=== PATIENT | female | born 1970 | race African-American/Black ===

== ENCOUNTER 2019-05-12 09:37 | Inpatient (IN) ==
[~2019-05-12 09:37] MED LIST: DIPRIVAN VIAL ONE; VERSED ONE
[2019-05-12] MEDS ORDERED: NS 500 ML IV 500 ML IV ONE (10:31)
[2019-05-12 11:28] LABS: BASOPHILS % (AUTO) 0.4 % (0.2-1.0); EOSINOPHILS % (AUTO) 0.2 % (0.9-2.9); HEMATOCRIT 33.6 % (36.0-47.0); HEMOGLOBIN 11.4 g/dL (12.0-16.0); LYMPHOCYTES # (AUTO) 1.4 X10^3/uL (1.3-2.9); LYMPHOCYTES % (AUTO) 13.3 % (21.0-51.0); MEAN CORPUSCULAR HEMOGLOBIN 29.8 pg (27.0-34.0); MEAN CORPUSCULAR VOLUME 87.7 fL (80.0-100.0); MEAN PLATELET VOLUME 8.6 fL (7.4-11.0); MONOCYTES # (AUTO) 1.1 x10^3/uL (0.3-0.8); MONOCYTES % (AUTO) 10.2 % (0.0-13.0); NEUTROPHILS # (AUTO) 7.9 x10^3/uL (2.2-4.8); NEUTROPHILS % (AUTO) 75.9 % (42.0-75.0); PLATELET COUNT 297 X10^3/uL (150.0-450.0); RED BLOOD COUNT 3.83 X10^6/uL (3.5-5.4); RED CELL DISTRIBUTION WIDTH 12.6 % (11.6-16.5); WHITE BLOOD COUNT 10.4 X10^3/uL (3.6-10.0)
[2019-05-12 11:44] LABS: ALANINE AMINOTRANSFERASE 36 Units/L (12-78); ALKALINE PHOSPHATASE 178 Units/L (46-116); ASPARTATE AMINO TRANSFERASE 34 Units/L (15-37); BLOOD UREA NITROGEN 12 mg/dL (7-18); CARBON DIOXIDE 27.2 mmol/L (21-32); CHLORIDE 95 mmol/L (98-107); COR CA(FOR HYPOALB) 9.8 mg/dL (8.5-10.1); COR NA(FOR HYPERGLY) 134 mmol/L (136-145); CREATININE 1.03 mg/dL (0.55-1.02); SODIUM 132 mmol/L (136-145); eGFR NON BLACK RACES > 60 (>60)
[2019-05-12 12:15] LABS: ERYTHROCYTE SEDIMENTATION RATE 94 MM/HOUR (0-20)
[2019-05-12] MEDS ORDERED: DILAUDID INJ IVP PRN ×2 (12:19→15:15)
[2019-05-12] MEDS ORDERED: DILAUDID INJ ONE (12:22)
[2019-05-12] MEDS: NS 1000 ML 1,000 ML IV SCH (12:36)
[2019-05-12] MEDS ORDERED: FORTAZ or TAZICEF VIAL INJ 2 G in NS 100 ML IV + SPIKE MINIBAG* 100 ML IV ONE (12:52)
--- NOTE | 2019-05-12 13:14 | RAD ---
HISTORY:Preoperative evaluation for abscess drainageStudy: Single view chestComparison:NoneFindings:No infiltrate, effusion, or pneumothorax identified .Cardiac and mediastinal contours are within normal limits .The soft tissues are intact .IMPRESSION:1. No acute cardiopulmonary abnormality.Electronically signed by: BLANCA ALMANZAR (May 12, 2019 13:13:24)
[2019-05-12 13:58] VITALS: BMI 38.0
[2019-05-12] MEDS ORDERED: FLAGYL IV PREMIX 500 MG BAG 500 MG/100 ML BAG IV ONE (14:00)
[2019-05-12] MEDS ORDERED: FENTANYL INJ 100 mcg ONE (14:00)
[2019-05-12] MEDS: FLAGYL IV PREMIX 500 MG BAG 500 MG/100 ML BAG IV SCH ×3 (14:00→21:06)
[2019-05-12] MEDS ORDERED: ANCEF 1 GRAM IV PREMIX* 1 G/50 ML BAG IV ONE (14:15)
[2019-05-12] MEDS ORDERED: XYLOCAINE 1 % (PLAIN) ONE (14:21)
[2019-05-12] MEDS ORDERED: POLYMYXIN B SULFATE ONE (14:25)
[2019-05-12] MEDS ORDERED: ZESTRIL TAB 20 MG ONE (20:49)
[2019-05-12] MEDS ORDERED: MILK OF MAGNESIA PO SCH (21:00)
[2019-05-12] MEDS ORDERED: COLACE CAP 100 MG PO SCH (21:00)
[2019-05-12] MEDS: ZESTRIL TAB 20 MG PO SCH (21:08)
[2019-05-12] MEDS: MORPHINE SULFATE INJ 2 MG INJ IVP PRN (21:13)
[2019-05-13] MEDS ORDERED: BENADRYL INJ 50 MG VIAL ONE (00:13)
[2019-05-13] MEDS: NS 1000 ML 1,000 ML IV SCH ×3 (00:19→13:49)
[2019-05-13] MEDS: BENADRYL INJ 50 MG VIAL IV PRN ×3 (00:19→21:30)
[2019-05-13] MEDS: MORPHINE SULFATE INJ 2 MG INJ IVP PRN ×4 (02:27→21:19)
[2019-05-13 05:14] LABS: BASOPHILS % (AUTO) 0.4 % (0.2-1.0); EOSINOPHILS # (AUTO) 0.1 x10^3/uL (0.0-0.2); EOSINOPHILS % (AUTO) 0.8 % (0.9-2.9); HEMATOCRIT 29.5 % (36.0-47.0); HEMOGLOBIN 9.9 g/dL (12.0-16.0); LYMPHOCYTES # (AUTO) 1.4 X10^3/uL (1.3-2.9); LYMPHOCYTES % (AUTO) 19.5 % (21.0-51.0); MEAN CORPUSCULAR HEMOGLOBIN 29.4 pg (27.0-34.0); MEAN CORPUSCULAR HGB CONC 33.6 g/dL (33.0-35.0); MEAN CORPUSCULAR VOLUME 87.6 fL (80.0-100.0); MEAN PLATELET VOLUME 8.3 fL (7.4-11.0); MONOCYTES # (AUTO) 0.8 x10^3/uL (0.3-0.8); MONOCYTES % (AUTO) 10.5 % (0.0-13.0); NEUTROPHILS # (AUTO) 5.1 x10^3/uL (2.2-4.8); NEUTROPHILS % (AUTO) 68.8 % (42.0-75.0); PLATELET COUNT 255 X10^3/uL (150.0-450.0); RED BLOOD COUNT 3.37 X10^6/uL (3.5-5.4); RED CELL DISTRIBUTION WIDTH 12.8 % (11.6-16.5); WHITE BLOOD COUNT 7.4 X10^3/uL (3.6-10.0)
[2019-05-13] MEDS: FLAGYL IV PREMIX 500 MG BAG 500 MG/100 ML BAG IV SCH ×3 (05:22→21:16)
[2019-05-13 05:29] LABS: ALANINE AMINOTRANSFERASE 40 Units/L (12-78); ALBUMIN 2.5 g/dL (3.4-5.0); ALKALINE PHOSPHATASE 229 Units/L (46-116); ASPARTATE AMINO TRANSFERASE 45 Units/L (15-37); BLOOD UREA NITROGEN 12 mg/dL (7-18); CALCIUM 8.1 mg/dL (8.5-10.1); CARBON DIOXIDE 26.7 mmol/L (21-32); CHLORIDE 100 mmol/L (98-107); COR CA(FOR HYPOALB) 9.3 mg/dL (8.5-10.1); COR NA(FOR HYPERGLY) 134 mmol/L (136-145); CREATININE 0.82 mg/dL (0.55-1.02); SODIUM 133 mmol/L (136-145); TOTAL PROTEIN 7.3 g/dL (6.4-8.2); eGFR NON BLACK RACES > 60 (>60)
[2019-05-13] MEDS ORDERED: KLOR-CON PO PRN (05:43)
[2019-05-13] MEDS ORDERED: POTASSIUM CHL 60 MEQ/NS 0.45% 500 ML IV PRN (05:43)
[2019-05-13] MEDS ORDERED: MICRO K EXTEN CAP 10 MEQ PO PRN (05:43)
[2019-05-13] MEDS ORDERED: K-RIDER 10 MEQ/NS 100 ML 10 MEQ/100 ML BAG IV PRN (05:43)
[2019-05-13] MEDS ORDERED: POTASSIUM CHL 40 MEQ/NS 0.45% 500 ML IV PRN (05:43)
[2019-05-13] MEDS ORDERED: POTASSIUM CHLORIDE LIQ 20 MEQ UDC PO PRN (05:43)
[2019-05-13 06:41] LABS: ERYTHROCYTE SEDIMENTATION RATE 102 MM/HOUR (0-20)
[2019-05-13] MEDS: K-DUR TAB 20 MEQ PO PRN (06:42)
[2019-05-13] MEDS: MAGNESIUM SULFATE 1 GRAM/100 mL PREMIX 1 GM/100 ML BAG IV PRN ×2 (06:43→08:45)
[2019-05-13] MEDS ORDERED: PHARMACY CONSULT - VANCOMYCIN XX SCH (09:00)
[2019-05-13] MEDS ORDERED: ZESTRIL TAB 20 MG ONE ×2 (09:07→19:43)
[2019-05-13] MEDS: ZESTRIL TAB 20 MG PO SCH ×2 (09:24→21:16)
[2019-05-13] MEDS: VANCOMYCIN IV *PREMIX 1 G/200 ML BAG 1 G/200 ML PIGGYBACK IV SCH ×3 (10:46→21:22)
[2019-05-13] MEDS: BETADINE SOLN TOP SCH ×3 (10:47→21:21)
[2019-05-13] MEDS ORDERED: COLACE CAP 100 MG PO PRN (11:18)
[2019-05-13] MEDS ORDERED: MILK OF MAGNESIA PO PRN (11:19)
[2019-05-14] MEDS: NS 1000 ML 1,000 ML IV SCH ×2 (01:51→17:52)
[2019-05-14] MEDS: MORPHINE SULFATE INJ 2 MG INJ IVP PRN ×4 (03:02→21:00)
[2019-05-14] MEDS: ULTRAM PO PRN (03:07)
[2019-05-14] MEDS: FLAGYL IV PREMIX 500 MG BAG 500 MG/100 ML BAG IV SCH ×3 (05:02→21:00)
[2019-05-14] MEDS: BETADINE SOLN TOP SCH ×3 (05:03→22:03)
[2019-05-14] MEDS: VANCOMYCIN IV *PREMIX 1 G/200 ML BAG 1 G/200 ML PIGGYBACK IV SCH ×3 (05:37→22:04)
[2019-05-14 05:46] LABS: BASOPHILS % (AUTO) 0.4 % (0.2-1.0); EOSINOPHILS # (AUTO) 0.1 x10^3/uL (0.0-0.2); EOSINOPHILS % (AUTO) 1.6 % (0.9-2.9); HEMATOCRIT 30.2 % (36.0-47.0); HEMOGLOBIN 10.4 g/dL (12.0-16.0); LYMPHOCYTES # (AUTO) 2.4 X10^3/uL (1.3-2.9); LYMPHOCYTES % (AUTO) 27.8 % (21.0-51.0); MEAN CORPUSCULAR HGB CONC 34.4 g/dL (33.0-35.0); MEAN CORPUSCULAR VOLUME 87.2 fL (80.0-100.0); MEAN PLATELET VOLUME 8.1 fL (7.4-11.0); MONOCYTES # (AUTO) 0.7 x10^3/uL (0.3-0.8); MONOCYTES % (AUTO) 8.6 % (0.0-13.0); NEUTROPHILS # (AUTO) 5.2 x10^3/uL (2.2-4.8); NEUTROPHILS % (AUTO) 61.6 % (42.0-75.0); PLATELET COUNT 275 X10^3/uL (150.0-450.0); RED BLOOD COUNT 3.46 X10^6/uL (3.5-5.4); RED CELL DISTRIBUTION WIDTH 12.9 % (11.6-16.5); WHITE BLOOD COUNT 8.5 X10^3/uL (3.6-10.0)
[2019-05-14 06:01] LABS: ALANINE AMINOTRANSFERASE 27 Units/L (12-78); ALBUMIN 2.3 g/dL (3.4-5.0); ALKALINE PHOSPHATASE 175 Units/L (46-116); ASPARTATE AMINO TRANSFERASE 25 Units/L (15-37); BLOOD UREA NITROGEN 11 mg/dL (7-18); CALCIUM 8.3 mg/dL (8.5-10.1); CARBON DIOXIDE 26.6 mmol/L (21-32); CHLORIDE 104 mmol/L (98-107); COR CA(FOR HYPOALB) 9.7 mg/dL (8.5-10.1); COR NA(FOR HYPERGLY) 138 mmol/L (136-145); CREATININE 0.74 mg/dL (0.55-1.02); MAGNESIUM 1.8 mg/dL (1.7-2.9); SODIUM 137 mmol/L (136-145); TOTAL PROTEIN 7.1 g/dL (6.4-8.2); eGFR NON BLACK RACES > 60 (>60)
[2019-05-14 06:57] LABS: ERYTHROCYTE SEDIMENTATION RATE 98 MM/HOUR (0-20)
[2019-05-14] MEDS ORDERED: ZESTRIL TAB 20 MG ONE ×2 (09:07→19:20)
[2019-05-14] MEDS: ZESTRIL TAB 20 MG PO SCH ×2 (09:30→21:02)
[2019-05-14] MEDS: BENADRYL INJ 50 MG VIAL IV PRN ×2 (11:48→21:04)
[2019-05-14] MEDS ORDERED: PHARMACY COMMENT IV NR (13:30)
[2019-05-14 13:53] LABS: CREATININE 0.84 mg/dL (0.55-1.02); VANCOMYCIN,TROUGH 12.3 ug/mL (15-20)
[2019-05-14] MEDS: HumuLIN R SC PRN (20:57)
[2019-05-15] MEDS: BENADRYL INJ 50 MG VIAL IV PRN (03:01)
[2019-05-15] MEDS: MORPHINE SULFATE INJ 2 MG INJ IVP PRN ×3 (03:02→21:40)
[2019-05-15] MEDS: ULTRAM PO PRN ×2 (03:27→08:32)
[2019-05-15] MEDS: VANCOMYCIN IV *PREMIX 1 G/200 ML BAG 1 G/200 ML PIGGYBACK IV SCH (05:00)
[2019-05-15] MEDS: BETADINE SOLN TOP SCH ×4 (05:00→21:52)
[2019-05-15] MEDS: FLAGYL IV PREMIX 500 MG BAG 500 MG/100 ML BAG IV SCH ×3 (05:08→21:52)
[2019-05-15] MEDS: NS 1000 ML 1,000 ML IV SCH ×2 (05:11→17:03)
[2019-05-15 06:19] LABS: BASOPHILS % (AUTO) 0.5 % (0.2-1.0); EOSINOPHILS # (AUTO) 0.2 x10^3/uL (0.0-0.2); EOSINOPHILS % (AUTO) 2.1 % (0.9-2.9); HEMATOCRIT 32.1 % (36.0-47.0); HEMOGLOBIN 10.8 g/dL (12.0-16.0); LYMPHOCYTES # (AUTO) 2.5 X10^3/uL (1.3-2.9); LYMPHOCYTES % (AUTO) 32.4 % (21.0-51.0); MEAN CORPUSCULAR HGB CONC 33.6 g/dL (33.0-35.0); MEAN CORPUSCULAR VOLUME 86.3 fL (80.0-100.0); MEAN PLATELET VOLUME 7.8 fL (7.4-11.0); MONOCYTES # (AUTO) 0.5 x10^3/uL (0.3-0.8); NEUTROPHILS # (AUTO) 4.5 x10^3/uL (2.2-4.8); PLATELET COUNT 332 X10^3/uL (150.0-450.0); RED BLOOD COUNT 3.72 X10^6/uL (3.5-5.4); RED CELL DISTRIBUTION WIDTH 12.5 % (11.6-16.5); WHITE BLOOD COUNT 7.7 X10^3/uL (3.6-10.0)
[2019-05-15 06:21] LABS: ALANINE AMINOTRANSFERASE 25 Units/L (12-78); ALBUMIN 2.4 g/dL (3.4-5.0); ALKALINE PHOSPHATASE 143 Units/L (46-116); ASPARTATE AMINO TRANSFERASE 19 Units/L (15-37); BLOOD UREA NITROGEN 8 mg/dL (7-18); CALCIUM 8.3 mg/dL (8.5-10.1); CARBON DIOXIDE 25.3 mmol/L (21-32); CHLORIDE 103 mmol/L (98-107); COR CA(FOR HYPOALB) 9.6 mg/dL (8.5-10.1); COR NA(FOR HYPERGLY) 138 mmol/L (136-145); CREATININE 0.69 mg/dL (0.55-1.02); SODIUM 136 mmol/L (136-145); TOTAL PROTEIN 7.1 g/dL (6.4-8.2); eGFR NON BLACK RACES > 60 (>60)
[2019-05-15 07:19] LABS: ERYTHROCYTE SEDIMENTATION RATE 95 MM/HOUR (0-20)
[2019-05-15] MEDS ORDERED: ZESTRIL TAB 20 MG ONE ×2 (08:07→20:06)
[2019-05-15] MEDS: ZESTRIL TAB 20 MG PO SCH ×2 (08:20→20:16)
--- NOTE | 2019-05-15 08:34 | PCM.PROG ---
Progress Note - Progress Note for Day of Date of Exam: 05/12/29 - Subjective Subjective: IS BEING TREATED FOR A BUTTOCK/RECTAL ABSCESS. SHE HAD BEEN TAKING BACTRIM AT HOME WITHOUT IMPROVEMENT IN SYMPTOMS. ON ADMISSION, TOOK PATIENT TO THE OR FOR I&D AND DEBRIDEMENT. WOUND WAS PACKED WITH IODIFORM AND CULTRUES WERE SET UP. TODAY, SHE IS ALERT AND ORIENTED, LYING IN BED ON MORNING ROUNDS. SHE CONTINUES WITH PAIN TO AREA. ON EXAMINATION, HEART IS REGULAR IN RATE AND RHYTHM. BILATERAL LUNGS ARE CLEAR TO AUSCULTATION. ABDOMEN IS ROUND, SOFT, AND NON-TENDER WITH NORMAL BOWEL SOUNDS NOTED IN ALL QUADRANTS. THERE IS A DRESSING NOTED TO BUTTOCK WITH NO DRAINAGE NOTED. IS MONITORING WOUND AND WILL PERFORM DAILY DRESSING CHANGES. HER VITALS THIS MORNING ARE: 98.8-83-20-98%-126/72. LABS WERE OBTAINED. ABNORMAL LAB VALUES INCLUDE THE FOLLOWING: RBC 3.37, HGB 9.9, HCT 29.5, SODIUM 133, GLUCOSE 133, CALCIUM 8.1, AST 45, ALK PHOS 229, CRP 118.90, ALBUMIN 2.5, GLOBULIN 4.8. WOUND AND BLOOD CULTURES ARE PENDING. SHE IS CURRENTLY RECEIVING NORMAL SALINE AT 80 ML/HR, VANCOMYCIN 1G IV Q8H, FLAGYL 500MG IV Q8H, HUMULIN R SLIDIDNG SCALE, MORPHINE 1-2MG IV Q4H PRN PAIN, THE POTASSIUM AND MAGNESIUM PROTOCOLS, AND HOME MEDICATIONS WERE RESUMED. WE WILL CONTINUE WITH CURRENT PLAN OF CARE TODAY. OTHERWISE, WE WILL FOLLOW UP WITH AM LABS AND CONTINUE TO MONITOR. - Past Medical Family Social History Past Med/Fam/Surg Hx: No changes since H&P Allergies: Allergies Penicillins Allergy (Verified 05/12/19 21:02) - Review of Systems ROS: No change since H&P - Vital Signs and I&O's Vital Signs: Temperature 98.5 F Pulse Rate [Left] 91 Respiratory Rate 20 Blood Pressure [Left Arm] 184/79 Blood Pressure [Right Arm] 172/90 Blood Pressure 155/99 O2 Sat by Pulse Oximetry 98 Intake and Output: Intake & Output 05/12/19 05/13/19 05/14/19 05/15/19 11:59 11:59 11:59 11:59 Intake Total 1430 / 1430 3210 / 3210 2925 / 2925 Output Total 200 / 200 Balance 1230 / 1230 3210 / 3210 2925 / 2925 - Physical Exam Oriented: Normal Eyes: Normal Ear: Normal Nose: Normal Throat: Normal Respiratory: Normal Cardiovascular: Normal : Normal Auscultation: Bowel Sounds: Normal Palpation: Normal Tenderness: Normal Skin: Tender, Hot, Wound (LEFT SIDED ISCHIORECTAL WOUND ) Musculoskeletal: Normal Psychiatric: Normal Mood Description: Calm Affect: Normal Speech Pattern: Clear - Laboratory and Diagnostics Result Diagrams: 05/15/19 05:23 05/15/19 05:23 Labs: 05/13/19 18:30 Stool Stool Culture - Preliminary 05/13/19 18:30 Stool - Final 05/12/19 14:30 Buttock Gram Stain - Final 05/12/19 14:30 Buttock Wound Culture - Final Proteus Mirabilis 05/12/19 10:40 Buttock Gram Stain - Final 05/12/19 10:40 Buttock Wound Culture - Final Proteus Mirabilis 05/12/19 10:57 Blood Blood Culture - Preliminary 05/12/19 11:07 Blood Blood Culture - Preliminary Laboratory WBC 7.7 X10^3/uL (3.6-10.0) 05/15/19 05:23 RBC 3.72 X10^6/uL (3.5-5.4) 05/15/19 05:23 Hgb 10.8 g/dL (12.0-16.0) L 05/15/19 05:23 Hct 32.1 % (36.0-47.0) L 05/15/19 05:23 MCV 86.3 fL (80.0-100.0) 05/15/19 05:23 MCH 29.0 pg (27.0-34.0) 05/15/19 05:23 MCHC 33.6 g/dL (33.0-35.0) 05/15/19 05:23 RDW 12.5 % (11.6-16.5) 05/15/19 05:23 Plt Count 332 X10^3/uL (150.0-450.0) 05/15/19 05:23 MPV 7.8 fL (7.4-11.0) 05/15/19 05:23 Neut % (Auto) 58.0 % (42.0-75.0) 05/15/19 05:23 Lymph % (Auto) 32.4 % (21.0-51.0) 05/15/19 05:23 [place] % (Auto) 7.0 % (0.0-13.0) 05/15/19 05:23 Eos % (Auto) 2.1 % (0.9-2.9) 05/15/19 05:23 Baso % (Auto) 0.5 % (0.2-1.0) 05/15/19 05:23 Neut # (Auto) 4.5 x10^3/uL (2.2-4.8) 05/15/19 05:23 Lymph # (Auto) 2.5 X10^3/uL (1.3-2.9) 05/15/19 05:23 [place] # (Auto) 0.5 x10^3/uL (0.3-0.8) 05/15/19 05:23 Eos # (Auto) 0.2 x10^3/uL (0.0-0.2) 05/15/19 05:23 Baso # (Auto) 0.0 X10^3/uL (0.0-0.1) 05/15/19 05:23 Absolute Nucleated RBC 0.0 /100WBC 05/15/19 05:23 ESR 95 MM/HOUR (0-20) H 05/15/19 05:23 Sodium 136 mmol/L (136-145) 05/15/19 05:23 Corrected Sodium 138 mmol/L (136-145) 05/15/19 05:23 Potassium 3.9 mmol/L (3.5-5.1) 05/15/19 05:23 Chloride 103 mmol/L (98-107) 05/15/19 05:23 Carbon Dioxide 25.3 mmol/L (21-32) 05/15/19 05:23 BUN 8 mg/dL (7-18) 05/15/19 05:23 Creatinine 0.69 mg/dL (0.55-1.02) 05/15/19 05:23 Est GFR (MDRD) Af Amer > 60 (>60) 05/15/19 05:23 Est GFR (MDRD) Non-Af > 60 (>60) 05/15/19 05:23 Glucose 184 mg/dL (65-99) H 05/15/19 05:23 POC Glucose (mg/dL) 179 mg/dL (65-99) H 05/15/19 05:21 Calcium 8.3 mg/dL (8.5-10.1) L 05/15/19 05:23 Corrected Calcium 9.6 mg/dL (8.5-10.1) 05/15/19 05:23 Magnesium 1.8 mg/dL (1.7-2.9) 05/14/19 05:15 Total Bilirubin 0.30 mg/dL (0.2-1.0) 05/15/19 05:23 AST 19 Units/L (15-37) 05/15/19 05:23 ALT 25 Units/L (12-78) 05/15/19 05:23 Alkaline Phosphatase 143 Units/L (46-116) H 05/15/19 05:23 C-Reactive Protein 46.70 mg/L (0-3.0) H 05/15/19 05:23 Total Protein 7.1 g/dL (6.4-8.2) 05/15/19 05:23 Albumin 2.4 g/dL (3.4-5.0) L 05/15/19 05:23 Globulin 4.7 g/dL (2.5-4.5) H 05/15/19 05:23 Albumin/Globulin Ratio 0.5 Ratio (1.1-2.1) L 05/15/19 05:23 Stool Description 50g,liquid,brown 05/13/19 18:30 Stl Occult Blood (IFOB) Negative (NEGATIVE) 05/13/19 18:30 Stool for White Cells Negative (NEGATIVE) 05/13/19 18:30 Stl C. diff Tox B Gene Negative (NEGATIVE) 05/13/19 18:30 Stl C. diff 027-NAP1-BI Negative (NEGATIVE) 05/13/19 18:30 Vancomycin Trough 12.3 ug/mL (15-20) L 05/14/19 13:30 - Plan (1) Ischiorectal abscess Status: Acute Plan: IV VANCOMYCIN, IV FLAGYL, IV FLUIDS, PAIN CONTROL, WOUND CARE, CONTINUE TO MONITOR
[2019-05-15] MEDS: INVANZ INJ 1 GM VIAL 1 GM in NS 100 ML IV + SPIKE MINIBAG* 100 ML IV SCH (09:26)
--- NOTE | 2019-05-15 10:18 | PCM.PROG ---
Progress Note - Progress Note for Day of Date of Exam: 05/14/19 - Subjective Subjective: IS BEING TREATED FOR AN ISCHIORECTAL ABSCESS. ON ADMISSION, TOOK PATIENT TO THE OR FOR I&D AND DEBRIDEMENT. WOUND WAS PACKED WITH IODIFORM AND CULTRUES WERE SET UP. TODAY, SHE IS ALERT AND ORIENTED, LYING IN BED ON MORNING ROUNDS. SHE CONTINUES WITH PAIN TO AREA. ON EXAMINATION, HEART IS REGULAR IN RATE AND RHYTHM. BILATERAL LUNGS ARE CLEAR TO AUSCULTATION. ABDOMEN IS ROUND, SOFT, AND NON-TENDER WITH NORMAL BOWEL SOUNDS NOTED IN ALL QUADRANTS. THERE IS A DRESSING NOTED TO BUTTOCK WITH NO DRAINAGE NOTED. IS MONITORING WOUND AND WILL PERFORM DAILY DRESSING CHANGES. HER VITALS THIS MORNING ARE: 98.0-84-18-100%-141/73. LABS WERE OBTAINED. ABNORMAL LAB VALUES INCLUDE THE FOLLOWING: RBC 3.46, HGB 10.4, HCT 30.2, GLUCOSE 137, CALCIUM 8.3, ALK PHOS 175, CRP 78.40, ALBUMIN 2.3, GLOBULIN 4.8. WOUND AND BLOOD CULTURES ARE PENDING. SHE IS CURRENTLY RECEIVING NORMAL SALINE AT 80 ML/HR, VANCOMYCIN 1G IV Q8H, FLAGYL 500MG IV Q8H, HUMULIN R SLIDIDNG SCALE, MORPHINE 1-2MG IV Q4H PRN PAIN, THE POTASSIUM AND MAGNESIUM PROTOCOLS, AND HOME MEDICATIONS WERE RESUMED. WE WILL CONTINUE WITH CURRENT PLAN OF CARE TODAY. OTHERWISE, WE WILL FOLLOW UP WITH AM LABS AND CONTINUE TO MONITOR. - Past Medical Family Social History Past Med/Fam/Surg Hx: No changes since H&P Allergies: Allergies Penicillins Allergy (Verified 05/12/19 21:02) - Review of Systems ROS: No change since H&P - Vital Signs and I&O's Vital Signs: Temperature 98.4 F Pulse Rate [Left] 82 Respiratory Rate 20 Blood Pressure [Left Arm] 184/79 Blood Pressure [Right Arm] 162/97 Blood Pressure 155/99 O2 Sat by Pulse Oximetry 98 Intake and Output: Intake & Output 05/12/19 05/13/19 05/14/19 05/15/19 11:59 11:59 11:59 11:59 Intake Total 1430 / 1430 3210 / 3210 2925 / 2925 Output Total 200 / 200 Balance 1230 / 1230 3210 / 3210 2925 / 2925 - Physical Exam Oriented: Normal Eyes: Normal Ear: Normal Nose: Normal Throat: Normal Respiratory: Normal Cardiovascular: Normal : Normal Auscultation: Bowel Sounds: Normal Tenderness: Normal Skin: Tender, Hot, Wound (LEFT SIDED ISCHIORECTAL WOUND ) Musculoskeletal: Normal Psychiatric: Normal Mood Description: Calm Affect: Normal Speech Pattern: Clear, Appropriate - Laboratory and Diagnostics Result Diagrams: 05/15/19 05:23 05/15/19 05:23 Labs: 05/13/19 18:30 Stool Stool Culture - Final 05/13/19 18:30 Stool - Final 05/12/19 14:30 Buttock Gram Stain - Final 05/12/19 14:30 Buttock Wound Culture - Final Proteus Mirabilis 05/12/19 10:40 Buttock Gram Stain - Final 05/12/19 10:40 Buttock Wound Culture - Final Proteus Mirabilis 05/12/19 10:57 Blood Blood Culture - Preliminary 05/12/19 11:07 Blood Blood Culture - Preliminary Laboratory WBC 7.7 X10^3/uL (3.6-10.0) 05/15/19 05:23 RBC 3.72 X10^6/uL (3.5-5.4) 05/15/19 05:23 Hgb 10.8 g/dL (12.0-16.0) L 05/15/19 05:23 Hct 32.1 % (36.0-47.0) L 05/15/19 05:23 MCV 86.3 fL (80.0-100.0) 05/15/19 05:23 MCH 29.0 pg (27.0-34.0) 05/15/19 05:23 MCHC 33.6 g/dL (33.0-35.0) 05/15/19 05:23 RDW 12.5 % (11.6-16.5) 05/15/19 05:23 Plt Count 332 X10^3/uL (150.0-450.0) 05/15/19 05:23 MPV 7.8 fL (7.4-11.0) 05/15/19 05:23 Neut % (Auto) 58.0 % (42.0-75.0) 05/15/19 05:23 Lymph % (Auto) 32.4 % (21.0-51.0) 05/15/19 05:23 [place] % (Auto) 7.0 % (0.0-13.0) 05/15/19 05:23 Eos % (Auto) 2.1 % (0.9-2.9) 05/15/19 05:23 Baso % (Auto) 0.5 % (0.2-1.0) 05/15/19 05:23 Neut # (Auto) 4.5 x10^3/uL (2.2-4.8) 05/15/19 05:23 Lymph # (Auto) 2.5 X10^3/uL (1.3-2.9) 05/15/19 05:23 [place] # (Auto) 0.5 x10^3/uL (0.3-0.8) 05/15/19 05:23 Eos # (Auto) 0.2 x10^3/uL (0.0-0.2) 05/15/19 05:23 Baso # (Auto) 0.0 X10^3/uL (0.0-0.1) 05/15/19 05:23 Absolute Nucleated RBC 0.0 /100WBC 05/15/19 05:23 ESR 95 MM/HOUR (0-20) H 05/15/19 05:23 Sodium 136 mmol/L (136-145) 05/15/19 05:23 Corrected Sodium 138 mmol/L (136-145) 05/15/19 05:23 Potassium 3.9 mmol/L (3.5-5.1) 05/15/19 05:23 Chloride 103 mmol/L (98-107) 05/15/19 05:23 Carbon Dioxide 25.3 mmol/L (21-32) 05/15/19 05:23 BUN 8 mg/dL (7-18) 05/15/19 05:23 Creatinine 0.69 mg/dL (0.55-1.02) 05/15/19 05:23 Est GFR (MDRD) Af Amer > 60 (>60) 05/15/19 05:23 Est GFR (MDRD) Non-Af > 60 (>60) 05/15/19 05:23 Glucose 184 mg/dL (65-99) H 05/15/19 05:23 POC Glucose (mg/dL) 179 mg/dL (65-99) H 05/15/19 05:21 Calcium 8.3 mg/dL (8.5-10.1) L 05/15/19 05:23 Corrected Calcium 9.6 mg/dL (8.5-10.1) 05/15/19 05:23 Magnesium 1.8 mg/dL (1.7-2.9) 05/14/19 05:15 Total Bilirubin 0.30 mg/dL (0.2-1.0) 05/15/19 05:23 AST 19 Units/L (15-37) 05/15/19 05:23 ALT 25 Units/L (12-78) 05/15/19 05:23 Alkaline Phosphatase 143 Units/L (46-116) H 05/15/19 05:23 C-Reactive Protein 46.70 mg/L (0-3.0) H 05/15/19 05:23 Total Protein 7.1 g/dL (6.4-8.2) 05/15/19 05:23 Albumin 2.4 g/dL (3.4-5.0) L 05/15/19 05:23 Globulin 4.7 g/dL (2.5-4.5) H 05/15/19 05:23 Albumin/Globulin Ratio 0.5 Ratio (1.1-2.1) L 05/15/19 05:23 Stool Description 50g,liquid,brown 05/13/19 18:30 Stl Occult Blood (IFOB) Negative (NEGATIVE) 05/13/19 18:30 Stool for White Cells Negative (NEGATIVE) 05/13/19 18:30 Stl C. diff Tox B Gene Negative (NEGATIVE) 05/13/19 18:30 Stl C. diff 027-NAP1-BI Negative (NEGATIVE) 05/13/19 18:30 Vancomycin Trough 12.3 ug/mL (15-20) L 05/14/19 13:30 - Plan (1) Ischiorectal abscess Status: Acute Plan: IV VANCOMYCIN, IV FLAGYL, IV FLUIDS, PAIN CONTROL, WOUND CARE, CONTINUE TO MONITOR
[2019-05-15] MEDS: LOVENOX INJ 40 MG SYR SC SCH (10:30)
--- NOTE | 2019-05-15 11:26 | PCM.PROG ---
Progress Note - Progress Note for Day of Date of Exam: 05/15/19 - Subjective Subjective: IS BEING TREATED FOR AN ISCHIORECTAL ABSCESS. ON ADMISSION, TOOK PATIENT TO THE OR FOR I&D AND DEBRIDEMENT. WOUND WAS PACKED WITH IODIFORM AND CULTRUES WERE SET UP. TODAY, SHE IS ALERT AND ORIENTED, LYING IN BED ON MORNING ROUNDS. SHE CONTINUES WITH PAIN TO AREA. ON EXAMINATION, HEART IS REGULAR IN RATE AND RHYTHM. BILATERAL LUNGS ARE CLEAR TO AUSCULTATION. ABDOMEN IS ROUND, SOFT, AND NON-TENDER WITH NORMAL BOWEL SOUNDS NOTED IN ALL QUADRANTS. THERE IS A DRESSING NOTED TO BUTTOCK WITH NO DRAINAGE NOTED. IS MONITORING WOUND AND WILL PERFORM DAILY DRESSING CHANGES. HER VITALS THIS MORNING ARE: 98.4-82-20-98%-162/97. LABS WERE OBTAINED. ABNORMAL LAB VALUES I NCLUDE THE FOLLOWING: HGB 10.8, HCT 32.1, GLUCOSE 184, CALCIUM 8.3, ALK PHOS 143, CRP 46.70, ALBUMIN 2.4, GLOBULIN 4.7. BLOOD CULTURES ARE PENDING. WOUND CULTURES REVEALED GROWTH OF PROTEUS MIRABILIS. SHE IS CURRENTLY RECEIVING NORMAL SALINE AT 80 ML/HR, VANCOMYCIN 1G IV Q8H, FLAGYL 500MG IV Q8H, HUMULIN R SLIDIDNG SCALE, MORPHINE 1-2MG IV Q4H PRN PAIN, THE POTASSIUM AND MAGNESIUM PROTOCOLS, AND HOME MEDICATIONS WERE RESUMED. TODAY, WE WILL DISCONTINUE THE VANCOMYCIN AND START INVANZ 1G IV DAILY. OTHERWISE, WE WILL FOLLOW UP WITH AM LABS AND CONTINUE TO MONITOR. - Past Medical Family Social History Past Med/Fam/Surg Hx: No changes since H&P Allergies: Allergies Penicillins Allergy (Verified 05/12/19 21:02) - Review of Systems ROS: No change since H&P - Vital Signs and I&O's Vital Signs: Temperature 98.4 F Pulse Rate [Left] 82 Respiratory Rate 20 Blood Pressure [Left Arm] 184/79 Blood Pressure [Right Arm] 162/97 Blood Pressure 155/99 O2 Sat by Pulse Oximetry 98 Intake and Output: Intake & Output 05/12/19 05/13/19 05/14/19 05/15/19 11:59 11:59 11:59 11:59 Intake Total 1430 / 1430 3210 / 3210 2925 / 2925 Output Total 200 / 200 Balance 1230 / 1230 3210 / 3210 2925 / 2925 - Physical Exam Oriented: Normal Eyes: Normal Ear: Normal Nose: Normal Throat: Normal Respiratory: Normal Cardiovascular: Normal : Normal Auscultation: Bowel Sounds: Normal Palpation: Normal Tenderness: Normal Skin: Tender, Hot, Wound (LEFT SIDED ISCHIORECTAL WOUND ) Musculoskeletal: Normal Psychiatric: Normal Mood Description: Calm Affect: Normal Speech Pattern: Clear, Appropriate - Laboratory and Diagnostics Result Diagrams: 05/15/19 05:23 05/15/19 05:23 Labs: 05/13/19 18:30 Stool Stool Culture - Final 05/13/19 18:30 Stool - Final 05/12/19 14:30 Buttock Gram Stain - Final 05/12/19 14:30 Buttock Wound Culture - Final Proteus Mirabilis 05/12/19 10:40 Buttock Gram Stain - Final 05/12/19 10:40 Buttock Wound Culture - Final Proteus Mirabilis 05/12/19 10:57 Blood Blood Culture - Preliminary 05/12/19 11:07 Blood Blood Culture - Preliminary Laboratory WBC 7.7 X10^3/uL (3.6-10.0) 05/15/19 05:23 RBC 3.72 X10^6/uL (3.5-5.4) 05/15/19 05:23 Hgb 10.8 g/dL (12.0-16.0) L 05/15/19 05:23 Hct 32.1 % (36.0-47.0) L 05/15/19 05:23 MCV 86.3 fL (80.0-100.0) 05/15/19 05:23 MCH 29.0 pg (27.0-34.0) 05/15/19 05:23 MCHC 33.6 g/dL (33.0-35.0) 05/15/19 05:23 RDW 12.5 % (11.6-16.5) 05/15/19 05:23 Plt Count 332 X10^3/uL (150.0-450.0) 05/15/19 05:23 MPV 7.8 fL (7.4-11.0) 05/15/19 05:23 Neut % (Auto) 58.0 % (42.0-75.0) 05/15/19 05:23 Lymph % (Auto) 32.4 % (21.0-51.0) 05/15/19 05:23 [place] % (Auto) 7.0 % (0.0-13.0) 05/15/19 05:23 Eos % (Auto) 2.1 % (0.9-2.9) 05/15/19 05:23 Baso % (Auto) 0.5 % (0.2-1.0) 05/15/19 05:23 Neut # (Auto) 4.5 x10^3/uL (2.2-4.8) 05/15/19 05:23 Lymph # (Auto) 2.5 X10^3/uL (1.3-2.9) 05/15/19 05:23 [place] # (Auto) 0.5 x10^3/uL (0.3-0.8) 05/15/19 05:23 Eos # (Auto) 0.2 x10^3/uL (0.0-0.2) 05/15/19 05:23 Baso # (Auto) 0.0 X10^3/uL (0.0-0.1) 05/15/19 05:23 Absolute Nucleated RBC 0.0 /100WBC 05/15/19 05:23 ESR 95 MM/HOUR (0-20) H 05/15/19 05:23 Sodium 136 mmol/L (136-145) 05/15/19 05:23 Corrected Sodium 138 mmol/L (136-145) 05/15/19 05:23 Potassium 3.9 mmol/L (3.5-5.1) 05/15/19 05:23 Chloride 103 mmol/L (98-107) 05/15/19 05:23 Carbon Dioxide 25.3 mmol/L (21-32) 05/15/19 05:23 BUN 8 mg/dL (7-18) 05/15/19 05:23 Creatinine 0.69 mg/dL (0.55-1.02) 05/15/19 05:23 Est GFR (MDRD) Af Amer > 60 (>60) 05/15/19 05:23 Est GFR (MDRD) Non-Af > 60 (>60) 05/15/19 05:23 Glucose 184 mg/dL (65-99) H 05/15/19 05:23 POC Glucose (mg/dL) 179 mg/dL (65-99) H 05/15/19 05:21 Calcium 8.3 mg/dL (8.5-10.1) L 05/15/19 05:23 Corrected Calcium 9.6 mg/dL (8.5-10.1) 05/15/19 05:23 Magnesium 1.8 mg/dL (1.7-2.9) 05/14/19 05:15 Total Bilirubin 0.30 mg/dL (0.2-1.0) 05/15/19 05:23 AST 19 Units/L (15-37) 05/15/19 05:23 ALT 25 Units/L (12-78) 05/15/19 05:23 Alkaline Phosphatase 143 Units/L (46-116) H 05/15/19 05:23 C-Reactive Protein 46.70 mg/L (0-3.0) H 05/15/19 05:23 Total Protein 7.1 g/dL (6.4-8.2) 05/15/19 05:23 Albumin 2.4 g/dL (3.4-5.0) L 05/15/19 05:23 Globulin 4.7 g/dL (2.5-4.5) H 05/15/19 05:23 Albumin/Globulin Ratio 0.5 Ratio (1.1-2.1) L 05/15/19 05:23 Stool Description 50g,liquid,brown 05/13/19 18:30 Stl Occult Blood (IFOB) Negative (NEGATIVE) 05/13/19 18:30 Stool for White Cells Negative (NEGATIVE) 05/13/19 18:30 Stl C. diff Tox B Gene Negative (NEGATIVE) 05/13/19 18:30 Stl C. diff 027-NAP1-BI Negative (NEGATIVE) 05/13/19 18:30 Vancomycin Trough 12.3 ug/mL (15-20) L 05/14/19 13:30 - Plan (1) Ischiorectal abscess Status: Acute Plan: INVANZ IV, IV FLAGYL, IV FLUIDS, PAIN CONTROL, WOUND CARE, CONTINUE TO MONITOR (2) Hypertension Status: Acute Qualifiers: Hypertension type: essential hypertension Qualified Code(s): I10 - Essential (primary) hypertension Plan: CONTINUE HOME MEDS
[2019-05-15] MEDS ORDERED: ZOFRAN INJ 4 MG VIAL IVP PRN (11:40)
[2019-05-15] MEDS ORDERED: ZOFRAN INJ 4 MG VIAL ONE (11:41)
--- NOTE | 2019-05-15 11:53 | DR.PROGNOT ---
Hospital Progress Notes - Progress Note for Day of: Progress Note Date: 05/15/19 - Chief Complaint Chief Complaint: doing fairly wel , s/p drainage and debridement of large ischiorectal abscess . - Past Medical Family Social History Past Med/Fam/Surg Hx: No changes since H&P Allergies: Allergies Penicillins Allergy (Verified 05/12/19 21:02) - Review Of Systems ROS: No change since H&P - Vital Signs Vital Signs: Temperature 98.4 F Pulse Rate [Left] 82 Respiratory Rate 20 Blood Pressure [Left Arm] 184/79 Blood Pressure [Right Arm] 162/97 Blood Pressure 155/99 O2 Sat by Pulse Oximetry 98 - Physical Exam Oriented: Normal Eyes: Normal Ear: Normal Nose: Normal Throat: Normal Respiratory: Normal Cardiovascular: Normal : Normal GI:Auscultation: Normal GI:Palpation: Normal GI: Tenderness: Normal Skin: Tender, Hot, Wound (LEFT SIDED ISCHIORECTAL WOUND ) Musculoskeletal: Normal Psychiatric: Normal Mood Description: Calm Affect: Normal Speech Pattern: Clear, Appropriate - Laboratory and Diagnostics Result Diagrams: 05/15/19 05:23 05/15/19 05:23 Labs: 05/13/19 18:30 Stool Stool Culture - Final 05/13/19 18:30 Stool - Final 05/12/19 14:30 Buttock Gram Stain - Final 05/12/19 14:30 Buttock Wound Culture - Final Proteus Mirabilis 05/12/19 10:40 Buttock Gram Stain - Final 05/12/19 10:40 Buttock Wound Culture - Final Proteus Mirabilis 05/12/19 10:57 Blood Blood Culture - Preliminary 05/12/19 11:07 Blood Blood Culture - Preliminary Laboratory WBC 7.7 X10^3/uL (3.6-10.0) 05/15/19 05:23 RBC 3.72 X10^6/uL (3.5-5.4) 05/15/19 05:23 Hgb 10.8 g/dL (12.0-16.0) L 05/15/19 05:23 Hct 32.1 % (36.0-47.0) L 05/15/19 05:23 MCV 86.3 fL (80.0-100.0) 05/15/19 05:23 MCH 29.0 pg (27.0-34.0) 05/15/19 05:23 MCHC 33.6 g/dL (33.0-35.0) 05/15/19 05:23 RDW 12.5 % (11.6-16.5) 05/15/19 05:23 Plt Count 332 X10^3/uL (150.0-450.0) 05/15/19 05:23 MPV 7.8 fL (7.4-11.0) 05/15/19 05:23 Neut % (Auto) 58.0 % (42.0-75.0) 05/15/19 05:23 Lymph % (Auto) 32.4 % (21.0-51.0) 05/15/19 05:23 [place] % (Auto) 7.0 % (0.0-13.0) 05/15/19 05:23 Eos % (Auto) 2.1 % (0.9-2.9) 05/15/19 05:23 Baso % (Auto) 0.5 % (0.2-1.0) 05/15/19 05:23 Neut # (Auto) 4.5 x10^3/uL (2.2-4.8) 05/15/19 05:23 Lymph # (Auto) 2.5 X10^3/uL (1.3-2.9) 05/15/19 05:23 [place] # (Auto) 0.5 x10^3/uL (0.3-0.8) 05/15/19 05:23 Eos # (Auto) 0.2 x10^3/uL (0.0-0.2) 05/15/19 05:23 Baso # (Auto) 0.0 X10^3/uL (0.0-0.1) 05/15/19 05:23 Absolute Nucleated RBC 0.0 /100WBC 05/15/19 05:23 ESR 95 MM/HOUR (0-20) H 05/15/19 05:23 Sodium 136 mmol/L (136-145) 05/15/19 05:23 Corrected Sodium 138 mmol/L (136-145) 05/15/19 05:23 Potassium 3.9 mmol/L (3.5-5.1) 05/15/19 05:23 Chloride 103 mmol/L (98-107) 05/15/19 05:23 Carbon Dioxide 25.3 mmol/L (21-32) 05/15/19 05:23 BUN 8 mg/dL (7-18) 05/15/19 05:23 Creatinine 0.69 mg/dL (0.55-1.02) 05/15/19 05:23 Est GFR (MDRD) Af Amer > 60 (>60) 05/15/19 05:23 Est GFR (MDRD) Non-Af > 60 (>60) 05/15/19 05:23 Glucose 184 mg/dL (65-99) H 05/15/19 05:23 POC Glucose (mg/dL) 162 mg/dL (65-99) H 05/15/19 11:28 Calcium 8.3 mg/dL (8.5-10.1) L 05/15/19 05:23 Corrected Calcium 9.6 mg/dL (8.5-10.1) 05/15/19 05:23 Magnesium 1.8 mg/dL (1.7-2.9) 05/14/19 05:15 Total Bilirubin 0.30 mg/dL (0.2-1.0) 05/15/19 05:23 AST 19 Units/L (15-37) 05/15/19 05:23 ALT 25 Units/L (12-78) 05/15/19 05:23 Alkaline Phosphatase 143 Units/L (46-116) H 05/15/19 05:23 C-Reactive Protein 46.70 mg/L (0-3.0) H 05/15/19 05:23 Total Protein 7.1 g/dL (6.4-8.2) 05/15/19 05:23 Albumin 2.4 g/dL (3.4-5.0) L 05/15/19 05:23 Globulin 4.7 g/dL (2.5-4.5) H 05/15/19 05:23 Albumin/Globulin Ratio 0.5 Ratio (1.1-2.1) L 05/15/19 05:23 Stool Description 50g,liquid,brown 05/13/19 18:30 Stl Occult Blood (IFOB) Negative (NEGATIVE) 05/13/19 18:30 Stool for White Cells Negative (NEGATIVE) 05/13/19 18:30 Stl C. diff Tox B Gene Negative (NEGATIVE) 05/13/19 18:30 Stl C. diff [id number] Negative (NEGATIVE) 05/13/19 18:30 Vancomycin Trough 12.3 ug/mL (15-20) L 05/14/19 13:30 - Problem Patient Problems: Patient Problems Ischiorectal abscess (Acute) K61.39 Hypertension (Acute) I10 Abscess of left knee (Acute) L02.416
--- NOTE | 2019-05-15 12:00 | DR.PROGNOT ---
Hospital Progress Notes - Progress Note for Day of: Progress Note Date: 05/15/19 - Chief Complaint Chief Complaint: doing fairly wel , s/p drainage and debridement of large ischiorectal abscess only mild drainage site. DM , obesity .. mild anemia , BS 162. Vanco level 12.3 - Past Medical Family Social History Past Med/Fam/Surg Hx: No changes since H&P Allergies: Allergies Penicillins Allergy (Verified 05/12/19 21:02) - Review Of Systems ROS: No change since H&P - Vital Signs Vital Signs: Temperature 98.4 F Pulse Rate [Left] 82 Respiratory Rate 20 Blood Pressure [Left Arm] 184/79 Blood Pressure [Right Arm] 162/97 Blood Pressure 155/99 O2 Sat by Pulse Oximetry 98 - Physical Exam Oriented: Normal Eyes: Normal Ear: Normal Nose: Normal Throat: Normal Respiratory: Normal Cardiovascular: Normal : Normal GI:Auscultation: Normal GI:Palpation: Normal GI: Tenderness: Normal Skin: Tender, Hot, Wound (LEFT SIDED ISCHIORECTAL WOUND . less cellulitis .. packing was removed ) Musculoskeletal: Normal Psychiatric: Normal Mood Description: Calm Affect: Normal Speech Pattern: Clear, Appropriate - Laboratory and Diagnostics Result Diagrams: 05/15/19 05:23 05/15/19 05:23 Labs: 05/13/19 18:30 Stool Stool Culture - Final 05/13/19 18:30 Stool - Final 05/12/19 14:30 Buttock Gram Stain - Final 05/12/19 14:30 Buttock Wound Culture - Final Proteus Mirabilis 05/12/19 10:40 Buttock Gram Stain - Final 05/12/19 10:40 Buttock Wound Culture - Final Proteus Mirabilis 05/12/19 10:57 Blood Blood Culture - Preliminary 05/12/19 11:07 Blood Blood Culture - Preliminary Laboratory WBC 7.7 X10^3/uL (3.6-10.0) 05/15/19 05:23 RBC 3.72 X10^6/uL (3.5-5.4) 05/15/19 05:23 Hgb 10.8 g/dL (12.0-16.0) L 05/15/19 05:23 Hct 32.1 % (36.0-47.0) L 05/15/19 05:23 MCV 86.3 fL (80.0-100.0) 05/15/19 05:23 MCH 29.0 pg (27.0-34.0) 05/15/19 05:23 MCHC 33.6 g/dL (33.0-35.0) 05/15/19 05:23 RDW 12.5 % (11.6-16.5) 05/15/19 05:23 Plt Count 332 X10^3/uL (150.0-450.0) 05/15/19 05:23 MPV 7.8 fL (7.4-11.0) 05/15/19 05:23 Neut % (Auto) 58.0 % (42.0-75.0) 05/15/19 05:23 Lymph % (Auto) 32.4 % (21.0-51.0) 05/15/19 05:23 [place] % (Auto) 7.0 % (0.0-13.0) 05/15/19 05:23 Eos % (Auto) 2.1 % (0.9-2.9) 05/15/19 05:23 Baso % (Auto) 0.5 % (0.2-1.0) 05/15/19 05:23 Neut # (Auto) 4.5 x10^3/uL (2.2-4.8) 05/15/19 05:23 Lymph # (Auto) 2.5 X10^3/uL (1.3-2.9) 05/15/19 05:23 [place] # (Auto) 0.5 x10^3/uL (0.3-0.8) 05/15/19 05:23 Eos # (Auto) 0.2 x10^3/uL (0.0-0.2) 05/15/19 05:23 Baso # (Auto) 0.0 X10^3/uL (0.0-0.1) 05/15/19 05:23 Absolute Nucleated RBC 0.0 /100WBC 05/15/19 05:23 ESR 95 MM/HOUR (0-20) H 05/15/19 05:23 Sodium 136 mmol/L (136-145) 05/15/19 05:23 Corrected Sodium 138 mmol/L (136-145) 05/15/19 05:23 Potassium 3.9 mmol/L (3.5-5.1) 05/15/19 05:23 Chloride 103 mmol/L (98-107) 05/15/19 05:23 Carbon Dioxide 25.3 mmol/L (21-32) 05/15/19 05:23 BUN 8 mg/dL (7-18) 05/15/19 05:23 Creatinine 0.69 mg/dL (0.55-1.02) 05/15/19 05:23 Est GFR (MDRD) Af Amer > 60 (>60) 05/15/19 05:23 Est GFR (MDRD) Non-Af > 60 (>60) 05/15/19 05:23 Glucose 184 mg/dL (65-99) H 05/15/19 05:23 POC Glucose (mg/dL) 162 mg/dL (65-99) H 05/15/19 11:28 Calcium 8.3 mg/dL (8.5-10.1) L 05/15/19 05:23 Corrected Calcium 9.6 mg/dL (8.5-10.1) 05/15/19 05:23 Magnesium 1.8 mg/dL (1.7-2.9) 05/14/19 05:15 Total Bilirubin 0.30 mg/dL (0.2-1.0) 05/15/19 05:23 AST 19 Units/L (15-37) 05/15/19 05:23 ALT 25 Units/L (12-78) 05/15/19 05:23 Alkaline Phosphatase 143 Units/L (46-116) H 05/15/19 05:23 C-Reactive Protein 46.70 mg/L (0-3.0) H 05/15/19 05:23 Total Protein 7.1 g/dL (6.4-8.2) 05/15/19 05:23 Albumin 2.4 g/dL (3.4-5.0) L 05/15/19 05:23 Globulin 4.7 g/dL (2.5-4.5) H 05/15/19 05:23 Albumin/Globulin Ratio 0.5 Ratio (1.1-2.1) L 05/15/19 05:23 Stool Description 50g,liquid,brown 05/13/19 18:30 Stl Occult Blood (IFOB) Negative (NEGATIVE) 05/13/19 18:30 Stool for White Cells Negative (NEGATIVE) 05/13/19 18:30 Stl C. diff Tox B Gene Negative (NEGATIVE) 05/13/19 18:30 Stl C. diff [id number] Negative (NEGATIVE) 05/13/19 18:30 Vancomycin Trough 12.3 ug/mL (15-20) L 05/14/19 13:30 - Assessment and Plan 1: ischio rectal abscess ,s/p I&D . same ATB , local care with jocelyne. will follow in2 weeks and arrange for future colonoscopy .. - Problem Patient Problems: Patient Problems Ischiorectal abscess (Acute) K61.39 Hypertension (Acute) I10 Abscess of left knee (Acute) L02.416
[2019-05-15] MEDS ORDERED: LABETALOL HCL IVP ONE (14:37)
[2019-05-15] MEDS ORDERED: NORMODYNE INJ 20 MG VIAL IVP PRN (14:43)
[2019-05-15] MEDS: HumuLIN R SC PRN (20:16)
[2019-05-16] MEDS: BENADRYL INJ 50 MG VIAL IV PRN (00:33)
[2019-05-16 05:17] LABS: BASOPHILS % (AUTO) 0.5 % (0.2-1.0); EOSINOPHILS # (AUTO) 0.2 x10^3/uL (0.0-0.2); EOSINOPHILS % (AUTO) 2.4 % (0.9-2.9); HEMATOCRIT 31.1 % (36.0-47.0); HEMOGLOBIN 10.6 g/dL (12.0-16.0); LYMPHOCYTES # (AUTO) 2.9 X10^3/uL (1.3-2.9); LYMPHOCYTES % (AUTO) 39.8 % (21.0-51.0); MEAN CORPUSCULAR HEMOGLOBIN 29.4 pg (27.0-34.0); MEAN CORPUSCULAR VOLUME 86.5 fL (80.0-100.0); MEAN PLATELET VOLUME 8.2 fL (7.4-11.0); MONOCYTES # (AUTO) 0.5 x10^3/uL (0.3-0.8); MONOCYTES % (AUTO) 7.1 % (0.0-13.0); NEUTROPHILS # (AUTO) 3.7 x10^3/uL (2.2-4.8); NEUTROPHILS % (AUTO) 50.2 % (42.0-75.0); PLATELET COUNT 335 X10^3/uL (150.0-450.0); RED CELL DISTRIBUTION WIDTH 12.5 % (11.6-16.5); WHITE BLOOD COUNT 7.4 X10^3/uL (3.6-10.0)
[2019-05-16 05:24] LABS: ALANINE AMINOTRANSFERASE 23 Units/L (12-78); ALBUMIN 2.4 g/dL (3.4-5.0); ALKALINE PHOSPHATASE 128 Units/L (46-116); ASPARTATE AMINO TRANSFERASE 24 Units/L (15-37); BLOOD UREA NITROGEN 7 mg/dL (7-18); CALCIUM 8.3 mg/dL (8.5-10.1); CARBON DIOXIDE 28.8 mmol/L (21-32); CHLORIDE 102 mmol/L (98-107); COR CA(FOR HYPOALB) 9.6 mg/dL (8.5-10.1); COR NA(FOR HYPERGLY) 138 mmol/L (136-145); CREATININE 0.81 mg/dL (0.55-1.02); SODIUM 136 mmol/L (136-145); TOTAL PROTEIN 7.1 g/dL (6.4-8.2); eGFR NON BLACK RACES > 60 (>60)
[2019-05-16] MEDS: BETADINE SOLN TOP SCH (06:30)
[2019-05-16] MEDS: NS 1000 ML 1,000 ML IV SCH (06:31)
[2019-05-16] MEDS: FLAGYL IV PREMIX 500 MG BAG 500 MG/100 ML BAG IV SCH (06:31)
[2019-05-16] MEDS: HumuLIN R SC PRN (06:33)
[2019-05-16] MEDS: K-DUR TAB 20 MEQ PO PRN (06:34)
[2019-05-16] MEDS ORDERED: ZESTRIL TAB 20 MG ONE (08:25)
[2019-05-16] MEDS: LOVENOX INJ 40 MG SYR SC SCH (08:43)
[2019-05-16] MEDS: INVANZ INJ 1 GM VIAL 1 GM in NS 100 ML IV + SPIKE MINIBAG* 100 ML IV SCH (08:43)
[2019-05-16] MEDS: ZESTRIL TAB 20 MG PO SCH (08:47)
[2019-05-16 11:46] VITALS: BP 124/84
--- NOTE | 2019-06-19 22:47 | DR.UPDATE ---
H&P Update History and Physical Update: History and Physical reviewed and patient examined. Changes noted: Yes with the following: WAS SEEN IN THE OFFICE TODAY FOR COMPLAINTS OF AN ABSCESS TO THE BUTTOCKS. WOUND IS LOCATED IN THE LEFT UPPER BUTTOCKS/FOLD. WOUND HAS PURULENT DRAINAGE WITH A FOUL ODOR. SHE HAS BEEN ON BA CTRIM DS 1 TABLET BID X 3 DAYS AGO AT HOME WITHOUT IMPROVEMENT IN SYMPTOMS. SHE WAS ADMITTED FOR FURTHER EVALUATION AND TREATMENT. ON ARRIVAL TO THE HOSPITAL, VITALS WERE 98.7-100-20-96%-134/76. LABS WERE OBTAINED. ABNORMAL LAB VALUES INCLUDE THE FOLLOWING: WBC 10.4, HGB 11.4, HCT 33.6, SODIUM 132, CHLORIDE 95, CREATININE 1.03, GLUCOSE 179, ALK PHOS 178, CRP 175.20, TOTAL PROTEIN 9.0, ALBUMIN 3.0. WOUND CULTURES AND BLOOD CULTURES WERE SET UP. A CHEST XRAY WAS OBTAINED DUE TO ANTICIPATION OF I&D, AND REVEALED: NO ACUTE CARDIOPULMONARY DISEASE. EKG REVEALED: SINUS RHYTHM WITH HR 86. SHE WAS STARTED ON FORTAZ 2G IV Q8H, FLAGYL 500MG IV Q8H, DILAUDID 1MG IV Q4H PRN, HUMULIN R SLIDING SCALE, AND HOME MEDICATIONS WERE RESUMED. WE WILL CONSULT , GENERAL SURGEON FOR I&D OF WOUND. OTHERWISE, WE WILL FOLLOW UP WITH AM LABS AND CONTINUE TO MONITOR. H&P Reviewed: Yes Patient was examined?: Yes
== END 2019-05-16 12:40 | disposition home or self-care (01) | DRG 983 ==
LOC: MED/SURG 10:02
PROVIDERS: ADMIT Internal Medicine; ATTEND Internal Medicine
DX: K61.39 Other ischiorectal abscess; E11.65 Type 2 diabetes mellitus with hyperglycemia; B96.4 Proteus (mirabilis) (morganii) as the cause of diseases classified elsewhere; I10 Essential (primary) hypertension; K61.0 Anal abscess; R50.9 Fever, unspecified
CPT/HCPCS: 36415; 71010; 71045; 80053; 80202; 82270; 82565; 83630; 83735; 85025; 85652; 86140; 87040; 87045; 87070; 87075; 87077; 87186; 87205; 87427; 87449; 87493; 87899; 93005; A4216; A4222; J1170; J1200; J1335; J1650; J1815; J2250; J2270; J2405; J2704; J3010; J3370; J3475; J7030; J7040; J7050; S0030

== ENCOUNTER 2019-12-12 17:07 | Inpatient (IN) ==
[2019-12-12 17:25] VITALS: BMI 39.5
--- NOTE | 2019-12-12 17:58 | ED.ABDFE ---
HPI Time Seen Time Seen by Provider: 12/12/19 17:50 PCP Primary Care Physician: MARICEL DOVER Complaint Doctors Chief Complaint Comments: EPIGASTRIC ABDOMINAL PAIN TIMES 3 DAYS WITH NAUSEA AND VOMITING. Chief Complaint:: PT C/O EPIGASTRIC PAIN ( STABBING) THAT STARTED ON WEDNESDAY AND IT GOT WORSE ON WEDNESDAY , PT C/O NOT BEING ABLE TO HOLD ANYTHING DOWN , PT HAS HX OF PANCREATITIS, A YEAR AGO ,,BR Self Treatment fo Chief Complaint: TYLENOL, ZOFRAN COVID-19 Coronavirus risk:travel/contact w/high risk person: No Has patient experienced Coronavirus symptoms: No Source History Provided: Patient Mode of arrival Mode of Arrival: Ambulatory Timing Onset of Chief Complaint: 12/09/19 PMH PMH Past Medical History: Yes Past Medical History: Diabetes and Hypertension Past Medical History Comment: PANCREATITIS Past Surgical History: Yes Surgical History: Cholecystectomy and Hysterectomy Past Surgical History Comment: PARTIAL AMPUTATION TO LEFT BIG TOE BR Family History History of Family Medical Conditions: Yes Family Medical History: Diabetes Mellitus and Cancer Social History Does patient currently use any type of tobacco product: No Have you used tobacco products in the last 12 months: No Type of Tobacco Use: None Does any household member use tobacco: No Alcohol Use: None Do you use any recreational Drugs:: No Lives With: Family Lives Where: Home Travel Risk Coronavirus risk:travel/contact w/high risk person: No Has patient experienced Coronavirus symptoms: No Infectious screening In the last 2 months have you had wt loss of >10#?: NO Have you had fever, night sweats or hemotysis?: No Have you traveled outside the country in the last 6 months?: No Isolation: Standard PE Vital Signs Vitals: Temperature 98.3 F Pulse Rate [Right] 110 Pulse Rate 101 Respiratory Rate 19 Blood Pressure [Left Arm] 184/79 Blood Pressure [Right Arm] 138/97 Blood Pressure 136/81 O2 Sat by Pulse Oximetry 97 ROR Labs Reviewed Result Diagrams: 12/12/19 18:13 12/12/19 18:13 Laboratory: WBC 7.3 X10^3/uL (3.6-10.0) 12/12/19 18:13 RBC 3.87 X10^6/uL (3.5-5.4) 12/12/19 18:13 Hgb 11.3 g/dL (12.0-16.0) L 12/12/19 18:13 Hct 33.8 % (36.0-47.0) L 12/12/19 18:13 MCV 87.4 fL (80.0-100.0) 12/12/19 18:13 MCH 29.1 pg (27.0-34.0) 12/12/19 18:13 MCHC 33.3 g/dL (33.0-35.0) 12/12/19 18:13 RDW 13.6 % (11.6-16.5) 12/12/19 18:13 Plt Count 197 X10^3/uL (150.0-450.0) 12/12/19 18:13 MPV 8.3 fL (7.4-11.0) 12/12/19 18:13 Neut % (Auto) 67.0 % (42.0-75.0) 12/12/19 18:13 Lymph % (Auto) 25.0 % (21.0-51.0) 12/12/19 18:13 [place] % (Auto) 5.9 % (0.0-13.0) 12/12/19 18:13 Eos % (Auto) 1.3 % (0.9-2.9) 12/12/19 18:13 Baso % (Auto) 0.8 % (0.2-1.0) 12/12/19 18:13 Neut # (Auto) 4.9 x10^3/uL (2.2-4.8) H 12/12/19 18:13 Lymph # (Auto) 1.8 X10^3/uL (1.3-2.9) 12/12/19 18:13 [place] # (Auto) 0.4 x10^3/uL (0.3-0.8) 12/12/19 18:13 Eos # (Auto) 0.1 x10^3/uL (0.0-0.2) 12/12/19 18:13 Baso # (Auto) 0.1 X10^3/uL (0.0-0.1) 12/12/19 18:13 Absolute Nucleated RBC 0.0 /100WBC 12/12/19 18:13 Sodium 133 mmol/L (136-145) L 12/12/19 18:13 Corrected Sodium 141 mmol/L (136-145) 12/12/19 18:13 Potassium 3.9 mmol/L (3.5-5.1) 12/12/19 18:13 Chloride 100 mmol/L (98-107) 12/12/19 18:13 Carbon Dioxide 27.4 mmol/L (21-32) 12/12/19 18:13 BUN 11 mg/dL (7-18) 12/12/19 18:13 Creatinine 1.24 mg/dL (0.55-1.02) H 12/12/19 18:13 Est GFR (MDRD) Af Amer 60 (>60) 12/12/19 18:13 Est GFR (MDRD) Non-Af 49 (>60) L 12/12/19 18:13 Glucose 433 mg/dL (65-99) H 12/12/19 18:13 POC Glucose (mg/dL) 313 mg/dL (65-99) H 12/12/19 20:42 Calcium 8.5 mg/dL (8.5-10.1) 12/12/19 18:13 Corrected Calcium 9.3 mg/dL (8.5-10.1) 12/12/19 18:13 Total Bilirubin 0.30 mg/dL (0.2-1.0) 12/12/19 18:13 AST 15 Units/L (15-37) 12/12/19 18:13 ALT 23 Units/L (12-78) 12/12/19 18:13 Alkaline Phosphatase 71 Units/L (46-116) 12/12/19 18:13 Total Protein 8.3 g/dL (6.4-8.2) H 12/12/19 18:13 Albumin 3.0 g/dL (3.4-5.0) L 12/12/19 18:13 Globulin 5.3 g/dL (2.5-4.5) H 12/12/19 18:13 Albumin/Globulin Ratio 0.6 Ratio (1.1-2.1) L 12/12/19 18:13 Amylase 89 Units/L (25-115) 12/12/19 18:13 Lipase 882 Units/L (73-393) H 12/12/19 18:13 Specimen Type Clean catch urine 12/12/19 17:57 Urine Color Yellow (YELLOW) 12/12/19 17:57 Urine Appearance Clear (CLEAR) 12/12/19 17:57 Urine pH 5.0 (5.0 - 8.0) 12/12/19 17:57 Ur Specific [place] 1.010 (1.000-1.030) 12/12/19 17:57 Urine Protein Negative (NEGATIVE) 12/12/19 17:57 Urine Glucose (UA) 4+ (NEGATIVE) 12/12/19 17:57 Urine Ketones Negative (NEGATIVE) 12/12/19 17:57 Urine Occult Blood 1+ (NEGATIVE) 12/12/19 17:57 Urine Nitrite Positive (NEGATIVE) 12/12/19 17:57 Urine Bilirubin Negative (NEGATIVE) 12/12/19 17:57 Urine Urobilinogen Normal (NORMAL) 12/12/19 17:57 Ur Leukocyte Esterase 1+ (NEGATIVE) 12/12/19 17:57 Urine RBC 0-2 /HPF (0-3) 12/12/19 17:57 Urine WBC 0-2 /HPF (0-5) 12/12/19 17:57 Ur Squamous Epith Cells Negative /HPF (NEGATIVE) 12/12/19 17:57 Urine Bacteria Negative /HPF (NEGATIVE) 12/12/19 17:57 Ur Culture Indicated? No/not indicated 12/12/19 17:57 Acetone, Semi-Quant Negative (NEGATIVE) 12/12/19 18:13 Opioid Opioid Risk Tool Age (Win box if 16-45): No History of Preadolescent Sexual Abuse: No Total: 0 Total Score Risk Category: Low Risk Copyright: Klever MAURICE predicting aberrant behaviors Instructions Forms: Precautions for COVID19 Patient Portal Social Distancing
[2019-12-12] MEDS ORDERED: NS 1000 ML 1,000 ML IV ONE (18:03)
[2019-12-12] MEDS ORDERED: PEPCID 20 MG IV PREMIX* 20 MG/50 ML BAG IV ONE ×2 (18:03→18:06)
[2019-12-12] MEDS ORDERED: NS 1000 ML 1,000 ML ONE ×2 (18:05→20:06)
[2019-12-12 18:24] LABS: BASOPHILS # (AUTO) 0.1 X10^3/uL (0.0-0.1); BASOPHILS % (AUTO) 0.8 % (0.2-1.0); EOSINOPHILS # (AUTO) 0.1 x10^3/uL (0.0-0.2); EOSINOPHILS % (AUTO) 1.3 % (0.9-2.9); HEMATOCRIT 33.8 % (36.0-47.0); HEMOGLOBIN 11.3 g/dL (12.0-16.0); LYMPHOCYTES # (AUTO) 1.8 X10^3/uL (1.3-2.9); MEAN CORPUSCULAR HEMOGLOBIN 29.1 pg (27.0-34.0); MEAN CORPUSCULAR HGB CONC 33.3 g/dL (33.0-35.0); MEAN CORPUSCULAR VOLUME 87.4 fL (80.0-100.0); MEAN PLATELET VOLUME 8.3 fL (7.4-11.0); MONOCYTES # (AUTO) 0.4 x10^3/uL (0.3-0.8); MONOCYTES % (AUTO) 5.9 % (0.0-13.0); NEUTROPHILS # (AUTO) 4.9 x10^3/uL (2.2-4.8); PLATELET COUNT 197 X10^3/uL (150.0-450.0); RED BLOOD COUNT 3.87 X10^6/uL (3.5-5.4); RED CELL DISTRIBUTION WIDTH 13.6 % (11.6-16.5); WHITE BLOOD COUNT 7.3 X10^3/uL (3.6-10.0)
[2019-12-12 18:26] LABS: BILIRUBIN,URINE NEGATIVE (NEGATIVE); BLOOD/HEMOGLOBIN,URINE 1+ (NEGATIVE); GLUCOSE, URINE 4+ (NEGATIVE); KETONES,URINE NEGATIVE (NEGATIVE); LEUKOCYTE ESTERASE ,URINE 1+ (NEGATIVE); NITRITES,URINE POSITIVE (NEGATIVE); PROTEIN,URINE NEGATIVE (NEGATIVE); UROBILINOGEN,URINE NORMAL (NORMAL)
[2019-12-12 18:35] LABS: APPEARANCE,URINE CLEAR (CLEAR); COLOR,URINE YELLOW (YELLOW)
[2019-12-12 18:36] LABS: BACTERIA,URINE NEGATIVE /HPF (NEGATIVE); RBC,URINE 0-2 /HPF (0-3); SQUAMOUS EPITHELIAL CELL,UR NEGATIVE /HPF (NEGATIVE)
[2019-12-12 18:40] LABS: CALCIUM 8.5 mg/dL (8.5-10.1); CARBON DIOXIDE 27.4 mmol/L (21-32); COR CA(FOR HYPOALB) 9.3 mg/dL (8.5-10.1); CREATININE 1.24 mg/dL (0.55-1.02); TOTAL PROTEIN 8.3 g/dL (6.4-8.2)
--- NOTE | 2019-12-12 19:32 | CT ---
HISTORYN/V ABDOMEN PAIN iv only. Abdominal pain and pancreatitis.STUDYCT examination of the abdomen and pelvis with IV contrast.COMPARISONNone availableTECHNIQUEMultiple axial images of the abdomen and pelvis were obtained from the lung bases to the pubic symphysis following the administration of IV contrast. Dose reduction techniques including Automated Exposure Control (AEC) and adjustment of mA and kV were utilized.FINDINGSLung bases are clear. The heart is normal in size without a pericardial effusion. The gallbladder is surgically absent. The liver, spleen, stomach, adrenal glands, and kidneys are unremarkable appearance. There is no evidence for acute appendicitis, colitis, or diverticulitis. There is abnormal edema and some adjacent fluid seen throughout the pancreas, especially involving the pancreatic head and body, compatible with changes of acute pancreatitis. No pancreatic mass lesion or pancreatic necrosis is seen. No free air or bowel obstruction is observed. No large hernia defect is seen. There is air seen in the bladder which may be iatrogenic in nature. Please correlate with urinalysis to exclude a bladder infection, however. No adenopathy is seen. No other acute abdominopelvic process identified on this exam. The bones are grossly intact without evidence for acute fracture or lytic lesion.IMPRESSIONCT imaging findings of acute pancreatitis without evidence for pancreatic necrosis. Close interval CT imaging follow-up and clinical follow-up is recommended to ensure improvement of these findings. No pancreatic abscess/drainable fluid collection observed.Dependent intraluminal air seen within the bladder which can be seen with Mcelroy catheter placement / iatrogenic causes or from bladder infection. Please correlate with urinalysis for assurance. No other acute abnormalities observed. Normal appendix.Electronically signed by: RAYA HAZEL III (Dec 12, 2019 19:30:11)
[2019-12-12] MEDS ORDERED: DEMEROL INJ IVP ONE (19:44)
[2019-12-12] MEDS ORDERED: ZOFRAN INJ 4 MG VIAL IVP ONE (19:45)
[2019-12-12] MEDS ORDERED: DEMEROL INJ ONE (20:05)
[2019-12-12] MEDS ORDERED: ZOFRAN INJ 4 MG VIAL ONE (20:06)
[2019-12-12] MEDS: NS 1000 ML 1,000 ML IV SCH ×2 (20:19→21:19)
[2019-12-12] MEDS ORDERED: ZESTRIL TAB 20 MG PO ONE (21:06)
[2019-12-12] MEDS ORDERED: HumuLIN R SUBCUT PRN (21:06)
[2019-12-12] MEDS ORDERED: ZESTRIL TAB 20 MG ONE (21:13)
[2019-12-12] MEDS ORDERED: HumuLIN R ONE ×2 (21:14→22:43)
[2019-12-12] MEDS ORDERED: ZOFRAN INJ 4 MG VIAL IVP PRN (21:55)
[2019-12-12] MEDS ORDERED: ROCEPHIN 1 GRAM IV PREMIX 1 G/50 ML IV.SOLN. IV SCH (22:00)
[2019-12-12] MEDS ORDERED: ROCEPHIN 1 GRAM IV PREMIX 1 G/50 ML IV.SOLN. IV ONE (22:17)
[2019-12-12] MEDS ORDERED: MORPHINE SULFATE INJ 2 MG INJ ONE (22:17)
[2019-12-12] MEDS ORDERED: BENADRYL INJ 50 MG VIAL ONE (22:17)
[2019-12-12] MEDS: BENADRYL INJ 50 MG VIAL IVP PRN (22:30)
[2019-12-12] MEDS: MORPHINE SULFATE INJ 2 MG INJ IVP PRN (22:38)
[2019-12-13] MEDS: MORPHINE SULFATE INJ 2 MG INJ IVP PRN (03:20)
[2019-12-13] MEDS: NS 1000 ML 1,000 ML IV SCH ×5 (04:05→20:40)
[2019-12-13] MEDS: ZOFRAN INJ 4 MG VIAL IVP PRN ×3 (05:56→21:34)
[2019-12-13 06:15] LABS: BASOPHILS % (AUTO) 0.7 % (0.2-1.0); EOSINOPHILS # (AUTO) 0.1 x10^3/uL (0.0-0.2); EOSINOPHILS % (AUTO) 1.6 % (0.9-2.9); HEMATOCRIT 33.9 % (36.0-47.0); HEMOGLOBIN 11.4 g/dL (12.0-16.0); LYMPHOCYTES # (AUTO) 1.7 X10^3/uL (1.3-2.9); LYMPHOCYTES % (AUTO) 24.9 % (21.0-51.0); MEAN CORPUSCULAR HEMOGLOBIN 29.3 pg (27.0-34.0); MEAN CORPUSCULAR HGB CONC 33.7 g/dL (33.0-35.0); MEAN CORPUSCULAR VOLUME 86.8 fL (80.0-100.0); MEAN PLATELET VOLUME 8.1 fL (7.4-11.0); MONOCYTES # (AUTO) 0.3 x10^3/uL (0.3-0.8); NEUTROPHILS # (AUTO) 4.5 x10^3/uL (2.2-4.8); NEUTROPHILS % (AUTO) 67.8 % (42.0-75.0); PLATELET COUNT 215 X10^3/uL (150.0-450.0); RED BLOOD COUNT 3.91 X10^6/uL (3.5-5.4); RED CELL DISTRIBUTION WIDTH 13.5 % (11.6-16.5); WHITE BLOOD COUNT 6.7 X10^3/uL (3.6-10.0)
[2019-12-13 06:36] LABS: ALANINE AMINOTRANSFERASE 37 Units/L (12-78); ALBUMIN 2.9 g/dL (3.4-5.0); ALKALINE PHOSPHATASE 109 Units/L (46-116); ASPARTATE AMINO TRANSFERASE 58 Units/L (15-37); BLOOD UREA NITROGEN 8 mg/dL (7-18); CALCIUM 8.6 mg/dL (8.5-10.1); CHLORIDE 103 mmol/L (98-107); COR CA(FOR HYPOALB) 9.5 mg/dL (8.5-10.1); COR NA(FOR HYPERGLY) 139 mmol/L (136-145); CREATININE 0.92 mg/dL (0.55-1.02); MAGNESIUM 1.9 mg/dL (1.7-2.9); SODIUM 137 mmol/L (136-145); TOTAL PROTEIN 8.2 g/dL (6.4-8.2); eGFR NON BLACK RACES > 60 (>60)
[2019-12-13] MEDS: DEMEROL INJ IVP PRN ×4 (07:19→21:34)
[2019-12-13 08:35] LABS: AMYLASE 85 Units/L (25-115); LIPASE 748 Units/L (73-393)
[2019-12-13] MEDS ORDERED: ZESTRIL TAB 20 MG ONE ×2 (09:45→20:14)
[2019-12-13] MEDS ORDERED: GLUCOPHAGE ONE ×2 (09:45→20:14)
[2019-12-13] MEDS: ZESTRIL TAB 20 MG PO SCH ×2 (09:51→21:38)
[2019-12-13] MEDS: GLUCOPHAGE PO SCH ×2 (09:51→21:38)
[2019-12-13] MEDS ORDERED: POTASSIUM CHL 40 MEQ/NS 0.45% 500 ML IV PRN (14:34)
[2019-12-13] MEDS ORDERED: K-RIDER 10 MEQ/NS 100 ML 10 MEQ/100 ML BAG IV PRN (14:34)
[2019-12-13] MEDS ORDERED: KLOR-CON PO PRN (14:34)
[2019-12-13] MEDS ORDERED: K-DUR TAB 20 MEQ PO PRN (14:34)
[2019-12-13] MEDS ORDERED: MICRO K EXTEN CAP 10 MEQ PO PRN (14:34)
[2019-12-13] MEDS ORDERED: POTASSIUM CHL 60 MEQ/NS 0.45% 500 ML IV PRN (14:34)
[2019-12-13] MEDS ORDERED: POTASSIUM CHLORIDE LIQ 20 MEQ UDC PO PRN (14:34)
--- NOTE | 2019-12-13 19:26 | DR.H&P ---
H&P - History & Physical for Day of: H&P Date: 12/12/19 - Chief Complaint Chief Complaint: ABDOMINAL PAIN, NAUSEA, VOMITING - History of Present Illness History of Present Illness: IS A 49 YEAR OLD PATIENT OF OURS. SHE PRESENTED TO THE ER WITH COMPLAINTS OF EPIGASTRIC ABDOMINAL PAIN, NAUSEA, AND VOMITING X 3 DAYS. EPIGASTRIC PAIN IS DESCRIBED STABBING AND IS CURRENTLY RATED 7/10. SHE HAS A HISTORY OF PANCREATITIS. SHE REPORTS BEING UNABLE TO HOLD ANY FOODS OR LIQUIDS DOWN. OTHER PMH INCLUDES DIABETES AND HTN. ON ARRIVAL TO THE ER, VITALS WERE 98.5-101-20-98%-136/81. LABS WERE OBTAINED. ABNORMAL LAB VALUES INCLUDE THE FOLLOWING: HGB 11.3, HCT 33.8, SODIUM 133, CREATININE 1.24, GLUCOSE 433, TOTAL PROTEIN 8.3, ALBUMIN 3.0, GLOBULIN 5.3, LIPASE 882. URINALYSIS REVEALED: WBC 0-2, RBC 0-2, LEUKOCYTES 1+, BACTERIA NEGATIVE, NITRITE POSITIVE, OCCULT BLOOD 1+, GLUCOSE 4+. ACETONES NEGATIVE. AN ABDOMEN/PELVIS CT WITH CONTRAST WAS OBTAINED AND REVEALED: CT imaging findings of acute pancreatitis without evidence for pancreatic necrosis. Close interval CT imaging follow-up and clinical follow-up is recommended to ensure improvement of these findings. No pancreatic abscess/drainable fluid collection observed. Dependent intraluminal air seen within the bladder which can be seen with Mcelroy catheter placement / iatrogenic causes or from bladder infection. Please correlate with urinalysis for assurance. No other acute abnormalities observed. Normal appendix. SHE WAS GIVEN ROCEPHIN 1G IV, ZOFRAN 4MG IV X 1, DEMEROL 25MG IV X 1, PEPCID 20MG IV X 1, AND A NORMAL SALINE BOLUS IN THE ER. SHE REPORTED ONLY SLIGHT IMPROVEMENT IN SYMPTOMS. SHE WAS ADMITTED TO THE HOSPITAL FOR FURTHER EVALUATION AND TREATMENT OF ACUTE PANCREATITIS, CYSTITIS, AND HYPERGLYCEMIA. SHE WAS STARED ON NORMAL SALINE AT 125ML/HR, ROCEPHIN 1G IV HS, ZOFRAN 4MG IV Q6H PRN, DEMEROL 25MG IV Q4H PRN, ZESTRIL 20MG PO BID, GLUCOPHAGE 500MG PO BID, AND BENADRYL 25MG IV Q12H PRN. OTHERWISE, WE PLAN TO FOLLOW UP WITH AM LABS AND CONTINUE TO MONITOR. - Past Medical History Past Medical History: Hypertension, Diabetes Additional Medical History: PANCREATITIS - Past Surgical History Surgical History: Cholecystectomy, Hysterectomy, Other - Family History Family Medical History: Diabetes Mellitus, Hypertension - Social History Does patient currently use any type of tobacco product: No Have you used tobacco products in the last 12 months: No Type of Tobacco Use: None Does any household member use tobacco: No Alcohol Use: None Drug Use: None - Medications Home Medications: Penicillins Allergy (Verified 12/12/19 17:25) CONTINUE taking the following medications hydroxyzine HCl 25 mg PO TID 12/12/19 [History] insulin degludec [Tresiba FlexTouch U-100] See Rx Instructions .ROUTE .COMPLEX 12/12/19 [History] ondansetron HCl 4 mg PO Q4-6H PRN 12/12/19 [History] - Review of Systems Constitutional: No Symptoms Reported Eyes: No Symptoms Reported ENT: No Symptoms Reported Respiratory: No Symptoms Reported Cardiovascular: No Symptoms Reported Gastrointestinal: See HPI, Nausea, Vomiting, Abdominal Pain Genitourinary: No Symptoms Reported Musculoskeletal: No Symptoms Reported Skin: No Symptoms Reported Neurological: Weakness - Physical Exam Vital Signs: Temperature 98.5 F Pulse Rate [Right] 90 Pulse Rate 101 Respiratory Rate 18 Blood Pressure [Left Arm] 163/88 Blood Pressure [Right Arm] 167/94 Blood Pressure 136/81 O2 Sat by Pulse Oximetry 99 Oriented: Normal Eyes: Normal Ear: Normal Nose: Normal Throat: Normal Respiratory: Diminished Throughout Cardiovascular: Normal : Normal Auscultation: Bowel Sounds: Normal Palpation: Normal Tenderness: Epigastric, Moderate. negative: Rebound, Guarding, Rigidity Skin: Normal Musculoskeletal: Normal Psychiatric: Normal Mood Description: Calm Affect: Normal Speech Pattern: Clear - Assessment/Plan (1) Pancreatitis Qualifiers: Chronicity: acute Pancreatitis type: unspecified pancreatitis type Acute pancreatitis complication: unspecified Qualified Code(s): K85.90 - Acute pancreatitis without necrosis or infection, unspecified Status: Acute Plan: ADMIT, NORMAL SALINE AT 125ML/HR, ROCEPHIN 1G IV HS, ZOFRAN 4MG IV Q6H PRN, DEMEROL 25MG IV Q4H PRN, ZESTRIL 20MG PO BID, GLUCOPHAGE 500MG PO BID, AND BENADRYL 25MG IV Q12H PRN. (2) Cystitis Status: Acute (3) Hyperglycemia Status: Acute (4) Diabetes mellitus, type 2 Qualifiers: Diabetes mellitus assisted insulin use: with long wall shear operator use Diabetes mellitus complication status: with hyperglycemia Qualified Code(s): E11.65 - Type 2 diabetes mellitus with hyperglycemia; Z79.4 - long-term (current) use of insulin Status: Chronic - Allergies Allergies/Adverse Reactions: Allergies Allergy/AdvReac Type Severity Reaction Status Date / Time Penicillins Allergy Verified 12/12/19 17:25
[2019-12-13] MEDS: SNACK - Diabetic Appropriate PO SCH (20:00)
[2019-12-13] MEDS: ROCEPHIN 1 GRAM IV PREMIX 1 G/50 ML IV.SOLN. IV SCH (21:39)
[2019-12-14] MEDS: ZOFRAN INJ 4 MG VIAL IVP PRN ×2 (04:20→14:00)
[2019-12-14] MEDS: DEMEROL INJ IVP PRN ×3 (04:20→22:07)
[2019-12-14 06:29] LABS: BASOPHILS % (AUTO) 0.4 % (0.2-1.0); EOSINOPHILS # (AUTO) 0.1 x10^3/uL (0.0-0.2); EOSINOPHILS % (AUTO) 2.1 % (0.9-2.9); HEMATOCRIT 30.7 % (36.0-47.0); HEMOGLOBIN 10.5 g/dL (12.0-16.0); LYMPHOCYTES # (AUTO) 1.3 X10^3/uL (1.3-2.9); LYMPHOCYTES % (AUTO) 23.3 % (21.0-51.0); MEAN CORPUSCULAR HEMOGLOBIN 29.7 pg (27.0-34.0); MEAN CORPUSCULAR HGB CONC 34.1 g/dL (33.0-35.0); MEAN CORPUSCULAR VOLUME 87.1 fL (80.0-100.0); MEAN PLATELET VOLUME 8.3 fL (7.4-11.0); MONOCYTES # (AUTO) 0.3 x10^3/uL (0.3-0.8); MONOCYTES % (AUTO) 5.6 % (0.0-13.0); NEUTROPHILS % (AUTO) 68.6 % (42.0-75.0); PLATELET COUNT 182 X10^3/uL (150.0-450.0); RED BLOOD COUNT 3.53 X10^6/uL (3.5-5.4); RED CELL DISTRIBUTION WIDTH 13.1 % (11.6-16.5); WHITE BLOOD COUNT 5.8 X10^3/uL (3.6-10.0)
[2019-12-14] MEDS: BENADRYL INJ 50 MG VIAL IVP PRN ×2 (06:45→22:04)
[2019-12-14 06:52] LABS: ALANINE AMINOTRANSFERASE 26 Units/L (12-78); ALBUMIN 2.5 g/dL (3.4-5.0); ALKALINE PHOSPHATASE 93 Units/L (46-116); AMYLASE 43 Units/L (25-115); ASPARTATE AMINO TRANSFERASE 19 Units/L (15-37); BLOOD UREA NITROGEN 7 mg/dL (7-18); CALCIUM 8.4 mg/dL (8.5-10.1); CARBON DIOXIDE 26.7 mmol/L (21-32); CHLORIDE 103 mmol/L (98-107); COR CA(FOR HYPOALB) 9.6 mg/dL (8.5-10.1); COR NA(FOR HYPERGLY) 139 mmol/L (136-145); CREATININE 0.78 mg/dL (0.55-1.02); LIPASE 274 Units/L (73-393); SODIUM 137 mmol/L (136-145); TOTAL PROTEIN 7.5 g/dL (6.4-8.2); eGFR NON BLACK RACES > 60 (>60)
[2019-12-14] MEDS: ZESTRIL TAB 20 MG PO SCH ×2 (09:30→21:57)
[2019-12-14] MEDS: GLUCOPHAGE PO SCH ×2 (09:30→21:58)
[2019-12-14] MEDS ORDERED: GLUCOPHAGE ONE ×2 (09:31→20:27)
[2019-12-14] MEDS ORDERED: ZESTRIL TAB 20 MG ONE ×2 (09:31→20:28)
[2019-12-14] MEDS: NS 1000 ML 1,000 ML IV SCH ×2 (17:27)
[2019-12-14] MEDS: MAGNESIUM SULFATE 1 GRAM/100 mL PREMIX 1 GM/100 ML BAG IV PRN ×2 (17:27→19:18)
[2019-12-14] MEDS ORDERED: MAALOX or MYLANTA PO PRN (18:02)
[2019-12-14] MEDS: SNACK - Diabetic Appropriate PO SCH (20:03)
[2019-12-14] MEDS: ROCEPHIN 1 GRAM IV PREMIX 1 G/50 ML IV.SOLN. IV SCH (21:58)
[2019-12-15] MEDS: DEMEROL INJ IVP PRN ×2 (04:39→10:30)
[2019-12-15] MEDS: NS 1000 ML 1,000 ML IV SCH ×2 (04:39→06:10)
[2019-12-15] MEDS: ZOFRAN INJ 4 MG VIAL IVP PRN ×2 (04:39→12:15)
[2019-12-15 06:14] LABS: ALANINE AMINOTRANSFERASE 23 Units/L (12-78); ALBUMIN 2.8 g/dL (3.4-5.0); ALKALINE PHOSPHATASE 94 Units/L (46-116); AMYLASE 37 Units/L (25-115); ASPARTATE AMINO TRANSFERASE 15 Units/L (15-37); BASOPHILS % (AUTO) 0.4 % (0.2-1.0); BLOOD UREA NITROGEN 7 mg/dL (7-18); CALCIUM 8.9 mg/dL (8.5-10.1); CARBON DIOXIDE 28.6 mmol/L (21-32); CHLORIDE 103 mmol/L (98-107); COR CA(FOR HYPOALB) 9.9 mg/dL (8.5-10.1); COR NA(FOR HYPERGLY) 140 mmol/L (136-145); CREATININE 0.98 mg/dL (0.55-1.02); EOSINOPHILS # (AUTO) 0.1 x10^3/uL (0.0-0.2); EOSINOPHILS % (AUTO) 2.9 % (0.9-2.9); HEMATOCRIT 32.5 % (36.0-47.0); LIPASE 144 Units/L (73-393); LYMPHOCYTES # (AUTO) 1.7 X10^3/uL (1.3-2.9); MAGNESIUM 2.2 mg/dL (1.7-2.9); MEAN CORPUSCULAR HEMOGLOBIN 29.5 pg (27.0-34.0); MEAN CORPUSCULAR HGB CONC 33.8 g/dL (33.0-35.0); MEAN CORPUSCULAR VOLUME 87.3 fL (80.0-100.0); MEAN PLATELET VOLUME 8.1 fL (7.4-11.0); MONOCYTES # (AUTO) 0.4 x10^3/uL (0.3-0.8); NEUTROPHILS # (AUTO) 2.8 x10^3/uL (2.2-4.8); NEUTROPHILS % (AUTO) 55.7 % (42.0-75.0); PLATELET COUNT 229 X10^3/uL (150.0-450.0); RED BLOOD COUNT 3.72 X10^6/uL (3.5-5.4); RED CELL DISTRIBUTION WIDTH 13.5 % (11.6-16.5); SODIUM 137 mmol/L (136-145); TOTAL PROTEIN 8.1 g/dL (6.4-8.2); eGFR NON BLACK RACES > 60 (>60)
--- NOTE | 2019-12-15 08:35 | PCM.PROG ---
Progress Note - Progress Note for Day of Date of Exam: 12/14/19 - Subjective Subjective: IS BEING TREATED FOR PANCREATITIS, ACUTE CYSTITIS, AND DIABETES WITH HYPERGLYCEMIA. TODAY, SHE IS ALERT, LYING IN BED ON MORNING ROUNDS. SHE DENIES NAUSEA OR VOMITING, BUT ADMITS TO MILD ABDOMINAL PAIN AT TIMES. ON EXAMINATION, HEART IS REGULAR IN RATE AND RHYTHM. BILATERAL LUNGS ARE NOTED WITH DIMINISHED LUNG SOUNDS THROUGHOUT. ABDOMEN IS ROUND, SOFT, AND NOTED WITH MILD EPIGASTRIC TENDERNESS TO PALPATION. NORMAL BOWEL SOUNDS NOTED IN ALL QUADRANTS. HER VITALS THIS MORNING ARE: 98.6-88-18-98%-181/80. LABS WERE OBTAINED. ABNORMAL LAB VALUES INCLUDE THE FOLLOWING: HGB 10.5, HCT 30.7, GLUCOSE 192, CALCIUM 8.4, ALBUMIN 2.5. SHE IS CURRENTLY RECEIVING NORMAL SALINE AT 125ML/HR, ROCEPHIN 1G IV HS, ZOFRAN 4MG IV Q6H PRN, DEMEROL 25MG IV Q4H PRN, ZESTRIL 20MG PO BID, GLUCOPHAGE 500MG PO BID, AND BENADRYL 25MG IV Q12H PRN. SHE HAS BEEN NPO. WE WILL START A CLEAR LIQUID DIET TODAY AND ADVANCE TOLERATED. OTHERWISE, WE PLAN TO FOLLOW UP WITH AM LABS AND CONTINUE TO MONITOR. - Past Medical Family Social History Past Med/Fam/Surg Hx: No changes since H&P Allergies: Allergies Penicillins Allergy (Verified 12/12/19 17:25) - Review of Systems ROS: No change since H&P - Vital Signs and I&O's Vital Signs: Temperature 97.8 F Pulse Rate [Right] 76 Pulse Rate 101 Respiratory Rate 18 Blood Pressure [Left Arm] 181/80 Blood Pressure [Right Arm] 166/91 Blood Pressure 136/81 O2 Sat by Pulse Oximetry 96 Intake and Output: Intake & Output 12/12/19 12/13/19 12/14/19 12/15/19 11:59 11:59 11:59 11:59 Intake Total 1999 2668 / 2668 2300 / 2300 Output Total 600 / 600 Balance 1999 / 230 - Physical Exam Oriented: Normal Eyes: Normal Ear: Normal Nose: Normal Throat: Normal Respiratory: Diminished Cardiovascular: Normal : Normal Auscultation: Bowel Sounds: Normal Palpation: Normal Tenderness: Epigastric, Moderate. negative: Rebound, Guarding, Rigidity Skin: Normal Musculoskeletal: Normal Psychiatric: Normal Mood Description: Calm Affect: Normal Speech Pattern: Clear, Appropriate - Laboratory and Diagnostics Result Diagrams: 12/15/19 05:38 12/15/19 05:38 Labs: Laboratory WBC 5.0 X10^3/uL (3.6-10.0) 12/15/19 05:38 RBC 3.72 X10^6/uL (3.5-5.4) 12/15/19 05:38 Hgb 11.0 g/dL (12.0-16.0) L 12/15/19 05:38 Hct 32.5 % (36.0-47.0) L 12/15/19 05:38 MCV 87.3 fL (80.0-100.0) 12/15/19 05:38 MCH 29.5 pg (27.0-34.0) 12/15/19 05:38 MCHC 33.8 g/dL (33.0-35.0) 12/15/19 05:38 RDW 13.5 % (11.6-16.5) 12/15/19 05:38 Plt Count 229 X10^3/uL (150.0-450.0) 12/15/19 05:38 MPV 8.1 fL (7.4-11.0) 12/15/19 05:38 Neut % (Auto) 55.7 % (42.0-75.0) 12/15/19 05:38 Lymph % (Auto) 34.0 % (21.0-51.0) 12/15/19 05:38 [place] % (Auto) 7.0 % (0.0-13.0) 12/15/19 05:38 Eos % (Auto) 2.9 % (0.9-2.9) 12/15/19 05:38 Baso % (Auto) 0.4 % (0.2-1.0) 12/15/19 05:38 Neut # (Auto) 2.8 x10^3/uL (2.2-4.8) 12/15/19 05:38 Lymph # (Auto) 1.7 X10^3/uL (1.3-2.9) 12/15/19 05:38 [place] # (Auto) 0.4 x10^3/uL (0.3-0.8) 12/15/19 05:38 Eos # (Auto) 0.1 x10^3/uL (0.0-0.2) 12/15/19 05:38 Baso # (Auto) 0.0 X10^3/uL (0.0-0.1) 12/15/19 05:38 Absolute Nucleated RBC 0.0 /100WBC 12/15/19 05:38 Sodium 137 mmol/L (136-145) 12/15/19 05:38 Corrected Sodium 140 mmol/L (136-145) 12/15/19 05:38 Potassium 4.1 mmol/L (3.5-5.1) 12/15/19 05:38 Chloride 103 mmol/L (98-107) 12/15/19 05:38 Carbon Dioxide 28.6 mmol/L (21-32) 12/15/19 05:38 BUN 7 mg/dL (7-18) 12/15/19 05:38 Creatinine 0.98 mg/dL (0.55-1.02) 12/15/19 05:38 Est GFR (MDRD) Af Amer > 60 (>60) 12/15/19 05:38 Est GFR (MDRD) Non-Af > 60 (>60) 12/15/19 05:38 Glucose 217 mg/dL (65-99) H 12/15/19 05:38 POC Glucose (mg/dL) 177 mg/dL (65-99) H 12/15/19 06:15 Calcium 8.9 mg/dL (8.5-10.1) 12/15/19 05:38 Corrected Calcium 9.9 mg/dL (8.5-10.1) 12/15/19 05:38 Magnesium 2.2 mg/dL (1.7-2.9) 12/15/19 05:38 Total Bilirubin 0.30 mg/dL (0.2-1.0) 12/15/19 05:38 AST 15 Units/L (15-37) 12/15/19 05:38 ALT 23 Units/L (12-78) 12/15/19 05:38 Alkaline Phosphatase 94 Units/L (46-116) 12/15/19 05:38 Total Protein 8.1 g/dL (6.4-8.2) 12/15/19 05:38 Albumin 2.8 g/dL (3.4-5.0) L 12/15/19 05:38 Globulin 5.3 g/dL (2.5-4.5) H 12/15/19 05:38 Albumin/Globulin Ratio 0.5 Ratio (1.1-2.1) L 12/15/19 05:38 Amylase 37 Units/L (25-115) 12/15/19 05:38 Lipase 144 Units/L (73-393) 12/15/19 05:38 Specimen Type Clean catch urine 12/12/19 17:57 Urine Color Yellow (YELLOW) 12/12/19 17:57 Urine Appearance Clear (CLEAR) 12/12/19 17:57 Urine pH 5.0 (5.0 - 8.0) 12/12/19 17:57 Ur Specific [place] 1.010 (1.000-1.030) 12/12/19 17:57 Urine Protein Negative (NEGATIVE) 12/12/19 17:57 Urine Glucose (UA) 4+ (NEGATIVE) 12/12/19 17:57 Urine Ketones Negative (NEGATIVE) 12/12/19 17:57 Urine Occult Blood 1+ (NEGATIVE) 12/12/19 17:57 Urine Nitrite Positive (NEGATIVE) 12/12/19 17:57 Urine Bilirubin Negative (NEGATIVE) 12/12/19 17:57 Urine Urobilinogen Normal (NORMAL) 12/12/19 17:57 Ur Leukocyte Esterase 1+ (NEGATIVE) 12/12/19 17:57 Urine RBC 0-2 /HPF (0-3) 12/12/19 17:57 Urine WBC 0-2 /HPF (0-5) 12/12/19 17:57 Ur Squamous Epith Cells Negative /HPF (NEGATIVE) 12/12/19 17:57 Urine Bacteria Negative /HPF (NEGATIVE) 12/12/19 17:57 Ur Culture Indicated? No/not indicated 12/12/19 17:57 Acetone, Semi-Quant Negative (NEGATIVE) 12/12/19 18:13 - Plan (1) Pancreatitis Status: Acute Qualifiers: Chronicity: acute Pancreatitis type: unspecified pancreatitis type Acute pancreatitis complication: unspecified Qualified Code(s): K85.90 - Acute pancreatitis without necrosis or infection, unspecified Plan: CLEAR LIQUID DIET- NORMAL SALINE AT 125ML/HR, ROCEPHIN 1G IV HS, ZOFRAN 4MG IV Q6H PRN, DEMEROL 25MG IV Q4H PRN, ZESTRIL 20MG PO BID, GLUCOPHAGE 500MG PO BID, AND BENADRYL 25MG IV Q12H PRN. (2) Cystitis Status: Acute (3) Hyperglycemia Status: Acute (4) Diabetes mellitus, type 2 Status: Chronic Qualifiers: Diabetes mellitus custodial insulin use: with custodial use Diabetes mellitus complication status: with hyperglycemia Qualified Code(s): E11.65 - Type 2 diabetes mellitus with hyperglycemia; Z79.4 - assisted (current) use of insulin
[2019-12-15] MEDS ORDERED: GLUCOPHAGE ONE (09:46)
[2019-12-15] MEDS ORDERED: ZESTRIL TAB 20 MG ONE (09:46)
[2019-12-15] MEDS: ZESTRIL TAB 20 MG PO SCH (09:55)
[2019-12-15] MEDS: GLUCOPHAGE PO SCH (09:56)
[2019-12-15 12:58] VITALS: BP 183/85
== END 2019-12-15 14:50 | disposition home or self-care (01) | DRG 439 ==
LOC: ER 17:18 → MED/SURG 21:07
PROVIDERS: ADMIT Internal Medicine; ATTEND Internal Medicine
DX: N30.00 Acute cystitis without hematuria; E11.65 Type 2 diabetes mellitus with hyperglycemia; K85.80 Other acute pancreatitis without necrosis or infection; Z79.4 Long term (current) use of insulin; R10.13 Epigastric pain; I10 Essential (primary) hypertension

== ENCOUNTER 2021-02-18 12:09 | Inpatient (IN) ==
--- NOTE | 2021-02-18 12:52 | DR.EXTPAIN ---
HPI Time seen Time Seen by Provider: 02/18/21 12:48 PCP Primary Care Physician: Damien HPI Comment HPI Comment: PATIENT HAD A NAIL REMOVED FROM LEFT FOOT TODAY IN OFFICE BY HER SURGEON, STATES FOOT SWOLLOEN AND WARM TO TOUCH. DENIES FEVER CHILLS. Complaint/Symptoms Chief Complaint Doctor Comments: INFECTED LEFT FOOT Chief Complaint:: Pt states she had a nail removed from her foot this am. She states she does not know how long it had been there. Dr. Ford advised pt to come to ER for IV antibiotics. COVID-19 Coronavirus risk:travel/contact w/high risk person: No Has patient experienced Coronavirus symptoms: No Nurses notes reviewed Nurses Notes Review: Yes Source History Provided: Patient Mode of arrival Mode of Arrival: Ambulatory Timing Onset of Chief Complaint: 02/18/21 Associated signs and symptoms Associated Signs and Symptoms: Pain, Swelling and Other (DRAINAGE FROM FOOT PUNCTURE SITE) PMH PMH Past Medical History: Yes Past Medical History: Arthritis, Diabetes and Hypertension Past Medical History Comment: neuropathy both legs and feet Past Surgical History: Yes Surgical History: Cholecystectomy, Hysterectomy and Ortho Surgery Family History History of Family Medical Conditions: Yes Family Medical History: Diabetes Mellitus, Cancer, [place], Coronary Artery Disease, Sudden Cardiac and Hypertension Social History Does patient currently use any type of tobacco product: No Have you used tobacco products in the last 12 months: No Type of Tobacco Use: None Does any household member use tobacco: No Alcohol Use: None Do you use any recreational Drugs:: No Lives With: Family Lives Where: Home Travel Risk Coronavirus risk:travel/contact w/high risk person: No Has patient experienced Coronavirus symptoms: No Infectious screening In the last 2 months have you had wt loss of >10#?: NO Have you had fever, night sweats or hemotysis?: No Have you traveled outside the country in the last 6 months?: No Isolation: Standard ROS Review of Systems Constitutional: See HPI Musculoskeletal: See HPI and Muscle Pain (LEFT FOOT PAIN SWELLING) PE Vital Signs Vitals: Temperature 99.8 F Pulse Rate 107 Respiratory Rate 16 Blood Pressure [Right Arm] 164/98 Blood Pressure [Left Arm] 142/85 Blood Pressure [Left Arm] 158/88 Blood Pressure [Right Arm] 183/85 Blood Pressure 130/73 O2 Sat by Pulse Oximetry 98 General General Appearance: Alert and In No Apparent Distress Head Head Exam: Normal Inspection and Atraumatic Eyes Eye exam: Normal Appearance and PERRL ENT ENT Exam: Normal Exam and Normal Oropharynx Chest Chest Inspection: Normal Inspection and Symmetric Chest Wall Rise Respiratory Respiratory Exam: Normal Lung Sounds Bilat Respiratory Exam: Bilateral: Clear to Auscultation Cardiovascular Cardiovascular Exam: Regular Rate and Normal Rhythm Abdominal Exam Abdominal Exam: Normal Inspection, Normal Bowel Sounds and Soft Lower Extremities Foot/Toe Exam: Swelling (LEFT FOOT WITH MARKED WARMTH. PUNCTURE WOUND MID 3RD METATARSAL, DRAINAGE NOTED) and Puncture Wound Neurovascular/Tendon Exam: Normal Capillary Refill Back Back Exam: Normal Inspection and Full ROM Neurological Neurological Exam: Alert Psychiatric Psychiatric Exam: Normal Affect and Normal Mood Skin Skin Exam: Warm and Dry MDM Differential Diagnosis Differential Diagnosis: Other (CELLULITIS LEFT FOOT, PREVIOUS REMOVAL FOREIGN BODY THIS AM) COURSE Treatment Treatment: IV NORMAL SALLINE 200ML/HR, AFTER 2 SETS OF BLOOD CULTURES, VANCOMYCIN 1GM IVPB, ZOFRAN 4MG, MORPHINE 4MG IV Consultation Call Returned: 16:00 Consultation Comments: FINDINGS DISCUSSED WITH DR CONNELLY FOR OBSERVATION ROR Labs Reviewed Laboratory Results Reviewed?: Yes Result Diagrams: 02/18/21 13:16 02/18/21 13:16 Laboratory: WBC 19.6 X10^3/uL (3.6-10.0) H 02/18/21 13:16 RBC 3.54 X10^6/uL (3.5-5.4) 02/18/21 13:16 Hgb 10.1 g/dL (12.0-16.0) L 02/18/21 13:16 Hct 29.9 % (36.0-47.0) L 02/18/21 13:16 MCV 84.5 fL (80.0-100.0) 02/18/21 13:16 MCH 28.5 pg (27.0-34.0) 02/18/21 13:16 MCHC 33.7 g/dL (33.0-35.0) 02/18/21 13:16 RDW 13.0 % (11.6-16.5) 02/18/21 13:16 Plt Count 322 X10^3/uL (150.0-450.0) 02/18/21 13:16 MPV 7.7 fL (7.4-11.0) 02/18/21 13:16 Neut % (Auto) 87.2 % (42.0-75.0) H 02/18/21 13:16 Lymph % (Auto) 6.1 % (21.0-51.0) L 02/18/21 13:16 [place] % (Auto) 6.2 % (0.0-13.0) 02/18/21 13:16 Eos % (Auto) 0.4 % (0.9-2.9) L 02/18/21 13:16 Baso % (Auto) 0.1 % (0.2-1.0) L 02/18/21 13:16 Neut # (Auto) 17.1 x10^3/uL (2.2-4.8) H 02/18/21 13:16 Lymph # (Auto) 1.2 X10^3/uL (1.3-2.9) L 02/18/21 13:16 [place] # (Auto) 1.2 x10^3/uL (0.3-0.8) H 02/18/21 13:16 Eos # (Auto) 0.1 x10^3/uL (0.0-0.2) 02/18/21 13:16 Baso # (Auto) 0.0 X10^3/uL (0.0-0.1) 02/18/21 13:16 Absolute Nucleated RBC 0.1 /100WBC 02/18/21 13:16 PT 15.0 SECONDS (11.8-14.3) 02/18/21 13:16 INR Target Range - 02/18/21 13:16 INR 1.24 (0.8-1.3) 02/18/21 13:16 Sodium 126 mmol/L (136-145) L 02/18/21 13:16 Corrected Sodium 128 mmol/L (136-145) L 02/18/21 13:16 Potassium 4.0 mmol/L (3.5-5.1) 02/18/21 13:16 Chloride 94 mmol/L (98-107) L 02/18/21 13:16 Carbon Dioxide 22.9 mmol/L (21-32) 02/18/21 13:16 BUN 18 mg/dL (7-18) 02/18/21 13:16 Creatinine 1.42 mg/dL (0.55-1.02) H 02/18/21 13:16 Est GFR (MDRD) Af Amer 51 (>60) L 02/18/21 13:16 Est GFR (MDRD) Non-Af 42 (>60) L 02/18/21 13:16 Glucose 178 mg/dL (65-99) H 02/18/21 13:16 Calcium 9.4 mg/dL (8.5-10.1) 02/18/21 13:16 Corrected Calcium 10.6 mg/dL (8.5-10.1) H 02/18/21 13:16 Total Bilirubin 0.60 mg/dL (0.2-1.0) 02/18/21 13:16 AST 34 Units/L (15-37) 02/18/21 13:16 ALT 35 Units/L (12-78) 02/18/21 13:16 Alkaline Phosphatase 164 Units/L (46-116) H 02/18/21 13:16 Total Protein 9.8 g/dL (6.4-8.2) H 02/18/21 13:16 Albumin 2.5 g/dL (3.4-5.0) L 02/18/21 13:16 Globulin 7.3 g/dL (2.5-4.5) H 02/18/21 13:16 Albumin/Globulin Ratio 0.3 Ratio (1.1-2.1) L 02/18/21 13:16 Acetone, Semi-Quant Negative (NEGATIVE) 02/18/21 13:16 SARS CoV-2 RNA Rapid KRIS Negative (NEGATIVE) 02/18/21 14:01 XRAY X-ray Results: LEFT FOOT XRAY -NO ACUTE OSSEOUS FINDINGS, AMPUTATION DEFORMITY LEFT GREAT TOE, SWELLING PLANTAR ASPECT WITH AIR/GAS SOFT TISSUE Opioid Opioid Risk Tool Age (Win box if 16-45): No History of Preadolescent Sexual Abuse: No Total: 0 Total Score Risk Category: Low Risk Copyright: Klever MAURICE predicting aberrant behaviors Diagnosis Discharge Problem: Cellulitis of foot, left
[2021-02-18] MEDS ORDERED: NS 1,000 ML IV 1,000 ML IV STA (12:55)
[2021-02-18] MEDS ORDERED: VANCOMYCIN IV *PREMIX 1 G/200 ML BAG 1 G/200 ML PIGGYBACK IV ONE ×2 (12:57→13:08)
[2021-02-18] MEDS ORDERED: NS 1,000 ML IV 1,000 ML ONE (13:07)
[2021-02-18 13:50] LABS: BASOPHILS % (AUTO) 0.1 % (0.2-1.0); EOSINOPHILS # (AUTO) 0.1 x10^3/uL (0.0-0.2); EOSINOPHILS % (AUTO) 0.4 % (0.9-2.9); HEMATOCRIT 29.9 % (36.0-47.0); HEMOGLOBIN 10.1 g/dL (12.0-16.0); LYMPHOCYTES # (AUTO) 1.2 X10^3/uL (1.3-2.9); LYMPHOCYTES % (AUTO) 6.1 % (21.0-51.0); MEAN CORPUSCULAR HEMOGLOBIN 28.5 pg (27.0-34.0); MEAN CORPUSCULAR HGB CONC 33.7 g/dL (33.0-35.0); MEAN CORPUSCULAR VOLUME 84.5 fL (80.0-100.0); MEAN PLATELET VOLUME 7.7 fL (7.4-11.0); MONOCYTES # (AUTO) 1.2 x10^3/uL (0.3-0.8); MONOCYTES % (AUTO) 6.2 % (0.0-13.0); NEUTROPHILS # (AUTO) 17.1 x10^3/uL (2.2-4.8); NEUTROPHILS % (AUTO) 87.2 % (42.0-75.0); RED BLOOD COUNT 3.54 X10^6/uL (3.5-5.4); WHITE BLOOD COUNT 19.6 X10^3/uL (3.6-10.0)
[2021-02-18 13:58] LABS: ALANINE AMINOTRANSFERASE 35 Units/L (12-78); ALBUMIN 2.5 g/dL (3.4-5.0); ALKALINE PHOSPHATASE 164 Units/L (46-116); ASPARTATE AMINO TRANSFERASE 34 Units/L (15-37); BLOOD UREA NITROGEN 18 mg/dL (7-18); CALCIUM 9.4 mg/dL (8.5-10.1); CARBON DIOXIDE 22.9 mmol/L (21-32); CHLORIDE 94 mmol/L (98-107); COR CA(FOR HYPOALB) 10.6 mg/dL (8.5-10.1); COR NA(FOR HYPERGLY) 128 mmol/L (136-145); CREATININE 1.42 mg/dL (0.55-1.02); SODIUM 126 mmol/L (136-145); TOTAL PROTEIN 9.8 g/dL (6.4-8.2); eGFR NON BLACK RACES 42 (>60)
[2021-02-18 14:45] LABS: SERUM ACETONE NEGATIVE (NEGATIVE)
--- NOTE | 2021-02-18 14:53 | RAD ---
HISTORYNail removed from footSTUDYLeft foot three viewsCOMPARISONNoneFINDINGSThe distal phalanx of the 1st toe is absent. There is soft tissue swelling of the forefoot with air or gas in the plantar soft tissues. No radiopaque foreign body or bone destruction is seen.IMPRESSIONNo acute osseous abnormality noted. Amputation deformity 1st toe. Soft tissue swelling is nonspecific. Air/gas in the plantar soft tissues may reflect an infection, and/or recent surgical procedure.Electronically signed by: SHANNA CHAPPELL (Feb 18, 2021 14:51:53)
[2021-02-18] MEDS ORDERED: MORPHINE SULFATE INJ 4 MG IVP STA (15:00)
[2021-02-18] MEDS ORDERED: ZOFRAN INJ 4 MG VIAL IVP STA (15:00)
[2021-02-18] MEDS ORDERED: ZOFRAN INJ 4 MG VIAL ONE (15:14)
[2021-02-18] MEDS ORDERED: MORPHINE SULFATE INJ 4 MG ONE (15:14)
[2021-02-18] MEDS ORDERED: VANCOMYCIN IV *PREMIX 1 G/200 ML BAG 1 G/200 ML PIGGYBACK IV SCH (17:41)
[2021-02-18] MEDS ORDERED: NORCO 5/325 MG TAB PO PRN (19:54)
[2021-02-18] MEDS ORDERED: GLUCOPHAGE ONE (20:11)
[2021-02-18] MEDS: CYMBALTA PO SCH (20:15)
[2021-02-18] MEDS: GLUCOPHAGE PO SCH (20:15)
[2021-02-18] MEDS: LEVAQUIN PREMIX IV 500 MG 500 MG/100 ML BAG IV SCH (20:15)
[2021-02-18] MEDS: AMBIEN PO SCH (20:15)
[2021-02-18] MEDS: COZAAR PO SCH (20:15)
[2021-02-18] MEDS: LIPITOR TAB 10 MG PO SCH (20:15)
[2021-02-18] MEDS: NS 1,000 ML IV 1,000 ML IV SCH (20:51)
[2021-02-18] MEDS: COLACE CAP 100 MG PO SCH (20:52)
[2021-02-18] MEDS: MILK OF MAGNESIA PO SCH (20:52)
[2021-02-18] MEDS ORDERED: VISTARIL PO PRN (21:41)
[2021-02-19] MEDS ORDERED: VANCOMYCIN IV *PREMIX 750 mg/150 ML BAG 750 MG/150 ML PIGGYBACK IV ONE (00:32)
[2021-02-19] MEDS ORDERED: VANCOMYCIN HCL 750 MG VIAL 750 MG in D5W 250 ML IV 250 ML IV SCH (01:00)
[2021-02-19 06:47] LABS: BASOPHILS % (AUTO) 0.1 % (0.2-1.0); EOSINOPHILS # (AUTO) 0.1 x10^3/uL (0.0-0.2); EOSINOPHILS % (AUTO) 0.8 % (0.9-2.9); HEMATOCRIT 25.8 % (36.0-47.0); HEMOGLOBIN 8.6 g/dL (12.0-16.0); LYMPHOCYTES # (AUTO) 0.9 X10^3/uL (1.3-2.9); LYMPHOCYTES % (AUTO) 5.9 % (21.0-51.0); MEAN CORPUSCULAR HEMOGLOBIN 28.3 pg (27.0-34.0); MEAN CORPUSCULAR HGB CONC 33.4 g/dL (33.0-35.0); MEAN CORPUSCULAR VOLUME 84.7 fL (80.0-100.0); MEAN PLATELET VOLUME 7.7 fL (7.4-11.0); MONOCYTES # (AUTO) 0.9 x10^3/uL (0.3-0.8); MONOCYTES % (AUTO) 5.6 % (0.0-13.0); NEUTROPHILS % (AUTO) 87.6 % (42.0-75.0); RED BLOOD COUNT 3.04 X10^6/uL (3.5-5.4); RED CELL DISTRIBUTION WIDTH 12.9 % (11.6-16.5); WHITE BLOOD COUNT 15.9 X10^3/uL (3.6-10.0)
[2021-02-19 07:20] LABS: ALANINE AMINOTRANSFERASE 43 Units/L (12-78); ALBUMIN 2.1 g/dL (3.4-5.0); ALKALINE PHOSPHATASE 325 Units/L (46-116); ASPARTATE AMINO TRANSFERASE 44 Units/L (15-37); BLOOD UREA NITROGEN 18 mg/dL (7-18); CALCIUM 8.9 mg/dL (8.5-10.1); CARBON DIOXIDE 22.7 mmol/L (21-32); CHLORIDE 99 mmol/L (98-107); COR CA(FOR HYPOALB) 10.4 mg/dL (8.5-10.1); COR NA(FOR HYPERGLY) 133 mmol/L (136-145); CREATININE 1.17 mg/dL (0.55-1.02); SODIUM 132 mmol/L (136-145); TOTAL PROTEIN 8.5 g/dL (6.4-8.2); eGFR NON BLACK RACES 52 (>60)
[2021-02-19] MEDS ORDERED: GLUCOPHAGE ONE (08:24)
[2021-02-19] MEDS: LEVAQUIN PREMIX IV 500 MG 500 MG/100 ML BAG IV SCH (08:45)
[2021-02-19] MEDS: COZAAR PO SCH (08:46)
[2021-02-19] MEDS: CYMBALTA PO SCH (08:46)
[2021-02-19] MEDS: VITAMIN D3 25 mcg (1,000 UNITS) PO SCH (08:46)
[2021-02-19] MEDS: GLUCOPHAGE PO SCH (08:47)
[2021-02-19] MEDS: NS 1,000 ML IV 1,000 ML IV SCH ×3 (10:18→20:09)
--- NOTE | 2021-02-19 11:37 | DR.H&P ---
H&P - History & Physical for Day of: H&P Date: 02/18/21 - Chief Complaint Chief Complaint: LEFT FOOT PAIN, SWELLING, WOUND - History of Present Illness History of Present Illness: IS A 50 YEAR OLD B/F WHO IS A PATIENT OF OURS. SHE WAS INSTRUCTED TO COME TO THE ER BY , TOW TRUCK DISPATCHER, FOR POSSIBLE ADMISSION FOR IV ANTIBIOTICS. PATIENT REPORTEDLY HAD A NAIL REMOVED FROM THE BOTTOM OF HER LEFT FOOT ON 02/18/21. LEFT FOOT IS SWOLLEN AND WARM TO TOUCH. PATIENT DENIES FEVER, BUT DOES ADMIT TO MODERATE PAIN. THERE IS DRAINAGE NOTED FROM PUNCTURE SITE TO THE BOTTOM OF THE FOOT. HER PMH INCLUDES: ARTHRITIS, DM, HTN, NEUROPATHY, CHOLECYSTECTOMY, HYSTERECTOMY. ON ARRIVAL TO THE HOSPTIAL, VITALS WERE 99.8-107-16-98%-130/73. LABS WERE OBTAINED. ABNORMAL LAB VALUES INCLUDE THE FOLLOWING: WBC 19.6, HGB 10.1, HCT 29.9, SODIUM 126, CHLORIDE 94, CREATININE 1.42, GLUCOSE 178, ALK PHOS 164, TOTAL PROTEIN 9.8, ALBUMIN 2.5, GLOBULIN 7.3. ACETONES NEGATIVE. COVID-19 NEGTIVE. BLOOD CULTURES WERE SET UP. A FOOT XRAY WAS OBTAINED AND REVEALED: No acute osseous abnormality noted. Amputation deformity 1st toe. Soft tissue swelling is nonspecific. Air/gas in the plantar soft tissues may reflect an infection, and/or recent surgical procedure. IN THE ER, SHE WAS GIVEN VANCOMYCIN 1G IV X 1 DOSE, MORPHINE 4MG IV X 1 DOSE, ZOFRAN 4MG IV X 1 DOSE. SHE WAS ADMITTED TO THE HOSPITAL FOR FURTHER EVALUATION AND TREATMENT OF LEFT FOOT CELLULITIS. SHE WAS STARTED ON NORMAL SALINE AT 80 ML/HR, VANCOMYCIN 750MG IV Q12H, LEVAQUIN 500MG IV DAILY, GENTAMICIN CREAM BID, AND HER HOME MEDICATIONS WERE RESUMED. WE WILL CONSULT , GENERAL SURGEON, FOR WOUND. OTHERWISE, WE PLAN TO FOLLOW UP WITH AM LABS AND CONTINUE TO MONITOR. TIME SPENT ON CLINICAL ASSESSMENT, REVIEWING LABS AND IMAGING, DECISION MAKING, AND DOCUMENTATION GREATER THAN 75 MINUTES. - Past Medical History Past Medical History: Hypertension, Diabetes, Arthritis Additional Medical History: PANCREATITIS - Past Surgical History Surgical History: Cholecystectomy, Ortho Surgery - Family History Family Medical History: Diabetes Mellitus, Cancer, [place] - Social History Does patient currently use any type of tobacco product: No Have you used tobacco products in the last 12 months: No Type of Tobacco Use: None Does any household member use tobacco: No Alcohol Use: None Drug Use: None - Medications Home Medications: Penicillins Allergy (Mild, Verified 12/30/20 10:45) RASH CONTINUE taking the following medications atorvastatin 10 mg PO QHS 02/18/21 [History] cholecalciferol (vitamin D3) [Vitamin D3] 2,000 unit DAILY 02/18/21 [History] duloxetine 60 mg PO DAILY 02/18/21 [History] losartan 25 mg PO DAILY 02/18/21 [History] semaglutide [Ozempic] 0.5 mg SUBCUT WEEKLY 02/18/21 [History] zolpidem 10 mg PO QHS 02/18/21 [History] - Review of Systems Constitutional: No Symptoms Reported Eyes: No Symptoms Reported ENT: No Symptoms Reported Respiratory: No Symptoms Reported Cardiovascular: No Symptoms Reported Gastrointestinal: No Symptoms Reported Genitourinary: No Symptoms Reported Musculoskeletal: See HPI, Foot Pain Skin: See HPI, Wound (LEFT FOOT WOUND, REDNESS, SWELLING ) Neurological: No Symptoms Reported - Physical Exam Vital Signs: Temperature 99.5 F Pulse Rate [Left] 98 Pulse Rate 107 Respiratory Rate 20 Blood Pressure [Right Arm] 149/79 Blood Pressure [Left Arm] 142/85 Blood Pressure [Left Arm] 158/88 Blood Pressure [Right Arm] 183/85 Blood Pressure 158/87 O2 Sat by Pulse Oximetry 97 Oriented: Normal Eyes: Normal Ear: Normal Nose: Normal Throat: Normal Respiratory: Clear Throughout Cardiovascular: Normal : Normal Auscultation: Bowel Sounds: Normal Palpation: Normal Tenderness: Normal Skin: Red, Tender, Hot, Wound (LEFT FOOT ) Musculoskeletal: Left, Foot, Swelling, Tender Psychiatric: Normal Mood Description: Calm Affect: Normal Speech Pattern: Clear - Assessment/Plan (1) Cellulitis of foot, left Status: Acute Plan: ADMIT, NORMAL SALINE AT 80 ML/HR, VANCOMYCIN 750MG IV Q12H, LEVAQUIN 500MG IV DAILY, GENTAMICIN CREAM BID, AND HER HOME MEDICATIONS WERE RESUMED. - Allergies Allergies/Adverse Reactions: Allergies Allergy/AdvReac Type Severity Reaction Status Date / Time Penicillins Allergy Mild RASH Verified 12/30/20 10:45
[2021-02-19] MEDS: VANCOMYCIN IV *PREMIX 750 mg/150 ML BAG 750 MG/150 ML PIGGYBACK IV SCH ×2 (11:38→20:11)
--- NOTE | 2021-02-19 14:37 | CT ---
HISTORYPOSSIBLE ABCESS TO PT LEFT FOOT, PT STEPPED ON A NAILSTUDYLOWER EXT WITH CONCOMPARISONLeft foot radiograph from 02/18/2021.TECHNIQUECTA of the left lower extremity with contrast with sagittal and coronal reformats. [id number] from the mid leg through the foot. Dose reduction techniques including Automated Exposure Control (AEC) and adjustment of mA and kV were utilized.FINDINGSMildly blurry sagittal and coronal reconstructions limit evaluation. There is moderate soft tissue gas in the plantar foot foot with the suspected skin defect defect identified at the level of the 3rd metatarsal head. See image 22 series 17. Soft tissue gas extends between proximal 3rd and 4th phalanges image 16 series 17. There is surrounding fat stranding in the plantar forefoot but no fluid collection is identified. There is mild subcutaneous edema over the dorsum of foot. Amputation of the great toe at the level of the interphalangeal joint. Age-indeterminate fracture of the base of the 5th proximal phalanx. No additional fracture, malalignment, or aggressive osseous lesion.IMPRESSIONAge-indeterminate fracture at the base of the 5th proximal phalanx. Soft tissue gas with fat stranding in the plantar forefoot without discernible abscess identified.Electronically signed by: Mitch Antonio (Feb 19, 2021 14:35:49)
[2021-02-19] MEDS: GENTAMICIN TOPICAL CRM TOP SCH ×2 (15:26→20:10)
[2021-02-19] MEDS: LIPITOR TAB 10 MG PO SCH (20:10)
[2021-02-19] MEDS: MILK OF MAGNESIA PO SCH (20:10)
[2021-02-19] MEDS: COLACE CAP 100 MG PO SCH (20:10)
[2021-02-19] MEDS: AMBIEN PO SCH (20:10)
[2021-02-19] MEDS: ULTRAM PO PRN (20:11)
[2021-02-20] MEDS: NS 1,000 ML IV 1,000 ML IV SCH ×3 (05:35→21:11)
[2021-02-20] MEDS: ULTRAM PO PRN ×3 (05:36→23:45)
[2021-02-20 06:23] LABS: BASOPHILS % (AUTO) 0.3 % (0.2-1.0); EOSINOPHILS # (AUTO) 0.1 x10^3/uL (0.0-0.2); EOSINOPHILS % (AUTO) 0.5 % (0.9-2.9); LYMPHOCYTES # (AUTO) 1.2 X10^3/uL (1.3-2.9); LYMPHOCYTES % (AUTO) 6.5 % (21.0-51.0); MEAN CORPUSCULAR HEMOGLOBIN 28.4 pg (27.0-34.0); MEAN CORPUSCULAR HGB CONC 33.3 g/dL (33.0-35.0); MEAN CORPUSCULAR VOLUME 85.3 fL (80.0-100.0); MEAN PLATELET VOLUME 7.7 fL (7.4-11.0); MONOCYTES # (AUTO) 1.1 x10^3/uL (0.3-0.8); NEUTROPHILS # (AUTO) 16.2 x10^3/uL (2.2-4.8); NEUTROPHILS % (AUTO) 86.7 % (42.0-75.0); RED BLOOD COUNT 3.16 X10^6/uL (3.5-5.4); RED CELL DISTRIBUTION WIDTH 13.1 % (11.6-16.5); WHITE BLOOD COUNT 18.7 X10^3/uL (3.6-10.0)
[2021-02-20 06:39] LABS: ALANINE AMINOTRANSFERASE 26 Units/L (12-78); ALBUMIN 1.9 g/dL (3.4-5.0); ALKALINE PHOSPHATASE 261 Units/L (46-116); ASPARTATE AMINO TRANSFERASE 22 Units/L (15-37); BLOOD UREA NITROGEN 13 mg/dL (7-18); CALCIUM 8.9 mg/dL (8.5-10.1); CARBON DIOXIDE 21.6 mmol/L (21-32); CHLORIDE 99 mmol/L (98-107); COR CA(FOR HYPOALB) 10.6 mg/dL (8.5-10.1); COR NA(FOR HYPERGLY) 131 mmol/L (136-145); CREATININE 0.97 mg/dL (0.55-1.02); SODIUM 130 mmol/L (136-145); TOTAL PROTEIN 8.4 g/dL (6.4-8.2); eGFR NON BLACK RACES > 60 (>60)
[2021-02-20] MEDS: LEVAQUIN PREMIX IV 500 MG 500 MG/100 ML BAG IV SCH (08:02)
[2021-02-20] MEDS: GENTAMICIN TOPICAL CRM TOP SCH ×2 (08:02→20:27)
[2021-02-20] MEDS: CYMBALTA PO SCH (08:02)
[2021-02-20] MEDS: COZAAR PO SCH (08:02)
[2021-02-20] MEDS: VITAMIN D3 25 mcg (1,000 UNITS) PO SCH (08:03)
[2021-02-20] MEDS ORDERED: PHARMACY COMMENT IV NR (08:30)
[2021-02-20] MEDS: ZOFRAN INJ 4 MG VIAL IVP PRN ×3 (09:41→23:46)
[2021-02-20] MEDS: DILAUDID INJ IVP PRN ×2 (09:41→14:49)
[2021-02-20 09:44] LABS: CREATININE 1.05 mg/dL (0.55-1.02); VANCOMYCIN,TROUGH 10.3 ug/mL (15-20)
[2021-02-20] MEDS: VANCOMYCIN IV *PREMIX 750 mg/150 ML BAG 750 MG/150 ML PIGGYBACK IV SCH ×2 (10:43→21:11)
[2021-02-20] MEDS ORDERED: BENADRYL CAP/TAB 25 MG PO ONE (10:46)
[2021-02-20] MEDS: BENADRYL CAP/TAB 25 MG PO PRN ×2 (11:29→14:49)
--- NOTE | 2021-02-20 11:46 | PCM.PROG ---
Progress Note - Progress Note for Day of Date of Exam: 02/20/21 - Subjective Subjective: WAS ADMITTED FOR TREATMENT OF LEFT LOWER EXTREMITY CELLULITIS. SHE APPARENTLY HAD A NAIL REMOVED FROM THE BOTTOM OF THE FOOT ON 02/18/21 BY HER ANDROID SOFTWARE ENGINEER. TODAY, SHE IS ALERT AND ORIENTED, LYING IN BED ON MORNING ROUNDS. SHE CONTINUES WITH COMPLAINTS OF PAIN TO THE LEFT FOOT. SHE DENIES SIGNIFICANT IMPROVEMENT IN PAIN. ON EXAMINATION, LEFT FOOT CONTINUED WITH SWELLING, CALLUS FORMATION, AND AN OPEN WOUND TO THE BOTTOM OF THE FOOT. NO DRAINAGE NOTED UPON MORNING ROUNDS. HER VITALS THIS MORNING ARE: 99.8-112-20-96%-183/95. LABS WERE OBTAINED. ABNORMAL LAB VALUES INCLUDE THE FOLLOWING: WBC 18.7, RBC 3.16, HGB 9.0, HCT 27.0, SODIUM 130, CREATININE 1.05, GLUCOSE 124, ALK PHOS 261, TOTAL PROTEIN 8.4, ALBUMIN 1.9. WOUND AND BLOOD CULTURES ARE PENDING. CONSULTED WITH PATIENT YESTERDAY AND PLANS FOR DEBRIDEMENT OF WOUND. WE ARE IN AGREEMENT WITH PLANS. SHE IS CURRENTLY RECEIVING NORMAL SALINE AT 80 ML/HR, VANCOMYCIN 750MG IV Q12H, LEVAQUIN 500MG IV DAILY, GENTAMICIN CREAM BID, AND HER HOME MEDICATIONS WERE RESUMED. TODAY, WE WILL ADD DILAUDID 2MG IV Q4H PRN, ZOFRAN 4MG IV Q4H PRN, AND BENADRYL 25MG PO Q4H PRN. OTHERWISE, WE WILL CONTINUE WITH CURRENT PLAN OF CARE. WE WILL FOLLOW UP WITH AM LABS AND CONTINUE TO MONITOR. TIME SPENT ON CLINICAL ASSESSMENT, REVIEWING LABS AND IMAGING, DECISION MAKING, AND DOCUMENTATION GREATER THAN 45 MINUTES. - Past Medical Family Social History Past Med/Fam/Surg Hx: No changes since H&P Allergies: Allergies Penicillins Allergy (Mild, Verified 12/30/20 10:45) RASH hives - Review of Systems ROS: No change since H&P - Vital Signs and I&O's Vital Signs: Temperature 99.8 F Pulse Rate [Left] 112 Pulse Rate 107 Respiratory Rate 20 Blood Pressure [Right Arm] 183/95 Blood Pressure [Left Arm] 142/85 Blood Pressure [Left Arm] 158/88 Blood Pressure [Right Arm] 183/85 Blood Pressure 158/87 O2 Sat by Pulse Oximetry 96 Intake and Output: Intake & Output 02/17/21 02/18/21 02/19/21 02/20/21 11:59 11:59 11:59 11:59 Intake Total 615 / 615 2792 / 2712 Balance 615 / 615 080 / 2711 - Physical Exam Oriented: Normal Eyes: Normal Ear: Normal Nose: Normal Throat: Normal Respiratory: Normal, Generalized Cardiovascular: Normal : Normal Auscultation: Bowel Sounds: Normal Palpation: Normal Tenderness: Normal Skin: Red, Tender, Hot, Wound (LEFT FOOT ) Musculoskeletal: Left, Foot, Swelling, Tender Psychiatric: Normal Mood Description: Calm Affect: Normal Speech Pattern: Clear, Appropriate - Laboratory and Diagnostics Result Diagrams: 02/20/21 05:45 02/20/21 09:07 Labs: 02/19/21 15:00 Foot - Left Wound Gram Stain - Final 02/19/21 15:00 Foot - Left Wound Culture - Preliminary Laboratory WBC 18.7 X10^3/uL (3.6-10.0) H 02/20/21 05:45 RBC 3.16 X10^6/uL (3.5-5.4) L 02/20/21 05:45 Hgb 9.0 g/dL (12.0-16.0) L 02/20/21 05:45 Hct 27.0 % (36.0-47.0) L 02/20/21 05:45 MCV 85.3 fL (80.0-100.0) 02/20/21 05:45 MCH 28.4 pg (27.0-34.0) 02/20/21 05:45 MCHC 33.3 g/dL (33.0-35.0) 02/20/21 05:45 RDW 13.1 % (11.6-16.5) 02/20/21 05:45 Plt Count 330 X10^3/uL (150.0-450.0) 02/20/21 05:45 MPV 7.7 fL (7.4-11.0) 02/20/21 05:45 Neut % (Auto) 86.7 % (42.0-75.0) H 02/20/21 05:45 Lymph % (Auto) 6.5 % (21.0-51.0) L 02/20/21 05:45 [place] % (Auto) 6.0 % (0.0-13.0) 02/20/21 05:45 Eos % (Auto) 0.5 % (0.9-2.9) L 02/20/21 05:45 Baso % (Auto) 0.3 % (0.2-1.0) 02/20/21 05:45 Neut # (Auto) 16.2 x10^3/uL (2.2-4.8) H 02/20/21 05:45 Lymph # (Auto) 1.2 X10^3/uL (1.3-2.9) L 02/20/21 05:45 [place] # (Auto) 1.1 x10^3/uL (0.3-0.8) H 02/20/21 05:45 Eos # (Auto) 0.1 x10^3/uL (0.0-0.2) 02/20/21 05:45 Baso # (Auto) 0.0 X10^3/uL (0.0-0.1) 02/20/21 05:45 Absolute Nucleated RBC 0.0 /100WBC 02/20/21 05:45 PT 15.0 SECONDS (11.8-14.3) 02/18/21 13:16 INR Target Range - 02/18/21 13:16 INR 1.24 (0.8-1.3) 02/18/21 13:16 Sodium 130 mmol/L (136-145) L 02/20/21 05:45 Corrected Sodium 131 mmol/L (136-145) L 02/20/21 05:45 Potassium 4.0 mmol/L (3.5-5.1) 02/20/21 05:45 Chloride 99 mmol/L (98-107) 02/20/21 05:45 Carbon Dioxide 21.6 mmol/L (21-32) 02/20/21 05:45 BUN 13 mg/dL (7-18) 02/20/21 05:45 Creatinine 1.05 mg/dL (0.55-1.02) H 02/20/21 09:07 Est GFR (MDRD) Af Amer > 60 (>60) 02/20/21 05:45 Est GFR (MDRD) Non-Af > 60 (>60) 02/20/21 05:45 Glucose 124 mg/dL (65-99) H 02/20/21 05:45 POC Glucose (mg/dL) 175 mg/dL (65-99) H 02/20/21 10:44 Calcium 8.9 mg/dL (8.5-10.1) 02/20/21 05:45 Corrected Calcium 10.6 mg/dL (8.5-10.1) H 02/20/21 05:45 Total Bilirubin 0.50 mg/dL (0.2-1.0) 02/20/21 05:45 AST 22 Units/L (15-37) 02/20/21 05:45 ALT 26 Units/L (12-78) 02/20/21 05:45 Alkaline Phosphatase 261 Units/L (46-116) H 02/20/21 05:45 Total Protein 8.4 g/dL (6.4-8.2) H 02/20/21 05:45 Albumin 1.9 g/dL (3.4-5.0) L 02/20/21 05:45 Globulin 6.5 g/dL (2.5-4.5) H 02/20/21 05:45 Albumin/Globulin Ratio 0.3 Ratio (1.1-2.1) L 02/20/21 05:45 Vancomycin Trough 10.3 ug/mL (15-20) L 02/20/21 09:07 Acetone, Semi-Quant Negative (NEGATIVE) 02/18/21 13:16 SARS CoV-2 RNA Rapid KRIS Negative (NEGATIVE) 02/18/21 14:01 - Plan (1) Cellulitis of foot, left Status: Acute Plan: NORMAL SALINE AT 80 ML/HR, VANCOMYCIN 750MG IV Q12H, LEVAQUIN 500MG IV DAILY, GENTAMICIN CREAM BID, DILAUDID 2MG IV Q4H PRN, ZOFRAN PRN, BENADRYL PRN, AND HER HOME MEDICATIONS WERE RESUMED.
--- NOTE | 2021-02-20 12:40 | DR.PROGNOT ---
Hospital Progress Notes - Progress Note for Day of: Progress Note Date: 02/20/21 - Chief Complaint Chief Complaint: c/o moderate pain Lt foot with mild drainage .. having leukocytosis . BS is fairly controlled . CT LT foot showed deep soft tissue inflammation with gas in the tissue .no clear abscess or osteomyelitis . - Past Medical Family Social History Past Med/Fam/Surg Hx: No changes since H&P Allergies: Allergies Penicillins Allergy (Mild, Verified 12/30/20 10:45) RASH hives - Review Of Systems ROS: No change since H&P - Vital Signs Vital Signs: Temperature 99.8 F Pulse Rate [Left] 112 Pulse Rate 107 Respiratory Rate 20 Blood Pressure [Right Arm] 183/95 Blood Pressure [Left Arm] 142/85 Blood Pressure [Left Arm] 158/88 Blood Pressure [Right Arm] 183/85 Blood Pressure 158/87 O2 Sat by Pulse Oximetry 96 - Physical Exam Oriented: Normal Eyes: Normal Ear: Normal Nose: Normal Throat: Normal Respiratory: Normal, Generalized Cardiovascular: Normal : Normal GI:Auscultation: Normal GI:Palpation: Normal GI: Tenderness: Normal Skin: Red, Tender, Hot, Wound (edema involving the whole foot with erythema .. the plantar aspect with cellulitis , puncture wound and tense skin , mild drainage ) Musculoskeletal: Left, Foot, Swelling, Tender Psychiatric: Normal Mood Description: Calm Affect: Normal Speech Pattern: Clear, Appropriate - Laboratory and Diagnostics Result Diagrams: 02/20/21 05:45 02/20/21 09:07 Labs: 02/18/21 13:37 Blood Blood Culture - Preliminary 02/18/21 13:16 Blood Blood Culture - Preliminary 02/19/21 15:00 Foot - Left Wound Gram Stain - Final 02/19/21 15:00 Foot - Left Wound Culture - Preliminary Laboratory WBC 18.7 X10^3/uL (3.6-10.0) H 02/20/21 05:45 RBC 3.16 X10^6/uL (3.5-5.4) L 02/20/21 05:45 Hgb 9.0 g/dL (12.0-16.0) L 02/20/21 05:45 Hct 27.0 % (36.0-47.0) L 02/20/21 05:45 MCV 85.3 fL (80.0-100.0) 02/20/21 05:45 MCH 28.4 pg (27.0-34.0) 02/20/21 05:45 MCHC 33.3 g/dL (33.0-35.0) 02/20/21 05:45 RDW 13.1 % (11.6-16.5) 02/20/21 05:45 Plt Count 330 X10^3/uL (150.0-450.0) 02/20/21 05:45 MPV 7.7 fL (7.4-11.0) 02/20/21 05:45 Neut % (Auto) 86.7 % (42.0-75.0) H 02/20/21 05:45 Lymph % (Auto) 6.5 % (21.0-51.0) L 02/20/21 05:45 [place] % (Auto) 6.0 % (0.0-13.0) 02/20/21 05:45 Eos % (Auto) 0.5 % (0.9-2.9) L 02/20/21 05:45 Baso % (Auto) 0.3 % (0.2-1.0) 02/20/21 05:45 Neut # (Auto) 16.2 x10^3/uL (2.2-4.8) H 02/20/21 05:45 Lymph # (Auto) 1.2 X10^3/uL (1.3-2.9) L 02/20/21 05:45 [place] # (Auto) 1.1 x10^3/uL (0.3-0.8) H 02/20/21 05:45 Eos # (Auto) 0.1 x10^3/uL (0.0-0.2) 02/20/21 05:45 Baso # (Auto) 0.0 X10^3/uL (0.0-0.1) 02/20/21 05:45 Absolute Nucleated RBC 0.0 /100WBC 02/20/21 05:45 PT 15.0 SECONDS (11.8-14.3) 02/18/21 13:16 INR Target Range - 02/18/21 13:16 INR 1.24 (0.8-1.3) 02/18/21 13:16 Sodium 130 mmol/L (136-145) L 02/20/21 05:45 Corrected Sodium 131 mmol/L (136-145) L 02/20/21 05:45 Potassium 4.0 mmol/L (3.5-5.1) 02/20/21 05:45 Chloride 99 mmol/L (98-107) 02/20/21 05:45 Carbon Dioxide 21.6 mmol/L (21-32) 02/20/21 05:45 BUN 13 mg/dL (7-18) 02/20/21 05:45 Creatinine 1.05 mg/dL (0.55-1.02) H 02/20/21 09:07 Est GFR (MDRD) Af Amer > 60 (>60) 02/20/21 05:45 Est GFR (MDRD) Non-Af > 60 (>60) 02/20/21 05:45 Glucose 124 mg/dL (65-99) H 02/20/21 05:45 POC Glucose (mg/dL) 175 mg/dL (65-99) H 02/20/21 10:44 Calcium 8.9 mg/dL (8.5-10.1) 02/20/21 05:45 Corrected Calcium 10.6 mg/dL (8.5-10.1) H 02/20/21 05:45 Total Bilirubin 0.50 mg/dL (0.2-1.0) 02/20/21 05:45 AST 22 Units/L (15-37) 02/20/21 05:45 ALT 26 Units/L (12-78) 02/20/21 05:45 Alkaline Phosphatase 261 Units/L (46-116) H 02/20/21 05:45 Total Protein 8.4 g/dL (6.4-8.2) H 02/20/21 05:45 Albumin 1.9 g/dL (3.4-5.0) L 02/20/21 05:45 Globulin 6.5 g/dL (2.5-4.5) H 02/20/21 05:45 Albumin/Globulin Ratio 0.3 Ratio (1.1-2.1) L 02/20/21 05:45 Vancomycin Trough 10.3 ug/mL (15-20) L 02/20/21 09:07 Acetone, Semi-Quant Negative (NEGATIVE) 02/18/21 13:16 SARS CoV-2 RNA Rapid KRIS Negative (NEGATIVE) 02/18/21 14:01 - Assessment and Plan 1: diabetic Lt foot ulcers , deep soft tissue infection ,. recent punture wound . diabetic neuropathy ,. 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 - Problem Patient Problems: Patient Problems (This Medical Record has been edited. Action required.) Cellulitis of foot, left (Acute) L03.116
[2021-02-20] MEDS: LIPITOR TAB 10 MG PO SCH (21:10)
[2021-02-20] MEDS: COLACE CAP 100 MG PO SCH (21:10)
[2021-02-20] MEDS: AMBIEN PO SCH (21:10)
[2021-02-20] MEDS: MILK OF MAGNESIA PO SCH (21:11)
[2021-02-20 22:00] LABS: BILIRUBIN,URINE NEGATIVE (NEGATIVE); BLOOD/HEMOGLOBIN,URINE 3+ (NEGATIVE); GLUCOSE, URINE NEGATIVE (NEGATIVE); KETONES,URINE 1+ (NEGATIVE); LEUKOCYTE ESTERASE ,URINE 2+ (NEGATIVE); NITRITES,URINE NEGATIVE (NEGATIVE); PROTEIN,URINE 3+ (NEGATIVE); UROBILINOGEN,URINE 1+ (NORMAL)
[2021-02-20 22:06] LABS: APPEARANCE,URINE CLEAR (CLEAR); COLOR,URINE AMBER (YELLOW)
[2021-02-20 22:07] LABS: BACTERIA,URINE 2+ /HPF (NEGATIVE); SQUAMOUS EPITHELIAL CELL,UR MODERATE /HPF (NEGATIVE)
[2021-02-21] MEDS: DILAUDID INJ IVP PRN ×4 (03:43→22:13)
[2021-02-21] MEDS: ZOFRAN INJ 4 MG VIAL IVP PRN ×3 (03:44→22:13)
[2021-02-21 06:18] LABS: BASOPHILS % (AUTO) 0.2 % (0.2-1.0); EOSINOPHILS # (AUTO) 0.1 x10^3/uL (0.0-0.2); EOSINOPHILS % (AUTO) 0.2 % (0.9-2.9); HEMATOCRIT 25.6 % (36.0-47.0); HEMOGLOBIN 8.4 g/dL (12.0-16.0); LYMPHOCYTES # (AUTO) 0.9 X10^3/uL (1.3-2.9); LYMPHOCYTES % (AUTO) 4.1 % (21.0-51.0); MEAN CORPUSCULAR HEMOGLOBIN 28.4 pg (27.0-34.0); MEAN CORPUSCULAR VOLUME 86.2 fL (80.0-100.0); MEAN PLATELET VOLUME 7.3 fL (7.4-11.0); MONOCYTES # (AUTO) 1.1 x10^3/uL (0.3-0.8); MONOCYTES % (AUTO) 4.9 % (0.0-13.0); NEUTROPHILS # (AUTO) 21.1 x10^3/uL (2.2-4.8); NEUTROPHILS % (AUTO) 90.6 % (42.0-75.0); RED BLOOD COUNT 2.97 X10^6/uL (3.5-5.4); RED CELL DISTRIBUTION WIDTH 13.3 % (11.6-16.5); WHITE BLOOD COUNT 23.2 X10^3/uL (3.6-10.0)
[2021-02-21 06:44] LABS: CALCIUM 8.6 mg/dL (8.5-10.1); CARBON DIOXIDE 22.5 mmol/L (21-32); COR CA(FOR HYPOALB) 10.2 mg/dL (8.5-10.1); CREATININE 1.38 mg/dL (0.55-1.02); TOTAL PROTEIN 8.6 g/dL (6.4-8.2)
[2021-02-21 07:53] LABS: BAND NEUTROPHILS % 1 % (0-10); METAMYELOCYTES % 2; PLATELET MORPHOLOGY COMMENT NORMAL (NORMAL)
[2021-02-21] MEDS: LEVAQUIN PREMIX IV 500 MG 500 MG/100 ML BAG IV SCH (09:19)
[2021-02-21] MEDS: VANCOMYCIN IV *PREMIX 750 mg/150 ML BAG 750 MG/150 ML PIGGYBACK IV SCH ×2 (09:19→22:13)
[2021-02-21] MEDS: COZAAR PO SCH (09:19)
[2021-02-21] MEDS: VITAMIN D3 25 mcg (1,000 UNITS) PO SCH (09:20)
[2021-02-21] MEDS: CYMBALTA PO SCH (09:20)
[2021-02-21] MEDS: GENTAMICIN TOPICAL CRM TOP SCH ×2 (09:21→20:51)
[2021-02-21] MEDS ORDERED: NS 1,000 ML IV 1,000 ML ONE (09:36)
[2021-02-21] MEDS ORDERED: POLYMYXIN B SULFATE ONE (10:48)
[2021-02-21] MEDS ORDERED: XYLOCAINE 1 % (PLAIN) ONE (10:49)
[2021-02-21] MEDS ORDERED: BETADINE SOLN ONE (10:49)
[2021-02-21] MEDS ORDERED: FENTANYL VIAL INJ 100 mcg ONE (10:51)
[2021-02-21] MEDS ORDERED: DIPRIVAN VIAL ONE (10:55)
[2021-02-21] MEDS ORDERED: VERSED ONE (10:55)
[2021-02-21] MEDS: NovoLIN R (or HumuLIN R) SUBCUT PRN ×2 (12:30→17:35)
[2021-02-21] MEDS: NS 1,000 ML IV 1,000 ML IV SCH ×2 (12:34→23:57)
[2021-02-21] MEDS ORDERED: NS IV SCH (14:00)
[2021-02-21] MEDS ORDERED: MERREM IV SCH (14:00)
[2021-02-21] MEDS ORDERED: MERREM VIAL ONE ×2 (15:03→22:13)
[2021-02-21] MEDS ORDERED: NS 50 ML IV + SPIKE MINIBAG* 50 ML IV ONE (15:04)
--- NOTE | 2021-02-21 19:15 | PCM.PROG ---
Progress Note Progress Note for Day of Date of Exam: 02/21/21 Subjective Subjective: PT IS A 50 YEAR OLD FEMALE ADMITTED FOR TREATMENT OF LEFT LOWER EXTREMITY CELLULITIS AND LEFT FOOT DIABETIC ULCER. THIS MORNING SHE IS SCHEDULED BY GENERAL SURGERY FOR DEBRIDEMENT. NO ACUTE CONCERNS OVERNIGHT. LABS/IMAGING WERE OBTAINED: WBC 23, HGB 8.4, PLT 354, NA 131, K 4.0, CREATININE 1.38, GLUCOSE 171, URINE CULTURE PRELIM GRAM NEGATIVE RODS, WOUND CULTURE POSITIVE FOR E.COLI. DR. PIMENTEL CONSULTED WE ARE IN AGREEMENT WITH PLANS. SHE IS CURRENTLY RECEIVING NORMAL SALINE AT 80 ML/HR, VANCOMYCIN 750MG IV Q12H, LEVAQUIN 500MG IV DAILY, GENTAMICIN CREAM BID, AND HER HOME MEDICATIONS WERE RESUMED. WILL DISCONTIUE LEVAQUIN AND START ON MEROPENEM BASED ON CULTURE AND SENSITIVITIES. OTHERWISE, WE WILL CONTINUE WITH CURRENT PLAN OF CARE. WE WILL FOLLOW UP WITH AM LABS AND CONTINUE TO MONITOR. TIME SPENT ON CLINICAL ASSESSMENT, REVIEWING LABS AND IMAGING, DECISION MAKING, AND DOCUMENTATION GREATER THAN 45 MINUTES. Past Medical Family Social History Past Med/Fam/Surg Hx: No changes since H&P Allergies: Allergies Penicillins Allergy (Mild, Verified 12/30/20 10:45) RASH hives Review of Systems ROS: No change since H&P Vital Signs and I&O's Vital Signs: Temperature 97.9 F Pulse Rate [Left] 102 Pulse Rate 107 Respiratory Rate 23 Blood Pressure [Right Arm] 148/84 Blood Pressure [Left Arm] 142/85 Blood Pressure [Left Arm] 158/88 Blood Pressure [Right Arm] 183/85 Blood Pressure 158/87 O2 Sat by Pulse Oximetry 95 Intake and Output: Intake & Output 02/18/21 02/19/21 02/20/21 02/21/21 23:59 23:59 23:59 23:59 Intake Total 465 / 465 2212 / 2212 1890 / 1890 3650 / 3650 Output Total 999 / 999 Balance 465 / 465 2212 / 2212 1890 / 1890 2651 / 2651 Physical Exam Oriented: Normal Eyes: Normal Ear: Normal Nose: Normal Throat: Normal Respiratory: Normal and Generalized Cardiovascular: Normal : Normal Auscultation: Bowel Sounds: Normal Tenderness: Normal Skin: Red, Tender, Hot and Wound (edema involving the whole foot with erythema .. the plantar aspect with cellulitis , puncture wound and tense skin , mild drainage ) Musculoskeletal: Left, Foot, Swelling and Tender Psychiatric: Normal Mood Description: Calm Affect: Normal Speech Pattern: Clear and Appropriate Laboratory and Diagnostics Result Diagrams: 02/21/21 05:46 02/21/21 05:46 Labs: 02/21/21 11:53 Foot - Left Wound Gram Stain - Final 02/20/21 21:15 Urine,Clean Catch Urine Culture - Preliminary 02/19/21 15:00 Foot - Left Wound Gram Stain - Final 02/19/21 15:00 Foot - Left Wound Culture - Final Escherichia Coli 02/18/21 13:37 Blood Blood Culture - Preliminary 02/18/21 13:16 Blood Blood Culture - Preliminary Laboratory WBC 23.2 X10^3/uL (3.6-10.0) H 02/21/21 05:46 RBC 2.97 X10^6/uL (3.5-5.4) L 02/21/21 05:46 Hgb 8.4 g/dL (12.0-16.0) L 02/21/21 05:46 Hct 25.6 % (36.0-47.0) L 02/21/21 05:46 MCV 86.2 fL (80.0-100.0) 02/21/21 05:46 MCH 28.4 pg (27.0-34.0) 02/21/21 05:46 MCHC 33.0 g/dL (33.0-35.0) 02/21/21 05:46 RDW 13.3 % (11.6-16.5) 02/21/21 05:46 Plt Count 354 X10^3/uL (150.0-450.0) 02/21/21 05:46 Plt Count Comment Adequate (ADEQUATE) 02/21/21 05:46 MPV 7.3 fL (7.4-11.0) L 02/21/21 05:46 Neut % (Auto) 90.6 % (42.0-75.0) H 02/21/21 05:46 Lymph % (Auto) 4.1 % (21.0-51.0) L 02/21/21 05:46 [place] % (Auto) 4.9 % (0.0-13.0) 02/21/21 05:46 Eos % (Auto) 0.2 % (0.9-2.9) L 02/21/21 05:46 Baso % (Auto) 0.2 % (0.2-1.0) 02/21/21 05:46 Neut # (Auto) 21.1 x10^3/uL (2.2-4.8) H 02/21/21 05:46 Lymph # (Auto) 0.9 X10^3/uL (1.3-2.9) L 02/21/21 05:46 [place] # (Auto) 1.1 x10^3/uL (0.3-0.8) H 02/21/21 05:46 Eos # (Auto) 0.1 x10^3/uL (0.0-0.2) 02/21/21 05:46 Baso # (Auto) 0.0 X10^3/uL (0.0-0.1) 02/21/21 05:46 Absolute Nucleated RBC 0.1 /100WBC 02/21/21 05:46 Total Counted 100 02/21/21 05:46 Neutrophils % (Manual) 92 % (39-76) H 02/21/21 05:46 Band Neutrophils % 1 % (0-10) 02/21/21 05:46 Lymphocytes % (Manual) 4 % (13-43) L 02/21/21 05:46 Monocytes % (Manual) 1 % (4-9) L 02/21/21 05:46 Metamyelocytes % 2 02/21/21 05:46 Plt Morphology Comment Normal (NORMAL) 02/21/21 05:46 RBC Morphology Normal (NORMAL) 02/21/21 05:46 PT 15.0 SECONDS (11.8-14.3) 02/18/21 13:16 INR Target Range - 02/18/21 13:16 INR 1.24 (0.8-1.3) 02/18/21 13:16 Sodium 131 mmol/L (136-145) L 02/21/21 05:46 Corrected Sodium 133 mmol/L (136-145) L 02/21/21 05:46 Potassium 4.0 mmol/L (3.5-5.1) 02/21/21 05:46 Chloride 101 mmol/L (98-107) 02/21/21 05:46 Carbon Dioxide 22.5 mmol/L (21-32) 02/21/21 05:46 BUN 17 mg/dL (7-18) 02/21/21 05:46 Creatinine 1.38 mg/dL (0.55-1.02) H 02/21/21 05:46 Est GFR (MDRD) Af Amer 52 (>60) L 02/21/21 05:46 Est GFR (MDRD) Non-Af 43 (>60) L 02/21/21 05:46 Glucose 171 mg/dL (65-99) H 02/21/21 05:46 POC Glucose (mg/dL) 176 mg/dL (65-99) H 02/21/21 16:46 Calcium 8.6 mg/dL (8.5-10.1) 02/21/21 05:46 Corrected Calcium 10.2 mg/dL (8.5-10.1) H 02/21/21 05:46 Total Bilirubin 0.80 mg/dL (0.2-1.0) 02/21/21 05:46 AST 49 Units/L (15-37) H 02/21/21 05:46 ALT 39 Units/L (12-78) 02/21/21 05:46 Alkaline Phosphatase 406 Units/L (46-116) H 02/21/21 05:46 Total Protein 8.6 g/dL (6.4-8.2) H 02/21/21 05:46 Albumin 2.0 g/dL (3.4-5.0) L 02/21/21 05:46 Globulin 6.6 g/dL (2.5-4.5) H 02/21/21 05:46 Albumin/Globulin Ratio 0.3 Ratio (1.1-2.1) L 02/21/21 05:46 Specimen Type Clean catch urine 02/20/21 21:15 Urine Color [place] (YELLOW) 02/20/21 21:15 Urine Appearance Clear (CLEAR) 02/20/21 21:15 Urine pH 5.0 (5.0 - 8.0) 02/20/21 21:15 Ur Specific [place] 1.015 (1.000-1.030) 02/20/21 21:15 Urine Protein 3+ (NEGATIVE) 02/20/21 21:15 Urine Glucose (UA) Negative (NEGATIVE) 02/20/21 21:15 Urine Ketones 1+ (NEGATIVE) 02/20/21 21:15 Urine Occult Blood 3+ (NEGATIVE) 02/20/21 21:15 Urine Nitrite Negative (NEGATIVE) 02/20/21 21:15 Urine Bilirubin Negative (NEGATIVE) 02/20/21 21:15 Urine Urobilinogen 1+ (NORMAL) 02/20/21 21:15 Ur Leukocyte Esterase 2+ (NEGATIVE) 02/20/21 21:15 Urine RBC 10-20 /HPF (0-3) A 02/20/21 21:15 Urine WBC 10-20 /HPF (0-5) A 02/20/21 21:15 Ur Squamous Epith Cells Moderate /HPF (NEGATIVE) 02/20/21 21:15 Urine Bacteria 2+ /HPF (NEGATIVE) 02/20/21 21:15 Urine Mucus Few /HPF (NEGATIVE) 02/20/21 21:15 Ur Culture Indicated? Yes/culture set up 02/20/21 21:15 Vancomycin Trough 10.3 ug/mL (15-20) L 02/20/21 09:07 Acetone, Semi-Quant Negative (NEGATIVE) 02/18/21 13:16 SARS CoV-2 RNA Rapid KRIS Negative (NEGATIVE) 02/18/21 14:01 Tissue Pathology To follow 02/21/21 11:53 Plan (1) Cellulitis of foot, left: Status: Acute Plan: NORMAL SALINE AT 80 ML/HR, VANCOMYCIN 750MG IV Q12H, LEVAQUIN 500MG IV DAILY, GENTAMICIN CREAM BID, DILAUDID 2MG IV Q4H PRN, ZOFRAN PRN, BENADRYL PRN, AND HER HOME MEDICATIONS WERE RESUMED.
[2021-02-21] MEDS ORDERED: PHARMACY COMMENT IV NR (20:30)
[2021-02-21] MEDS: AMBIEN PO SCH (20:49)
[2021-02-21] MEDS: LIPITOR TAB 10 MG PO SCH (20:50)
[2021-02-21] MEDS: MILK OF MAGNESIA PO SCH (20:50)
[2021-02-21] MEDS: COLACE CAP 100 MG PO SCH (20:50)
[2021-02-21] MEDS: BENADRYL CAP/TAB 25 MG PO PRN (20:51)
[2021-02-21 21:58] LABS: CREATININE 1.18 mg/dL (0.55-1.02); VANCOMYCIN,TROUGH 14.5 ug/mL (15-20)
[2021-02-21] MEDS ORDERED: NS 100 ML IV + SPIKE MINIBAG* 100 ML IV ONE (22:13)
[2021-02-21] MEDS: NS IV SCH (23:02)
[2021-02-21] MEDS: MERREM IV SCH (23:02)
[2021-02-21] MEDS: SPIKE MINIBAG IV SCH (23:02)
[2021-02-22] MEDS ORDERED: NS 100 ML IV + SPIKE MINIBAG* 100 ML IV ONE ×2 (05:10→13:47)
[2021-02-22] MEDS ORDERED: MERREM VIAL ONE (05:10)
[2021-02-22] MEDS: MERREM IV SCH (05:15)
[2021-02-22] MEDS: NS IV SCH (05:15)
[2021-02-22] MEDS: SPIKE MINIBAG IV SCH (05:15)
[2021-02-22] MEDS: DILAUDID INJ IVP PRN ×3 (05:51→19:50)
[2021-02-22] MEDS: ZOFRAN INJ 4 MG VIAL IVP PRN ×3 (05:51→19:51)
[2021-02-22 06:14] LABS: BASOPHILS # (AUTO) 0.1 X10^3/uL (0.0-0.1); BASOPHILS % (AUTO) 0.6 % (0.2-1.0); EOSINOPHILS # (AUTO) 0.1 x10^3/uL (0.0-0.2); EOSINOPHILS % (AUTO) 0.3 % (0.9-2.9); HEMATOCRIT 24.1 % (36.0-47.0); HEMOGLOBIN 7.8 g/dL (12.0-16.0); LYMPHOCYTES # (AUTO) 1.1 X10^3/uL (1.3-2.9); LYMPHOCYTES % (AUTO) 5.4 % (21.0-51.0); MEAN CORPUSCULAR HEMOGLOBIN 28.2 pg (27.0-34.0); MEAN CORPUSCULAR HGB CONC 32.5 g/dL (33.0-35.0); MEAN CORPUSCULAR VOLUME 86.9 fL (80.0-100.0); MEAN PLATELET VOLUME 7.4 fL (7.4-11.0); MONOCYTES # (AUTO) 0.8 x10^3/uL (0.3-0.8); MONOCYTES % (AUTO) 4.1 % (0.0-13.0); NEUTROPHILS # (AUTO) 17.9 x10^3/uL (2.2-4.8); NEUTROPHILS % (AUTO) 89.6 % (42.0-75.0); RED BLOOD COUNT 2.77 X10^6/uL (3.5-5.4); RED CELL DISTRIBUTION WIDTH 13.6 % (11.6-16.5)
[2021-02-22 06:27] LABS: ALBUMIN 1.9 g/dL (3.4-5.0); CALCIUM 8.7 mg/dL (8.5-10.1); CARBON DIOXIDE 21.3 mmol/L (21-32); COR CA(FOR HYPOALB) 10.4 mg/dL (8.5-10.1); CREATININE 1.28 mg/dL (0.55-1.02); TOTAL PROTEIN 8.5 g/dL (6.4-8.2)
[2021-02-22 07:22] LABS: PLATELET MORPHOLOGY COMMENT NORMAL (NORMAL)
[2021-02-22] MEDS: COZAAR PO SCH (08:31)
[2021-02-22] MEDS: VITAMIN D3 25 mcg (1,000 UNITS) PO SCH (08:32)
[2021-02-22] MEDS: CYMBALTA PO SCH (08:32)
[2021-02-22] MEDS: VANCOMYCIN IV *PREMIX 750 mg/150 ML BAG 750 MG/150 ML PIGGYBACK IV SCH ×2 (08:32→20:50)
[2021-02-22] MEDS: GENTAMICIN TOPICAL CRM TOP SCH ×2 (08:33→20:51)
--- NOTE | 2021-02-22 09:48 | DR.PROGNOT ---
Hospital Progress Notes - Progress Note for Day of: Progress Note Date: 02/22/21 - Chief Complaint Chief Complaint: post op debridement Lt foot ulcers . c/o moderate pain Lt foot with mild drainage .. BS is fairly controlled . BUN/Crea 18/1.8. WBC 20 .. Hgb 7.8. temp 98.4. culture is growing E Coli .. on Iminepen .. - Past Medical Family Social History Past Med/Fam/Surg Hx: No changes since H&P Allergies: Allergies Penicillins Allergy (Mild, Verified 12/30/20 10:45) RASH hives - Review Of Systems ROS: No change since H&P - Vital Signs Vital Signs: Temperature 98.1 F Pulse Rate [Left] 98 Pulse Rate 107 Respiratory Rate 18 Blood Pressure [Right Arm] 121/68 Blood Pressure [Left Arm] 142/85 Blood Pressure [Left Arm] 158/88 Blood Pressure [Right Arm] 183/85 Blood Pressure 158/87 O2 Sat by Pulse Oximetry 97 - Physical Exam Oriented: Normal Eyes: Normal Ear: Normal Nose: Normal Throat: Normal Respiratory: Normal, Generalized Cardiovascular: Normal : Normal GI:Auscultation: Normal GI:Palpation: Normal GI: Tenderness: Normal Skin: Red, Tender, Hot, Wound (less edema Lt foot ..3ed and 4th toes are still cyanotic .. able to move them .no necrosis .) Musculoskeletal: Left, Foot, Swelling, Tender Psychiatric: Normal Mood Description: Calm Affect: Normal Speech Pattern: Clear, Appropriate - Laboratory and Diagnostics Result Diagrams: 02/22/21 05:04 02/22/21 05:04 Labs: 02/21/21 11:53 Foot - Left Wound Gram Stain - Final 02/21/21 11:53 Foot - Left Wound Culture - Preliminary 02/20/21 21:15 Urine,Clean Catch Urine Culture - Preliminary 02/19/21 15:00 Foot - Left Wound Gram Stain - Final 02/19/21 15:00 Foot - Left Wound Culture - Final Escherichia Coli 02/18/21 13:37 Blood Blood Culture - Preliminary 02/18/21 13:16 Blood Blood Culture - Preliminary Laboratory WBC 20.0 X10^3/uL (3.6-10.0) H 02/22/21 05:04 RBC 2.77 X10^6/uL (3.5-5.4) L 02/22/21 05:04 Hgb 7.8 g/dL (12.0-16.0) L 02/22/21 05:04 Hct 24.1 % (36.0-47.0) L 02/22/21 05:04 MCV 86.9 fL (80.0-100.0) 02/22/21 05:04 MCH 28.2 pg (27.0-34.0) 02/22/21 05:04 MCHC 32.5 g/dL (33.0-35.0) L 02/22/21 05:04 RDW 13.6 % (11.6-16.5) 02/22/21 05:04 Plt Count 367 X10^3/uL (150.0-450.0) 02/22/21 05:04 Plt Count Comment Adequate (ADEQUATE) 02/22/21 05:04 MPV 7.4 fL (7.4-11.0) 02/22/21 05:04 Neut % (Auto) 89.6 % (42.0-75.0) H 02/22/21 05:04 Lymph % (Auto) 5.4 % (21.0-51.0) L 02/22/21 05:04 [place] % (Auto) 4.1 % (0.0-13.0) 02/22/21 05:04 Eos % (Auto) 0.3 % (0.9-2.9) L 02/22/21 05:04 Baso % (Auto) 0.6 % (0.2-1.0) 02/22/21 05:04 Neut # (Auto) 17.9 x10^3/uL (2.2-4.8) H 02/22/21 05:04 Lymph # (Auto) 1.1 X10^3/uL (1.3-2.9) L 02/22/21 05:04 [place] # (Auto) 0.8 x10^3/uL (0.3-0.8) 02/22/21 05:04 Eos # (Auto) 0.1 x10^3/uL (0.0-0.2) 02/22/21 05:04 Baso # (Auto) 0.1 X10^3/uL (0.0-0.1) 02/22/21 05:04 Absolute Nucleated RBC 0.0 /100WBC 02/22/21 05:04 Total Counted 100 02/22/21 05:04 Neutrophils % (Manual) 86 % (39-76) H 02/22/21 05:04 Band Neutrophils % 1 % (0-10) 02/21/21 05:46 Lymphocytes % (Manual) 8 % (13-43) L 02/22/21 05:04 Monocytes % (Manual) 6 % (4-9) 02/22/21 05:04 Metamyelocytes % 2 02/21/21 05:46 Plt Morphology Comment Normal (NORMAL) 02/22/21 05:04 RBC Morphology Normal (NORMAL) 02/22/21 05:04 PT 15.0 SECONDS (11.8-14.3) 02/18/21 13:16 INR Target Range - 02/18/21 13:16 INR 1.24 (0.8-1.3) 02/18/21 13:16 Sodium 133 mmol/L (136-145) L 02/22/21 05:04 Corrected Sodium 134 mmol/L (136-145) L 02/22/21 05:04 Potassium 3.9 mmol/L (3.5-5.1) 02/22/21 05:04 Chloride 101 mmol/L (98-107) 02/22/21 05:04 Carbon Dioxide 21.3 mmol/L (21-32) 02/22/21 05:04 BUN 18 mg/dL (7-18) 02/22/21 05:04 Creatinine 1.28 mg/dL (0.55-1.02) H 02/22/21 05:04 Est GFR (MDRD) Af Amer 57 (>60) L 02/22/21 05:04 Est GFR (MDRD) Non-Af 47 (>60) L 02/22/21 05:04 Glucose 125 mg/dL (65-99) H 02/22/21 05:04 POC Glucose (mg/dL) 121 mg/dL (65-99) H 02/22/21 05:39 Calcium 8.7 mg/dL (8.5-10.1) 02/22/21 05:04 Corrected Calcium 10.4 mg/dL (8.5-10.1) H 02/22/21 05:04 Total Bilirubin 0.40 mg/dL (0.2-1.0) 02/22/21 05:04 AST 28 Units/L (15-37) 02/22/21 05:04 ALT 33 Units/L (12-78) 02/22/21 05:04 Alkaline Phosphatase 364 Units/L (46-116) H 02/22/21 05:04 Total Protein 8.5 g/dL (6.4-8.2) H 02/22/21 05:04 Albumin 1.9 g/dL (3.4-5.0) L 02/22/21 05:04 Globulin 6.6 g/dL (2.5-4.5) H 02/22/21 05:04 Albumin/Globulin Ratio 0.3 Ratio (1.1-2.1) L 02/22/21 05:04 Specimen Type Clean catch urine 02/20/21 21:15 Urine Color [place] (YELLOW) 02/20/21 21:15 Urine Appearance Clear (CLEAR) 02/20/21 21:15 Urine pH 5.0 (5.0 - 8.0) 02/20/21 21:15 Ur Specific [place] 1.015 (1.000-1.030) 02/20/21 21:15 Urine Protein 3+ (NEGATIVE) 02/20/21 21:15 Urine Glucose (UA) Negative (NEGATIVE) 02/20/21 21:15 Urine Ketones 1+ (NEGATIVE) 02/20/21 21:15 Urine Occult Blood 3+ (NEGATIVE) 02/20/21 21:15 Urine Nitrite Negative (NEGATIVE) 02/20/21 21:15 Urine Bilirubin Negative (NEGATIVE) 02/20/21 21:15 Urine Urobilinogen 1+ (NORMAL) 02/20/21 21:15 Ur Leukocyte Esterase 2+ (NEGATIVE) 02/20/21 21:15 Urine RBC 10-20 /HPF (0-3) A 02/20/21 21:15 Urine WBC 10-20 /HPF (0-5) A 02/20/21 21:15 Ur Squamous Epith Cells Moderate /HPF (NEGATIVE) 02/20/21 21:15 Urine Bacteria 2+ /HPF (NEGATIVE) 02/20/21 21:15 Urine Mucus Few /HPF (NEGATIVE) 02/20/21 21:15 Ur Culture Indicated? Yes/culture set up 02/20/21 21:15 Vancomycin Trough 14.5 ug/mL (15-20) L 02/21/21 21:05 Acetone, Semi-Quant Negative (NEGATIVE) 02/18/21 13:16 SARS CoV-2 RNA Rapid KRIS Negative (NEGATIVE) 02/18/21 14:01 Tissue Pathology To follow 02/21/21 11:53 - Assessment and Plan 1: diabetic Lt foot ulcers with cellulitis and deep soft tissue infection with E Coli ,. recent punture wound Lt foot . diabetic neuropathy ,. 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 same IV Antibiotics and local care - Problem Patient Problems: Patient Problems (This Medical Record has been edited. Action required.) Cellulitis of foot, left (Acute) L03.116
--- NOTE | 2021-02-22 11:07 | PCM.PROG ---
Progress Note Progress Note for Day of Date of Exam: 02/22/21 Subjective Subjective: PT IS A 50 YEAR OLD FEMALE ADMITTED FOR TREATMENT OF LEFT LOWER EXTREMITY CELLULITIS AND LEFT FOOT DIABETIC ULCER. YESTERDAY PATIENT HAD DEBRIDEMENT OF LEFT FOOT WOUND/ULCER. THIS MORNING SHE IS RECOVERING WELL, NO ACUTE CONCERNS OVERNIGHT. LABS/IMAGING WERE OBTAINED: WBC 20, HGB 7.8, PLT 367, NA 134, K 3.9, CREATININE 1.28, GLUCOSE 125, URINE CULTURE PRELIM GRAM NEGATIVE RODS, WOUND CULTURE POSITIVE FOR E.COLI. DR. PIMENTEL CONSULTED WE ARE IN AGREEMENT WITH PLANS. SHE IS CURRENTLY RECEIVING NORMAL SALINE AT 80 ML/HR, VANCOMYCIN 750MG IV Q12H, MEROPENEM, GENTAMICIN CREAM BID, AND HER HOME MEDICATIONS. SHE WILL CONTINUE TO REQUIRE IV ANTIBIOTICS BASED ON CULTURE AND SENSITIVITIES. OTHERWISE, WE WILL CONTINUE WITH CURRENT PLAN OF CARE, FOLLOW UP WITH AM LABS AND CONTINUE TO MONITOR. Past Medical Family Social History Past Med/Fam/Surg Hx: No changes since H&P Allergies: Allergies Penicillins Allergy (Mild, Verified 12/30/20 10:45) RASH hives Review of Systems ROS: No change since H&P Vital Signs and I&O's Vital Signs: Temperature 98.1 F Pulse Rate [Left] 98 Pulse Rate 107 Respiratory Rate 18 Blood Pressure [Right Arm] 121/68 Blood Pressure [Left Arm] 142/85 Blood Pressure [Left Arm] 158/88 Blood Pressure [Right Arm] 183/85 Blood Pressure 158/87 O2 Sat by Pulse Oximetry 97 Intake and Output: Intake & Output 02/19/21 02/20/21 02/21/21 02/22/21 23:59 23:59 23:59 23:59 Intake Total 2212 / 2212 1890 / 1890 5030 / 5030 1150 / 1150 Output Total 999 / 999 Balance 2212 / 2212 1890 / 1890 4031 / 4031 1150 / 1150 Physical Exam Oriented: Normal Eyes: Normal Ear: Normal Nose: Normal Throat: Normal Respiratory: Normal and Generalized Cardiovascular: Normal : Normal Auscultation: Bowel Sounds: Normal Tenderness: Normal Skin: Red, Tender, Hot and Wound (less edema Lt foot ..3ed and 4th toes are still cyanotic .. able to move them .no necrosis .) Musculoskeletal: Left, Foot, Swelling and Tender Psychiatric: Normal Mood Description: Calm Affect: Normal Speech Pattern: Clear and Appropriate Laboratory and Diagnostics Result Diagrams: 02/22/21 05:04 02/22/21 05:04 Labs: 02/21/21 11:53 Foot - Left Wound Gram Stain - Final 02/21/21 11:53 Foot - Left Wound Culture - Preliminary 02/20/21 21:15 Urine,Clean Catch Urine Culture - Preliminary 02/19/21 15:00 Foot - Left Wound Gram Stain - Final 02/19/21 15:00 Foot - Left Wound Culture - Final Escherichia Coli 02/18/21 13:37 Blood Blood Culture - Preliminary 02/18/21 13:16 Blood Blood Culture - Preliminary Laboratory WBC 20.0 X10^3/uL (3.6-10.0) H 02/22/21 05:04 RBC 2.77 X10^6/uL (3.5-5.4) L 02/22/21 05:04 Hgb 7.8 g/dL (12.0-16.0) L 02/22/21 05:04 Hct 24.1 % (36.0-47.0) L 02/22/21 05:04 MCV 86.9 fL (80.0-100.0) 02/22/21 05:04 MCH 28.2 pg (27.0-34.0) 02/22/21 05:04 MCHC 32.5 g/dL (33.0-35.0) L 02/22/21 05:04 RDW 13.6 % (11.6-16.5) 02/22/21 05:04 Plt Count 367 X10^3/uL (150.0-450.0) 02/22/21 05:04 Plt Count Comment Adequate (ADEQUATE) 02/22/21 05:04 MPV 7.4 fL (7.4-11.0) 02/22/21 05:04 Neut % (Auto) 89.6 % (42.0-75.0) H 02/22/21 05:04 Lymph % (Auto) 5.4 % (21.0-51.0) L 02/22/21 05:04 [place] % (Auto) 4.1 % (0.0-13.0) 02/22/21 05:04 Eos % (Auto) 0.3 % (0.9-2.9) L 02/22/21 05:04 Baso % (Auto) 0.6 % (0.2-1.0) 02/22/21 05:04 Neut # (Auto) 17.9 x10^3/uL (2.2-4.8) H 02/22/21 05:04 Lymph # (Auto) 1.1 X10^3/uL (1.3-2.9) L 02/22/21 05:04 [place] # (Auto) 0.8 x10^3/uL (0.3-0.8) 02/22/21 05:04 Eos # (Auto) 0.1 x10^3/uL (0.0-0.2) 02/22/21 05:04 Baso # (Auto) 0.1 X10^3/uL (0.0-0.1) 02/22/21 05:04 Absolute Nucleated RBC 0.0 /100WBC 02/22/21 05:04 Total Counted 100 02/22/21 05:04 Neutrophils % (Manual) 86 % (39-76) H 02/22/21 05:04 Band Neutrophils % 1 % (0-10) 02/21/21 05:46 Lymphocytes % (Manual) 8 % (13-43) L 02/22/21 05:04 Monocytes % (Manual) 6 % (4-9) 02/22/21 05:04 Metamyelocytes % 2 02/21/21 05:46 Plt Morphology Comment Normal (NORMAL) 02/22/21 05:04 RBC Morphology Normal (NORMAL) 02/22/21 05:04 PT 15.0 SECONDS (11.8-14.3) 02/18/21 13:16 INR Target Range - 02/18/21 13:16 INR 1.24 (0.8-1.3) 02/18/21 13:16 Sodium 133 mmol/L (136-145) L 02/22/21 05:04 Corrected Sodium 134 mmol/L (136-145) L 02/22/21 05:04 Potassium 3.9 mmol/L (3.5-5.1) 02/22/21 05:04 Chloride 101 mmol/L (98-107) 02/22/21 05:04 Carbon Dioxide 21.3 mmol/L (21-32) 02/22/21 05:04 BUN 18 mg/dL (7-18) 02/22/21 05:04 Creatinine 1.28 mg/dL (0.55-1.02) H 02/22/21 05:04 Est GFR (MDRD) Af Amer 57 (>60) L 02/22/21 05:04 Est GFR (MDRD) Non-Af 47 (>60) L 02/22/21 05:04 Glucose 125 mg/dL (65-99) H 02/22/21 05:04 POC Glucose (mg/dL) 121 mg/dL (65-99) H 02/22/21 05:39 Calcium 8.7 mg/dL (8.5-10.1) 02/22/21 05:04 Corrected Calcium 10.4 mg/dL (8.5-10.1) H 02/22/21 05:04 Total Bilirubin 0.40 mg/dL (0.2-1.0) 02/22/21 05:04 AST 28 Units/L (15-37) 02/22/21 05:04 ALT 33 Units/L (12-78) 02/22/21 05:04 Alkaline Phosphatase 364 Units/L (46-116) H 02/22/21 05:04 Total Protein 8.5 g/dL (6.4-8.2) H 02/22/21 05:04 Albumin 1.9 g/dL (3.4-5.0) L 02/22/21 05:04 Globulin 6.6 g/dL (2.5-4.5) H 02/22/21 05:04 Albumin/Globulin Ratio 0.3 Ratio (1.1-2.1) L 02/22/21 05:04 Specimen Type Clean catch urine 02/20/21 21:15 Urine Color [place] (YELLOW) 02/20/21 21:15 Urine Appearance Clear (CLEAR) 02/20/21 21:15 Urine pH 5.0 (5.0 - 8.0) 02/20/21 21:15 Ur Specific [place] 1.015 (1.000-1.030) 02/20/21 21:15 Urine Protein 3+ (NEGATIVE) 02/20/21 21:15 Urine Glucose (UA) Negative (NEGATIVE) 02/20/21 21:15 Urine Ketones 1+ (NEGATIVE) 02/20/21 21:15 Urine Occult Blood 3+ (NEGATIVE) 02/20/21 21:15 Urine Nitrite Negative (NEGATIVE) 02/20/21 21:15 Urine Bilirubin Negative (NEGATIVE) 02/20/21 21:15 Urine Urobilinogen 1+ (NORMAL) 02/20/21 21:15 Ur Leukocyte Esterase 2+ (NEGATIVE) 02/20/21 21:15 Urine RBC 10-20 /HPF (0-3) A 02/20/21 21:15 Urine WBC 10-20 /HPF (0-5) A 02/20/21 21:15 Ur Squamous Epith Cells Moderate /HPF (NEGATIVE) 02/20/21 21:15 Urine Bacteria 2+ /HPF (NEGATIVE) 02/20/21 21:15 Urine Mucus Few /HPF (NEGATIVE) 02/20/21 21:15 Ur Culture Indicated? Yes/culture set up 02/20/21 21:15 Vancomycin Trough 14.5 ug/mL (15-20) L 02/21/21 21:05 Acetone, Semi-Quant Negative (NEGATIVE) 02/18/21 13:16 SARS CoV-2 RNA Rapid KRIS Negative (NEGATIVE) 02/18/21 14:01 Tissue Pathology To follow 02/21/21 11:53 Plan (1) Cellulitis of foot, left: Status: Acute Plan: NORMAL SALINE AT 80 ML/HR, VANCOMYCIN 750MG IV Q12H, LEVAQUIN 500MG IV DAILY, GENTAMICIN CREAM BID, DILAUDID 2MG IV Q4H PRN, ZOFRAN PRN, BENADRYL PRN, AND HER HOME MEDICATIONS WERE RESUMED.
[2021-02-22] MEDS: NS 1,000 ML IV 1,000 ML IV SCH (13:19)
[2021-02-22] MEDS: MERREM VIAL 1 G in NS 100 ML IV + SPIKE MINIBAG* 100 ML IV SCH ×2 (14:55→21:50)
[2021-02-22] MEDS: MILK OF MAGNESIA PO SCH (20:50)
[2021-02-22] MEDS: LIPITOR TAB 10 MG PO SCH (20:50)
[2021-02-22] MEDS: COLACE CAP 100 MG PO SCH (20:51)
[2021-02-22] MEDS: AMBIEN PO SCH (20:51)
[2021-02-23] MEDS: NS 1,000 ML IV 1,000 ML IV SCH ×2 (01:51→14:14)
[2021-02-23] MEDS: ZOFRAN INJ 4 MG VIAL IVP PRN ×4 (04:22→21:49)
[2021-02-23] MEDS: DILAUDID INJ IVP PRN ×4 (04:22→21:48)
[2021-02-23] MEDS: MERREM VIAL 1 G in NS 100 ML IV + SPIKE MINIBAG* 100 ML IV SCH ×3 (05:20→21:47)
[2021-02-23 06:07] LABS: EOSINOPHILS # (AUTO) 0.1 x10^3/uL (0.0-0.2); HEMATOCRIT 24.1 % (36.0-47.0); HEMOGLOBIN 7.9 g/dL (12.0-16.0); LYMPHOCYTES # (AUTO) 1.2 X10^3/uL (1.3-2.9); MEAN PLATELET VOLUME 7.4 fL (7.4-11.0); NEUTROPHILS % (AUTO) 86.1 % (42.0-75.0)
[2021-02-23 06:12] LABS: BASOPHILS % (AUTO) 0.3 % (0.2-1.0); EOSINOPHILS % (AUTO) 0.8 % (0.9-2.9); LYMPHOCYTES % (AUTO) 7.4 % (21.0-51.0); MEAN CORPUSCULAR HEMOGLOBIN 28.6 pg (27.0-34.0); MEAN CORPUSCULAR VOLUME 86.8 fL (80.0-100.0); MONOCYTES # (AUTO) 0.9 x10^3/uL (0.3-0.8); MONOCYTES % (AUTO) 5.4 % (0.0-13.0); NEUTROPHILS # (AUTO) 13.8 x10^3/uL (2.2-4.8); RED BLOOD COUNT 2.77 X10^6/uL (3.5-5.4); RED CELL DISTRIBUTION WIDTH 13.3 % (11.6-16.5)
[2021-02-23 06:17] LABS: ALANINE AMINOTRANSFERASE 65 Units/L (12-78); ALBUMIN 1.8 g/dL (3.4-5.0); ALKALINE PHOSPHATASE 652 Units/L (46-116); ASPARTATE AMINO TRANSFERASE 80 Units/L (15-37); BLOOD UREA NITROGEN 15 mg/dL (7-18); CALCIUM 8.9 mg/dL (8.5-10.1); CARBON DIOXIDE 23.4 mmol/L (21-32); CHLORIDE 104 mmol/L (98-107); COR CA(FOR HYPOALB) 10.7 mg/dL (8.5-10.1); COR NA(FOR HYPERGLY) 137 mmol/L (136-145); CREATININE 0.99 mg/dL (0.55-1.02); SODIUM 136 mmol/L (136-145); TOTAL PROTEIN 8.2 g/dL (6.4-8.2); eGFR NON BLACK RACES > 60 (>60)
[2021-02-23 06:39] LABS: BAND NEUTROPHILS % 2 % (0-10)
[2021-02-23 06:40] LABS: METAMYELOCYTES % 2; PLATELET MORPHOLOGY COMMENT NORMAL (NORMAL)
[2021-02-23] MEDS: VANCOMYCIN IV *PREMIX 750 mg/150 ML BAG 750 MG/150 ML PIGGYBACK IV SCH ×2 (08:49→21:47)
[2021-02-23] MEDS: COZAAR PO SCH (08:50)
[2021-02-23] MEDS: VITAMIN D3 25 mcg (1,000 UNITS) PO SCH (08:50)
[2021-02-23] MEDS: CYMBALTA PO SCH (08:50)
[2021-02-23 09:14] LABS: CREATININE 1.09 mg/dL (0.55-1.02); VANCOMYCIN,TROUGH 14.9 ug/mL (15-20)
[2021-02-23] MEDS ORDERED: HYDROGEN PEROXIDE 3% ONE (10:00)
[2021-02-23] MEDS ORDERED: NS IRRIGATION* 500 ML IR ONE ×2 (10:00→10:10)
--- NOTE | 2021-02-23 10:42 | DR.PROGNOT ---
Hospital Progress Notes - Progress Note for Day of: Progress Note Date: 02/23/21 - Chief Complaint Chief Complaint: post op debridement Lt foot ulcers . c/o moderate pain Lt foot with mild drainage .. BS is fairly controlled .WBC 16. BUN/Crea 15/0.9. temp 98.4. culture is growing E Coli .. on Iminepen .. - Past Medical Family Social History Past Med/Fam/Surg Hx: No changes since H&P Allergies: Allergies Penicillins Allergy (Mild, Verified 12/30/20 10:45) RASH hives - Review Of Systems ROS: No change since H&P - Vital Signs Vital Signs: Temperature 98.0 F Pulse Rate [Left] 105 Pulse Rate 107 Respiratory Rate 18 Blood Pressure [Right Arm] 142/86 Blood Pressure [Left Arm] 167/80 Blood Pressure [Left Arm] 158/88 Blood Pressure [Right Arm] 183/85 Blood Pressure 158/87 O2 Sat by Pulse Oximetry 93 - Physical Exam Oriented: Normal Eyes: Normal Ear: Normal Nose: Normal Throat: Normal Respiratory: Normal, Generalized Cardiovascular: Normal : Normal GI:Auscultation: Normal GI:Palpation: Normal GI: Tenderness: Normal Skin: Tender, Hot, Wound (less edema Lt foot ..3ed and 4th toes are still cyanotic .. able to move them .no necrosis .) Musculoskeletal: Left, Foot, Swelling, Tender Psychiatric: Normal Mood Description: Calm Affect: Normal Speech Pattern: Clear, Appropriate - Laboratory and Diagnostics Result Diagrams: 02/23/21 05:09 02/23/21 08:20 Labs: 02/21/21 11:53 Foot - Left Wound Gram Stain - Final 02/21/21 11:53 Foot - Left Wound Culture - Preliminary Escherichia Coli 02/20/21 21:15 Urine,Clean Catch Urine Culture - Final Escherichia Coli 02/19/21 15:00 Foot - Left Wound Gram Stain - Final 02/19/21 15:00 Foot - Left Wound Culture - Final Escherichia Coli 02/18/21 13:37 Blood Blood Culture - Preliminary 02/18/21 13:16 Blood Blood Culture - Preliminary Laboratory WBC 16.0 X10^3/uL (3.6-10.0) H 02/23/21 05:09 RBC 2.77 X10^6/uL (3.5-5.4) L 02/23/21 05:09 Hgb 7.9 g/dL (12.0-16.0) L 02/23/21 05:09 Hct 24.1 % (36.0-47.0) L 02/23/21 05:09 MCV 86.8 fL (80.0-100.0) 02/23/21 05:09 MCH 28.6 pg (27.0-34.0) 02/23/21 05:09 MCHC 33.0 g/dL (33.0-35.0) 02/23/21 05:09 RDW 13.3 % (11.6-16.5) 02/23/21 05:09 Plt Count 397 X10^3/uL (150.0-450.0) 02/23/21 05:09 Plt Count Comment Adequate (ADEQUATE) 02/23/21 05:09 MPV 7.4 fL (7.4-11.0) 02/23/21 05:09 Neut % (Auto) 86.1 % (42.0-75.0) H 02/23/21 05:09 Lymph % (Auto) 7.4 % (21.0-51.0) L 02/23/21 05:09 [place] % (Auto) 5.4 % (0.0-13.0) 02/23/21 05:09 Eos % (Auto) 0.8 % (0.9-2.9) L 02/23/21 05:09 Baso % (Auto) 0.3 % (0.2-1.0) 02/23/21 05:09 Neut # (Auto) 13.8 x10^3/uL (2.2-4.8) H 02/23/21 05:09 Lymph # (Auto) 1.2 X10^3/uL (1.3-2.9) L 02/23/21 05:09 [place] # (Auto) 0.9 x10^3/uL (0.3-0.8) H 02/23/21 05:09 Eos # (Auto) 0.1 x10^3/uL (0.0-0.2) 02/23/21 05:09 Baso # (Auto) 0.0 X10^3/uL (0.0-0.1) 02/23/21 05:09 Absolute Nucleated RBC 0.1 /100WBC 02/23/21 05:09 Total Counted 100 02/23/21 05:09 Neutrophils % (Manual) 81 % (39-76) H 02/23/21 05:09 Band Neutrophils % 2 % (0-10) 02/23/21 05:09 Lymphocytes % (Manual) 10 % (13-43) L 02/23/21 05:09 Monocytes % (Manual) 4 % (4-9) 02/23/21 05:09 Eosinophils % (Manual) 1 % (0-6) 02/23/21 05:09 Metamyelocytes % 2 02/23/21 05:09 Plt Morphology Comment Normal (NORMAL) 02/23/21 05:09 RBC Morphology Normal (NORMAL) 02/23/21 05:09 PT 15.0 SECONDS (11.8-14.3) 02/18/21 13:16 INR Target Range - 02/18/21 13:16 INR 1.24 (0.8-1.3) 02/18/21 13:16 Sodium 136 mmol/L (136-145) 02/23/21 05:09 Corrected Sodium 137 mmol/L (136-145) 02/23/21 05:09 Potassium 4.1 mmol/L (3.5-5.1) 02/23/21 05:09 Chloride 104 mmol/L (98-107) 02/23/21 05:09 Carbon Dioxide 23.4 mmol/L (21-32) 02/23/21 05:09 BUN 15 mg/dL (7-18) 02/23/21 05:09 Creatinine 1.09 mg/dL (0.55-1.02) H 02/23/21 08:20 Est GFR (MDRD) Af Amer > 60 (>60) 02/23/21 05:09 Est GFR (MDRD) Non-Af > 60 (>60) 02/23/21 05:09 Glucose 124 mg/dL (65-99) H 02/23/21 05:09 POC Glucose (mg/dL) 122 mg/dL (65-99) H 02/23/21 05:11 Calcium 8.9 mg/dL (8.5-10.1) 02/23/21 05:09 Corrected Calcium 10.7 mg/dL (8.5-10.1) H 02/23/21 05:09 Total Bilirubin 0.50 mg/dL (0.2-1.0) 02/23/21 05:09 AST 80 Units/L (15-37) H 02/23/21 05:09 ALT 65 Units/L (12-78) 02/23/21 05:09 Alkaline Phosphatase 652 Units/L (46-116) H 02/23/21 05:09 Total Protein 8.2 g/dL (6.4-8.2) 02/23/21 05:09 Albumin 1.8 g/dL (3.4-5.0) L 02/23/21 05:09 Globulin 6.4 g/dL (2.5-4.5) H 02/23/21 05:09 Albumin/Globulin Ratio 0.3 Ratio (1.1-2.1) L 02/23/21 05:09 Specimen Type Clean catch urine 02/20/21 21:15 Urine Color [place] (YELLOW) 02/20/21 21:15 Urine Appearance Clear (CLEAR) 02/20/21 21:15 Urine pH 5.0 (5.0 - 8.0) 02/20/21 21:15 Ur Specific [place] 1.015 (1.000-1.030) 02/20/21 21:15 Urine Protein 3+ (NEGATIVE) 02/20/21 21:15 Urine Glucose (UA) Negative (NEGATIVE) 02/20/21 21:15 Urine Ketones 1+ (NEGATIVE) 02/20/21 21:15 Urine Occult Blood 3+ (NEGATIVE) 02/20/21 21:15 Urine Nitrite Negative (NEGATIVE) 02/20/21 21:15 Urine Bilirubin Negative (NEGATIVE) 02/20/21 21:15 Urine Urobilinogen 1+ (NORMAL) 02/20/21 21:15 Ur Leukocyte Esterase 2+ (NEGATIVE) 02/20/21 21:15 Urine RBC 10-20 /HPF (0-3) A 02/20/21 21:15 Urine WBC 10-20 /HPF (0-5) A 02/20/21 21:15 Ur Squamous Epith Cells Moderate /HPF (NEGATIVE) 02/20/21 21:15 Urine Bacteria 2+ /HPF (NEGATIVE) 02/20/21 21:15 Urine Mucus Few /HPF (NEGATIVE) 02/20/21 21:15 Ur Culture Indicated? Yes/culture set up 02/20/21 21:15 Vancomycin Trough 14.9 ug/mL (15-20) L 02/23/21 08:20 Acetone, Semi-Quant Negative (NEGATIVE) 02/18/21 13:16 SARS CoV-2 RNA Rapid KRIS Negative (NEGATIVE) 02/18/21 14:01 Tissue Pathology To follow 02/21/21 11:53 - Assessment and Plan 1: diabetic Lt foot ulcers with cellulitis and deep soft tissue infection with E Coli ,. recent punture wound Lt foot . diabetic neuropathy ,. to soak the foot in Saline and H2O2 then packing with Iodoform .. hopefully we can save the 3ed and 4th toes . - Problem Patient Problems: Patient Problems (This Medical Record has been edited. Action required.) Cellulitis of foot, left (Acute) L03.116
--- NOTE | 2021-02-23 10:57 | PCM.PROG ---
Progress Note Progress Note for Day of Date of Exam: 02/23/21 Subjective Subjective: PT IS A 50 YEAR OLD FEMALE ADMITTED FOR TREATMENT OF LEFT LOWER EXTREMITY CELLULITIS AND LEFT FOOT DIABETIC ULCER. PATIENT IS STATUS POST DEBRIDEMENT OF LEFT FOOT WOUND/ULCER. THIS MORNING PT CONTINUES TO DO WELL, NO ACUTE CONCERNS OVERNIGHT. LABS/IMAGING WERE OBTAINED: WBC 16, HGB 7.9, PLT 397, NA 136, K 4.1, CREATININE 0.99, GLUCOSE 124, URINE CULTURE AND WOUND CULTURE POSITIVE FOR E.COLI. DR. PIMENTEL CONSULTED WE ARE IN AGREEMENT WITH PLANS. SHE IS CURRENTLY RECEIVING NORMAL SALINE AT 80 ML/HR, VANCOMYCIN 750MG IV Q12H, MEROPENEM, GENTAMICIN CREAM BID, AND HER HOME MEDICATIONS. SHE WILL CONTINUE TO REQUIRE IV ANTIBIOTICS BASED ON CULTURE AND SENSITIVITIES. OTHERWISE, WE WILL CONTINUE WITH CURRENT PLAN OF CARE, FOLLOW UP WITH AM LABS AND CONTINUE TO MONITOR. Past Medical Family Social History Past Med/Fam/Surg Hx: No changes since H&P Allergies: Allergies Penicillins Allergy (Mild, Verified 12/30/20 10:45) RASH hives Review of Systems ROS: No change since H&P Vital Signs and I&O's Vital Signs: Temperature 98.0 F Pulse Rate [Left] 105 Pulse Rate 107 Respiratory Rate 18 Blood Pressure [Right Arm] 142/86 Blood Pressure [Left Arm] 167/80 Blood Pressure [Left Arm] 158/88 Blood Pressure [Right Arm] 183/85 Blood Pressure 158/87 O2 Sat by Pulse Oximetry 93 Intake and Output: Intake & Output 02/20/21 02/21/21 02/22/21 02/23/21 23:59 23:59 23:59 23:59 Intake Total 1890 / 1890 5030 / 5030 2370 / 2370 2049 Output Total 999 / 999 Balance 1890 / 1890 4031 / 4031 2370 / 2370 2049 Physical Exam Oriented: Normal Eyes: Normal Ear: Normal Nose: Normal Throat: Normal Respiratory: Normal and Generalized Cardiovascular: Normal : Normal Auscultation: Bowel Sounds: Normal Tenderness: Normal Skin: Tender, Hot and Wound (less edema Lt foot ..3ed and 4th toes are still cyanotic .. able to move them .no necrosis .) Musculoskeletal: Left, Foot, Swelling and Tender Psychiatric: Normal Mood Description: Calm Affect: Normal Speech Pattern: Clear and Appropriate Laboratory and Diagnostics Result Diagrams: 02/23/21 05:09 02/23/21 08:20 Labs: 02/21/21 11:53 Foot - Left Wound Gram Stain - Final 02/21/21 11:53 Foot - Left Wound Culture - Preliminary Escherichia Coli 02/20/21 21:15 Urine,Clean Catch Urine Culture - Final Escherichia Coli 02/19/21 15:00 Foot - Left Wound Gram Stain - Final 02/19/21 15:00 Foot - Left Wound Culture - Final Escherichia Coli 02/18/21 13:37 Blood Blood Culture - Preliminary 02/18/21 13:16 Blood Blood Culture - Preliminary Laboratory WBC 16.0 X10^3/uL (3.6-10.0) H 02/23/21 05:09 RBC 2.77 X10^6/uL (3.5-5.4) L 02/23/21 05:09 Hgb 7.9 g/dL (12.0-16.0) L 02/23/21 05:09 Hct 24.1 % (36.0-47.0) L 02/23/21 05:09 MCV 86.8 fL (80.0-100.0) 02/23/21 05:09 MCH 28.6 pg (27.0-34.0) 02/23/21 05:09 MCHC 33.0 g/dL (33.0-35.0) 02/23/21 05:09 RDW 13.3 % (11.6-16.5) 02/23/21 05:09 Plt Count 397 X10^3/uL (150.0-450.0) 02/23/21 05:09 Plt Count Comment Adequate (ADEQUATE) 02/23/21 05:09 MPV 7.4 fL (7.4-11.0) 02/23/21 05:09 Neut % (Auto) 86.1 % (42.0-75.0) H 02/23/21 05:09 Lymph % (Auto) 7.4 % (21.0-51.0) L 02/23/21 05:09 [place] % (Auto) 5.4 % (0.0-13.0) 02/23/21 05:09 Eos % (Auto) 0.8 % (0.9-2.9) L 02/23/21 05:09 Baso % (Auto) 0.3 % (0.2-1.0) 02/23/21 05:09 Neut # (Auto) 13.8 x10^3/uL (2.2-4.8) H 02/23/21 05:09 Lymph # (Auto) 1.2 X10^3/uL (1.3-2.9) L 02/23/21 05:09 [place] # (Auto) 0.9 x10^3/uL (0.3-0.8) H 02/23/21 05:09 Eos # (Auto) 0.1 x10^3/uL (0.0-0.2) 02/23/21 05:09 Baso # (Auto) 0.0 X10^3/uL (0.0-0.1) 02/23/21 05:09 Absolute Nucleated RBC 0.1 /100WBC 02/23/21 05:09 Total Counted 100 02/23/21 05:09 Neutrophils % (Manual) 81 % (39-76) H 02/23/21 05:09 Band Neutrophils % 2 % (0-10) 02/23/21 05:09 Lymphocytes % (Manual) 10 % (13-43) L 02/23/21 05:09 Monocytes % (Manual) 4 % (4-9) 02/23/21 05:09 Eosinophils % (Manual) 1 % (0-6) 02/23/21 05:09 Metamyelocytes % 2 02/23/21 05:09 Plt Morphology Comment Normal (NORMAL) 02/23/21 05:09 RBC Morphology Normal (NORMAL) 02/23/21 05:09 PT 15.0 SECONDS (11.8-14.3) 02/18/21 13:16 INR Target Range - 02/18/21 13:16 INR 1.24 (0.8-1.3) 02/18/21 13:16 Sodium 136 mmol/L (136-145) 02/23/21 05:09 Corrected Sodium 137 mmol/L (136-145) 02/23/21 05:09 Potassium 4.1 mmol/L (3.5-5.1) 02/23/21 05:09 Chloride 104 mmol/L (98-107) 02/23/21 05:09 Carbon Dioxide 23.4 mmol/L (21-32) 02/23/21 05:09 BUN 15 mg/dL (7-18) 02/23/21 05:09 Creatinine 1.09 mg/dL (0.55-1.02) H 02/23/21 08:20 Est GFR (MDRD) Af Amer > 60 (>60) 02/23/21 05:09 Est GFR (MDRD) Non-Af > 60 (>60) 02/23/21 05:09 Glucose 124 mg/dL (65-99) H 02/23/21 05:09 POC Glucose (mg/dL) 122 mg/dL (65-99) H 02/23/21 05:11 Calcium 8.9 mg/dL (8.5-10.1) 02/23/21 05:09 Corrected Calcium 10.7 mg/dL (8.5-10.1) H 02/23/21 05:09 Total Bilirubin 0.50 mg/dL (0.2-1.0) 02/23/21 05:09 AST 80 Units/L (15-37) H 02/23/21 05:09 ALT 65 Units/L (12-78) 02/23/21 05:09 Alkaline Phosphatase 652 Units/L (46-116) H 02/23/21 05:09 Total Protein 8.2 g/dL (6.4-8.2) 02/23/21 05:09 Albumin 1.8 g/dL (3.4-5.0) L 02/23/21 05:09 Globulin 6.4 g/dL (2.5-4.5) H 02/23/21 05:09 Albumin/Globulin Ratio 0.3 Ratio (1.1-2.1) L 02/23/21 05:09 Specimen Type Clean catch urine 02/20/21 21:15 Urine Color [place] (YELLOW) 02/20/21 21:15 Urine Appearance Clear (CLEAR) 02/20/21 21:15 Urine pH 5.0 (5.0 - 8.0) 02/20/21 21:15 Ur Specific [place] 1.015 (1.000-1.030) 02/20/21 21:15 Urine Protein 3+ (NEGATIVE) 02/20/21 21:15 Urine Glucose (UA) Negative (NEGATIVE) 02/20/21 21:15 Urine Ketones 1+ (NEGATIVE) 02/20/21 21:15 Urine Occult Blood 3+ (NEGATIVE) 02/20/21 21:15 Urine Nitrite Negative (NEGATIVE) 02/20/21 21:15 Urine Bilirubin Negative (NEGATIVE) 02/20/21 21:15 Urine Urobilinogen 1+ (NORMAL) 02/20/21 21:15 Ur Leukocyte Esterase 2+ (NEGATIVE) 02/20/21 21:15 Urine RBC 10-20 /HPF (0-3) A 02/20/21 21:15 Urine WBC 10-20 /HPF (0-5) A 02/20/21 21:15 Ur Squamous Epith Cells Moderate /HPF (NEGATIVE) 02/20/21 21:15 Urine Bacteria 2+ /HPF (NEGATIVE) 02/20/21 21:15 Urine Mucus Few /HPF (NEGATIVE) 02/20/21 21:15 Ur Culture Indicated? Yes/culture set up 02/20/21 21:15 Vancomycin Trough 14.9 ug/mL (15-20) L 02/23/21 08:20 Acetone, Semi-Quant Negative (NEGATIVE) 02/18/21 13:16 SARS CoV-2 RNA Rapid KRIS Negative (NEGATIVE) 02/18/21 14:01 Tissue Pathology To follow 02/21/21 11:53 Plan (1) Cellulitis of foot, left: Status: Acute Plan: NORMAL SALINE AT 80 ML/HR, VANCOMYCIN 750MG IV Q12H, LEVAQUIN 500MG IV DAILY, GENTAMICIN CREAM BID, DILAUDID 2MG IV Q4H PRN, ZOFRAN PRN, BENADRYL PRN, AND HER HOME MEDICATIONS WERE RESUMED.
[2021-02-23] MEDS: AMBIEN PO SCH (21:46)
[2021-02-23] MEDS: COLACE CAP 100 MG PO SCH (21:46)
[2021-02-23] MEDS: MILK OF MAGNESIA PO SCH (21:47)
[2021-02-23] MEDS: LIPITOR TAB 10 MG PO SCH (21:47)
[2021-02-24] MEDS: MERREM VIAL 1 G in NS 100 ML IV + SPIKE MINIBAG* 100 ML IV SCH ×3 (05:16→21:46)
[2021-02-24] MEDS: ZOFRAN INJ 4 MG VIAL IVP PRN ×4 (05:20→21:52)
[2021-02-24] MEDS: DILAUDID INJ IVP PRN ×3 (05:21→21:52)
[2021-02-24] MEDS: NS 1,000 ML IV 1,000 ML IV SCH ×3 (06:05→16:09)
[2021-02-24 06:08] LABS: HEMOGLOBIN 8.1 g/dL (12.0-16.0); RED BLOOD COUNT 2.84 X10^6/uL (3.5-5.4)
[2021-02-24 06:14] LABS: BASOPHILS # (AUTO) 0.1 X10^3/uL (0.0-0.1); BASOPHILS % (AUTO) 0.5 % (0.2-1.0); EOSINOPHILS # (AUTO) 0.1 x10^3/uL (0.0-0.2); EOSINOPHILS % (AUTO) 0.8 % (0.9-2.9); HEMATOCRIT 24.5 % (36.0-47.0); LYMPHOCYTES # (AUTO) 1.3 X10^3/uL (1.3-2.9); LYMPHOCYTES % (AUTO) 9.9 % (21.0-51.0); MEAN CORPUSCULAR HEMOGLOBIN 28.6 pg (27.0-34.0); MEAN CORPUSCULAR HGB CONC 33.3 g/dL (33.0-35.0); MEAN CORPUSCULAR VOLUME 86.1 fL (80.0-100.0); MEAN PLATELET VOLUME 7.1 fL (7.4-11.0); MONOCYTES # (AUTO) 0.8 x10^3/uL (0.3-0.8); MONOCYTES % (AUTO) 5.6 % (0.0-13.0); NEUTROPHILS # (AUTO) 11.2 x10^3/uL (2.2-4.8); NEUTROPHILS % (AUTO) 83.2 % (42.0-75.0); RED CELL DISTRIBUTION WIDTH 13.5 % (11.6-16.5); WHITE BLOOD COUNT 13.5 X10^3/uL (3.6-10.0)
[2021-02-24 06:19] LABS: ALANINE AMINOTRANSFERASE 72 Units/L (12-78); ALBUMIN 1.9 g/dL (3.4-5.0); ALKALINE PHOSPHATASE 744 Units/L (46-116); ASPARTATE AMINO TRANSFERASE 65 Units/L (15-37); BLOOD UREA NITROGEN 13 mg/dL (7-18); CHLORIDE 107 mmol/L (98-107); COR CA(FOR HYPOALB) 10.7 mg/dL (8.5-10.1); COR NA(FOR HYPERGLY) 143 mmol/L (136-145); CREATININE 0.93 mg/dL (0.55-1.02); SODIUM 142 mmol/L (136-145); TOTAL PROTEIN 8.3 g/dL (6.4-8.2); eGFR NON BLACK RACES > 60 (>60)
[2021-02-24 07:27] LABS: PLATELET MORPHOLOGY COMMENT NORMAL (NORMAL)
[2021-02-24] MEDS: VANCOMYCIN IV *PREMIX 750 mg/150 ML BAG 750 MG/150 ML PIGGYBACK IV SCH ×2 (08:12→21:46)
[2021-02-24] MEDS: VITAMIN D3 25 mcg (1,000 UNITS) PO SCH (08:12)
[2021-02-24] MEDS: CYMBALTA PO SCH (08:13)
[2021-02-24] MEDS: COZAAR PO SCH (08:13)
[2021-02-24] MEDS: ULTRAM PO PRN ×2 (08:33→15:53)
[2021-02-24] MEDS ORDERED: HYDROGEN PEROXIDE 3% ONE (12:28)
--- NOTE | 2021-02-24 17:37 | DR.PROGNOT ---
Hospital Progress Notes - Progress Note for Day of: Progress Note Date: 02/24/21 - Chief Complaint Chief Complaint: c/o moderate pain Lt foot with mild drainage .. BS is fairly controlled .WBC 13. BUN/Crea 15/0.9. temp 98.4. culture is growing E Coli .. on Iminepen .. - Past Medical Family Social History Past Med/Fam/Surg Hx: No changes since H&P Allergies: Allergies Penicillins Allergy (Mild, Verified 12/30/20 10:45) RASH hives - Review Of Systems ROS: No change since H&P - Vital Signs Vital Signs: Temperature 97.7 F Pulse Rate [Left] 97 Pulse Rate 107 Respiratory Rate 20 Blood Pressure [Right Arm] 180/84 Blood Pressure [Left Arm] 174/99 Blood Pressure [Left Arm] 158/88 Blood Pressure [Right Arm] 183/85 Blood Pressure 158/87 O2 Sat by Pulse Oximetry 95 - Physical Exam Oriented: Normal Eyes: Normal Ear: Normal Nose: Normal Throat: Normal Respiratory: Normal, Generalized Cardiovascular: Normal : Normal GI:Auscultation: Normal GI:Palpation: Normal GI: Tenderness: Normal Skin: Tender, Hot, Wound (less edema Lt foot ..3ed and 4th toes are still cyanotic .. able to move them .no necrosis .) Musculoskeletal: Left, Foot, Swelling, Tender Psychiatric: Normal Mood Description: Calm Affect: Normal Speech Pattern: Clear, Appropriate - Laboratory and Diagnostics Result Diagrams: 02/24/21 05:54 02/24/21 05:54 Labs: 02/21/21 11:53 Foot - Left Wound Gram Stain - Final 02/21/21 11:53 Foot - Left Wound Culture - Preliminary Escherichia Coli 02/18/21 13:37 Blood Blood Culture - Final 02/18/21 13:16 Blood Blood Culture - Final 02/20/21 21:15 Urine,Clean Catch Urine Culture - Final Escherichia Coli 02/19/21 15:00 Foot - Left Wound Gram Stain - Final 02/19/21 15:00 Foot - Left Wound Culture - Final Escherichia Coli Laboratory WBC 13.5 X10^3/uL (3.6-10.0) H 02/24/21 05:54 RBC 2.84 X10^6/uL (3.5-5.4) L 02/24/21 05:54 Hgb 8.1 g/dL (12.0-16.0) L 02/24/21 05:54 Hct 24.5 % (36.0-47.0) L 02/24/21 05:54 MCV 86.1 fL (80.0-100.0) 02/24/21 05:54 MCH 28.6 pg (27.0-34.0) 02/24/21 05:54 MCHC 33.3 g/dL (33.0-35.0) 02/24/21 05:54 RDW 13.5 % (11.6-16.5) 02/24/21 05:54 Plt Count 406 X10^3/uL (150.0-450.0) 02/24/21 05:54 Plt Count Comment Adequate (ADEQUATE) 02/24/21 05:54 MPV 7.1 fL (7.4-11.0) L 02/24/21 05:54 Neut % (Auto) 83.2 % (42.0-75.0) H 02/24/21 05:54 Lymph % (Auto) 9.9 % (21.0-51.0) L 02/24/21 05:54 [place] % (Auto) 5.6 % (0.0-13.0) 02/24/21 05:54 Eos % (Auto) 0.8 % (0.9-2.9) L 02/24/21 05:54 Baso % (Auto) 0.5 % (0.2-1.0) 02/24/21 05:54 Neut # (Auto) 11.2 x10^3/uL (2.2-4.8) H 02/24/21 05:54 Lymph # (Auto) 1.3 X10^3/uL (1.3-2.9) 02/24/21 05:54 [place] # (Auto) 0.8 x10^3/uL (0.3-0.8) 02/24/21 05:54 Eos # (Auto) 0.1 x10^3/uL (0.0-0.2) 02/24/21 05:54 Baso # (Auto) 0.1 X10^3/uL (0.0-0.1) 02/24/21 05:54 Absolute Nucleated RBC 0.2 /100WBC 02/24/21 05:54 Total Counted 100 02/24/21 05:54 Neutrophils % (Manual) 82 % (39-76) H 02/24/21 05:54 Band Neutrophils % 2 % (0-10) 02/23/21 05:09 Lymphocytes % (Manual) 12 % (13-43) L 02/24/21 05:54 Monocytes % (Manual) 5 % (4-9) 02/24/21 05:54 Eosinophils % (Manual) 1 % (0-6) 02/24/21 05:54 Metamyelocytes % 2 02/23/21 05:09 Plt Morphology Comment Normal (NORMAL) 02/24/21 05:54 RBC Morphology Normal (NORMAL) 02/24/21 05:54 PT 15.0 SECONDS (11.8-14.3) 02/18/21 13:16 INR Target Range - 02/18/21 13:16 INR 1.24 (0.8-1.3) 02/18/21 13:16 Sodium 142 mmol/L (136-145) 02/24/21 05:54 Corrected Sodium 143 mmol/L (136-145) 02/24/21 05:54 Potassium 4.2 mmol/L (3.5-5.1) 02/24/21 05:54 Chloride 107 mmol/L (98-107) 02/24/21 05:54 Carbon Dioxide 25.0 mmol/L (21-32) 02/24/21 05:54 BUN 13 mg/dL (7-18) 02/24/21 05:54 Creatinine 0.93 mg/dL (0.55-1.02) 02/24/21 05:54 Est GFR (MDRD) Af Amer > 60 (>60) 02/24/21 05:54 Est GFR (MDRD) Non-Af > 60 (>60) 02/24/21 05:54 Glucose 123 mg/dL (65-99) H 02/24/21 05:54 POC Glucose (mg/dL) 163 mg/dL (65-99) H 02/24/21 16:04 Calcium 9.0 mg/dL (8.5-10.1) 02/24/21 05:54 Corrected Calcium 10.7 mg/dL (8.5-10.1) H 02/24/21 05:54 Total Bilirubin 0.40 mg/dL (0.2-1.0) 02/24/21 05:54 AST 65 Units/L (15-37) H 02/24/21 05:54 ALT 72 Units/L (12-78) 02/24/21 05:54 Alkaline Phosphatase 744 Units/L (46-116) H 02/24/21 05:54 Total Protein 8.3 g/dL (6.4-8.2) H 02/24/21 05:54 Albumin 1.9 g/dL (3.4-5.0) L 02/24/21 05:54 Globulin 6.4 g/dL (2.5-4.5) H 02/24/21 05:54 Albumin/Globulin Ratio 0.3 Ratio (1.1-2.1) L 02/24/21 05:54 Specimen Type Clean catch urine 02/20/21 21:15 Urine Color [place] (YELLOW) 02/20/21 21:15 Urine Appearance Clear (CLEAR) 02/20/21 21:15 Urine pH 5.0 (5.0 - 8.0) 02/20/21 21:15 Ur Specific [place] 1.015 (1.000-1.030) 02/20/21 21:15 Urine Protein 3+ (NEGATIVE) 02/20/21 21:15 Urine Glucose (UA) Negative (NEGATIVE) 02/20/21 21:15 Urine Ketones 1+ (NEGATIVE) 02/20/21 21:15 Urine Occult Blood 3+ (NEGATIVE) 02/20/21 21:15 Urine Nitrite Negative (NEGATIVE) 02/20/21 21:15 Urine Bilirubin Negative (NEGATIVE) 02/20/21 21:15 Urine Urobilinogen 1+ (NORMAL) 02/20/21 21:15 Ur Leukocyte Esterase 2+ (NEGATIVE) 02/20/21 21:15 Urine RBC 10-20 /HPF (0-3) A 02/20/21 21:15 Urine WBC 10-20 /HPF (0-5) A 02/20/21 21:15 Ur Squamous Epith Cells Moderate /HPF (NEGATIVE) 02/20/21 21:15 Urine Bacteria 2+ /HPF (NEGATIVE) 02/20/21 21:15 Urine Mucus Few /HPF (NEGATIVE) 02/20/21 21:15 Ur Culture Indicated? Yes/culture set up 02/20/21 21:15 Vancomycin Trough 14.9 ug/mL (15-20) L 02/23/21 08:20 Acetone, Semi-Quant Negative (NEGATIVE) 02/18/21 13:16 SARS CoV-2 RNA Rapid KRIS Negative (NEGATIVE) 02/18/21 14:01 Tissue Pathology To follow 02/21/21 11:53 - Assessment and Plan 1: diabetic Lt foot ulcers with cellulitis and deep soft tissue infection with E Coli ,. recent punture wound Lt foot . diabetic neuropathy ,. same local care with soaking the foot in Saline and H2O2 then packing with Iodoform and IV ATB. hopefully we can save the 3ed and 4th toes . - Problem Patient Problems: Patient Problems (This Medical Record has been edited. Action required.) Cellulitis of foot, left (Acute) L03.116
[2021-02-24] MEDS: COLACE CAP 100 MG PO SCH (20:54)
[2021-02-24] MEDS: AMBIEN PO SCH (20:54)
[2021-02-24] MEDS: LIPITOR TAB 10 MG PO SCH (20:55)
[2021-02-24] MEDS: MILK OF MAGNESIA PO SCH (20:55)
[2021-02-24 20:59] LABS: CREATININE 0.83 mg/dL (0.55-1.02); VANCOMYCIN,TROUGH 16.5 ug/mL (15-20)
[2021-02-25] MEDS: NS 1,000 ML IV 1,000 ML IV SCH ×4 (03:26→20:50)
[2021-02-25] MEDS: ULTRAM PO PRN ×2 (03:27→15:20)
[2021-02-25 06:17] LABS: BASOPHILS % (AUTO) 0.3 % (0.2-1.0); EOSINOPHILS # (AUTO) 0.1 x10^3/uL (0.0-0.2); EOSINOPHILS % (AUTO) 1.2 % (0.9-2.9); HEMATOCRIT 22.7 % (36.0-47.0); HEMOGLOBIN 7.6 g/dL (12.0-16.0); LYMPHOCYTES # (AUTO) 1.8 X10^3/uL (1.3-2.9); LYMPHOCYTES % (AUTO) 15.1 % (21.0-51.0); MEAN CORPUSCULAR HEMOGLOBIN 28.7 pg (27.0-34.0); MEAN CORPUSCULAR HGB CONC 33.7 g/dL (33.0-35.0); MEAN CORPUSCULAR VOLUME 85.2 fL (80.0-100.0); MEAN PLATELET VOLUME 6.9 fL (7.4-11.0); MONOCYTES # (AUTO) 0.9 x10^3/uL (0.3-0.8); MONOCYTES % (AUTO) 7.2 % (0.0-13.0); NEUTROPHILS # (AUTO) 9.3 x10^3/uL (2.2-4.8); NEUTROPHILS % (AUTO) 76.2 % (42.0-75.0); RED BLOOD COUNT 2.66 X10^6/uL (3.5-5.4); RED CELL DISTRIBUTION WIDTH 13.6 % (11.6-16.5); WHITE BLOOD COUNT 12.2 X10^3/uL (3.6-10.0)
[2021-02-25] MEDS: MERREM VIAL 1 G in NS 100 ML IV + SPIKE MINIBAG* 100 ML IV SCH ×3 (06:19→21:51)
[2021-02-25 06:30] LABS: ALANINE AMINOTRANSFERASE 55 Units/L (12-78); ALBUMIN 1.8 g/dL (3.4-5.0); ALKALINE PHOSPHATASE 645 Units/L (46-116); ASPARTATE AMINO TRANSFERASE 37 Units/L (15-37); BLOOD UREA NITROGEN 8 mg/dL (7-18); CALCIUM 8.9 mg/dL (8.5-10.1); CARBON DIOXIDE 27.2 mmol/L (21-32); CHLORIDE 106 mmol/L (98-107); COR CA(FOR HYPOALB) 10.7 mg/dL (8.5-10.1); COR NA(FOR HYPERGLY) 141 mmol/L (136-145); CREATININE 0.75 mg/dL (0.55-1.02); SODIUM 141 mmol/L (136-145); eGFR NON BLACK RACES > 60 (>60)
[2021-02-25 07:26] LABS: METAMYELOCYTES % 1; MYELOCYTES % 4
[2021-02-25 07:27] LABS: PLATELET MORPHOLOGY COMMENT NORMAL (NORMAL)
[2021-02-25] MEDS: COZAAR PO SCH (08:15)
[2021-02-25] MEDS: VANCOMYCIN IV *PREMIX 750 mg/150 ML BAG 750 MG/150 ML PIGGYBACK IV SCH ×2 (08:16→20:50)
[2021-02-25] MEDS: VITAMIN D3 25 mcg (1,000 UNITS) PO SCH (08:16)
[2021-02-25] MEDS: APRESOLINE INJ 20 MG VIAL IVP PRN ×2 (08:16→17:30)
[2021-02-25] MEDS: CYMBALTA PO SCH (08:16)
--- NOTE | 2021-02-25 09:36 | DR.PROGNOT ---
Hospital Progress Notes - Progress Note for Day of: Progress Note Date: 02/25/21 - Chief Complaint Chief Complaint: c/o moderate pain Lt foot with mild drainage .. WBC 12.2..BS 119. ALK PH 645.. [place] 1.8 - Past Medical Family Social History Past Med/Fam/Surg Hx: No changes since H&P Allergies: Allergies Penicillins Allergy (Mild, Verified 12/30/20 10:45) RASH hives - Review Of Systems ROS: No change since H&P - Vital Signs Vital Signs: Temperature 98.5 F Pulse Rate [Left] 96 Pulse Rate 107 Respiratory Rate 20 Blood Pressure [Right Arm] 196/83 Blood Pressure [Left Arm] 193/94 Blood Pressure [Left Arm] 158/88 Blood Pressure [Right Arm] 183/85 Blood Pressure 158/87 O2 Sat by Pulse Oximetry 96 - Physical Exam Oriented: Normal Eyes: Normal Ear: Normal Nose: Normal Throat: Normal Respiratory: Normal, Generalized Cardiovascular: Normal : Normal GI:Auscultation: Normal GI:Palpation: Normal GI: Tenderness: Normal Skin: Tender, Hot, Wound (less edema Lt foot ..3ed and 4th toes are still cyanotic .. able to move them .no necrosis .) Musculoskeletal: Left, Foot, Swelling, Tender Psychiatric: Normal Mood Description: Calm Affect: Normal Speech Pattern: Clear, Appropriate - Laboratory and Diagnostics Result Diagrams: 02/25/21 05:16 02/25/21 05:25 Labs: 02/21/21 11:53 Foot - Left Wound Gram Stain - Final 02/21/21 11:53 Foot - Left Wound Culture - Final Escherichia Coli Staphylococcus Lugdunesis 02/18/21 13:37 Blood Blood Culture - Final 02/18/21 13:16 Blood Blood Culture - Final 02/20/21 21:15 Urine,Clean Catch Urine Culture - Final Escherichia Coli 02/19/21 15:00 Foot - Left Wound Gram Stain - Final 02/19/21 15:00 Foot - Left Wound Culture - Final Escherichia Coli Laboratory WBC 12.2 X10^3/uL (3.6-10.0) H 02/25/21 05:16 RBC 2.66 X10^6/uL (3.5-5.4) L 02/25/21 05:16 Hgb 7.6 g/dL (12.0-16.0) L 02/25/21 05:16 Hct 22.7 % (36.0-47.0) L 02/25/21 05:16 MCV 85.2 fL (80.0-100.0) 02/25/21 05:16 MCH 28.7 pg (27.0-34.0) 02/25/21 05:16 MCHC 33.7 g/dL (33.0-35.0) 02/25/21 05:16 RDW 13.6 % (11.6-16.5) 02/25/21 05:16 Plt Count 427 X10^3/uL (150.0-450.0) 02/25/21 05:16 Plt Count Comment Adequate (ADEQUATE) 02/25/21 05:16 MPV 6.9 fL (7.4-11.0) L 02/25/21 05:16 Neut % (Auto) 76.2 % (42.0-75.0) H 02/25/21 05:16 Lymph % (Auto) 15.1 % (21.0-51.0) L 02/25/21 05:16 [place] % (Auto) 7.2 % (0.0-13.0) 02/25/21 05:16 Eos % (Auto) 1.2 % (0.9-2.9) 02/25/21 05:16 Baso % (Auto) 0.3 % (0.2-1.0) 02/25/21 05:16 Neut # (Auto) 9.3 x10^3/uL (2.2-4.8) H 02/25/21 05:16 Lymph # (Auto) 1.8 X10^3/uL (1.3-2.9) 02/25/21 05:16 [place] # (Auto) 0.9 x10^3/uL (0.3-0.8) H 02/25/21 05:16 Eos # (Auto) 0.1 x10^3/uL (0.0-0.2) 02/25/21 05:16 Baso # (Auto) 0.0 X10^3/uL (0.0-0.1) 02/25/21 05:16 Absolute Nucleated RBC 0.1 /100WBC 02/25/21 05:16 Total Counted 100 02/25/21 05:16 Neutrophils % (Manual) 72 % (39-76) 02/25/21 05:16 Band Neutrophils % 2 % (0-10) 02/23/21 05:09 Lymphocytes % (Manual) 16 % (13-43) 02/25/21 05:16 Monocytes % (Manual) 7 % (4-9) 02/25/21 05:16 Eosinophils % (Manual) 1 % (0-6) 02/24/21 05:54 Metamyelocytes % 1 02/25/21 05:16 Myelocytes % 4 02/25/21 05:16 Nucleated RBCs 1 02/25/21 05:16 Plt Morphology Comment Normal (NORMAL) 02/25/21 05:16 RBC Morphology Normal (NORMAL) 02/25/21 05:16 PT 15.0 SECONDS (11.8-14.3) 02/18/21 13:16 INR Target Range - 02/18/21 13:16 INR 1.24 (0.8-1.3) 02/18/21 13:16 Sodium 141 mmol/L (136-145) 02/25/21 05:25 Corrected Sodium 141 mmol/L (136-145) 02/25/21 05:25 Potassium 3.9 mmol/L (3.5-5.1) 02/25/21 05:25 Chloride 106 mmol/L (98-107) 02/25/21 05:25 Carbon Dioxide 27.2 mmol/L (21-32) 02/25/21 05:25 BUN 8 mg/dL (7-18) 02/25/21 05:25 Creatinine 0.75 mg/dL (0.55-1.02) 02/25/21 05:25 Est GFR (MDRD) Af Amer > 60 (>60) 02/25/21 05:25 Est GFR (MDRD) Non-Af > 60 (>60) 02/25/21 05:25 Glucose 119 mg/dL (65-99) H 02/25/21 05:25 POC Glucose (mg/dL) 112 mg/dL (65-99) H 02/25/21 06:24 Calcium 8.9 mg/dL (8.5-10.1) 02/25/21 05:25 Corrected Calcium 10.7 mg/dL (8.5-10.1) H 02/25/21 05:25 Total Bilirubin 0.30 mg/dL (0.2-1.0) 02/25/21 05:25 AST 37 Units/L (15-37) 02/25/21 05:25 ALT 55 Units/L (12-78) 02/25/21 05:25 Alkaline Phosphatase 645 Units/L (46-116) H 02/25/21 05:25 Total Protein 8.0 g/dL (6.4-8.2) 02/25/21 05:25 Albumin 1.8 g/dL (3.4-5.0) L 02/25/21 05:25 Globulin 6.2 g/dL (2.5-4.5) H 02/25/21 05:25 Albumin/Globulin Ratio 0.3 Ratio (1.1-2.1) L 02/25/21 05:25 Specimen Type Clean catch urine 02/20/21 21:15 Urine Color [place] (YELLOW) 02/20/21 21:15 Urine Appearance Clear (CLEAR) 02/20/21 21:15 Urine pH 5.0 (5.0 - 8.0) 02/20/21 21:15 Ur Specific [place] 1.015 (1.000-1.030) 02/20/21 21:15 Urine Protein 3+ (NEGATIVE) 02/20/21 21:15 Urine Glucose (UA) Negative (NEGATIVE) 02/20/21 21:15 Urine Ketones 1+ (NEGATIVE) 02/20/21 21:15 Urine Occult Blood 3+ (NEGATIVE) 02/20/21 21:15 Urine Nitrite Negative (NEGATIVE) 02/20/21 21:15 Urine Bilirubin Negative (NEGATIVE) 02/20/21 21:15 Urine Urobilinogen 1+ (NORMAL) 02/20/21 21:15 Ur Leukocyte Esterase 2+ (NEGATIVE) 02/20/21 21:15 Urine RBC 10-20 /HPF (0-3) A 02/20/21 21:15 Urine WBC 10-20 /HPF (0-5) A 02/20/21 21:15 Ur Squamous Epith Cells Moderate /HPF (NEGATIVE) 02/20/21 21:15 Urine Bacteria 2+ /HPF (NEGATIVE) 02/20/21 21:15 Urine Mucus Few /HPF (NEGATIVE) 02/20/21 21:15 Ur Culture Indicated? Yes/culture set up 02/20/21 21:15 Vancomycin Trough 16.5 ug/mL (15-20) 02/24/21 20:38 Acetone, Semi-Quant Negative (NEGATIVE) 02/18/21 13:16 SARS CoV-2 RNA Rapid KRIS Negative (NEGATIVE) 02/18/21 14:01 Tissue Pathology To follow 02/21/21 11:53 - Assessment and Plan 1: diabetic Lt foot ulcers with cellulitis and deep soft tissue infection with E Coli ,. recent punture wound Lt foot . diabetic neuropathy ,. same local care with soaking the foot in Saline and H2O2 then packing with Iodoform and IV ATB. hopefully we can save the 3ed and 4th toes . to have PIC line and home ABT , visiting nurse . - Problem Patient Problems: Patient Problems (This Medical Record has been edited. Action required.) Cellulitis of foot, left (Acute) L03.116
[2021-02-25] MEDS: ZOFRAN INJ 4 MG VIAL IVP PRN ×2 (12:24→21:56)
[2021-02-25] MEDS: DILAUDID INJ IVP PRN ×3 (12:24→21:55)
[2021-02-25] MEDS: AMBIEN PO SCH (20:49)
[2021-02-25] MEDS: MILK OF MAGNESIA PO SCH (20:50)
[2021-02-25] MEDS: LIPITOR TAB 10 MG PO SCH (20:50)
[2021-02-25] MEDS: COLACE CAP 100 MG PO SCH (20:50)
[2021-02-26] MEDS: MERREM VIAL 1 G in NS 100 ML IV + SPIKE MINIBAG* 100 ML IV SCH (05:10)
[2021-02-26 07:02] LABS: BASOPHILS % (AUTO) 0.3 % (0.2-1.0); EOSINOPHILS # (AUTO) 0.2 x10^3/uL (0.0-0.2); EOSINOPHILS % (AUTO) 1.4 % (0.9-2.9); HEMATOCRIT 26.2 % (36.0-47.0); HEMOGLOBIN 8.8 g/dL (12.0-16.0); LYMPHOCYTES # (AUTO) 1.8 X10^3/uL (1.3-2.9); LYMPHOCYTES % (AUTO) 15.2 % (21.0-51.0); MEAN CORPUSCULAR HEMOGLOBIN 28.6 pg (27.0-34.0); MEAN CORPUSCULAR HGB CONC 33.5 g/dL (33.0-35.0); MEAN CORPUSCULAR VOLUME 85.5 fL (80.0-100.0); MEAN PLATELET VOLUME 7.1 fL (7.4-11.0); MONOCYTES # (AUTO) 0.8 x10^3/uL (0.3-0.8); NEUTROPHILS % (AUTO) 76.1 % (42.0-75.0); RED BLOOD COUNT 3.07 X10^6/uL (3.5-5.4); RED CELL DISTRIBUTION WIDTH 13.2 % (11.6-16.5); WHITE BLOOD COUNT 11.9 X10^3/uL (3.6-10.0)
[2021-02-26 07:22] LABS: ALANINE AMINOTRANSFERASE 77 Units/L (12-78); ALBUMIN 1.9 g/dL (3.4-5.0); ALKALINE PHOSPHATASE 805 Units/L (46-116); ASPARTATE AMINO TRANSFERASE 81 Units/L (15-37); BLOOD UREA NITROGEN 8 mg/dL (7-18); CALCIUM 8.8 mg/dL (8.5-10.1); CARBON DIOXIDE 26.5 mmol/L (21-32); CHLORIDE 104 mmol/L (98-107); COR CA(FOR HYPOALB) 10.5 mg/dL (8.5-10.1); CREATININE 0.82 mg/dL (0.55-1.02); SODIUM 141 mmol/L (136-145); TOTAL PROTEIN 8.5 g/dL (6.4-8.2); eGFR NON BLACK RACES > 60 (>60)
--- NOTE | 2021-02-26 08:09 | PCM.PROG ---
Progress Note Progress Note for Day of Date of Exam: 02/24/21 Subjective Subjective: PT IS A 50 YEAR OLD FEMALE ADMITTED FOR TREATMENT OF LEFT LOWER EXTREMITY CELLULITIS AND LEFT FOOT DIABETIC ULCER. PATIENT IS STATUS POST DEBRIDEMENT OF LEFT FOOT WOUND/ULCER. NO ACUTE CONCERNS OVERNIGHT. LABS/IMAGING WERE OBTAINED: WBC 13.5, HGB 8.1, PLT 406, NA 142, K 4.2, CREATININE 0.93, GLUCOSE 123, URINE CULTURE AND WOUND CULTURE POSITIVE FOR E.COLI. DR. PIMENTEL CONSULTED WE ARE IN AGREEMENT WITH PLANS. SHE IS CURRENTLY RECEIVING NORMAL SALINE AT 80 ML/HR, VANCOMYCIN 750MG IV Q12H, MEROPENEM, GENTAMICIN CREAM BID, AND HER HOME MEDICATIONS. SHE WILL CONTINUE TO REQUIRE IV ANTIBIOTICS BASED ON CULTURE AND SENSITIVITIES. OTHERWISE, WE WILL CONTINUE WITH CURRENT PLAN OF CARE, FOLLOW UP WITH AM LABS AND CONTINUE TO MONITOR. Past Medical Family Social History Past Med/Fam/Surg Hx: No changes since H&P Allergies: Allergies Penicillins Allergy (Mild, Verified 12/30/20 10:45) RASH hives Review of Systems ROS: No change since H&P Vital Signs and I&O's Vital Signs: Temperature 98.3 F Pulse Rate [Left] 104 Pulse Rate 107 Respiratory Rate 23 Blood Pressure [Right Arm] 168/84 Blood Pressure [Left Arm] 193/94 Blood Pressure [Left Arm] 158/88 Blood Pressure [Right Arm] 183/85 Blood Pressure 158/87 O2 Sat by Pulse Oximetry 97 Intake and Output: Intake & Output 02/23/21 02/24/21 02/25/21 02/26/21 23:59 23:59 23:59 23:59 Intake Total 3560 / 3560 6222 / 6222 3346 / 3346 1570 / 1570 Balance 3560 / 3560 6222 / 6222 3346 / 3346 1570 / 1570 Physical Exam Oriented: Normal Eyes: Normal Ear: Normal Nose: Normal Throat: Normal Respiratory: Normal and Generalized Cardiovascular: Normal : Normal Auscultation: Bowel Sounds: Normal Tenderness: Normal Skin: Tender, Hot and Wound (less edema Lt foot ..3ed and 4th toes are still cyanotic .. able to move them .no necrosis .) Musculoskeletal: Left, Foot, Swelling and Tender Psychiatric: Normal Mood Description: Calm Affect: Normal Speech Pattern: Clear and Appropriate Laboratory and Diagnostics Result Diagrams: 02/26/21 05:29 02/26/21 05:29 Labs: 02/21/21 11:53 Foot - Left Wound Gram Stain - Final 02/21/21 11:53 Foot - Left Wound Culture - Final Escherichia Coli Staphylococcus Lugdunesis 02/18/21 13:37 Blood Blood Culture - Final 02/18/21 13:16 Blood Blood Culture - Final 02/20/21 21:15 Urine,Clean Catch Urine Culture - Final Escherichia Coli 02/19/21 15:00 Foot - Left Wound Gram Stain - Final 02/19/21 15:00 Foot - Left Wound Culture - Final Escherichia Coli Laboratory WBC 11.9 X10^3/uL (3.6-10.0) H 02/26/21 05:29 RBC 3.07 X10^6/uL (3.5-5.4) L 02/26/21 05:29 Hgb 8.8 g/dL (12.0-16.0) L 02/26/21 05:29 Hct 26.2 % (36.0-47.0) L 02/26/21 05:29 MCV 85.5 fL (80.0-100.0) 02/26/21 05:29 MCH 28.6 pg (27.0-34.0) 02/26/21 05:29 MCHC 33.5 g/dL (33.0-35.0) 02/26/21 05:29 RDW 13.2 % (11.6-16.5) 02/26/21 05:29 Plt Count 492 X10^3/uL (150.0-450.0) H 02/26/21 05:29 Plt Count Comment Adequate (ADEQUATE) 02/25/21 05:16 MPV 7.1 fL (7.4-11.0) L 02/26/21 05:29 Neut % (Auto) 76.1 % (42.0-75.0) H 02/26/21 05:29 Lymph % (Auto) 15.2 % (21.0-51.0) L 02/26/21 05:29 [place] % (Auto) 7.0 % (0.0-13.0) 02/26/21 05:29 Eos % (Auto) 1.4 % (0.9-2.9) 02/26/21 05:29 Baso % (Auto) 0.3 % (0.2-1.0) 02/26/21 05:29 Neut # (Auto) 9.0 x10^3/uL (2.2-4.8) H 02/26/21 05:29 Lymph # (Auto) 1.8 X10^3/uL (1.3-2.9) 02/26/21 05:29 [place] # (Auto) 0.8 x10^3/uL (0.3-0.8) 02/26/21 05:29 Eos # (Auto) 0.2 x10^3/uL (0.0-0.2) 02/26/21 05:29 Baso # (Auto) 0.0 X10^3/uL (0.0-0.1) 02/26/21 05:29 Absolute Nucleated RBC 0.1 /100WBC 02/26/21 05:29 Total Counted 100 02/25/21 05:16 Neutrophils % (Manual) 72 % (39-76) 02/25/21 05:16 Band Neutrophils % 2 % (0-10) 02/23/21 05:09 Lymphocytes % (Manual) 16 % (13-43) 02/25/21 05:16 Monocytes % (Manual) 7 % (4-9) 02/25/21 05:16 Eosinophils % (Manual) 1 % (0-6) 02/24/21 05:54 Metamyelocytes % 1 02/25/21 05:16 Myelocytes % 4 02/25/21 05:16 Nucleated RBCs 1 02/25/21 05:16 Plt Morphology Comment Normal (NORMAL) 02/25/21 05:16 RBC Morphology Normal (NORMAL) 02/25/21 05:16 PT 15.0 SECONDS (11.8-14.3) 02/18/21 13:16 INR Target Range - 02/18/21 13:16 INR 1.24 (0.8-1.3) 02/18/21 13:16 Sodium 141 mmol/L (136-145) 02/26/21 05:29 Corrected Sodium TNP 02/26/21 05:29 Potassium 3.6 mmol/L (3.5-5.1) 02/26/21 05:29 Chloride 104 mmol/L (98-107) 02/26/21 05:29 Carbon Dioxide 26.5 mmol/L (21-32) 02/26/21 05:29 BUN 8 mg/dL (7-18) 02/26/21 05:29 Creatinine 0.82 mg/dL (0.55-1.02) 02/26/21 05:29 Est GFR (MDRD) Af Amer > 60 (>60) 02/26/21 05:29 Est GFR (MDRD) Non-Af > 60 (>60) 02/26/21 05:29 Glucose 99 mg/dL (65-99) 02/26/21 05:29 POC Glucose (mg/dL) 95 mg/dL (65-99) 02/26/21 05:05 Calcium 8.8 mg/dL (8.5-10.1) 02/26/21 05:29 Corrected Calcium 10.5 mg/dL (8.5-10.1) H 02/26/21 05:29 Total Bilirubin 0.40 mg/dL (0.2-1.0) 02/26/21 05:29 AST 81 Units/L (15-37) H 02/26/21 05:29 ALT 77 Units/L (12-78) 02/26/21 05:29 Alkaline Phosphatase 805 Units/L (46-116) H 02/26/21 05:29 Total Protein 8.5 g/dL (6.4-8.2) H 02/26/21 05:29 Albumin 1.9 g/dL (3.4-5.0) L 02/26/21 05:29 Globulin 6.6 g/dL (2.5-4.5) H 02/26/21 05:29 Albumin/Globulin Ratio 0.3 Ratio (1.1-2.1) L 02/26/21 05:29 Specimen Type Clean catch urine 02/20/21 21:15 Urine Color [place] (YELLOW) 02/20/21 21:15 Urine Appearance Clear (CLEAR) 02/20/21 21:15 Urine pH 5.0 (5.0 - 8.0) 02/20/21 21:15 Ur Specific [place] 1.015 (1.000-1.030) 02/20/21 21:15 Urine Protein 3+ (NEGATIVE) 02/20/21 21:15 Urine Glucose (UA) Negative (NEGATIVE) 02/20/21 21:15 Urine Ketones 1+ (NEGATIVE) 02/20/21 21:15 Urine Occult Blood 3+ (NEGATIVE) 02/20/21 21:15 Urine Nitrite Negative (NEGATIVE) 02/20/21 21:15 Urine Bilirubin Negative (NEGATIVE) 02/20/21 21:15 Urine Urobilinogen 1+ (NORMAL) 02/20/21 21:15 Ur Leukocyte Esterase 2+ (NEGATIVE) 02/20/21 21:15 Urine RBC 10-20 /HPF (0-3) A 02/20/21 21:15 Urine WBC 10-20 /HPF (0-5) A 02/20/21 21:15 Ur Squamous Epith Cells Moderate /HPF (NEGATIVE) 02/20/21 21:15 Urine Bacteria 2+ /HPF (NEGATIVE) 02/20/21 21:15 Urine Mucus Few /HPF (NEGATIVE) 02/20/21 21:15 Ur Culture Indicated? Yes/culture set up 02/20/21 21:15 Vancomycin Trough 16.5 ug/mL (15-20) 02/24/21 20:38 Acetone, Semi-Quant Negative (NEGATIVE) 02/18/21 13:16 SARS CoV-2 RNA Rapid KRIS Negative (NEGATIVE) 02/18/21 14:01 Tissue Pathology To follow 02/21/21 11:53 Plan (1) Cellulitis of foot, left: Status: Acute Plan: NORMAL SALINE AT 80 ML/HR, VANCOMYCIN 750MG IV Q12H, LEVAQUIN 500MG IV DAILY, GENTAMICIN CREAM BID, DILAUDID 2MG IV Q4H PRN, ZOFRAN PRN, BENADRYL PRN, AND HER HOME MEDICATIONS WERE RESUMED.
--- NOTE | 2021-02-26 08:11 | PCM.PROG ---
Progress Note Progress Note for Day of Date of Exam: 02/25/21 Subjective Subjective: PT IS A 50 YEAR OLD FEMALE ADMITTED FOR TREATMENT OF LEFT LOWER EXTREMITY CELLULITIS AND LEFT FOOT DIABETIC ULCER. PATIENT IS STATUS POST DEBRIDEMENT OF LEFT FOOT WOUND/ULCER. PT HAS BEEN DOING WELL. DISCUSSED WITH SURGERY PLANS FOR PICC LINE FOR PATIENT TO BE DISCHARGED HOME AND CONTINUE AN TIBIOTICS. LEUKOCYTOSIS CONTINUES TO TREND DOWN. LABS/IMAGING WERE OBTAINED: WBC 12.2, HGB 7.6, PLT 427, NA 141, K 3.9, CREATININE 0.75, GLUCOSE 119, URINE CULTURE AND WOUND CULTURE POSITIVE FOR E.COLI. DR. PIMENTEL CONSULTED WE ARE IN AGREEMENT WITH PLANS. SHE IS CURRENTLY RECEIVING NORMAL SALINE AT 80 ML/HR, VANCOMYCIN 750MG IV Q12H, MEROPENEM, GENTAMICIN CREAM BID, AND HER HOME MEDICATIONS. SHE WILL CONTINUE TO REQUIRE IV ANTIBIOTICS BASED ON CULTURE AND SENSITIVITIES. OTHERWISE, WE WILL CONTINUE WITH CURRENT PLAN OF CARE, FOLLOW UP WITH AM LABS AND CONTINUE TO MONITOR. Past Medical Family Social History Past Med/Fam/Surg Hx: No changes since H&P Allergies: Allergies Penicillins Allergy (Mild, Verified 12/30/20 10:45) RASH hives Review of Systems ROS: No change since H&P Vital Signs and I&O's Vital Signs: Temperature 98.3 F Pulse Rate [Left] 104 Pulse Rate 107 Respiratory Rate 23 Blood Pressure [Right Arm] 168/84 Blood Pressure [Left Arm] 193/94 Blood Pressure [Left Arm] 158/88 Blood Pressure [Right Arm] 183/85 Blood Pressure 158/87 O2 Sat by Pulse Oximetry 97 Intake and Output: Intake & Output 02/23/21 02/24/21 02/25/21 02/26/21 23:59 23:59 23:59 23:59 Intake Total 3560 / 3560 6222 / 6222 3346 / 3346 1570 / 1570 Balance 3560 / 3560 6222 / 6222 3346 / 3346 1570 / 1570 Physical Exam Oriented: Normal Eyes: Normal Ear: Normal Nose: Normal Throat: Normal Respiratory: Normal and Generalized Cardiovascular: Normal : Normal Auscultation: Bowel Sounds: Normal Tenderness: Normal Skin: Tender, Hot and Wound (less edema Lt foot ..3ed and 4th toes are still cyanotic .. able to move them .no necrosis .) Musculoskeletal: Left, Foot, Swelling and Tender Psychiatric: Normal Mood Description: Calm Affect: Normal Speech Pattern: Clear and Appropriate Laboratory and Diagnostics Result Diagrams: 02/26/21 05:29 02/26/21 05:29 Labs: 02/21/21 11:53 Foot - Left Wound Gram Stain - Final 02/21/21 11:53 Foot - Left Wound Culture - Final Escherichia Coli Staphylococcus Lugdunesis 02/18/21 13:37 Blood Blood Culture - Final 02/18/21 13:16 Blood Blood Culture - Final 02/20/21 21:15 Urine,Clean Catch Urine Culture - Final Escherichia Coli 02/19/21 15:00 Foot - Left Wound Gram Stain - Final 02/19/21 15:00 Foot - Left Wound Culture - Final Escherichia Coli Laboratory WBC 11.9 X10^3/uL (3.6-10.0) H 02/26/21 05:29 RBC 3.07 X10^6/uL (3.5-5.4) L 02/26/21 05:29 Hgb 8.8 g/dL (12.0-16.0) L 02/26/21 05:29 Hct 26.2 % (36.0-47.0) L 02/26/21 05:29 MCV 85.5 fL (80.0-100.0) 02/26/21 05:29 MCH 28.6 pg (27.0-34.0) 02/26/21 05:29 MCHC 33.5 g/dL (33.0-35.0) 02/26/21 05:29 RDW 13.2 % (11.6-16.5) 02/26/21 05:29 Plt Count 492 X10^3/uL (150.0-450.0) H 02/26/21 05:29 Plt Count Comment Adequate (ADEQUATE) 02/25/21 05:16 MPV 7.1 fL (7.4-11.0) L 02/26/21 05:29 Neut % (Auto) 76.1 % (42.0-75.0) H 02/26/21 05:29 Lymph % (Auto) 15.2 % (21.0-51.0) L 02/26/21 05:29 [place] % (Auto) 7.0 % (0.0-13.0) 02/26/21 05:29 Eos % (Auto) 1.4 % (0.9-2.9) 02/26/21 05:29 Baso % (Auto) 0.3 % (0.2-1.0) 02/26/21 05:29 Neut # (Auto) 9.0 x10^3/uL (2.2-4.8) H 02/26/21 05:29 Lymph # (Auto) 1.8 X10^3/uL (1.3-2.9) 02/26/21 05:29 [place] # (Auto) 0.8 x10^3/uL (0.3-0.8) 02/26/21 05:29 Eos # (Auto) 0.2 x10^3/uL (0.0-0.2) 02/26/21 05:29 Baso # (Auto) 0.0 X10^3/uL (0.0-0.1) 02/26/21 05:29 Absolute Nucleated RBC 0.1 /100WBC 02/26/21 05:29 Total Counted 100 02/25/21 05:16 Neutrophils % (Manual) 72 % (39-76) 02/25/21 05:16 Band Neutrophils % 2 % (0-10) 02/23/21 05:09 Lymphocytes % (Manual) 16 % (13-43) 02/25/21 05:16 Monocytes % (Manual) 7 % (4-9) 02/25/21 05:16 Eosinophils % (Manual) 1 % (0-6) 02/24/21 05:54 Metamyelocytes % 1 02/25/21 05:16 Myelocytes % 4 02/25/21 05:16 Nucleated RBCs 1 02/25/21 05:16 Plt Morphology Comment Normal (NORMAL) 02/25/21 05:16 RBC Morphology Normal (NORMAL) 02/25/21 05:16 PT 15.0 SECONDS (11.8-14.3) 02/18/21 13:16 INR Target Range - 02/18/21 13:16 INR 1.24 (0.8-1.3) 02/18/21 13:16 Sodium 141 mmol/L (136-145) 02/26/21 05:29 Corrected Sodium TNP 02/26/21 05:29 Potassium 3.6 mmol/L (3.5-5.1) 02/26/21 05:29 Chloride 104 mmol/L (98-107) 02/26/21 05:29 Carbon Dioxide 26.5 mmol/L (21-32) 02/26/21 05:29 BUN 8 mg/dL (7-18) 02/26/21 05:29 Creatinine 0.82 mg/dL (0.55-1.02) 02/26/21 05:29 Est GFR (MDRD) Af Amer > 60 (>60) 02/26/21 05:29 Est GFR (MDRD) Non-Af > 60 (>60) 02/26/21 05:29 Glucose 99 mg/dL (65-99) 02/26/21 05:29 POC Glucose (mg/dL) 95 mg/dL (65-99) 02/26/21 05:05 Calcium 8.8 mg/dL (8.5-10.1) 02/26/21 05:29 Corrected Calcium 10.5 mg/dL (8.5-10.1) H 02/26/21 05:29 Total Bilirubin 0.40 mg/dL (0.2-1.0) 02/26/21 05:29 AST 81 Units/L (15-37) H 02/26/21 05:29 ALT 77 Units/L (12-78) 02/26/21 05:29 Alkaline Phosphatase 805 Units/L (46-116) H 02/26/21 05:29 Total Protein 8.5 g/dL (6.4-8.2) H 02/26/21 05:29 Albumin 1.9 g/dL (3.4-5.0) L 02/26/21 05:29 Globulin 6.6 g/dL (2.5-4.5) H 02/26/21 05:29 Albumin/Globulin Ratio 0.3 Ratio (1.1-2.1) L 02/26/21 05:29 Specimen Type Clean catch urine 02/20/21 21:15 Urine Color [place] (YELLOW) 02/20/21 21:15 Urine Appearance Clear (CLEAR) 02/20/21 21:15 Urine pH 5.0 (5.0 - 8.0) 02/20/21 21:15 Ur Specific [place] 1.015 (1.000-1.030) 02/20/21 21:15 Urine Protein 3+ (NEGATIVE) 02/20/21 21:15 Urine Glucose (UA) Negative (NEGATIVE) 02/20/21 21:15 Urine Ketones 1+ (NEGATIVE) 02/20/21 21:15 Urine Occult Blood 3+ (NEGATIVE) 02/20/21 21:15 Urine Nitrite Negative (NEGATIVE) 02/20/21 21:15 Urine Bilirubin Negative (NEGATIVE) 02/20/21 21:15 Urine Urobilinogen 1+ (NORMAL) 02/20/21 21:15 Ur Leukocyte Esterase 2+ (NEGATIVE) 02/20/21 21:15 Urine RBC 10-20 /HPF (0-3) A 02/20/21 21:15 Urine WBC 10-20 /HPF (0-5) A 02/20/21 21:15 Ur Squamous Epith Cells Moderate /HPF (NEGATIVE) 02/20/21 21:15 Urine Bacteria 2+ /HPF (NEGATIVE) 02/20/21 21:15 Urine Mucus Few /HPF (NEGATIVE) 02/20/21 21:15 Ur Culture Indicated? Yes/culture set up 02/20/21 21:15 Vancomycin Trough 16.5 ug/mL (15-20) 02/24/21 20:38 Acetone, Semi-Quant Negative (NEGATIVE) 02/18/21 13:16 SARS CoV-2 RNA Rapid KRIS Negative (NEGATIVE) 02/18/21 14:01 Tissue Pathology To follow 02/21/21 11:53 Plan (1) Cellulitis of foot, left: Status: Acute Plan: NORMAL SALINE AT 80 ML/HR, VANCOMYCIN 750MG IV Q12H, LEVAQUIN 500MG IV DAILY, GENTAMICIN CREAM BID, DILAUDID 2MG IV Q4H PRN, ZOFRAN PRN, BENADRYL PRN, AND HER HOME MEDICATIONS WERE RESUMED.
[2021-02-26] MEDS: NS 1,000 ML IV 1,000 ML IV SCH ×3 (08:19→20:49)
[2021-02-26] MEDS: COZAAR PO SCH (08:36)
[2021-02-26] MEDS: CYMBALTA PO SCH (08:37)
[2021-02-26] MEDS: VITAMIN D3 25 mcg (1,000 UNITS) PO SCH (08:38)
[2021-02-26] MEDS: ZOFRAN INJ 4 MG VIAL IVP PRN ×3 (08:41→20:57)
[2021-02-26] MEDS: VANCOMYCIN IV *PREMIX 750 mg/150 ML BAG 750 MG/150 ML PIGGYBACK IV SCH ×2 (08:41→22:08)
[2021-02-26] MEDS: DILAUDID INJ IVP PRN ×3 (08:42→20:56)
--- NOTE | 2021-02-26 10:47 | DR.PROGNOT ---
Hospital Progress Notes - Progress Note for Day of: Progress Note Date: 02/26/21 - Chief Complaint Chief Complaint: no changes , moderate drainage Lt foot . WBC 11.9.. Hgb 8.8 . BS 95 . Alk Phos 805 .. Albu1.9. Temp 98 - Past Medical Family Social History Past Med/Fam/Surg Hx: No changes since H&P Allergies: Allergies Penicillins Allergy (Mild, Verified 12/30/20 10:45) RASH hives - Review Of Systems ROS: No change since H&P - Vital Signs Vital Signs: Temperature 98.0 F Pulse Rate [Left] 102 Pulse Rate 107 Respiratory Rate 16 Blood Pressure [Right Arm] 168/84 Blood Pressure [Left Arm] 179/90 Blood Pressure [Left Arm] 158/88 Blood Pressure [Right Arm] 183/85 Blood Pressure 158/87 O2 Sat by Pulse Oximetry 94 - Physical Exam Oriented: Normal Eyes: Normal Ear: Normal Nose: Normal Throat: Normal Respiratory: Normal, Generalized Cardiovascular: Normal : Normal GI:Auscultation: Normal GI:Palpation: Normal GI: Tenderness: Normal Skin: Tender, Hot, Wound (less edema Lt foot ..3ed and 4th toes are still cyano tic .. able to move them .no necrosis .) Musculoskeletal: Left, Foot, Swelling, Tender Psychiatric: Normal Mood Description: Calm Affect: Normal Speech Pattern: Clear, Appropriate - Laboratory and Diagnostics Result Diagrams: 02/26/21 05:29 02/26/21 05:29 Labs: 02/21/21 11:53 Foot - Left Wound Gram Stain - Final 02/21/21 11:53 Foot - Left Wound Culture - Final Escherichia Coli Staphylococcus Lugdunesis 02/18/21 13:37 Blood Blood Culture - Final 02/18/21 13:16 Blood Blood Culture - Final 02/20/21 21:15 Urine,Clean Catch Urine Culture - Final Escherichia Coli 02/19/21 15:00 Foot - Left Wound Gram Stain - Final 02/19/21 15:00 Foot - Left Wound Culture - Final Escherichia Coli Laboratory WBC 11.9 X10^3/uL (3.6-10.0) H 02/26/21 05:29 RBC 3.07 X10^6/uL (3.5-5.4) L 02/26/21 05:29 Hgb 8.8 g/dL (12.0-16.0) L 02/26/21 05:29 Hct 26.2 % (36.0-47.0) L 02/26/21 05:29 MCV 85.5 fL (80.0-100.0) 02/26/21 05:29 MCH 28.6 pg (27.0-34.0) 02/26/21 05:29 MCHC 33.5 g/dL (33.0-35.0) 02/26/21 05:29 RDW 13.2 % (11.6-16.5) 02/26/21 05:29 Plt Count 492 X10^3/uL (150.0-450.0) H 02/26/21 05:29 Plt Count Comment Adequate (ADEQUATE) 02/25/21 05:16 MPV 7.1 fL (7.4-11.0) L 02/26/21 05:29 Neut % (Auto) 76.1 % (42.0-75.0) H 02/26/21 05:29 Lymph % (Auto) 15.2 % (21.0-51.0) L 02/26/21 05:29 [place] % (Auto) 7.0 % (0.0-13.0) 02/26/21 05:29 Eos % (Auto) 1.4 % (0.9-2.9) 02/26/21 05:29 Baso % (Auto) 0.3 % (0.2-1.0) 02/26/21 05:29 Neut # (Auto) 9.0 x10^3/uL (2.2-4.8) H 02/26/21 05:29 Lymph # (Auto) 1.8 X10^3/uL (1.3-2.9) 02/26/21 05:29 [place] # (Auto) 0.8 x10^3/uL (0.3-0.8) 02/26/21 05:29 Eos # (Auto) 0.2 x10^3/uL (0.0-0.2) 02/26/21 05:29 Baso # (Auto) 0.0 X10^3/uL (0.0-0.1) 02/26/21 05:29 Absolute Nucleated RBC 0.1 /100WBC 02/26/21 05:29 Total Counted 100 02/25/21 05:16 Neutrophils % (Manual) 72 % (39-76) 02/25/21 05:16 Band Neutrophils % 2 % (0-10) 02/23/21 05:09 Lymphocytes % (Manual) 16 % (13-43) 02/25/21 05:16 Monocytes % (Manual) 7 % (4-9) 02/25/21 05:16 Eosinophils % (Manual) 1 % (0-6) 02/24/21 05:54 Metamyelocytes % 1 02/25/21 05:16 Myelocytes % 4 02/25/21 05:16 Nucleated RBCs 1 02/25/21 05:16 Plt Morphology Comment Normal (NORMAL) 02/25/21 05:16 RBC Morphology Normal (NORMAL) 02/25/21 05:16 PT 15.0 SECONDS (11.8-14.3) 02/18/21 13:16 INR Target Range - 02/18/21 13:16 INR 1.24 (0.8-1.3) 02/18/21 13:16 Sodium 141 mmol/L (136-145) 02/26/21 05:29 Corrected Sodium TNP 02/26/21 05:29 Potassium 3.6 mmol/L (3.5-5.1) 02/26/21 05:29 Chloride 104 mmol/L (98-107) 02/26/21 05:29 Carbon Dioxide 26.5 mmol/L (21-32) 02/26/21 05:29 BUN 8 mg/dL (7-18) 02/26/21 05:29 Creatinine 0.82 mg/dL (0.55-1.02) 02/26/21 05:29 Est GFR (MDRD) Af Amer > 60 (>60) 02/26/21 05:29 Est GFR (MDRD) Non-Af > 60 (>60) 02/26/21 05:29 Glucose 99 mg/dL (65-99) 02/26/21 05:29 POC Glucose (mg/dL) 95 mg/dL (65-99) 02/26/21 05:05 Calcium 8.8 mg/dL (8.5-10.1) 02/26/21 05:29 Corrected Calcium 10.5 mg/dL (8.5-10.1) H 02/26/21 05:29 Total Bilirubin 0.40 mg/dL (0.2-1.0) 02/26/21 05:29 AST 81 Units/L (15-37) H 02/26/21 05:29 ALT 77 Units/L (12-78) 02/26/21 05:29 Alkaline Phosphatase 805 Units/L (46-116) H 02/26/21 05:29 Total Protein 8.5 g/dL (6.4-8.2) H 02/26/21 05:29 Albumin 1.9 g/dL (3.4-5.0) L 02/26/21 05:29 Globulin 6.6 g/dL (2.5-4.5) H 02/26/21 05:29 Albumin/Globulin Ratio 0.3 Ratio (1.1-2.1) L 02/26/21 05:29 Specimen Type Clean catch urine 02/20/21 21:15 Urine Color [place] (YELLOW) 02/20/21 21:15 Urine Appearance Clear (CLEAR) 02/20/21 21:15 Urine pH 5.0 (5.0 - 8.0) 02/20/21 21:15 Ur Specific [place] 1.015 (1.000-1.030) 02/20/21 21:15 Urine Protein 3+ (NEGATIVE) 02/20/21 21:15 Urine Glucose (UA) Negative (NEGATIVE) 02/20/21 21:15 Urine Ketones 1+ (NEGATIVE) 02/20/21 21:15 Urine Occult Blood 3+ (NEGATIVE) 02/20/21 21:15 Urine Nitrite Negative (NEGATIVE) 02/20/21 21:15 Urine Bilirubin Negative (NEGATIVE) 02/20/21 21:15 Urine Urobilinogen 1+ (NORMAL) 02/20/21 21:15 Ur Leukocyte Esterase 2+ (NEGATIVE) 02/20/21 21:15 Urine RBC 10-20 /HPF (0-3) A 02/20/21 21:15 Urine WBC 10-20 /HPF (0-5) A 02/20/21 21:15 Ur Squamous Epith Cells Moderate /HPF (NEGATIVE) 02/20/21 21:15 Urine Bacteria 2+ /HPF (NEGATIVE) 02/20/21 21:15 Urine Mucus Few /HPF (NEGATIVE) 02/20/21 21:15 Ur Culture Indicated? Yes/culture set up 02/20/21 21:15 Vancomycin Trough 16.5 ug/mL (15-20) 02/24/21 20:38 Acetone, Semi-Quant Negative (NEGATIVE) 02/18/21 13:16 SARS CoV-2 RNA Rapid KRIS Negative (NEGATIVE) 02/18/21 14:01 Tissue Pathology To follow 02/21/21 11:53 - Assessment and Plan 1: diabetic Lt foot ulcers with cellulitis and deep soft tissue infection with E Coli ,. recent punture wound Lt foot . diabetic neuropathy ,. elevated Alk-Phos .. fo placement of PIC line .. d/c in am , home VNA and will follow in 2 weeks. same local care with soaking the foot in Saline and H2O2 then packing with Iodoform and IV ATB. hopefully we can save the 3ed and 4th toes . - Problem Patient Problems: Patient Problems (This Medical Record has been edited. Action required.) Cellulitis of foot, left (Acute) L03.116
--- NOTE | 2021-02-26 12:50 | PCM.PROG ---
Progress Note - Progress Note for Day of Date of Exam: 02/26/21 - Subjective Subjective: WAS ADMITTED FOR TREATMENT OF LEFT LOWER EXTREMITY CELLULITIS AND LEFT FOOT DIABETIC ULCER. SHE APPARENTLY HAD A NAIL REMOVED FROM THE BOTTOM OF THE FOOT ON 02/18/21 BY HER REVENUE CYCLE SPECIALIST. SHE IS STATUS POST DEBRIDEMENT OF WOUND/ULCER BY . TODAY, SHE IS ALERT AND ORIENTED, LYING IN BED ON MORNING ROUNDS. SHE CONTINUES WITH COMPLAINTS OF PAIN TO THE LEFT FOOT. SHE DOES REPORT SLIGHT IMPROVEMENT COMPARED TO YESTERDAY. LEFT FOOT IS NOTED TO HAVE A BULKY DRESSING. HER VITALS THIS MORNING ARE: 98.0-100-16-94%-179/90. LABS WERE OBTAINED. ABNORMAL LAB VALUES INCLUDE THE FOLLOWING: WBC 11.9, RBC 3.07, HGB 8.8, HCT 26.2, PLT COUNT 492, AST 81, ALK PHOS 805, TOTAL PROTEIN 8.5, ALBUMIN 1.9. WOUND CULTURES WERE POSITIVE FOR GROWTH OF E.COLI AND STAPHYLOCOCCUS LUGDUNESIS. URINE CULTURE WAS POSITIVE FOR GROWTH OF E.COLI. SHE IS CURRENTLY RECEIVING NORMAL SALINE AT 80 ML/HR, VANCOMYC IN 750MG IV Q12H, MEROPENEM 1G IV Q8H, DILAUDID 2MG IV Q4H PRN, ZOFRAN 4MG IV Q4H PRN NAUSEA, AND HER HOME MEDICATIONS WERE RESUMED. WE WILL CONTINUE WITH CURRENT PLAN OF CARE TODAY. PATIENT WILL HAVE A PICC LINE PLACE FOR IV ANTIBIOTICS AT HOME. OTHERWISE, WE WILL FOLLOW UP WITH AM LABS AND CONTINUE TO MONITOR. TIME SPENT ON CLINICAL ASSESSMENT, REVIEWING LABS AND IMAGING, DECISION MAKING, AND DOCUMENTATION GREATER THAN 45 MINUTES. - Past Medical Family Social History Past Med/Fam/Surg Hx: No changes since H&P Allergies: Allergies Penicillins Allergy (Mild, Verified 12/30/20 10:45) RASH hives - Review of Systems ROS: No change since H&P - Vital Signs and I&O's Vital Signs: Temperature 98.0 F Pulse Rate [Left] 102 Pulse Rate 107 Respiratory Rate 16 Blood Pressure [Right Arm] 168/84 Blood Pressure [Left Arm] 179/90 Blood Pressure [Left Arm] 158/88 Blood Pressure [Right Arm] 183/85 Blood Pressure 158/87 O2 Sat by Pulse Oximetry 94 Intake and Output: Intake & Output 02/24/21 02/25/21 02/26/21 01/13/22 11:59 11:59 11:59 11:59 Intake Total 2960 / 2960 5444 / 5444 4244 / 4244 Balance 2960 / 2960 5444 / 5444 4244 / 4244 - Physical Exam Oriented: Normal Eyes: Normal Ear: Normal Nose: Normal Throat: Normal Respiratory: Normal, Generalized Cardiovascular: Normal : Normal Auscultation: Bowel Sounds: Normal Palpation: Normal Tenderness: Normal Skin: Tender, Hot, Wound (less edema Lt foot ..3ed and 4th toes are still cyanotic .. able to move them .no necrosis .) Musculoskeletal: Left, Foot, Swelling, Tender Psychiatric: Normal Mood Description: Calm Affect: Normal Speech Pattern: Clear, Appropriate - Laboratory and Diagnostics Result Diagrams: 02/26/21 05:29 02/26/21 05:29 Labs: 02/21/21 11:53 Foot - Left Wound Gram Stain - Final 02/21/21 11:53 Foot - Left Wound Culture - Final Escherichia Coli Staphylococcus Lugdunesis 02/18/21 13:37 Blood Blood Culture - Final 02/18/21 13:16 Blood Blood Culture - Final 02/20/21 21:15 Urine,Clean Catch Urine Culture - Final Escherichia Coli 02/19/21 15:00 Foot - Left Wound Gram Stain - Final 02/19/21 15:00 Foot - Left Wound Culture - Final Escherichia Coli Laboratory WBC 11.9 X10^3/uL (3.6-10.0) H 02/26/21 05:29 RBC 3.07 X10^6/uL (3.5-5.4) L 02/26/21 05:29 Hgb 8.8 g/dL (12.0-16.0) L 02/26/21 05:29 Hct 26.2 % (36.0-47.0) L 02/26/21 05:29 MCV 85.5 fL (80.0-100.0) 02/26/21 05:29 MCH 28.6 pg (27.0-34.0) 02/26/21 05:29 MCHC 33.5 g/dL (33.0-35.0) 02/26/21 05:29 RDW 13.2 % (11.6-16.5) 02/26/21 05:29 Plt Count 492 X10^3/uL (150.0-450.0) H 02/26/21 05:29 Plt Count Comment Adequate (ADEQUATE) 02/25/21 05:16 MPV 7.1 fL (7.4-11.0) L 02/26/21 05:29 Neut % (Auto) 76.1 % (42.0-75.0) H 02/26/21 05:29 Lymph % (Auto) 15.2 % (21.0-51.0) L 02/26/21 05:29 [place] % (Auto) 7.0 % (0.0-13.0) 02/26/21 05:29 Eos % (Auto) 1.4 % (0.9-2.9) 02/26/21 05:29 Baso % (Auto) 0.3 % (0.2-1.0) 02/26/21 05:29 Neut # (Auto) 9.0 x10^3/uL (2.2-4.8) H 02/26/21 05:29 Lymph # (Auto) 1.8 X10^3/uL (1.3-2.9) 02/26/21 05:29 [place] # (Auto) 0.8 x10^3/uL (0.3-0.8) 02/26/21 05:29 Eos # (Auto) 0.2 x10^3/uL (0.0-0.2) 02/26/21 05:29 Baso # (Auto) 0.0 X10^3/uL (0.0-0.1) 02/26/21 05:29 Absolute Nucleated RBC 0.1 /100WBC 02/26/21 05:29 Total Counted 100 02/25/21 05:16 Neutrophils % (Manual) 72 % (39-76) 02/25/21 05:16 Band Neutrophils % 2 % (0-10) 02/23/21 05:09 Lymphocytes % (Manual) 16 % (13-43) 02/25/21 05:16 Monocytes % (Manual) 7 % (4-9) 02/25/21 05:16 Eosinophils % (Manual) 1 % (0-6) 02/24/21 05:54 Metamyelocytes % 1 02/25/21 05:16 Myelocytes % 4 02/25/21 05:16 Nucleated RBCs 1 02/25/21 05:16 Plt Morphology Comment Normal (NORMAL) 02/25/21 05:16 RBC Morphology Normal (NORMAL) 02/25/21 05:16 PT 15.0 SECONDS (11.8-14.3) 02/18/21 13:16 INR Target Range - 02/18/21 13:16 INR 1.24 (0.8-1.3) 02/18/21 13:16 Sodium 141 mmol/L (136-145) 02/26/21 05:29 Corrected Sodium TNP 02/26/21 05:29 Potassium 3.6 mmol/L (3.5-5.1) 02/26/21 05:29 Chloride 104 mmol/L (98-107) 02/26/21 05:29 Carbon Dioxide 26.5 mmol/L (21-32) 02/26/21 05:29 BUN 8 mg/dL (7-18) 02/26/21 05:29 Creatinine 0.82 mg/dL (0.55-1.02) 02/26/21 05:29 Est GFR (MDRD) Af Amer > 60 (>60) 02/26/21 05:29 Est GFR (MDRD) Non-Af > 60 (>60) 02/26/21 05:29 Glucose 99 mg/dL (65-99) 02/26/21 05:29 POC Glucose (mg/dL) 116 mg/dL (65-99) H 02/26/21 11:25 Calcium 8.8 mg/dL (8.5-10.1) 02/26/21 05:29 Corrected Calcium 10.5 mg/dL (8.5-10.1) H 02/26/21 05:29 Total Bilirubin 0.40 mg/dL (0.2-1.0) 02/26/21 05:29 AST 81 Units/L (15-37) H 02/26/21 05:29 ALT 77 Units/L (12-78) 02/26/21 05:29 Alkaline Phosphatase 805 Units/L (46-116) H 02/26/21 05:29 Total Protein 8.5 g/dL (6.4-8.2) H 02/26/21 05:29 Albumin 1.9 g/dL (3.4-5.0) L 02/26/21 05:29 Globulin 6.6 g/dL (2.5-4.5) H 02/26/21 05:29 Albumin/Globulin Ratio 0.3 Ratio (1.1-2.1) L 02/26/21 05:29 Specimen Type Clean catch urine 02/20/21 21:15 Urine Color [place] (YELLOW) 02/20/21 21:15 Urine Appearance Clear (CLEAR) 02/20/21 21:15 Urine pH 5.0 (5.0 - 8.0) 02/20/21 21:15 Ur Specific [place] 1.015 (1.000-1.030) 02/20/21 21:15 Urine Protein 3+ (NEGATIVE) 02/20/21 21:15 Urine Glucose (UA) Negative (NEGATIVE) 02/20/21 21:15 Urine Ketones 1+ (NEGATIVE) 02/20/21 21:15 Urine Occult Blood 3+ (NEGATIVE) 02/20/21 21:15 Urine Nitrite Negative (NEGATIVE) 02/20/21 21:15 Urine Bilirubin Negative (NEGATIVE) 02/20/21 21:15 Urine Urobilinogen 1+ (NORMAL) 02/20/21 21:15 Ur Leukocyte Esterase 2+ (NEGATIVE) 02/20/21 21:15 Urine RBC 10-20 /HPF (0-3) A 02/20/21 21:15 Urine WBC 10-20 /HPF (0-5) A 02/20/21 21:15 Ur Squamous Epith Cells Moderate /HPF (NEGATIVE) 02/20/21 21:15 Urine Bacteria 2+ /HPF (NEGATIVE) 02/20/21 21:15 Urine Mucus Few /HPF (NEGATIVE) 02/20/21 21:15 Ur Culture Indicated? Yes/culture set up 02/20/21 21:15 Vancomycin Trough 16.5 ug/mL (15-20) 02/24/21 20:38 Acetone, Semi-Quant Negative (NEGATIVE) 02/18/21 13:16 SARS CoV-2 RNA Rapid KRIS Negative (NEGATIVE) 02/18/21 14:01 Tissue Pathology To follow 02/21/21 11:53 - Plan (1) Cellulitis of foot, left Status: Acute Plan: NORMAL SALINE AT 80 ML/HR, VANCOMYCIN 750MG IV Q12H, MEROPENEM 1G IV Q8H, DILAUDID 2MG IV Q4H PRN, ZOFRAN 4MG IV Q4H PRN NAUSEA, AND HER HOME MEDICATIONS WERE RESUMED. WOUND CARE (2) Diabetes mellitus, type 2 Status: Chronic Qualifiers: Diabetes mellitus long term care pharmacist insulin use: with usp use Diabetes mellitus complication status: with hyperglycemia Qualified Code(s): E11.65 - Type 2 diabetes mellitus with hyperglycemia; Z79.4 - group home (current) use of insulin
[2021-02-26] MEDS: INVanz INJ 1 GRAM VIAL 1 G in NS 100 ML IV + SPIKE MINIBAG* 100 ML IV SCH (13:44)
[2021-02-26] MEDS ORDERED: HYDROGEN PEROXIDE 3% ONE (15:02)
[2021-02-26] MEDS: APRESOLINE INJ 20 MG VIAL IVP PRN (20:00)
[2021-02-26] MEDS: COLACE CAP 100 MG PO SCH ×2 (21:05→21:07)
[2021-02-26] MEDS: MILK OF MAGNESIA PO SCH (21:05)
[2021-02-26] MEDS: LIPITOR TAB 10 MG PO SCH (21:05)
[2021-02-26] MEDS: AMBIEN PO SCH (21:06)
[2021-02-26 21:40] LABS: CREATININE 0.8 mg/dL (0.55-1.02); VANCOMYCIN,TROUGH 13.5 ug/mL (15-20)
[2021-02-27] MEDS: DILAUDID INJ IVP PRN ×2 (04:45→09:07)
[2021-02-27] MEDS: ZOFRAN INJ 4 MG VIAL IVP PRN (04:50)
[2021-02-27 06:13] LABS: BASOPHILS # (AUTO) 0.1 X10^3/uL (0.0-0.1); BASOPHILS % (AUTO) 0.5 % (0.2-1.0); EOSINOPHILS # (AUTO) 0.2 x10^3/uL (0.0-0.2); EOSINOPHILS % (AUTO) 1.4 % (0.9-2.9); HEMATOCRIT 25.9 % (36.0-47.0); HEMOGLOBIN 8.5 g/dL (12.0-16.0); LYMPHOCYTES # (AUTO) 1.6 X10^3/uL (1.3-2.9); LYMPHOCYTES % (AUTO) 12.7 % (21.0-51.0); MEAN CORPUSCULAR HEMOGLOBIN 28.4 pg (27.0-34.0); MEAN CORPUSCULAR HGB CONC 32.7 g/dL (33.0-35.0); MEAN PLATELET VOLUME 7.5 fL (7.4-11.0); MONOCYTES # (AUTO) 0.7 x10^3/uL (0.3-0.8); MONOCYTES % (AUTO) 5.4 % (0.0-13.0); RED BLOOD COUNT 2.97 X10^6/uL (3.5-5.4); RED CELL DISTRIBUTION WIDTH 13.8 % (11.6-16.5)
[2021-02-27 06:51] LABS: ALANINE AMINOTRANSFERASE 84 Units/L (12-78); ALBUMIN 1.9 g/dL (3.4-5.0); ALKALINE PHOSPHATASE 737 Units/L (46-116); ASPARTATE AMINO TRANSFERASE 76 Units/L (15-37); BLOOD UREA NITROGEN 7 mg/dL (7-18); CALCIUM 8.5 mg/dL (8.5-10.1); CARBON DIOXIDE 25.2 mmol/L (21-32); CHLORIDE 104 mmol/L (98-107); COR CA(FOR HYPOALB) 10.2 mg/dL (8.5-10.1); CREATININE 0.79 mg/dL (0.55-1.02); SODIUM 140 mmol/L (136-145); TOTAL PROTEIN 8.2 g/dL (6.4-8.2); eGFR NON BLACK RACES > 60 (>60)
[2021-02-27 07:49] LABS: PLATELET MORPHOLOGY COMMENT NORMAL (NORMAL)
[2021-02-27 07:50] LABS: WHITE BLOOD COUNT 12.5 X10^3/uL (3.6-10.0)
[2021-02-27 08:12] VITALS: BP 163/84
[2021-02-27] MEDS ORDERED: KLOR-CON PO PRN (08:39)
[2021-02-27] MEDS ORDERED: POTASSIUM CHL 60 MEQ/NS 0.45% 500 ML IV PRN (08:39)
[2021-02-27] MEDS ORDERED: K-DUR TAB 20 MEQ PO PRN (08:39)
[2021-02-27] MEDS ORDERED: POTASSIUM CHL 40 MEQ/NS 0.45% 500 ML IV PRN (08:39)
[2021-02-27] MEDS ORDERED: K-RIDER 10 MEQ/NS 100 ML 10 MEQ/100 ML BAG IV PRN (08:39)
[2021-02-27] MEDS ORDERED: MICRO K EXTEN CAP 10 MEQ PO PRN (08:39)
[2021-02-27] MEDS ORDERED: POTASSIUM CHLORIDE LIQ 20 MEQ UDC PO PRN (08:39)
[2021-02-27] MEDS: CYMBALTA PO SCH (09:00)
[2021-02-27] MEDS: VITAMIN D3 25 mcg (1,000 UNITS) PO SCH (09:00)
[2021-02-27] MEDS: COZAAR PO SCH (09:00)
[2021-02-27] MEDS: NS 1,000 ML IV 1,000 ML IV SCH (09:00)
[2021-02-27] MEDS: VANCOMYCIN IV *PREMIX 750 mg/150 ML BAG 750 MG/150 ML PIGGYBACK IV SCH (09:01)
[2021-02-27 09:03] VITALS: BMI 40.2
--- NOTE | 2021-02-27 10:16 | RAD ---
HISTORYPICC LINE PLACEMENT DM, HTN SX: HYSTERECTOMY, CHOLECYSTECTOMY, ORTHOSTUDYCHEST, 1 VIEWCOMPARISONChest x-ray dated May 12, 2019.FINDINGSFemoral placement of a left PICC line whose tip overlies the distal SVC. The trachea is midline. The cardiac silhouette is unchanged. Patchy bilateral airspace disease. No significant pleural effusion or pneumothorax. The bony thorax is unchanged given technique.IMPRESSIONOne. Left PICC line that appears to be in good position. Recommend clinical correlation.Two. No significant change in lung aeration.Electronically signed by: DAYRON GARCÍA (Feb 27, 2021 10:15:19)
[2021-02-27] MEDS: INVanz INJ 1 GRAM VIAL 1 G in NS 100 ML IV + SPIKE MINIBAG* 100 ML IV SCH (10:30)
--- NOTE | 2021-02-27 11:20 | DR.UPDATE ---
H&P Update History and Physical Update: History and Physical reviewed and patient examined. 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 H&P Reviewed: Yes Patient was examined?: Yes Procedures (ALL) - Central Line Placement PCM.CLCO: written consent Time out performed: Yes Patient placed pm monitor/pulse ox: Yes prep: mask, gown, gloves, other Centrial line prep: chlorhexidine scrub, sterile drapes applied Local anesthsia used: lidocane 1% Ultrasound used for placement: Yes (left basilic id'd via u/s and cannulation visualized) Central line lumen ininserted: double (5.5fr arrow picc) Post procedure: good blood return, all ports aspirated, flushed,capped, sterile dressing applied Post procedure xray: tip oc catheter in good position (distal svc per cxr), no pneumothorax seen Patient tolerated procedure: Yes Complications: none
== END 2021-02-27 14:02 | disposition home or self-care (01) | DRG 571 ==
LOC: MED/SURG 12:09 → ER 12:09 → MED/SURG 17:33
PROVIDERS: ADMIT Internal Medicine; ATTEND Internal Medicine

== ENCOUNTER 2021-03-07 09:12 | Inpatient (IN) ==
[2021-03-07] MEDS ORDERED: NS 1,000 ML IV 1,000 ML ONE (09:49)
[2021-03-07] MEDS ORDERED: NS 100 ML IV 100 ML ONE (11:12)
[2021-03-07] MEDS ORDERED: FENTANYL VIAL INJ 100 mcg ONE (11:17)
[2021-03-07] MEDS ORDERED: NEO-SYNEPHRINE INJ ONE (11:22)
[2021-03-07] MEDS ORDERED: XYLOCAINE 2 % (PLAIN) ONE (11:22)
[2021-03-07] MEDS ORDERED: DIPRIVAN VIAL ONE (11:22)
[2021-03-07] MEDS ORDERED: EPHEDRINE SULFATE INJ ONE (11:22)
[2021-03-07] MEDS ORDERED: ZOFRAN INJ 4 MG VIAL ONE (11:22)
[2021-03-07] MEDS ORDERED: VERSED ONE (11:22)
[2021-03-07] MEDS ORDERED: ANCEF VIAL 1 GRAM IVP ONE (11:27)
[2021-03-07] MEDS ORDERED: REGLAN INJ 10 MG VIAL IVP PRN (12:39)
[2021-03-07] MEDS ORDERED: ZOFRAN INJ 4 MG VIAL IVP PRN (12:39)
[2021-03-07] MEDS ORDERED: BENADRYL INJ 50 MG VIAL IVP PRN (12:39)
[2021-03-07] MEDS ORDERED: BARHEMSYS INJ IVP PRN (12:39)
[2021-03-07] MEDS ORDERED: PHENERGAN INJ 25 MG IM PRN (12:39)
[2021-03-07] MEDS: DILAUDID INJ IVP PRN ×3 (13:03→17:51)
[2021-03-07] MEDS ORDERED: DILAUDID INJ ONE (13:04)
[2021-03-07] MEDS ORDERED: BENADRYL INJ 50 MG VIAL ONE (13:13)
[2021-03-07 15:06] VITALS: BMI 36.8
[2021-03-07] MEDS: LOVENOX INJ 40 MG SYR SC SCH (16:03)
[2021-03-07] MEDS: VANCOMYCIN IV *PREMIX 1 G/200 ML BAG 1 G/200 ML PIGGYBACK IV SCH (16:03)
[2021-03-07] MEDS: ZOFRAN INJ 4 MG VIAL IVP PRN (17:51)
[2021-03-07] MEDS ORDERED: NovoLIN R (or HumuLIN R) SC PRN (17:58)
[2021-03-07] MEDS ORDERED: BENADRYL CAP/TAB 25 MG PO ONE (19:38)
[2021-03-07] MEDS ORDERED: DILAUDID INJ IVP ONE (22:20)
[2021-03-08] MEDS ORDERED: DILAUDID INJ IVP ONE ×2 (02:30→09:00)
[2021-03-08] MEDS ORDERED: ZOFRAN INJ 4 MG VIAL IVP ONE ×2 (02:30→09:00)
[2021-03-08] MEDS ORDERED: LOVENOX INJ 40 MG SYR SC ONE (09:00)
[2021-03-08] MEDS ORDERED: VANCOMYCIN 1 GM/200 ML IV ONE (09:00)
[2021-03-08] MEDS ORDERED: BENADRYL CAP/TAB 25 MG PO ONE ×2 (09:00→09:42)
[2021-03-08] MEDS ORDERED: AMBIEN PO PRN (14:00)
[2021-03-08] MEDS ORDERED: POTASSIUM CHL 60 MEQ/NS 0.45% 500 ML IV PRN (14:14)
[2021-03-08] MEDS ORDERED: MICRO K EXTEN CAP 10 MEQ PO PRN (14:14)
[2021-03-08] MEDS ORDERED: POTASSIUM CHL 40 MEQ/NS 0.45% 500 ML IV PRN (14:14)
[2021-03-08] MEDS ORDERED: KLOR-CON PO PRN (14:14)
[2021-03-08] MEDS ORDERED: K-DUR TAB 20 MEQ PO PRN (14:14)
[2021-03-08] MEDS ORDERED: POTASSIUM CHLORIDE LIQ 20 MEQ UDC PO PRN (14:14)
--- NOTE | 2021-03-08 14:31 | RAD ---
HISTORYsob/post opSTUDYCHEST, 1 [id number] P[facility] line has its tip terminating within the lower SVC. The trachea is midline. The cardiac silhouette is unremarkable . The lungs are clear without focal infiltrate or effusion. The bony thorax is unremarkable.IMPRESSIONNo acute cardiopulmonary disease or change from prior examination.Left-sided PICC line has its tip terminating within the lower SVC.Electronically signed by: ROGELIO SOSA (Mar 08, 2021 14:30:01)
[2021-03-08] MEDS ORDERED: MAGNESIUM SULFATE 1 GRAM/100 mL PREMIX 1 G/100 ML BAG IV ONE (15:59)
[2021-03-08] MEDS ORDERED: GLUCOPHAGE ONE (16:04)
[2021-03-08] MEDS ORDERED: NS 250 ML IV 250 ML IV ONE (16:04)
[2021-03-08 16:17] LABS: ALANINE AMINOTRANSFERASE 44 Units/L (12-78); ALBUMIN 1.9 g/dL (3.4-5.0); ALKALINE PHOSPHATASE 250 Units/L (46-116); ASPARTATE AMINO TRANSFERASE 44 Units/L (15-37); BLOOD UREA NITROGEN 6 mg/dL (7-18); CALCIUM 7.5 mg/dL (8.5-10.1); CARBON DIOXIDE 29.5 mmol/L (21-32); CHLORIDE 107 mmol/L (98-107); COR CA(FOR HYPOALB) 9.2 mg/dL (8.5-10.1); COR NA(FOR HYPERGLY) 142 mmol/L (136-145); CREATININE 0.91 mg/dL (0.55-1.02); SODIUM 141 mmol/L (136-145); TOTAL PROTEIN 7.2 g/dL (6.4-8.2); eGFR NON BLACK RACES > 60 (>60)
[2021-03-08] MEDS: GLUCOPHAGE PO SCH (16:21)
[2021-03-08] MEDS: CYMBALTA PO SCH (16:21)
[2021-03-08] MEDS: COZAAR PO SCH (16:22)
[2021-03-08] MEDS: MAGNESIUM SULFATE 1 GRAM/100 mL PREMIX 1 G/100 ML BAG IV PRN ×3 (17:00→23:06)
[2021-03-08 17:08] LABS: BASOPHILS # (AUTO) 0.1 X10^3/uL (0.0-0.1); BASOPHILS % (AUTO) 1.8 % (0.2-1.0); EOSINOPHILS # (AUTO) 0.3 x10^3/uL (0.0-0.2); HEMATOCRIT 21.2 % (36.0-47.0); LYMPHOCYTES # (AUTO) 1.9 X10^3/uL (1.3-2.9); LYMPHOCYTES % (AUTO) 43.6 % (21.0-51.0); MEAN CORPUSCULAR HEMOGLOBIN 28.4 pg (27.0-34.0); MEAN CORPUSCULAR HGB CONC 33.1 g/dL (33.0-35.0); MEAN CORPUSCULAR VOLUME 85.7 fL (80.0-100.0); MEAN PLATELET VOLUME 7.4 fL (7.4-11.0); MONOCYTES # (AUTO) 0.4 x10^3/uL (0.3-0.8); MONOCYTES % (AUTO) 9.6 % (0.0-13.0); NEUTROPHILS # (AUTO) 1.7 x10^3/uL (2.2-4.8); RED BLOOD COUNT 2.48 X10^6/uL (3.5-5.4); RED CELL DISTRIBUTION WIDTH 13.9 % (11.6-16.5); WHITE BLOOD COUNT 4.3 X10^3/uL (3.6-10.0)
[2021-03-08] MEDS: DILAUDID INJ IVP PRN ×2 (17:19→22:59)
[2021-03-08] MEDS: ZOFRAN INJ 4 MG VIAL IVP PRN ×2 (17:20→23:31)
[2021-03-08] MEDS ORDERED: PATIENT'S HOME MEDICATION (Semaglutide [Ozempic] 0.25 mg or 0.5 mg(2 mg/1.5 mL) pen inject SUBCUT SCH (20:00)
--- NOTE | 2021-03-08 20:03 | DR.CONSULT ---
CONSULT Consultation for Day of: Date: 03/08/21 Chief Complaint Chief Complaint: Medical Consult Allergies Allergies Allergy/AdvReac Type Severity Reaction Status Date / Time Penicillins Allergy Mild RASH Verified 12/30/20 10:45 History of Present Illness History of Present Illness: This is a 50-year-old Female with a history of HTN, DM, Insomnia and Dyslipidemia. 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 and Other Family History Family Medical History: Cancer and [place] Social History Does patient currently use any type of tobacco product: No Have you used tobacco products in the last 12 months: No Type of Tobacco Use: None Alcohol Use: None Drug Use: None Medications Home Medications: Penicillins Allergy (Mild, Verified 12/30/20 10:45) RASH CONTINUE taking the following medications insulin degludec [Tresiba FlexTouch U-100] 8 unit SUBCUT BID 03/07/21 [History] Review of Systems Constitutional: No Symptoms Reported Eyes: No Symptoms Reported Respiratory: No Symptoms Reported Cardiovascular: No Symptoms Reported Gastrointestinal: No Symptoms Reported Genitourinary: No Symptoms Reported Musculoskeletal: Foot Pain Skin: No Symptoms Reported Neurological: No Symptoms Reported Physical Exam Vital Signs: Temperature 98.5 F Pulse Rate [Left] 110 Pulse Rate 92 Respiratory Rate 20 Blood Pressure [Right Arm] 168/84 Blood Pressure [Left Arm] 171/86 Blood Pressure 139/80 O2 Sat by Pulse Oximetry 99 Oriented: Normal Eyes: Normal Ear: Normal Nose: Normal Respiratory: Clear Throughout Cardiovascular: Normal : Normal Auscultation: Bowel Sounds: Normal Palpation: Normal Tenderness: Normal Skin: Wound Musculoskeletal: Normal Psychiatric: Normal Mood Description: Calm Affect: Normal Speech Pattern: Clear and Appropriate Plan (1) Anemia: Status: Acute Plan: GI protection with Protonix IV bid. Recheck Hb in am. (2) Hypertension: Status: Acute Qualifiers: Hypertension type: essential hypertension Qualified Code(s): I10 - Essential (primary) hypertension Plan: Resume home BP meds. (3) Diabetes mellitus, type 2: Status: Chronic Qualifiers: Diabetes mellitus complication status: with hyperglycemia Diabetes mellitus snf insulin use: with terminal computer operator use Qualified Code(s): E11.65 - Type 2 diabetes mellitus with hyperglycemia; Z79.4 - detention (current) use of insulin Plan: Reg insulin sliding scale. Restart Ozempic. (4) Insomnia: Status: Acute Plan: [place]
[2021-03-08] MEDS: BENADRYL CAP/TAB 25 MG PO PRN (20:14)
[2021-03-08] MEDS ORDERED: PATIENT'S HOME MEDICATION SUBCUT SCH (21:00)
[2021-03-08] MEDS: AMBIEN PO SCH ×2 (23:00)
[2021-03-08] MEDS: LIPITOR TAB 10 MG PO SCH (23:00)
[2021-03-08] MEDS: PROTONIX INJ 40 MG VIAL IVP SCH (23:05)
[2021-03-09] MEDS: MAGNESIUM SULFATE 1 GRAM/100 mL PREMIX 1 G/100 ML BAG IV PRN (00:51)
[2021-03-09] MEDS: K-RIDER 10 MEQ/NS 100 ML 10 MEQ/100 ML BAG IV PRN ×6 (01:29→06:25)
[2021-03-09] MEDS: DILAUDID INJ IVP PRN ×2 (03:38→09:24)
[2021-03-09 05:46] LABS: BASOPHILS # (AUTO) 0.1 X10^3/uL (0.0-0.1); BASOPHILS % (AUTO) 1.2 % (0.2-1.0); EOSINOPHILS # (AUTO) 0.3 x10^3/uL (0.0-0.2); EOSINOPHILS % (AUTO) 6.3 % (0.9-2.9); HEMATOCRIT 21.8 % (36.0-47.0); HEMOGLOBIN 7.2 g/dL (12.0-16.0); LYMPHOCYTES % (AUTO) 39.7 % (21.0-51.0); MEAN CORPUSCULAR HEMOGLOBIN 28.3 pg (27.0-34.0); MEAN CORPUSCULAR HGB CONC 33.1 g/dL (33.0-35.0); MEAN CORPUSCULAR VOLUME 85.4 fL (80.0-100.0); MEAN PLATELET VOLUME 7.6 fL (7.4-11.0); MONOCYTES # (AUTO) 0.4 x10^3/uL (0.3-0.8); MONOCYTES % (AUTO) 7.1 % (0.0-13.0); NEUTROPHILS # (AUTO) 2.3 x10^3/uL (2.2-4.8); NEUTROPHILS % (AUTO) 45.7 % (42.0-75.0); RED BLOOD COUNT 2.55 X10^6/uL (3.5-5.4); RED CELL DISTRIBUTION WIDTH 14.1 % (11.6-16.5)
[2021-03-09 06:11] LABS: ALANINE AMINOTRANSFERASE 35 Units/L (12-78); ALKALINE PHOSPHATASE 233 Units/L (46-116); ASPARTATE AMINO TRANSFERASE 26 Units/L (15-37); BLOOD UREA NITROGEN 4 mg/dL (7-18); CALCIUM 7.8 mg/dL (8.5-10.1); CARBON DIOXIDE 26.3 mmol/L (21-32); CHLORIDE 106 mmol/L (98-107); COR CA(FOR HYPOALB) 9.4 mg/dL (8.5-10.1); COR NA(FOR HYPERGLY) 139 mmol/L (136-145); CREATININE 0.87 mg/dL (0.55-1.02); SODIUM 138 mmol/L (136-145); TOTAL PROTEIN 7.4 g/dL (6.4-8.2); eGFR NON BLACK RACES > 60 (>60)
[2021-03-09] MEDS ORDERED: GLUCOPHAGE ONE ×2 (06:22→16:21)
[2021-03-09] MEDS: GLUCOPHAGE PO SCH ×2 (06:31→16:29)
[2021-03-09] MEDS ORDERED: CYMBALTA PO SCH (09:00)
[2021-03-09] MEDS ORDERED: COZAAR PO SCH (09:00)
[2021-03-09] MEDS: LOVENOX INJ 40 MG SYR SC SCH ×2 (09:22→10:10)
[2021-03-09] MEDS: VANCOMYCIN IV *PREMIX 1 G/200 ML BAG 1 G/200 ML PIGGYBACK IV SCH (09:22)
[2021-03-09] MEDS: PROTONIX INJ 40 MG VIAL IVP SCH ×2 (09:23→21:58)
[2021-03-09] MEDS: CYMBALTA PO SCH (09:23)
[2021-03-09] MEDS: BENADRYL CAP/TAB 25 MG PO PRN ×2 (09:23→16:48)
[2021-03-09] MEDS: COZAAR PO SCH (09:24)
[2021-03-09] MEDS: ZOFRAN INJ 4 MG VIAL IVP PRN ×3 (09:24→21:57)
--- NOTE | 2021-03-09 10:08 | DR.PROGNOT ---
Hospital Progress Notes - Progress Note for Day of: Progress Note Date: 03/08/21 - Chief Complaint Chief Complaint: s/p amputation LT 3ed, 4th toes and debridement of diabetic foot ulcers . BS is well controlled . the open wound is stable with no further necrosis . afebrile . - Past Medical Family Social History Past Med/Fam/Surg Hx: No changes since H&P Allergies: Allergies Penicillins Allergy (Mild, Verified 12/30/20 10:45) RASH hives - Review Of Systems ROS: No change since H&P - Vital Signs Vital Signs: Temperature 98.1 F Pulse Rate [Left] 119 Pulse Rate 92 Respiratory Rate 20 Blood Pressure [Right Arm] 168/84 Blood Pressure [Left Arm] 136/78 Blood Pressure 139/80 O2 Sat by Pulse Oximetry 95 - Physical Exam Oriented: Normal Eyes: Normal Ear: Normal Nose: Normal Cardiovascular: Normal : Normal GI:Auscultation: Normal GI:Palpation: Normal GI: Tenderness: Normal Skin: Wound (open wound Lt foot 4 x 4 cm with tunneling .) Musculoskeletal: Normal Psychiatric: Normal Mood Description: Calm Affect: Normal Speech Pattern: Clear, Appropriate - Laboratory and Diagnostics Result Diagrams: 03/09/21 04:46 03/09/21 04:46 Labs: 03/07/21 12:07 Foot - Left Wound Gram Stain - Final 03/07/21 12:07 Foot - Left Wound Culture - Preliminary Laboratory WBC 5.0 X10^3/uL (3.6-10.0) 03/09/21 04:46 RBC 2.55 X10^6/uL (3.5-5.4) L 03/09/21 04:46 Hgb 7.2 g/dL (12.0-16.0) L 03/09/21 04:46 Hct 21.8 % (36.0-47.0) L 03/09/21 04:46 MCV 85.4 fL (80.0-100.0) 03/09/21 04:46 MCH 28.3 pg (27.0-34.0) 03/09/21 04:46 MCHC 33.1 g/dL (33.0-35.0) 03/09/21 04:46 RDW 14.1 % (11.6-16.5) 03/09/21 04:46 Plt Count 269 X10^3/uL (150.0-450.0) 03/09/21 04:46 MPV 7.6 fL (7.4-11.0) 03/09/21 04:46 Neut % (Auto) 45.7 % (42.0-75.0) 03/09/21 04:46 Lymph % (Auto) 39.7 % (21.0-51.0) 03/09/21 04:46 [place] % (Auto) 7.1 % (0.0-13.0) 03/09/21 04:46 Eos % (Auto) 6.3 % (0.9-2.9) H 03/09/21 04:46 Baso % (Auto) 1.2 % (0.2-1.0) H 03/09/21 04:46 Neut # (Auto) 2.3 x10^3/uL (2.2-4.8) 03/09/21 04:46 Lymph # (Auto) 2.0 X10^3/uL (1.3-2.9) 03/09/21 04:46 [place] # (Auto) 0.4 x10^3/uL (0.3-0.8) 03/09/21 04:46 Eos # (Auto) 0.3 x10^3/uL (0.0-0.2) H 03/09/21 04:46 Baso # (Auto) 0.1 X10^3/uL (0.0-0.1) 03/09/21 04:46 Absolute Nucleated RBC 0.0 /100WBC 03/09/21 04:46 Sodium 138 mmol/L (136-145) 03/09/21 04:46 Corrected Sodium 139 mmol/L (136-145) 03/09/21 04:46 Potassium 3.7 mmol/L (3.5-5.1) 03/09/21 04:46 Chloride 106 mmol/L (98-107) 03/09/21 04:46 Carbon Dioxide 26.3 mmol/L (21-32) 03/09/21 04:46 BUN 4 mg/dL (7-18) L 03/09/21 04:46 Creatinine 0.87 mg/dL (0.55-1.02) 03/09/21 04:46 Est GFR (MDRD) Af Amer > 60 (>60) 03/09/21 04:46 Est GFR (MDRD) Non-Af > 60 (>60) 03/09/21 04:46 Glucose 131 mg/dL (65-99) H 03/09/21 04:46 POC Glucose (mg/dL) 172 mg/dL (65-99) H 03/07/21 17:19 Calcium 7.8 mg/dL (8.5-10.1) L 03/09/21 04:46 Corrected Calcium 9.4 mg/dL (8.5-10.1) 03/09/21 04:46 Magnesium 2.1 mg/dL (1.7-2.9) 03/09/21 04:46 Total Bilirubin 0.20 mg/dL (0.2-1.0) 03/09/21 04:46 AST 26 Units/L (15-37) 03/09/21 04:46 ALT 35 Units/L (12-78) 03/09/21 04:46 Alkaline Phosphatase 233 Units/L (46-116) H 03/09/21 04:46 Total Protein 7.4 g/dL (6.4-8.2) 03/09/21 04:46 Albumin 2.0 g/dL (3.4-5.0) L 03/09/21 04:46 Globulin 5.4 g/dL (2.5-4.5) H 03/09/21 04:46 Albumin/Globulin Ratio 0.4 Ratio (1.1-2.1) L 03/09/21 04:46 SARS CoV-2 RNA Rapid KRIS Negative (NEGATIVE) 03/07/21 13:41 Tissue Pathology To follow 03/07/21 12:07 - Assessment and Plan 1: gangrene LT 3ed, 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 DM with advanced neuropathy . same IV ATB . local care .
[2021-03-09] MEDS: VITAMIN D3 125 mcg (5,000 UNITS) PO SCH (10:10)
--- NOTE | 2021-03-09 11:39 | DR.PROGNOT ---
Hospital Progress Notes - Progress Note for Day of: Progress Note Date: 03/09/21 - Chief Complaint Chief Complaint: s/p amputation LT 3ed, 4th toes and debridement of diabetic foot ulcers . c/o itching all over with no skin rash , no SOB. BS is well controlled . Hgb 7.2. the open wound is stable with no further necrosis . afebrile . - Past Medical Family Social History Past Med/Fam/Surg Hx: No changes since H&P Allergies: Allergies Penicillins Allergy (Mild, Verified 12/30/20 10:45) RASH hives - Review Of Systems ROS: No change since H&P - Vital Signs Vital Signs: Temperature 98.1 F Pulse Rate [Left] 119 Pulse Rate 92 Respiratory Rate 20 Blood Pressure [Right Arm] 168/84 Blood Pressure [Left Arm] 136/78 Blood Pressure 139/80 O2 Sat by Pulse Oximetry 95 - Physical Exam Oriented: Normal Eyes: Normal Ear: Normal Nose: Normal Cardiovascular: Normal : Normal GI:Auscultation: Normal GI:Palpation: Normal GI: Tenderness: Normal Skin: Wound (open wound Lt foot 4 x 4 cm with tunneling .) Musculoskeletal: Normal Psychiatric: Normal Mood Description: Calm Affect: Normal Speech Pattern: Clear, Appropriate - Laboratory and Diagnostics Result Diagrams: 03/09/21 04:46 03/09/21 10:55 Labs: 03/07/21 12:07 Foot - Left Wound Gram Stain - Final 03/07/21 12:07 Foot - Left Wound Culture - Preliminary Laboratory WBC 5.0 X10^3/uL (3.6-10.0) 03/09/21 04:46 RBC 2.55 X10^6/uL (3.5-5.4) L 03/09/21 04:46 Hgb 7.2 g/dL (12.0-16.0) L 03/09/21 04:46 Hct 21.8 % (36.0-47.0) L 03/09/21 04:46 MCV 85.4 fL (80.0-100.0) 03/09/21 04:46 MCH 28.3 pg (27.0-34.0) 03/09/21 04:46 MCHC 33.1 g/dL (33.0-35.0) 03/09/21 04:46 RDW 14.1 % (11.6-16.5) 03/09/21 04:46 Plt Count 269 X10^3/uL (150.0-450.0) 03/09/21 04:46 MPV 7.6 fL (7.4-11.0) 03/09/21 04:46 Neut % (Auto) 45.7 % (42.0-75.0) 03/09/21 04:46 Lymph % (Auto) 39.7 % (21.0-51.0) 03/09/21 04:46 [place] % (Auto) 7.1 % (0.0-13.0) 03/09/21 04:46 Eos % (Auto) 6.3 % (0.9-2.9) H 03/09/21 04:46 Baso % (Auto) 1.2 % (0.2-1.0) H 03/09/21 04:46 Neut # (Auto) 2.3 x10^3/uL (2.2-4.8) 03/09/21 04:46 Lymph # (Auto) 2.0 X10^3/uL (1.3-2.9) 03/09/21 04:46 [place] # (Auto) 0.4 x10^3/uL (0.3-0.8) 03/09/21 04:46 Eos # (Auto) 0.3 x10^3/uL (0.0-0.2) H 03/09/21 04:46 Baso # (Auto) 0.1 X10^3/uL (0.0-0.1) 03/09/21 04:46 Absolute Nucleated RBC 0.0 /100WBC 03/09/21 04:46 Sodium 138 mmol/L (136-145) 03/09/21 04:46 Corrected Sodium 139 mmol/L (136-145) 03/09/21 04:46 Potassium 3.7 mmol/L (3.5-5.1) 03/09/21 10:55 Chloride 106 mmol/L (98-107) 03/09/21 04:46 Carbon Dioxide 26.3 mmol/L (21-32) 03/09/21 04:46 BUN 4 mg/dL (7-18) L 03/09/21 04:46 Creatinine 0.87 mg/dL (0.55-1.02) 03/09/21 04:46 Est GFR (MDRD) Af Amer > 60 (>60) 03/09/21 04:46 Est GFR (MDRD) Non-Af > 60 (>60) 03/09/21 04:46 Glucose 131 mg/dL (65-99) H 03/09/21 04:46 POC Glucose (mg/dL) 172 mg/dL (65-99) H 03/07/21 17:19 Calcium 7.8 mg/dL (8.5-10.1) L 03/09/21 04:46 Corrected Calcium 9.4 mg/dL (8.5-10.1) 03/09/21 04:46 Magnesium 2.1 mg/dL (1.7-2.9) 03/09/21 04:46 Total Bilirubin 0.20 mg/dL (0.2-1.0) 03/09/21 04:46 AST 26 Units/L (15-37) 03/09/21 04:46 ALT 35 Units/L (12-78) 03/09/21 04:46 Alkaline Phosphatase 233 Units/L (46-116) H 03/09/21 04:46 Total Protein 7.4 g/dL (6.4-8.2) 03/09/21 04:46 Albumin 2.0 g/dL (3.4-5.0) L 03/09/21 04:46 Globulin 5.4 g/dL (2.5-4.5) H 03/09/21 04:46 Albumin/Globulin Ratio 0.4 Ratio (1.1-2.1) L 03/09/21 04:46 SARS CoV-2 RNA Rapid KRIS Negative (NEGATIVE) 03/07/21 13:41 Tissue Pathology To follow 03/07/21 12:07 - Assessment and Plan 1: gangrene LT 3ed, 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 DM with advanced neuropathy . anemia , hypoalbuminemia .. same IV ATB . local care . Al barton ..
[2021-03-09] MEDS: MORPHINE SULFATE INJ 2 MG INJ IVP PRN ×2 (15:00→21:58)
[2021-03-09] MEDS ORDERED: NS 250 ML IV 250 ML IV ONE (16:23)
[2021-03-09] MEDS: LIPITOR TAB 10 MG PO SCH (21:58)
[2021-03-09] MEDS: AMBIEN PO SCH (21:58)
[2021-03-10 05:12] LABS: BASOPHILS # (AUTO) 0.1 X10^3/uL (0.0-0.1); EOSINOPHILS # (AUTO) 0.3 x10^3/uL (0.0-0.2); EOSINOPHILS % (AUTO) 7.4 % (0.9-2.9); HEMATOCRIT 22.4 % (36.0-47.0); HEMOGLOBIN 7.5 g/dL (12.0-16.0); LYMPHOCYTES # (AUTO) 1.6 X10^3/uL (1.3-2.9); MEAN CORPUSCULAR HEMOGLOBIN 28.3 pg (27.0-34.0); MEAN CORPUSCULAR HGB CONC 33.5 g/dL (33.0-35.0); MEAN CORPUSCULAR VOLUME 84.5 fL (80.0-100.0); MEAN PLATELET VOLUME 7.3 fL (7.4-11.0); MONOCYTES # (AUTO) 0.3 x10^3/uL (0.3-0.8); MONOCYTES % (AUTO) 6.2 % (0.0-13.0); NEUTROPHILS # (AUTO) 2.1 x10^3/uL (2.2-4.8); NEUTROPHILS % (AUTO) 47.4 % (42.0-75.0); RED BLOOD COUNT 2.65 X10^6/uL (3.5-5.4); RED CELL DISTRIBUTION WIDTH 13.9 % (11.6-16.5); WHITE BLOOD COUNT 4.4 X10^3/uL (3.6-10.0)
[2021-03-10 05:21] LABS: BLOOD UREA NITROGEN 3 mg/dL (7-18); CALCIUM 8.4 mg/dL (8.5-10.1); CARBON DIOXIDE 28.8 mmol/L (21-32); CHLORIDE 105 mmol/L (98-107); COR NA(FOR HYPERGLY) 139 mmol/L (136-145); CREATININE 0.89 mg/dL (0.55-1.02); SODIUM 139 mmol/L (136-145); eGFR NON BLACK RACES > 60 (>60)
[2021-03-10 05:35] LABS: ALANINE AMINOTRANSFERASE 26 Units/L (12-78); ALBUMIN 2.1 g/dL (3.4-5.0); ALKALINE PHOSPHATASE 225 Units/L (46-116); ASPARTATE AMINO TRANSFERASE 21 Units/L (15-37); COR CA(FOR HYPOALB) 9.9 mg/dL (8.5-10.1); TOTAL PROTEIN 7.5 g/dL (6.4-8.2)
[2021-03-10] MEDS ORDERED: GLUCOPHAGE ONE ×2 (05:48→17:15)
[2021-03-10] MEDS: GLUCOPHAGE PO SCH ×2 (06:07→17:28)
[2021-03-10] MEDS: VANCOMYCIN IV *PREMIX 1 G/200 ML BAG 1 G/200 ML PIGGYBACK IV SCH (09:34)
[2021-03-10] MEDS: COZAAR PO SCH (09:35)
[2021-03-10] MEDS: PROTONIX INJ 40 MG VIAL IVP SCH ×2 (09:35→20:27)
[2021-03-10] MEDS: VITAMIN D3 125 mcg (5,000 UNITS) PO SCH (09:35)
[2021-03-10] MEDS: CYMBALTA PO SCH (09:35)
[2021-03-10] MEDS: LOVENOX INJ 40 MG SYR SC SCH (10:10)
[2021-03-10] MEDS: ZOFRAN INJ 4 MG VIAL IVP PRN ×3 (10:11→23:44)
[2021-03-10] MEDS: PERCOCET TAB 5/325 MG PO PRN (10:11)
[2021-03-10] MEDS ORDERED: HYDROGEN PEROXIDE 3% ONE (10:38)
--- NOTE | 2021-03-10 11:04 | DR.PROGNOT ---
Hospital Progress Notes - Progress Note for Day of: Progress Note Date: 03/10/21 - Chief Complaint Chief Complaint: s/p amputation LT 3ed, 4th toes and debridement of diabetic foot ulcers . the wound looks stable .no further necrosis . BS is 114.. BUN/Creat normal ... Vanco random 25 - Past Medical Family Social History Past Med/Fam/Surg Hx: No changes since H&P Allergies: Allergies Penicillins Allergy (Mild, Verified 12/30/20 10:45) RASH hives - Review Of Systems ROS: No change since H&P - Vital Signs Vital Signs: Temperature 98.2 F Pulse Rate [Left] 96 Pulse Rate 92 Respiratory Rate 20 Blood Pressure [Right Arm] 168/84 Blood Pressure [Left Arm] 184/88 Blood Pressure 139/80 O2 Sat by Pulse Oximetry 98 - Physical Exam Oriented: Normal Eyes: Normal Ear: Normal Nose: Normal Cardiovascular: Normal : Normal GI:Auscultation: Normal GI:Palpation: Normal GI: Tenderness: Normal Skin: Wound (open wound Lt foot 4 x 4 cm with tunneling .mild drainage from the plantar aspect ..no further necrosis. ) Musculoskeletal: Normal Psychiatric: Normal Mood Description: Calm Affect: Normal Speech Pattern: Clear, Appropriate - Laboratory and Diagnostics Result Diagrams: 03/10/21 04:55 03/10/21 04:55 Labs: 03/07/21 12:07 Foot - Left Wound Gram Stain - Final 03/07/21 12:07 Foot - Left Wound Culture - Final Escherichia Coli Laboratory WBC 4.4 X10^3/uL (3.6-10.0) 03/10/21 04:55 RBC 2.65 X10^6/uL (3.5-5.4) L 03/10/21 04:55 Hgb 7.5 g/dL (12.0-16.0) L 03/10/21 04:55 Hct 22.4 % (36.0-47.0) L 03/10/21 04:55 MCV 84.5 fL (80.0-100.0) 03/10/21 04:55 MCH 28.3 pg (27.0-34.0) 03/10/21 04:55 MCHC 33.5 g/dL (33.0-35.0) 03/10/21 04:55 RDW 13.9 % (11.6-16.5) 03/10/21 04:55 Plt Count 283 X10^3/uL (150.0-450.0) 03/10/21 04:55 MPV 7.3 fL (7.4-11.0) L 03/10/21 04:55 Neut % (Auto) 47.4 % (42.0-75.0) 03/10/21 04:55 Lymph % (Auto) 37.0 % (21.0-51.0) 03/10/21 04:55 [place] % (Auto) 6.2 % (0.0-13.0) 03/10/21 04:55 Eos % (Auto) 7.4 % (0.9-2.9) H 03/10/21 04:55 Baso % (Auto) 2.0 % (0.2-1.0) H 03/10/21 04:55 Neut # (Auto) 2.1 x10^3/uL (2.2-4.8) L 03/10/21 04:55 Lymph # (Auto) 1.6 X10^3/uL (1.3-2.9) 03/10/21 04:55 [place] # (Auto) 0.3 x10^3/uL (0.3-0.8) 03/10/21 04:55 Eos # (Auto) 0.3 x10^3/uL (0.0-0.2) H 03/10/21 04:55 Baso # (Auto) 0.1 X10^3/uL (0.0-0.1) 03/10/21 04:55 Absolute Nucleated RBC 0.0 /100WBC 03/10/21 04:55 Sodium 139 mmol/L (136-145) 03/10/21 04:55 Corrected Sodium 139 mmol/L (136-145) 03/10/21 04:55 Potassium 3.9 mmol/L (3.5-5.1) 03/10/21 04:55 Chloride 105 mmol/L (98-107) 03/10/21 04:55 Carbon Dioxide 28.8 mmol/L (21-32) 03/10/21 04:55 BUN 3 mg/dL (7-18) L 03/10/21 04:55 Creatinine 0.89 mg/dL (0.55-1.02) 03/10/21 04:55 Est GFR (MDRD) Af Amer > 60 (>60) 03/10/21 04:55 Est GFR (MDRD) Non-Af > 60 (>60) 03/10/21 04:55 Glucose 114 mg/dL (65-99) H 03/10/21 04:55 POC Glucose (mg/dL) 172 mg/dL (65-99) H 03/07/21 17:19 Calcium 8.4 mg/dL (8.5-10.1) L 03/10/21 04:55 Corrected Calcium 9.9 mg/dL (8.5-10.1) 03/10/21 04:55 Magnesium 2.1 mg/dL (1.7-2.9) 03/09/21 04:46 Total Bilirubin 0.30 mg/dL (0.2-1.0) 03/10/21 04:55 AST 21 Units/L (15-37) 03/10/21 04:55 ALT 26 Units/L (12-78) 03/10/21 04:55 Alkaline Phosphatase 225 Units/L (46-116) H 03/10/21 04:55 Total Protein 7.5 g/dL (6.4-8.2) 03/10/21 04:55 Albumin 2.1 g/dL (3.4-5.0) L 03/10/21 04:55 Globulin 5.4 g/dL (2.5-4.5) H 03/10/21 04:55 Albumin/Globulin Ratio 0.4 Ratio (1.1-2.1) L 03/10/21 04:55 Random Vancomycin 25.2 ug/mL 03/09/21 10:55 SARS CoV-2 RNA Rapid KRIS Negative (NEGATIVE) 03/07/21 13:41 Tissue Pathology To follow 03/07/21 12:07 - Assessment and Plan 1: gangrene LT 3ed, 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 DM with advanced neuropathy . anemia , hypoalbuminemia .. the wound looks better and viable foot .. same IV ATB . local care with soaking in H2O2 and Saline. Vanco randum ..more debridement in two days ..
--- NOTE | 2021-03-10 12:51 | DR.CONSULT ---
CONSULT Consultation for Day of: Date: 03/08/21 Chief Complaint Chief Complaint: Medical Consult Allergies Allergies Allergy/AdvReac Type Severity Reaction Status Date / Time Penicillins Allergy Mild RASH Verified 12/30/20 10:45 History of Present Illness History of Present Illness: This is a 50-year-old whit female with a hx of HTN, DM2 adn Insomnia. She is being treated fora left foot ulcer per Dr. Joseph, Gen Surgery. She has no complaints this am except for difficulty sleeping at night. 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, [employer] Surgery and Other Family History Family Medical History: Cancer and [place] Social History Does patient currently use any type of tobacco product: No Have you used tobacco products in the last 12 months: No Type of Tobacco Use: None Alcohol Use: None Drug Use: None Medications Home Medications: Penicillins Allergy (Mild, Verified 12/30/20 10:45) RASH CONTINUE taking the following medications insulin degludec [Tresiba FlexTouch U-100] 8 unit SUBCUT BID 03/07/21 [History] Review of Systems Constitutional: Weakness Eyes: No Symptoms Reported ENT: No Symptoms Reported Respiratory: No Symptoms Reported Cardiovascular: No Symptoms Reported Gastrointestinal: No Symptoms Reported Genitourinary: No Symptoms Reported Musculoskeletal: Foot Pain Skin: No Symptoms Reported Neurological: No Symptoms Reported Physical Exam Vital Signs: Temperature 98.3 F Pulse Rate [Left] 94 Pulse Rate 92 Respiratory Rate 20 Blood Pressure [Right Arm] 168/84 Blood Pressure [Left Arm] 185/108 Blood Pressure 139/80 O2 Sat by Pulse Oximetry 98 Oriented: Normal Eyes: Normal Ear: Normal Nose: Normal Throat: Normal Respiratory: Clear Throughout Cardiovascular: Normal : Normal Palpation: Normal Tenderness: Normal Skin: Normal Musculoskeletal: Normal Psychiatric: Normal Mood Description: Calm Affect: Normal Speech Pattern: Clear and Appropriate Plan (1) Anemia: Status: Acute (2) Hypertension: Status: Acute Qualifiers: Hypertension type: essential hypertension Qualified Code(s): I10 - Essential (primary) hypertension (3) Diabetes mellitus, type 2: Status: Chronic Qualifiers: Diabetes mellitus complication status: with hyperglycemia Diabetes mellitus buttermaker continuous churn insulin use: with buttermaker continuous churn use Qualified Code(s): E11.65 - Type 2 diabetes mellitus with hyperglycemia; Z79.4 - FPC (current) use of insulin (4) Insomnia: Status: Acute
--- NOTE | 2021-03-10 12:53 | PCM.PROG ---
Progress Note Progress Note for Day of Date of Exam: 03/09/21 Subjective Subjective: No new complaints this am. Doing better. Past Medical Family Social History Past Med/Fam/Surg Hx: No changes since H&P Allergies: Allergies Penicillins Allergy (Mild, Verified 12/30/20 10:45) RASH hives Review of Systems ROS: No change since H&P Vital Signs and I&O's Vital Signs: Temperature 98.3 F Pulse Rate [Left] 94 Pulse Rate 92 Respiratory Rate 20 Blood Pressure [Right Arm] 168/84 Blood Pressure [Left Arm] 185/108 Blood Pressure 139/80 O2 Sat by Pulse Oximetry 98 Intake and Output: Intake & Output 03/08/21 03/09/21 03/10/21 03/11/21 11:59 11:59 11:59 11:59 Intake Total 1870 / 1870 2400 / 2400 350 / 350 Output Total 999 / 999 Balance 871 / 871 2400 / 2400 350 / 350 Physical Exam Oriented: Normal Eyes: Normal Ear: Normal Nose: Normal Cardiovascular: Normal : Normal Auscultation: Bowel Sounds: Normal Tenderness: Normal Skin: Wound (open wound Lt foot 4 x 4 cm with tunneling .mild drainage from the plantar aspect ..no further necrosis. ) Musculoskeletal: Normal Psychiatric: Normal Mood Description: Calm Affect: Normal Speech Pattern: Clear and Appropriate Laboratory and Diagnostics Result Diagrams: 03/10/21 04:55 03/10/21 04:55 Labs: 03/07/21 12:07 Foot - Left Wound Gram Stain - Final 03/07/21 12:07 Foot - Left Wound Culture - Final Escherichia Coli Laboratory WBC 4.4 X10^3/uL (3.6-10.0) 03/10/21 04:55 RBC 2.65 X10^6/uL (3.5-5.4) L 03/10/21 04:55 Hgb 7.5 g/dL (12.0-16.0) L 03/10/21 04:55 Hct 22.4 % (36.0-47.0) L 03/10/21 04:55 MCV 84.5 fL (80.0-100.0) 03/10/21 04:55 MCH 28.3 pg (27.0-34.0) 03/10/21 04:55 MCHC 33.5 g/dL (33.0-35.0) 03/10/21 04:55 RDW 13.9 % (11.6-16.5) 03/10/21 04:55 Plt Count 283 X10^3/uL (150.0-450.0) 03/10/21 04:55 MPV 7.3 fL (7.4-11.0) L 03/10/21 04:55 Neut % (Auto) 47.4 % (42.0-75.0) 03/10/21 04:55 Lymph % (Auto) 37.0 % (21.0-51.0) 03/10/21 04:55 [place] % (Auto) 6.2 % (0.0-13.0) 03/10/21 04:55 Eos % (Auto) 7.4 % (0.9-2.9) H 03/10/21 04:55 Baso % (Auto) 2.0 % (0.2-1.0) H 03/10/21 04:55 Neut # (Auto) 2.1 x10^3/uL (2.2-4.8) L 03/10/21 04:55 Lymph # (Auto) 1.6 X10^3/uL (1.3-2.9) 03/10/21 04:55 [place] # (Auto) 0.3 x10^3/uL (0.3-0.8) 03/10/21 04:55 Eos # (Auto) 0.3 x10^3/uL (0.0-0.2) H 03/10/21 04:55 Baso # (Auto) 0.1 X10^3/uL (0.0-0.1) 03/10/21 04:55 Absolute Nucleated RBC 0.0 /100WBC 03/10/21 04:55 Sodium 139 mmol/L (136-145) 03/10/21 04:55 Corrected Sodium 139 mmol/L (136-145) 03/10/21 04:55 Potassium 3.9 mmol/L (3.5-5.1) 03/10/21 04:55 Chloride 105 mmol/L (98-107) 03/10/21 04:55 Carbon Dioxide 28.8 mmol/L (21-32) 03/10/21 04:55 BUN 3 mg/dL (7-18) L 03/10/21 04:55 Creatinine 0.89 mg/dL (0.55-1.02) 03/10/21 04:55 Est GFR (MDRD) Af Amer > 60 (>60) 03/10/21 04:55 Est GFR (MDRD) Non-Af > 60 (>60) 03/10/21 04:55 Glucose 114 mg/dL (65-99) H 03/10/21 04:55 POC Glucose (mg/dL) 172 mg/dL (65-99) H 03/07/21 17:19 Calcium 8.4 mg/dL (8.5-10.1) L 03/10/21 04:55 Corrected Calcium 9.9 mg/dL (8.5-10.1) 03/10/21 04:55 Magnesium 2.1 mg/dL (1.7-2.9) 03/09/21 04:46 Total Bilirubin 0.30 mg/dL (0.2-1.0) 03/10/21 04:55 AST 21 Units/L (15-37) 03/10/21 04:55 ALT 26 Units/L (12-78) 03/10/21 04:55 Alkaline Phosphatase 225 Units/L (46-116) H 03/10/21 04:55 Total Protein 7.5 g/dL (6.4-8.2) 03/10/21 04:55 Albumin 2.1 g/dL (3.4-5.0) L 03/10/21 04:55 Globulin 5.4 g/dL (2.5-4.5) H 03/10/21 04:55 Albumin/Globulin Ratio 0.4 Ratio (1.1-2.1) L 03/10/21 04:55 Random Vancomycin 25.2 ug/mL 03/09/21 10:55 SARS CoV-2 RNA Rapid KRIS Negative (NEGATIVE) 03/07/21 13:41 Tissue Pathology To follow 03/07/21 12:07 Plan (1) Anemia: Status: Acute (2) Hypertension: Status: Acute Qualifiers: Hypertension type: essential hypertension Qualified Code(s): I10 - Essential (primary) hypertension Plan: Losartan (3) Diabetes mellitus, type 2: Status: Chronic Qualifiers: Diabetes mellitus complication status: with hyperglycemia Diabetes mellitus adjunct faculty for medical terminology insulin use: with adjunct faculty for medical terminology use Qualified Code(s): E11.65 - Type 2 diabetes mellitus with hyperglycemia; Z79.4 - adjunct faculty for medical terminology (current) use of insulin Plan: Metformin (4) Insomnia: Status: Acute Plan: [place]
--- NOTE | 2021-03-10 15:24 | PCM.PROG ---
Progress Note - Progress Note for Day of Date of Exam: 03/10/21 - Subjective Subjective: WAS ADMITTED FOR TREATMENT OF LEFT FOOT DIABETIC ULCER WITH GANGRENE TO THE 3RD AND 4TH TOES. SHE IS DAY 3 STATUS POST AMPUTATION OF 3RD AND 4TH TOES, DOWN TO THE METATARSAL HEAD AND DEBRIDEMENT OF NECROTIC ULCER. ADMITTED AND TOOK PATIENT TO SURGERY ON 03/07/21. TODAY, SHE IS ALERT AND ORIENTED, LYING IN BED ON MORNING ROUNDS. SHE CONTINUES WITH COMPLAINTS OF PAIN TO THE LEFT FOOT. SHE DOES REPORT SLIGHT IMPROVEMENT COMPARED TO YESTERDAY. LEFT FOOT IS NOTED TO HAVE A BULKY DRESSING. HER VITALS THIS MORNING ARE: 98.2-96-20-98%-184/88. LABS WERE OBTAINED. ABNORMAL LAB VALUES INCLUDE THE FOLLOWING: RBC 2.65, HGB 7.5, HCT 22.4, BUN 3, GLUCOSE 114, CALCIUM 8.4, ALK PHOS 225, ALBUMIN 2.1, GLOBULIN 5.4. WOUND CULTURES WERE POSITIVE FOR GROWTH OF E.COLI. SHE IS CURRENTLY RECEIVING NORMAL SALINE AT 80 ML/HR, VANCOMYCIN 1G IV DAILY, INVANZ 1G IV DAILY, LOVENOX 40MG SC DAILY, OTBS ACHS, HUMULIN R SLIDING SCALE, MORPHINE 2MG IV Q6H PRN, ZOFRAN 4MG IV Q8H [RN, PROTONIX 40MG IV BID, THE POTASSIUM AND MAGNESIUM PROTOCOL, AND HER HOME MEDICATIONS WERE RESUMED. WE WILL CONTINUE WITH CURRENT PLAN OF CARE TODAY. OTHERWISE, WE WILL FOLLOW UP WITH AM LABS AND CONTINUE TO MONITOR. TIME SPENT ON CLINICAL ASSESSMENT, REVIEWING LABS AND IMAGING, DECISION MAKING, AND DOCUMENTATION GREATER THAN 45 MINUTES. - Past Medical Family Social History Past Med/Fam/Surg Hx: No changes since H&P Allergies: Allergies Penicillins Allergy (Mild, Verified 12/30/20 10:45) RASH hives - Review of Systems ROS: No change since H&P - Vital Signs and I&O's Vital Signs: Temperature 98.3 F Pulse Rate [Left] 94 Pulse Rate 92 Respiratory Rate 20 Blood Pressure [Right Arm] 168/84 Blood Pressure [Left Arm] 185/108 Blood Pressure 139/80 O2 Sat by Pulse Oximetry 98 Intake and Output: Intake & Output 03/08/21 03/09/21 03/10/21 03/11/21 11:59 11:59 11:59 11:59 Intake Total 1870 / 1870 2400 / 2400 350 / 350 Output Total 999 / 999 Balance 871 / 871 2400 / 2400 350 / 350 - Physical Exam Oriented: Normal Eyes: Normal Ear: Normal Nose: Normal Respiratory: Generalized, Diminished Cardiovascular: Normal : Normal Auscultation: Bowel Sounds: Normal Palpation: Normal Tenderness: Normal Skin: Wound (open wound Lt foot 4 x 4 cm with tunneling .mild drainage from the plantar aspect ..no further necrosis.) Musculoskeletal: Normal Psychiatric: Normal Mood Description: Calm Affect: Normal Speech Pattern: Clear, Appropriate - Laboratory and Diagnostics Result Diagrams: 03/10/21 04:55 03/10/21 04:55 Labs: 03/07/21 12:07 Foot - Left Wound Gram Stain - Final 03/07/21 12:07 Foot - Left Wound Culture - Final Escherichia Coli Laboratory WBC 4.4 X10^3/uL (3.6-10.0) 03/10/21 04:55 RBC 2.65 X10^6/uL (3.5-5.4) L 03/10/21 04:55 Hgb 7.5 g/dL (12.0-16.0) L 03/10/21 04:55 Hct 22.4 % (36.0-47.0) L 03/10/21 04:55 MCV 84.5 fL (80.0-100.0) 03/10/21 04:55 MCH 28.3 pg (27.0-34.0) 03/10/21 04:55 MCHC 33.5 g/dL (33.0-35.0) 03/10/21 04:55 RDW 13.9 % (11.6-16.5) 03/10/21 04:55 Plt Count 283 X10^3/uL (150.0-450.0) 03/10/21 04:55 MPV 7.3 fL (7.4-11.0) L 03/10/21 04:55 Neut % (Auto) 47.4 % (42.0-75.0) 03/10/21 04:55 Lymph % (Auto) 37.0 % (21.0-51.0) 03/10/21 04:55 [place] % (Auto) 6.2 % (0.0-13.0) 03/10/21 04:55 Eos % (Auto) 7.4 % (0.9-2.9) H 03/10/21 04:55 Baso % (Auto) 2.0 % (0.2-1.0) H 03/10/21 04:55 Neut # (Auto) 2.1 x10^3/uL (2.2-4.8) L 03/10/21 04:55 Lymph # (Auto) 1.6 X10^3/uL (1.3-2.9) 03/10/21 04:55 [place] # (Auto) 0.3 x10^3/uL (0.3-0.8) 03/10/21 04:55 Eos # (Auto) 0.3 x10^3/uL (0.0-0.2) H 03/10/21 04:55 Baso # (Auto) 0.1 X10^3/uL (0.0-0.1) 03/10/21 04:55 Absolute Nucleated RBC 0.0 /100WBC 03/10/21 04:55 Sodium 139 mmol/L (136-145) 03/10/21 04:55 Corrected Sodium 139 mmol/L (136-145) 03/10/21 04:55 Potassium 3.9 mmol/L (3.5-5.1) 03/10/21 04:55 Chloride 105 mmol/L (98-107) 03/10/21 04:55 Carbon Dioxide 28.8 mmol/L (21-32) 03/10/21 04:55 BUN 3 mg/dL (7-18) L 03/10/21 04:55 Creatinine 0.89 mg/dL (0.55-1.02) 03/10/21 04:55 Est GFR (MDRD) Af Amer > 60 (>60) 03/10/21 04:55 Est GFR (MDRD) Non-Af > 60 (>60) 03/10/21 04:55 Glucose 114 mg/dL (65-99) H 03/10/21 04:55 POC Glucose (mg/dL) 111 mg/dL (65-99) H 03/10/21 05:29 Calcium 8.4 mg/dL (8.5-10.1) L 03/10/21 04:55 Corrected Calcium 9.9 mg/dL (8.5-10.1) 03/10/21 04:55 Magnesium 2.1 mg/dL (1.7-2.9) 03/09/21 04:46 Total Bilirubin 0.30 mg/dL (0.2-1.0) 03/10/21 04:55 AST 21 Units/L (15-37) 03/10/21 04:55 ALT 26 Units/L (12-78) 03/10/21 04:55 Alkaline Phosphatase 225 Units/L (46-116) H 03/10/21 04:55 Total Protein 7.5 g/dL (6.4-8.2) 03/10/21 04:55 Albumin 2.1 g/dL (3.4-5.0) L 03/10/21 04:55 Globulin 5.4 g/dL (2.5-4.5) H 03/10/21 04:55 Albumin/Globulin Ratio 0.4 Ratio (1.1-2.1) L 03/10/21 04:55 Random Vancomycin 25.2 ug/mL 03/09/21 10:55 SARS CoV-2 RNA Rapid KRIS Negative (NEGATIVE) 03/07/21 13:41 Tissue Pathology To follow 03/07/21 12:07
[2021-03-10] MEDS: MORPHINE SULFATE INJ 2 MG INJ IVP PRN ×2 (17:28→23:44)
[2021-03-10] MEDS: INVanz INJ 1 GRAM VIAL 1 G in NS 100 ML IV + SPIKE MINIBAG* 100 ML IV SCH (17:28)
[2021-03-10] MEDS: AMBIEN PO SCH (20:27)
[2021-03-10] MEDS: LIPITOR TAB 10 MG PO SCH (20:27)
[2021-03-11] MEDS: PERCOCET TAB 5/325 MG PO PRN ×3 (03:47→15:39)
[2021-03-11] MEDS ORDERED: GLUCOPHAGE ONE ×2 (04:59→16:47)
[2021-03-11] MEDS: ZOFRAN INJ 4 MG VIAL IVP PRN (05:57)
[2021-03-11] MEDS: MORPHINE SULFATE INJ 2 MG INJ IVP PRN ×2 (05:57→17:50)
[2021-03-11 06:06] LABS: BASOPHILS # (AUTO) 0.1 X10^3/uL (0.0-0.1); BASOPHILS % (AUTO) 1.2 % (0.2-1.0); EOSINOPHILS # (AUTO) 0.5 x10^3/uL (0.0-0.2); EOSINOPHILS % (AUTO) 8.9 % (0.9-2.9); HEMATOCRIT 31.1 % (36.0-47.0); HEMOGLOBIN 10.3 g/dL (12.0-16.0); LYMPHOCYTES # (AUTO) 2.2 X10^3/uL (1.3-2.9); LYMPHOCYTES % (AUTO) 37.6 % (21.0-51.0); MEAN CORPUSCULAR HEMOGLOBIN 28.4 pg (27.0-34.0); MEAN CORPUSCULAR HGB CONC 33.2 g/dL (33.0-35.0); MEAN CORPUSCULAR VOLUME 85.4 fL (80.0-100.0); MEAN PLATELET VOLUME 7.7 fL (7.4-11.0); MONOCYTES # (AUTO) 0.4 x10^3/uL (0.3-0.8); MONOCYTES % (AUTO) 6.2 % (0.0-13.0); NEUTROPHILS # (AUTO) 2.7 x10^3/uL (2.2-4.8); NEUTROPHILS % (AUTO) 46.1 % (42.0-75.0); RED BLOOD COUNT 3.64 X10^6/uL (3.5-5.4); RED CELL DISTRIBUTION WIDTH 13.8 % (11.6-16.5); WHITE BLOOD COUNT 5.8 X10^3/uL (3.6-10.0)
[2021-03-11 06:30] LABS: BLOOD UREA NITROGEN 3 mg/dL (7-18); CARBON DIOXIDE 26.3 mmol/L (21-32); CHLORIDE 103 mmol/L (98-107); COR NA(FOR HYPERGLY) 140 mmol/L (136-145); SODIUM 139 mmol/L (136-145); eGFR NON BLACK RACES 56 (>60)
[2021-03-11] MEDS: GLUCOPHAGE PO SCH ×2 (07:26→16:51)
[2021-03-11 07:28] LABS: ALANINE AMINOTRANSFERASE 29 Units/L (12-78); ALBUMIN 2.7 g/dL (3.4-5.0); ALKALINE PHOSPHATASE 258 Units/L (46-116); ASPARTATE AMINO TRANSFERASE 27 Units/L (15-37); TOTAL PROTEIN 9.5 g/dL (6.4-8.2)
--- NOTE | 2021-03-11 08:32 | DR.PROGNOT ---
Hospital Progress Notes - Progress Note for Day of: Progress Note Date: 03/11/21 - Chief Complaint Chief Complaint: no new c/o . moderate drainage from the open wound . - Past Medical Family Social History Past Med/Fam/Surg Hx: No changes since H&P Allergies: Allergies Penicillins Allergy (Mild, Verified 12/30/20 10:45) RASH hives - Review Of Systems ROS: No change since H&P - Vital Signs Vital Signs: Temperature 98.0 F Pulse Rate [Left] 94 Pulse Rate 92 Respiratory Rate 20 Blood Pressure [Right Arm] 168/84 Blood Pressure [Left Arm] 131/83 Blood Pressure 139/80 O2 Sat by Pulse Oximetry 99 - Physical Exam Oriented: Normal Eyes: Normal Ear: Normal Nose: Normal Respiratory: Generalized, Diminished Cardiovascular: Normal : Normal GI:Auscultation: Normal GI:Palpation: Normal GI: Tenderness: Normal Skin: Wound (open wound LT foot with some necrotic edges on the plantar aspect with purulent drainage .) Musculoskeletal: Normal Psychiatric: Normal Mood Description: Calm Affect: Normal Speech Pattern: Clear, Appropriate - Laboratory and Diagnostics Result Diagrams: 03/11/21 05:35 03/11/21 05:35 Labs: 03/07/21 12:07 Foot - Left Wound Gram Stain - Final 03/07/21 12:07 Foot - Left Wound Culture - Final Escherichia Coli Laboratory WBC 5.8 X10^3/uL (3.6-10.0) 03/11/21 05:35 RBC 3.64 X10^6/uL (3.5-5.4) 03/11/21 05:35 Hgb 10.3 g/dL (12.0-16.0) L D 03/11/21 05:35 Hct 31.1 % (36.0-47.0) L 03/11/21 05:35 MCV 85.4 fL (80.0-100.0) 03/11/21 05:35 MCH 28.4 pg (27.0-34.0) 03/11/21 05:35 MCHC 33.2 g/dL (33.0-35.0) 03/11/21 05:35 RDW 13.8 % (11.6-16.5) 03/11/21 05:35 Plt Count 381 X10^3/uL (150.0-450.0) 03/11/21 05:35 MPV 7.7 fL (7.4-11.0) 03/11/21 05:35 Neut % (Auto) 46.1 % (42.0-75.0) 03/11/21 05:35 Lymph % (Auto) 37.6 % (21.0-51.0) 03/11/21 05:35 [place] % (Auto) 6.2 % (0.0-13.0) 03/11/21 05:35 Eos % (Auto) 8.9 % (0.9-2.9) H 03/11/21 05:35 Baso % (Auto) 1.2 % (0.2-1.0) H 03/11/21 05:35 Neut # (Auto) 2.7 x10^3/uL (2.2-4.8) 03/11/21 05:35 Lymph # (Auto) 2.2 X10^3/uL (1.3-2.9) 03/11/21 05:35 [place] # (Auto) 0.4 x10^3/uL (0.3-0.8) 03/11/21 05:35 Eos # (Auto) 0.5 x10^3/uL (0.0-0.2) H 03/11/21 05:35 Baso # (Auto) 0.1 X10^3/uL (0.0-0.1) 03/11/21 05:35 Absolute Nucleated RBC 0.0 /100WBC 03/11/21 05:35 Sodium 139 mmol/L (136-145) 03/11/21 05:35 Corrected Sodium 140 mmol/L (136-145) 03/11/21 05:35 Potassium 4.0 mmol/L (3.5-5.1) 03/11/21 05:35 Chloride 103 mmol/L (98-107) 03/11/21 05:35 Carbon Dioxide 26.3 mmol/L (21-32) 03/11/21 05:35 BUN 3 mg/dL (7-18) L 03/11/21 05:35 Creatinine 1.10 mg/dL (0.55-1.02) H 03/11/21 05:35 Est GFR (MDRD) Af Amer > 60 (>60) 03/11/21 05:35 Est GFR (MDRD) Non-Af 56 (>60) L 03/11/21 05:35 Glucose 132 mg/dL (65-99) H 03/11/21 05:35 POC Glucose (mg/dL) 131 mg/dL (65-99) H 03/11/21 05:45 Calcium 9.0 mg/dL (8.5-10.1) 03/11/21 05:35 Corrected Calcium 10.0 mg/dL (8.5-10.1) 03/11/21 05:35 Magnesium 2.1 mg/dL (1.7-2.9) 03/09/21 04:46 Total Bilirubin 0.20 mg/dL (0.2-1.0) 03/11/21 05:35 AST 27 Units/L (15-37) 03/11/21 05:35 ALT 29 Units/L (12-78) 03/11/21 05:35 Alkaline Phosphatase 258 Units/L (46-116) H 03/11/21 05:35 Total Protein 9.5 g/dL (6.4-8.2) H 03/11/21 05:35 Albumin 2.7 g/dL (3.4-5.0) L 03/11/21 05:35 Globulin 6.8 g/dL (2.5-4.5) H 03/11/21 05:35 Albumin/Globulin Ratio 0.4 Ratio (1.1-2.1) L 03/11/21 05:35 Random Vancomycin 25.2 ug/mL 03/09/21 10:55 SARS CoV-2 RNA Rapid KRIS Negative (NEGATIVE) 03/07/21 13:41 Tissue Pathology To follow 03/07/21 12:07 - Assessment and Plan 1: gangrene LT 3ed, 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 DM with advanced neuropathy . anemia , hypoalbuminemia .. the wound looks better and viable foot .. same IV ATB . local care with soaking in H2O2 and Saline. Al barton .. for more debridement in am .
[2021-03-11] MEDS: PROTONIX INJ 40 MG VIAL IVP SCH ×2 (08:43→20:36)
[2021-03-11] MEDS: INVanz INJ 1 GRAM VIAL 1 G in NS 100 ML IV + SPIKE MINIBAG* 100 ML IV SCH (08:44)
[2021-03-11] MEDS: VANCOMYCIN IV *PREMIX 1 G/200 ML BAG 1 G/200 ML PIGGYBACK IV SCH (08:45)
[2021-03-11] MEDS: VITAMIN D3 125 mcg (5,000 UNITS) PO SCH (08:46)
[2021-03-11] MEDS: COZAAR PO SCH ×2 (08:46→10:16)
[2021-03-11] MEDS: CYMBALTA PO SCH (08:46)
[2021-03-11] MEDS: LOVENOX INJ 40 MG SYR SC SCH (09:23)
[2021-03-11] MEDS: BENADRYL CAP/TAB 25 MG PO PRN (10:19)
--- NOTE | 2021-03-11 11:23 | PCM.PROG ---
Progress Note - Progress Note for Day of Date of Exam: 03/11/21 - Subjective Subjective: WAS ADMITTED FOR TREATMENT OF LEFT FOOT DIABETIC ULCER WITH GANGRENE TO THE 3RD AND 4TH TOES. SHE IS DAY 4 STATUS POST AMPUTATION OF 3RD AND 4TH TOES, DOWN TO THE METATARSAL HEAD AND DEBRIDEMENT OF NECROTIC ULCER. TODAY, SHE IS ALERT AND ORIENTED, LYING IN BED ON MORNING ROUNDS. SHE CONTINUES WITH COMPLAINTS OF PAIN TO THE LEFT FOOT. SHE DOES REPORT SLIGHT IMPROVEMENT COMPARED TO YESTERDAY. HER VITALS THIS MORNING ARE: 98.0-98-20-97%-187/104. LABS WERE OBTAINED. ABNORMAL LAB VALUES INCLUDE THE FOLLOWING: HGB 10.3, HCT 31.1, BUN 3, CREATININE 1.10, GLUCOSE 132, ALK PHOS 258, TOTAL PROTEIN 9.5, ALBUMIN 2.7, GLOBULIN 6.8. WOUND CULTURES WERE POSITIVE FOR GROWTH OF E.COLI. SHE IS CURRENTLY RECEIVING NORMAL SALINE AT 80 ML/HR, VANCOMYCIN 1G IV DAILY, INVANZ 1G IV DAILY, LOVENOX 40MG SC DAILY, OTBS ACHS, HUMULIN R SLIDING SCALE, MORPHINE 2MG IV Q6H PRN, ZOFRAN 4MG IV Q8H PRN, PROTONIX 40MG IV BID, THE POTASSIUM AND MAGNESIUM PROTOCOL, LOSARTAN 50MG PO DAILY, AND HER HOME MEDICATIONS WERE RESUMED. WE WILL CONTINUE WITH CURRENT PLAN OF CARE TODAY AND INCREASE LOSARTAN TO 100MG PO DAILY. OTHERWISE, WE WILL FOLLOW UP WITH AM LABS AND CONTINUE TO MONITOR. TIME SPENT ON CLINICAL ASSESSMENT, REVIEWING LABS AND IMAGING, DECISION MAKING, AND DOCUMENTATION GREATER THAN 45 MINUTES. - Past Medical Family Social History Past Med/Fam/Surg Hx: No changes since H&P Allergies: Allergies Penicillins Allergy (Mild, Verified 12/30/20 10:45) RASH hives - Review of Systems ROS: No change since H&P - Vital Signs and I&O's Vital Signs: Temperature 98.0 F Pulse Rate [Left] 98 Pulse Rate 92 Respiratory Rate 20 Blood Pressure [Right Arm] 168/84 Blood Pressure [Left Arm] 187/104 Blood Pressure 139/80 O2 Sat by Pulse Oximetry 97 Intake and Output: Intake & Output 03/08/21 03/09/21 03/10/21 03/11/21 11:59 11:59 11:59 11:59 Intake Total 1870 / 1870 2400 / 2400 350 / 350 2220 / 2220 Output Total 999 / 999 Balance 871 / 871 2400 / 2400 350 / 350 2220 / 2220 - Physical Exam Oriented: Normal Eyes: Normal Ear: Normal Nose: Normal Respiratory: Generalized, Diminished Cardiovascular: Normal : Normal Auscultation: Bowel Sounds: Normal Tenderness: Normal Skin: Wound (open wound LT foot with some necrotic edges on the plantar aspect with purulent drainage .) Musculoskeletal: Normal Psychiatric: Normal Mood Description: Calm Affect: Normal Speech Pattern: Clear, Appropriate - Laboratory and Diagnostics Result Diagrams: 03/11/21 05:35 03/11/21 05:35 Labs: 03/07/21 12:07 Foot - Left Wound Gram Stain - Final 03/07/21 12:07 Foot - Left Wound Culture - Final Escherichia Coli Laboratory WBC 5.8 X10^3/uL (3.6-10.0) 03/11/21 05:35 RBC 3.64 X10^6/uL (3.5-5.4) 03/11/21 05:35 Hgb 10.3 g/dL (12.0-16.0) L D 03/11/21 05:35 Hct 31.1 % (36.0-47.0) L 03/11/21 05:35 MCV 85.4 fL (80.0-100.0) 03/11/21 05:35 MCH 28.4 pg (27.0-34.0) 03/11/21 05:35 MCHC 33.2 g/dL (33.0-35.0) 03/11/21 05:35 RDW 13.8 % (11.6-16.5) 03/11/21 05:35 Plt Count 381 X10^3/uL (150.0-450.0) 03/11/21 05:35 MPV 7.7 fL (7.4-11.0) 03/11/21 05:35 Neut % (Auto) 46.1 % (42.0-75.0) 03/11/21 05:35 Lymph % (Auto) 37.6 % (21.0-51.0) 03/11/21 05:35 [place] % (Auto) 6.2 % (0.0-13.0) 03/11/21 05:35 Eos % (Auto) 8.9 % (0.9-2.9) H 03/11/21 05:35 Baso % (Auto) 1.2 % (0.2-1.0) H 03/11/21 05:35 Neut # (Auto) 2.7 x10^3/uL (2.2-4.8) 03/11/21 05:35 Lymph # (Auto) 2.2 X10^3/uL (1.3-2.9) 03/11/21 05:35 [place] # (Auto) 0.4 x10^3/uL (0.3-0.8) 03/11/21 05:35 Eos # (Auto) 0.5 x10^3/uL (0.0-0.2) H 03/11/21 05:35 Baso # (Auto) 0.1 X10^3/uL (0.0-0.1) 03/11/21 05:35 Absolute Nucleated RBC 0.0 /100WBC 03/11/21 05:35 Sodium 139 mmol/L (136-145) 03/11/21 05:35 Corrected Sodium 140 mmol/L (136-145) 03/11/21 05:35 Potassium 4.0 mmol/L (3.5-5.1) 03/11/21 05:35 Chloride 103 mmol/L (98-107) 03/11/21 05:35 Carbon Dioxide 26.3 mmol/L (21-32) 03/11/21 05:35 BUN 3 mg/dL (7-18) L 03/11/21 05:35 Creatinine 1.10 mg/dL (0.55-1.02) H 03/11/21 05:35 Est GFR (MDRD) Af Amer > 60 (>60) 03/11/21 05:35 Est GFR (MDRD) Non-Af 56 (>60) L 03/11/21 05:35 Glucose 132 mg/dL (65-99) H 03/11/21 05:35 POC Glucose (mg/dL) 146 mg/dL (65-99) H 03/11/21 11:07 Calcium 9.0 mg/dL (8.5-10.1) 03/11/21 05:35 Corrected Calcium 10.0 mg/dL (8.5-10.1) 03/11/21 05:35 Magnesium 2.1 mg/dL (1.7-2.9) 03/09/21 04:46 Total Bilirubin 0.20 mg/dL (0.2-1.0) 03/11/21 05:35 AST 27 Units/L (15-37) 03/11/21 05:35 ALT 29 Units/L (12-78) 03/11/21 05:35 Alkaline Phosphatase 258 Units/L (46-116) H 03/11/21 05:35 Total Protein 9.5 g/dL (6.4-8.2) H 03/11/21 05:35 Albumin 2.7 g/dL (3.4-5.0) L 03/11/21 05:35 Globulin 6.8 g/dL (2.5-4.5) H 03/11/21 05:35 Albumin/Globulin Ratio 0.4 Ratio (1.1-2.1) L 03/11/21 05:35 Random Vancomycin 7.6 ug/mL 03/11/21 08:48 SARS CoV-2 RNA Rapid KRIS Negative (NEGATIVE) 03/07/21 13:41 Tissue Pathology To follow 03/07/21 12:07
[2021-03-11] MEDS: AMBIEN PO SCH (20:36)
[2021-03-11] MEDS: LIPITOR TAB 10 MG PO SCH (20:36)
[2021-03-12] MEDS: MORPHINE SULFATE INJ 2 MG INJ IVP PRN (00:40)
[2021-03-12] MEDS: ZOFRAN INJ 4 MG VIAL IVP PRN ×2 (01:15→21:32)
[2021-03-12] MEDS ORDERED: GLUCOPHAGE ONE ×2 (05:12→16:56)
[2021-03-12 06:34] LABS: BASOPHILS % (AUTO) 0.6 % (0.2-1.0); EOSINOPHILS # (AUTO) 0.5 x10^3/uL (0.0-0.2); EOSINOPHILS % (AUTO) 10.4 % (0.9-2.9); HEMATOCRIT 26.4 % (36.0-47.0); HEMOGLOBIN 9.1 g/dL (12.0-16.0); LYMPHOCYTES # (AUTO) 1.8 X10^3/uL (1.3-2.9); LYMPHOCYTES % (AUTO) 41.2 % (21.0-51.0); MEAN CORPUSCULAR HEMOGLOBIN 29.2 pg (27.0-34.0); MEAN CORPUSCULAR HGB CONC 34.5 g/dL (33.0-35.0); MEAN CORPUSCULAR VOLUME 84.8 fL (80.0-100.0); MEAN PLATELET VOLUME 7.5 fL (7.4-11.0); MONOCYTES # (AUTO) 0.4 x10^3/uL (0.3-0.8); MONOCYTES % (AUTO) 9.8 % (0.0-13.0); NEUTROPHILS # (AUTO) 1.7 x10^3/uL (2.2-4.8); RED BLOOD COUNT 3.12 X10^6/uL (3.5-5.4); RED CELL DISTRIBUTION WIDTH 14.3 % (11.6-16.5); WHITE BLOOD COUNT 4.5 X10^3/uL (3.6-10.0)
[2021-03-12] MEDS: GLUCOPHAGE PO SCH ×2 (07:01→17:09)
[2021-03-12 07:06] LABS: ALANINE AMINOTRANSFERASE 21 Units/L (12-78); ALBUMIN 2.3 g/dL (3.4-5.0); ALKALINE PHOSPHATASE 205 Units/L (46-116); ASPARTATE AMINO TRANSFERASE 23 Units/L (15-37); BLOOD UREA NITROGEN 4 mg/dL (7-18); CALCIUM 8.3 mg/dL (8.5-10.1); CARBON DIOXIDE 29.4 mmol/L (21-32); CHLORIDE 103 mmol/L (98-107); COR CA(FOR HYPOALB) 9.7 mg/dL (8.5-10.1); CREATININE 0.99 mg/dL (0.55-1.02); SODIUM 140 mmol/L (136-145); TOTAL PROTEIN 8.1 g/dL (6.4-8.2); eGFR NON BLACK RACES > 60 (>60)
[2021-03-12] MEDS: INVanz INJ 1 GRAM VIAL 1 G in NS 100 ML IV + SPIKE MINIBAG* 100 ML IV SCH (09:07)
[2021-03-12] MEDS: PROTONIX INJ 40 MG VIAL IVP SCH ×2 (09:08→20:38)
[2021-03-12] MEDS: VITAMIN D3 125 mcg (5,000 UNITS) PO SCH (09:08)
[2021-03-12] MEDS: LOVENOX INJ 40 MG SYR SC SCH (09:08)
[2021-03-12] MEDS: CYMBALTA PO SCH (09:45)
[2021-03-12] MEDS: COZAAR PO SCH (09:45)
[2021-03-12] MEDS: VANCOMYCIN IV *PREMIX 1 G/200 ML BAG 1 G/200 ML PIGGYBACK IV SCH (12:26)
[2021-03-12] MEDS ORDERED: NS 1,000 ML IV 1,000 ML ONE (12:30)
[2021-03-12] MEDS ORDERED: DIPRIVAN VIAL ONE (13:36)
[2021-03-12] MEDS ORDERED: KETAMINE HCL ONE (13:36)
[2021-03-12] MEDS ORDERED: DECADRON INJ ONE (13:36)
[2021-03-12] MEDS ORDERED: NEO-SYNEPHRINE INJ ONE (13:36)
[2021-03-12] MEDS ORDERED: XYLOCAINE 2 % (PLAIN) ONE (13:36)
[2021-03-12] MEDS ORDERED: VERSED ONE (13:36)
[2021-03-12] MEDS ORDERED: BENADRYL INJ 50 MG VIAL IVP PRN (14:17)
[2021-03-12] MEDS ORDERED: DILAUDID INJ IVP PRN (14:17)
[2021-03-12] MEDS ORDERED: PHENERGAN INJ 25 MG IM PRN (14:17)
[2021-03-12] MEDS ORDERED: REGLAN INJ 10 MG VIAL IVP PRN (14:17)
[2021-03-12] MEDS ORDERED: ZOFRAN INJ 4 MG VIAL IVP PRN (14:17)
[2021-03-12] MEDS ORDERED: BARHEMSYS INJ IVP PRN (14:17)
[2021-03-12] MEDS ORDERED: DILAUDID INJ ONE (14:41)
[2021-03-12] MEDS ORDERED: ACTIVASE CATHFLO ONE (14:53)
[2021-03-12] MEDS: TOPROL XL PO SCH (20:01)
[2021-03-12] MEDS: AMBIEN PO SCH (20:37)
[2021-03-12] MEDS: LIPITOR TAB 10 MG PO SCH (20:37)
[2021-03-12] MEDS: PERCOCET TAB 5/325 MG PO PRN (21:31)
[2021-03-13] MEDS: PERCOCET TAB 5/325 MG PO PRN ×2 (04:39→09:00)
[2021-03-13] MEDS ORDERED: GLUCOPHAGE ONE ×2 (05:38→17:01)
[2021-03-13 06:06] LABS: BASOPHILS # (AUTO) 0.1 X10^3/uL (0.0-0.1); EOSINOPHILS % (AUTO) 0.2 % (0.9-2.9); HEMATOCRIT 29.1 % (36.0-47.0); HEMOGLOBIN 9.8 g/dL (12.0-16.0); LYMPHOCYTES # (AUTO) 0.8 X10^3/uL (1.3-2.9); LYMPHOCYTES % (AUTO) 14.3 % (21.0-51.0); MEAN CORPUSCULAR HEMOGLOBIN 28.2 pg (27.0-34.0); MEAN CORPUSCULAR HGB CONC 33.6 g/dL (33.0-35.0); MEAN PLATELET VOLUME 7.4 fL (7.4-11.0); MONOCYTES # (AUTO) 0.1 x10^3/uL (0.3-0.8); MONOCYTES % (AUTO) 2.6 % (0.0-13.0); NEUTROPHILS # (AUTO) 4.5 x10^3/uL (2.2-4.8); NEUTROPHILS % (AUTO) 81.9 % (42.0-75.0); RED BLOOD COUNT 3.46 X10^6/uL (3.5-5.4); RED CELL DISTRIBUTION WIDTH 14.6 % (11.6-16.5); WHITE BLOOD COUNT 5.5 X10^3/uL (3.6-10.0)
[2021-03-13] MEDS: GLUCOPHAGE PO SCH ×2 (06:07→17:25)
[2021-03-13 06:23] LABS: ALANINE AMINOTRANSFERASE 39 Units/L (12-78); ALBUMIN 2.5 g/dL (3.4-5.0); ALKALINE PHOSPHATASE 326 Units/L (46-116); ASPARTATE AMINO TRANSFERASE 39 Units/L (15-37); BLOOD UREA NITROGEN 10 mg/dL (7-18); CALCIUM 8.5 mg/dL (8.5-10.1); CARBON DIOXIDE 27.8 mmol/L (21-32); CHLORIDE 99 mmol/L (98-107); COR CA(FOR HYPOALB) 9.7 mg/dL (8.5-10.1); COR NA(FOR HYPERGLY) 138 mmol/L (136-145); CREATININE 1.18 mg/dL (0.55-1.02); SODIUM 135 mmol/L (136-145); TOTAL PROTEIN 8.7 g/dL (6.4-8.2); eGFR NON BLACK RACES 52 (>60)
[2021-03-13 07:04] LABS: BAND NEUTROPHILS % 4 % (0-10); METAMYELOCYTES % 1; MYELOCYTES % 1; PLATELET MORPHOLOGY COMMENT NORMAL (NORMAL)
[2021-03-13] MEDS: COZAAR PO SCH (08:59)
[2021-03-13] MEDS: LOVENOX INJ 40 MG SYR SC SCH (09:00)
[2021-03-13] MEDS: CYMBALTA PO SCH (09:00)
[2021-03-13] MEDS: INVanz INJ 1 GRAM VIAL 1 G in NS 100 ML IV + SPIKE MINIBAG* 100 ML IV SCH (09:00)
[2021-03-13] MEDS: MORPHINE SULFATE INJ 2 MG INJ IVP PRN ×3 (09:00→21:51)
[2021-03-13] MEDS: PROTONIX INJ 40 MG VIAL IVP SCH ×2 (09:00→21:40)
[2021-03-13] MEDS: TOPROL XL PO SCH (09:01)
[2021-03-13] MEDS: VITAMIN D3 125 mcg (5,000 UNITS) PO SCH (09:01)
[2021-03-13] MEDS: VANCOMYCIN IV *PREMIX 1 G/200 ML BAG 1 G/200 ML PIGGYBACK IV SCH (09:01)
[2021-03-13] MEDS: ZOFRAN INJ 4 MG VIAL IVP PRN ×3 (09:15→21:50)
--- NOTE | 2021-03-13 10:41 | PCM.PROG ---
Progress Note - Progress Note for Day of Date of Exam: 03/13/21 - Subjective Subjective: WAS ADMITTED FOR TREATMENT OF LEFT FOOT DIABETIC ULCER WITH GANGRENE TO THE 3RD AND 4TH TOES. SHE IS DAY 6 STATUS POST AMPUTATION OF 3RD AND 4TH TOES, DOWN TO THE METATARSAL HEAD AND DEBRIDEMENT OF NECROTIC ULCER. HE TOOK HER BACK TO THE OR YESTERDAY FOR ADDITIONAL DEBRIDEMENT OF WOUND. TODAY, SHE IS ALERT AND ORIENTED, LYING IN BED ON MORNING ROUNDS. SHE CONTINUES WITH COMPLAINTS OF PAIN TO THE LEFT FOOT. SHE DOES REPORT SLIGHT IMPROVEMENT COMPARED TO YESTERDAY. HER VITALS THIS MORNING ARE: 98.1-83-16-97%-168/88. LABS WERE OBTAINED. ABNORMAL LAB VALUES INCLUDE THE FOLLOWING: RBC 3.46, HGB 9.8, HCT 29.1, SODIUM 135, CREATININE 1.18, GLUCOSE 208, AST 39, ALK PHOS 326, TOTAL PRO TEIN 8.7, ALBUMIN 2.5. INITIAL WOUND CULTURES WERE POSITIVE FOR GROWTH OF E.COLI. REPEAT WOUND CULTURES ARE PENDING. SHE IS CURRENTLY RECEIVING NORMAL SALINE AT 80 ML/HR, VANCOMYCIN IV Q12H, INVANZ 1G IV DAILY, LOVENOX 40MG SC DAILY, OTBS ACHS, HUMULIN R SLIDING SCALE, MORPHINE 2MG IV Q6H PRN, ZOFRAN 4MG IV Q8H PRN, PROTONIX 40MG IV BID, THE POTASSIUM AND MAGNESIUM PROTOCOL, LOSARTAN 100MG PO DAILY, AND HER HOME MEDICATIONS WERE RESUMED. WE WILL CONTINUE WITH CURRENT PLAN OF CARE TODAY. OTHERWISE, WE WILL FOLLOW UP WITH AM LABS AND CONTINUE TO MONITOR. TIME SPENT ON CLINICAL ASSESSMENT, REVIEWING LABS AND IMAGING, DECISION MAKING, AND DOCUMENTATION GREATER THAN 45 MINUTES. - Past Medical Family Social History Past Med/Fam/Surg Hx: No changes since H&P Allergies: Allergies Penicillins Allergy (Mild, Verified 12/30/20 10:45) RASH hives - Review of Systems ROS: No change since H&P - Vital Signs and I&O's Vital Signs: Temperature 98.1 F Pulse Rate [Left] 83 Pulse Rate 100 Respiratory Rate 16 Blood Pressure [Right Arm] 168/84 Blood Pressure [Left Arm] 168/88 Blood Pressure 120/75 O2 Sat by Pulse Oximetry 97 Intake and Output: Intake & Output 01/24/22 01/25/22 01/26/22 01/27/22 11:59 11:59 11:59 11:59 Intake Total 350 / 350 2220 / 2220 3010 / 3010 1109 / 1109 Output Total 1000 / 1000 Balance 350 / 350 2220 / 2220 3010 / 3010 109 / 109 - Physical Exam Oriented: Normal Eyes: Normal Ear: Normal Nose: Normal Respiratory: Generalized, Diminished Cardiovascular: Normal : Normal Auscultation: Bowel Sounds: Normal Tenderness: Normal Skin: Wound (open wound LT foot with some necrotic edges on the plantar aspect with purulent drainage .) Musculoskeletal: Normal Psychiatric: Normal Mood Description: Calm Affect: Normal Speech Pattern: Clear, Appropriate - Laboratory and Diagnostics Result Diagrams: 03/13/21 05:46 03/13/21 05:46 Labs: 03/12/21 13:48 Foot - Left Wound Gram Stain - Final 03/12/21 13:48 Foot - Left Wound Culture - Preliminary 03/07/21 12:07 Foot - Left Wound Gram Stain - Final 03/07/21 12:07 Foot - Left Wound Culture - Final Escherichia Coli Laboratory WBC 5.5 X10^3/uL (3.6-10.0) 03/13/21 05:46 RBC 3.46 X10^6/uL (3.5-5.4) L 03/13/21 05:46 Hgb 9.8 g/dL (12.0-16.0) L 03/13/21 05:46 Hct 29.1 % (36.0-47.0) L 03/13/21 05:46 MCV 84.0 fL (80.0-100.0) 03/13/21 05:46 MCH 28.2 pg (27.0-34.0) 03/13/21 05:46 MCHC 33.6 g/dL (33.0-35.0) 03/13/21 05:46 RDW 14.6 % (11.6-16.5) 03/13/21 05:46 Plt Count 400 X10^3/uL (150.0-450.0) 03/13/21 05:46 Plt Count Comment Adequate (ADEQUATE) 03/13/21 05:46 MPV 7.4 fL (7.4-11.0) 03/13/21 05:46 Neut % (Auto) 81.9 % (42.0-75.0) H 03/13/21 05:46 Lymph % (Auto) 14.3 % (21.0-51.0) L 03/13/21 05:46 [place] % (Auto) 2.6 % (0.0-13.0) 03/13/21 05:46 Eos % (Auto) 0.2 % (0.9-2.9) L 03/13/21 05:46 Baso % (Auto) 1.0 % (0.2-1.0) 03/13/21 05:46 Neut # (Auto) 4.5 x10^3/uL (2.2-4.8) 03/13/21 05:46 Lymph # (Auto) 0.8 X10^3/uL (1.3-2.9) L 03/13/21 05:46 [place] # (Auto) 0.1 x10^3/uL (0.3-0.8) L 03/13/21 05:46 Eos # (Auto) 0.0 x10^3/uL (0.0-0.2) 03/13/21 05:46 Baso # (Auto) 0.1 X10^3/uL (0.0-0.1) 03/13/21 05:46 Absolute Nucleated RBC 0.1 /100WBC 03/13/21 05:46 Total Counted 100 03/13/21 05:46 Neutrophils % (Manual) 66 % (39-76) 03/13/21 05:46 Band Neutrophils % 4 % (0-10) 03/13/21 05:46 Lymphocytes % (Manual) 26 % (13-43) 03/13/21 05:46 Monocytes % (Manual) 2 % (4-9) L 03/13/21 05:46 Metamyelocytes % 1 03/13/21 05:46 Myelocytes % 1 03/13/21 05:46 Plt Morphology Comment Normal (NORMAL) 03/13/21 05:46 RBC Morphology Normal (NORMAL) 03/13/21 05:46 Sodium 135 mmol/L (136-145) L 03/13/21 05:46 Corrected Sodium 138 mmol/L (136-145) 03/13/21 05:46 Potassium 4.5 mmol/L (3.5-5.1) 03/13/21 05:46 Chloride 99 mmol/L (98-107) 03/13/21 05:46 Carbon Dioxide 27.8 mmol/L (21-32) 03/13/21 05:46 BUN 10 mg/dL (7-18) 03/13/21 05:46 Creatinine 1.18 mg/dL (0.55-1.02) H 03/13/21 05:46 Est GFR (MDRD) Af Amer > 60 (>60) 03/13/21 05:46 Est GFR (MDRD) Non-Af 52 (>60) L 03/13/21 05:46 Glucose 208 mg/dL (65-99) H 03/13/21 05:46 POC Glucose (mg/dL) 204 mg/dL (65-99) H 03/13/21 05:40 Calcium 8.5 mg/dL (8.5-10.1) 03/13/21 05:46 Corrected Calcium 9.7 mg/dL (8.5-10.1) 03/13/21 05:46 Magnesium 2.1 mg/dL (1.7-2.9) 03/09/21 04:46 Total Bilirubin 0.20 mg/dL (0.2-1.0) 03/13/21 05:46 AST 39 Units/L (15-37) H 03/13/21 05:46 ALT 39 Units/L (12-78) 03/13/21 05:46 Alkaline Phosphatase 326 Units/L (46-116) H 03/13/21 05:46 Total Protein 8.7 g/dL (6.4-8.2) H 03/13/21 05:46 Albumin 2.5 g/dL (3.4-5.0) L 03/13/21 05:46 Globulin 6.2 g/dL (2.5-4.5) H 03/13/21 05:46 Albumin/Globulin Ratio 0.4 Ratio (1.1-2.1) L 03/13/21 05:46 Random Vancomycin 7.6 ug/mL 03/11/21 08:48 SARS CoV-2 RNA Rapid KRIS Negative (NEGATIVE) 03/07/21 13:41 Tissue Pathology To follow 03/12/21 13:48
--- NOTE | 2021-03-13 17:01 | DR.PROGNOT ---
Hospital Progress Notes - Progress Note for Day of: Progress Note Date: 03/13/21 - Chief Complaint Chief Complaint: no new c/o . moderate drainage from the open wound . dressing was changed .. no active infection now .. - Past Medical Family Social History Past Med/Fam/Surg Hx: No changes since H&P Allergies: Allergies Penicillins Allergy (Mild, Verified 12/30/20 10:45) RASH hives - Review Of Systems ROS: No change since H&P - Vital Signs Vital Signs: Temperature 97.9 F Pulse Rate [Left] 82 Pulse Rate 100 Respiratory Rate 16 Blood Pressure [Right Arm] 168/84 Blood Pressure [Left Arm] 134/72 Blood Pressure 120/75 O2 Sat by Pulse Oximetry 98 - Physical Exam Oriented: Normal Eyes: Normal Ear: Normal Nose: Normal Respiratory: Generalized, Diminished Cardiovascular: Normal : Normal GI:Auscultation: Normal GI:Palpation: Normal GI: Tenderness: Normal Skin: Wound (open wound LT foot with some necrotic edges on the plantar aspect with purulent drainage .) Musculoskeletal: Normal Psychiatric: Normal Mood Description: Calm Affect: Normal Speech Pattern: Clear, Appropriate - Laboratory and Diagnostics Result Diagrams: 03/13/21 05:46 03/13/21 05:46 Labs: 03/12/21 13:48 Foot - Left Wound Gram Stain - Final 03/12/21 13:48 Foot - Left Wound Culture - Preliminary 03/07/21 12:07 Foot - Left Wound Gram Stain - Final 03/07/21 12:07 Foot - Left Wound Culture - Final Escherichia Coli Laboratory WBC 5.5 X10^3/uL (3.6-10.0) 03/13/21 05:46 RBC 3.46 X10^6/uL (3.5-5.4) L 03/13/21 05:46 Hgb 9.8 g/dL (12.0-16.0) L 03/13/21 05:46 Hct 29.1 % (36.0-47.0) L 03/13/21 05:46 MCV 84.0 fL (80.0-100.0) 03/13/21 05:46 MCH 28.2 pg (27.0-34.0) 03/13/21 05:46 MCHC 33.6 g/dL (33.0-35.0) 03/13/21 05:46 RDW 14.6 % (11.6-16.5) 03/13/21 05:46 Plt Count 400 X10^3/uL (150.0-450.0) 03/13/21 05:46 Plt Count Comment Adequate (ADEQUATE) 03/13/21 05:46 MPV 7.4 fL (7.4-11.0) 03/13/21 05:46 Neut % (Auto) 81.9 % (42.0-75.0) H 03/13/21 05:46 Lymph % (Auto) 14.3 % (21.0-51.0) L 03/13/21 05:46 [place] % (Auto) 2.6 % (0.0-13.0) 03/13/21 05:46 Eos % (Auto) 0.2 % (0.9-2.9) L 03/13/21 05:46 Baso % (Auto) 1.0 % (0.2-1.0) 03/13/21 05:46 Neut # (Auto) 4.5 x10^3/uL (2.2-4.8) 03/13/21 05:46 Lymph # (Auto) 0.8 X10^3/uL (1.3-2.9) L 03/13/21 05:46 [place] # (Auto) 0.1 x10^3/uL (0.3-0.8) L 03/13/21 05:46 Eos # (Auto) 0.0 x10^3/uL (0.0-0.2) 03/13/21 05:46 Baso # (Auto) 0.1 X10^3/uL (0.0-0.1) 03/13/21 05:46 Absolute Nucleated RBC 0.1 /100WBC 03/13/21 05:46 Total Counted 100 03/13/21 05:46 Neutrophils % (Manual) 66 % (39-76) 03/13/21 05:46 Band Neutrophils % 4 % (0-10) 03/13/21 05:46 Lymphocytes % (Manual) 26 % (13-43) 03/13/21 05:46 Monocytes % (Manual) 2 % (4-9) L 03/13/21 05:46 Metamyelocytes % 1 03/13/21 05:46 Myelocytes % 1 03/13/21 05:46 Plt Morphology Comment Normal (NORMAL) 03/13/21 05:46 RBC Morphology Normal (NORMAL) 03/13/21 05:46 Sodium 135 mmol/L (136-145) L 03/13/21 05:46 Corrected Sodium 138 mmol/L (136-145) 03/13/21 05:46 Potassium 4.5 mmol/L (3.5-5.1) 03/13/21 05:46 Chloride 99 mmol/L (98-107) 03/13/21 05:46 Carbon Dioxide 27.8 mmol/L (21-32) 03/13/21 05:46 BUN 10 mg/dL (7-18) 03/13/21 05:46 Creatinine 1.18 mg/dL (0.55-1.02) H 03/13/21 05:46 Est GFR (MDRD) Af Amer > 60 (>60) 03/13/21 05:46 Est GFR (MDRD) Non-Af 52 (>60) L 03/13/21 05:46 Glucose 208 mg/dL (65-99) H 03/13/21 05:46 POC Glucose (mg/dL) 187 mg/dL (65-99) H 03/13/21 11:17 Calcium 8.5 mg/dL (8.5-10.1) 03/13/21 05:46 Corrected Calcium 9.7 mg/dL (8.5-10.1) 03/13/21 05:46 Magnesium 2.1 mg/dL (1.7-2.9) 03/09/21 04:46 Total Bilirubin 0.20 mg/dL (0.2-1.0) 03/13/21 05:46 AST 39 Units/L (15-37) H 03/13/21 05:46 ALT 39 Units/L (12-78) 03/13/21 05:46 Alkaline Phosphatase 326 Units/L (46-116) H 03/13/21 05:46 Total Protein 8.7 g/dL (6.4-8.2) H 03/13/21 05:46 Albumin 2.5 g/dL (3.4-5.0) L 03/13/21 05:46 Globulin 6.2 g/dL (2.5-4.5) H 03/13/21 05:46 Albumin/Globulin Ratio 0.4 Ratio (1.1-2.1) L 03/13/21 05:46 Random Vancomycin 7.6 ug/mL 03/11/21 08:48 SARS CoV-2 RNA Rapid KRIS Negative (NEGATIVE) 03/07/21 13:41 Tissue Pathology To follow 03/12/21 13:48 - Assessment and Plan 1: gangrene LT 3ed, 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 DM with advanced neuropathy . anemia , hypoalbuminemia .. the wound looks better and viable foot .. same IV ATB . local care with soaking in H2O2 and Saline. Al [place] .. to d/c in am .. same local care and ABT
[2021-03-13] MEDS: BENADRYL CAP/TAB 25 MG PO PRN (19:06)
[2021-03-13] MEDS ORDERED: HYDROGEN PEROXIDE 3% ONE (19:33)
[2021-03-13] MEDS: VANCOMYCIN HCL 750 MG in NS 250 ML IV 250 ML IV SCH (21:39)
[2021-03-13] MEDS: LIPITOR TAB 10 MG PO SCH (21:39)
[2021-03-13] MEDS: AMBIEN PO SCH (21:39)
[2021-03-14] MEDS: MORPHINE SULFATE INJ 2 MG INJ IVP PRN (04:59)
[2021-03-14] MEDS: ZOFRAN INJ 4 MG VIAL IVP PRN (05:01)
[2021-03-14] MEDS ORDERED: GLUCOPHAGE ONE (05:49)
[2021-03-14 06:17] LABS: BASOPHILS # (AUTO) 0.1 X10^3/uL (0.0-0.1); BASOPHILS % (AUTO) 0.8 % (0.2-1.0); EOSINOPHILS # (AUTO) 0.2 x10^3/uL (0.0-0.2); EOSINOPHILS % (AUTO) 2.9 % (0.9-2.9); HEMATOCRIT 26.3 % (36.0-47.0); HEMOGLOBIN 8.8 g/dL (12.0-16.0); LYMPHOCYTES # (AUTO) 2.9 X10^3/uL (1.3-2.9); LYMPHOCYTES % (AUTO) 34.8 % (21.0-51.0); MEAN CORPUSCULAR HEMOGLOBIN 28.3 pg (27.0-34.0); MEAN CORPUSCULAR HGB CONC 33.3 g/dL (33.0-35.0); MEAN CORPUSCULAR VOLUME 85.1 fL (80.0-100.0); MEAN PLATELET VOLUME 7.6 fL (7.4-11.0); MONOCYTES # (AUTO) 0.5 x10^3/uL (0.3-0.8); MONOCYTES % (AUTO) 6.3 % (0.0-13.0); NEUTROPHILS # (AUTO) 4.6 x10^3/uL (2.2-4.8); NEUTROPHILS % (AUTO) 55.2 % (42.0-75.0); RED BLOOD COUNT 3.09 X10^6/uL (3.5-5.4); WHITE BLOOD COUNT 8.3 X10^3/uL (3.6-10.0)
[2021-03-14] MEDS: GLUCOPHAGE PO SCH (06:38)
[2021-03-14 06:44] LABS: ALANINE AMINOTRANSFERASE 25 Units/L (12-78); ALBUMIN 2.3 g/dL (3.4-5.0); ALKALINE PHOSPHATASE 228 Units/L (46-116); ASPARTATE AMINO TRANSFERASE 21 Units/L (15-37); BLOOD UREA NITROGEN 14 mg/dL (7-18); CALCIUM 8.3 mg/dL (8.5-10.1); CARBON DIOXIDE 25.7 mmol/L (21-32); CHLORIDE 103 mmol/L (98-107); COR CA(FOR HYPOALB) 9.7 mg/dL (8.5-10.1); COR NA(FOR HYPERGLY) 139 mmol/L (136-145); CREATININE 1.11 mg/dL (0.55-1.02); SODIUM 138 mmol/L (136-145); TOTAL PROTEIN 7.6 g/dL (6.4-8.2); eGFR NON BLACK RACES 56 (>60)
[2021-03-14] MEDS ORDERED: PATIENT'S HOME MEDICATION SUBCUT SCH (09:00)
[2021-03-14] MEDS: CYMBALTA PO SCH (09:39)
[2021-03-14] MEDS: COZAAR PO SCH (09:39)
[2021-03-14] MEDS: PROTONIX INJ 40 MG VIAL IVP SCH (09:40)
[2021-03-14] MEDS: VANCOMYCIN HCL 750 MG in NS 250 ML IV 250 ML IV SCH (09:40)
[2021-03-14] MEDS: TOPROL XL PO SCH (09:40)
[2021-03-14] MEDS: INVanz INJ 1 GRAM VIAL 1 G in NS 100 ML IV + SPIKE MINIBAG* 100 ML IV SCH (09:40)
[2021-03-14] MEDS: VITAMIN D3 125 mcg (5,000 UNITS) PO SCH (09:54)
--- NOTE | 2021-03-14 10:07 | PCM.PROG ---
Progress Note - Progress Note for Day of Date of Exam: 03/14/21 - Subjective Subjective: WAS ADMITTED FOR TREATMENT OF LEFT FOOT DIABETIC ULCER WITH GANGRENE TO THE 3RD AND 4TH TOES. SHE IS DAY 7 STATUS POST AMPUTATION OF 3RD AND 4TH TOES, DOWN TO THE METATARSAL HEAD AND DEBRIDEMENT OF NECROTIC ULCER. HE TOOK HER BACK TO THE OR ON WEDNESDAY FOR ADDITIONAL DEBRIDEMENT OF WOUND. TODAY, SHE IS ALERT AND ORIENTED, LYING IN BED ON MORNING ROUNDS. SHE CONTINUES WITH COMPLAINTS OF PAIN TO THE LEFT FOOT. SHE DOES REPORT SLIGHT IMPROVEMENT COMPARED TO YESTERDAY. HER VITALS THIS MORNING ARE: 98.3-81-20-98%-153/83. LABS WERE OBTAINED. ABNORMAL LAB VALUES INCLUDE THE FOLLOWING: RBC 3.09, HGB 8.8, HCT 26.3, CREATININE 1.11, GLUCOSE 150, CALCIUM 8.3, TOTAL BILI 0.10, ALK PHOS 228, ALBUMIN 2.3. INITIAL WOUND CULTURES WERE POSITIVE FOR GROWTH OF E.COLI. REPEAT WOUND CULTURES ARE PENDING. SHE IS CURRENTLY RECEIVING NORMAL SALINE AT 80 ML/HR, VANCOMYCIN IV Q12H, INVANZ 1G IV DAILY, LOVENOX 40MG SC DAILY, OTBS ACHS, HUMULIN R SLIDING SCALE, MORPHINE 2MG IV Q6H PRN, ZOFRAN 4MG IV Q8H PRN, PROTONIX 40MG IV BID, THE POTASSIUM AND MAGNESIUM PROTOCOL, LOSARTAN 100MG PO DAILY, AND HER HOME MEDICATIONS WERE RESUMED. WE WILL CONTINUE WITH CURRENT PLAN OF CARE TODAY. OTHERWISE, WE WILL FOLLOW UP WITH AM LABS AND CONTINUE TO MONITOR. TIME SPENT ON CLINICAL ASSESSMENT, REVIEWING LABS AND IMAGING, DECISION MAKING, AND DOCUMENTATION GREATER THAN 45 MINUTES. - Past Medical Family Social History Past Med/Fam/Surg Hx: No changes since H&P Allergies: Allergies Penicillins Allergy (Mild, Verified 12/30/20 10:45) RASH hives - Review of Systems ROS: No change since H&P - Vital Signs and I&O's Vital Signs: Temperature 98.3 F Pulse Rate [Left] 81 Pulse Rate 100 Respiratory Rate 20 Blood Pressure [Right Arm] 168/84 Blood Pressure [Left Arm] 153/83 Blood Pressure 120/75 O2 Sat by Pulse Oximetry 98 Intake and Output: Intake & Output 03/11/21 03/12/21 03/13/21 03/14/21 11:59 11:59 11:59 11:59 Intake Total 2219 / 0 3010 / 3010 1109 / 1109 2069 Output Total 1000 / 1000 Balance 0 / 2220 3010 / 3010 109 / 109 2069 - Physical Exam Oriented: Normal Eyes: Normal Ear: Normal Nose: Normal Respiratory: Generalized, Diminished Cardiovascular: Normal : Normal Auscultation: Bowel Sounds: Normal Tenderness: Normal Skin: Wound (open wound LT foot with some necrotic edges on the plantar aspect with purulent drainage .) Musculoskeletal: Normal Psychiatric: Normal Mood Description: Calm Affect: Normal Speech Pattern: Clear, Appropriate - Laboratory and Diagnostics Result Diagrams: 03/14/21 05:25 03/14/21 05:25 Labs: 03/12/21 13:48 Foot - Left Wound Gram Stain - Final 03/12/21 13:48 Foot - Left Wound Culture - Preliminary 03/07/21 12:07 Foot - Left Wound Gram Stain - Final 03/07/21 12:07 Foot - Left Wound Culture - Final Escherichia Coli Laboratory WBC 8.3 X10^3/uL (3.6-10.0) 03/14/21 05:25 RBC 3.09 X10^6/uL (3.5-5.4) L 03/14/21 05:25 Hgb 8.8 g/dL (12.0-16.0) L 03/14/21 05:25 Hct 26.3 % (36.0-47.0) L 03/14/21 05:25 MCV 85.1 fL (80.0-100.0) 03/14/21 05:25 MCH 28.3 pg (27.0-34.0) 03/14/21 05:25 MCHC 33.3 g/dL (33.0-35.0) 03/14/21 05:25 RDW 15.0 % (11.6-16.5) 03/14/21 05:25 Plt Count 330 X10^3/uL (150.0-450.0) 03/14/21 05:25 Plt Count Comment Adequate (ADEQUATE) 03/13/21 05:46 MPV 7.6 fL (7.4-11.0) 03/14/21 05:25 Neut % (Auto) 55.2 % (42.0-75.0) 03/14/21 05:25 Lymph % (Auto) 34.8 % (21.0-51.0) 03/14/21 05:25 [place] % (Auto) 6.3 % (0.0-13.0) 03/14/21 05:25 Eos % (Auto) 2.9 % (0.9-2.9) 03/14/21 05:25 Baso % (Auto) 0.8 % (0.2-1.0) 03/14/21 05:25 Neut # (Auto) 4.6 x10^3/uL (2.2-4.8) 03/14/21 05:25 Lymph # (Auto) 2.9 X10^3/uL (1.3-2.9) 03/14/21 05:25 [place] # (Auto) 0.5 x10^3/uL (0.3-0.8) 03/14/21 05:25 Eos # (Auto) 0.2 x10^3/uL (0.0-0.2) 03/14/21 05:25 Baso # (Auto) 0.1 X10^3/uL (0.0-0.1) 03/14/21 05:25 Absolute Nucleated RBC 0.1 /100WBC 03/14/21 05:25 Total Counted 100 03/13/21 05:46 Neutrophils % (Manual) 66 % (39-76) 03/13/21 05:46 Band Neutrophils % 4 % (0-10) 03/13/21 05:46 Lymphocytes % (Manual) 26 % (13-43) 03/13/21 05:46 Monocytes % (Manual) 2 % (4-9) L 03/13/21 05:46 Metamyelocytes % 1 03/13/21 05:46 Myelocytes % 1 03/13/21 05:46 Plt Morphology Comment Normal (NORMAL) 03/13/21 05:46 RBC Morphology Normal (NORMAL) 03/13/21 05:46 Sodium 138 mmol/L (136-145) 03/14/21 05:25 Corrected Sodium 139 mmol/L (136-145) 03/14/21 05:25 Potassium 3.8 mmol/L (3.5-5.1) 03/14/21 05:25 Chloride 103 mmol/L (98-107) 03/14/21 05:25 Carbon Dioxide 25.7 mmol/L (21-32) 03/14/21 05:25 BUN 14 mg/dL (7-18) 03/14/21 05:25 Creatinine 1.11 mg/dL (0.55-1.02) H 03/14/21 05:25 Est GFR (MDRD) Af Amer > 60 (>60) 03/14/21 05:25 Est GFR (MDRD) Non-Af 56 (>60) L 03/14/21 05:25 Glucose 150 mg/dL (65-99) H 03/14/21 05:25 POC Glucose (mg/dL) 189 mg/dL (65-99) H 03/13/21 22:13 Calcium 8.3 mg/dL (8.5-10.1) L 03/14/21 05:25 Corrected Calcium 9.7 mg/dL (8.5-10.1) 03/14/21 05:25 Magnesium 2.1 mg/dL (1.7-2.9) 03/09/21 04:46 Total Bilirubin 0.10 mg/dL (0.2-1.0) L 03/14/21 05:25 AST 21 Units/L (15-37) 03/14/21 05:25 ALT 25 Units/L (12-78) 03/14/21 05:25 Alkaline Phosphatase 228 Units/L (46-116) H 03/14/21 05:25 Total Protein 7.6 g/dL (6.4-8.2) 03/14/21 05:25 Albumin 2.3 g/dL (3.4-5.0) L 03/14/21 05:25 Globulin 5.3 g/dL (2.5-4.5) H 03/14/21 05:25 Albumin/Globulin Ratio 0.4 Ratio (1.1-2.1) L 03/14/21 05:25 Random Vancomycin 13.9 ug/mL 03/13/21 17:15 SARS CoV-2 RNA Rapid KRIS Negative (NEGATIVE) 03/07/21 13:41 Tissue Pathology To follow 03/12/21 13:48
[2021-03-14] MEDS: PERCOCET TAB 5/325 MG PO PRN (10:16)
[2021-03-14] MEDS ORDERED: HYDROGEN PEROXIDE 3% ONE (12:10)
[2021-03-14 13:56] VITALS: BP 175/85
[2021-03-14] MEDS: LOVENOX INJ 40 MG SYR SC SCH (14:56)
[2021-03-15] MEDS ORDERED: PHARMACY COMMENT IV NR (08:30)
== END 2021-03-14 15:00 | disposition home or self-care (01) | DRG 617 ==
LOC: MED/SURG 09:12 → SURG1 09:12 → MED/SURG 03-10 15:01
PROVIDERS: ADMIT Surgery; ATTEND Surgery

== ENCOUNTER 2021-04-08 17:30 | Inpatient (IN) ==
[2021-04-08] MEDS ORDERED: PHARMACY CONSULT - VANCOMYCIN XX SCH (19:36)
[2021-04-08] MEDS ORDERED: MILK OF MAGNESIA PO PRN (19:36)
[2021-04-08 20:22] LABS: EOSINOPHILS # (AUTO) 0.3 x10^3/uL (0.0-0.2); RED BLOOD COUNT 3.42 X10^6/uL (3.5-5.4)
[2021-04-08 20:28] LABS: ERYTHROCYTE SEDIMENTATION RATE 83 MM/HOUR (0-20)
[2021-04-08 20:29] LABS: BASOPHILS # (AUTO) 0.1 X10^3/uL (0.0-0.1); BASOPHILS % (AUTO) 0.6 % (0.2-1.0); HEMATOCRIT 29.2 % (36.0-47.0); HEMOGLOBIN 9.7 g/dL (12.0-16.0); LYMPHOCYTES # (AUTO) 2.5 X10^3/uL (1.3-2.9); LYMPHOCYTES % (AUTO) 29.4 % (21.0-51.0); MEAN CORPUSCULAR HEMOGLOBIN 28.5 pg (27.0-34.0); MEAN CORPUSCULAR HGB CONC 33.4 g/dL (33.0-35.0); MEAN CORPUSCULAR VOLUME 85.2 fL (80.0-100.0); MEAN PLATELET VOLUME 7.9 fL (7.4-11.0); MONOCYTES # (AUTO) 0.6 x10^3/uL (0.3-0.8); MONOCYTES % (AUTO) 6.8 % (0.0-13.0); NEUTROPHILS # (AUTO) 5.1 x10^3/uL (2.2-4.8); NEUTROPHILS % (AUTO) 60.2 % (42.0-75.0); RED CELL DISTRIBUTION WIDTH 14.9 % (11.6-16.5); WHITE BLOOD COUNT 8.4 X10^3/uL (3.6-10.0)
[2021-04-08 20:44] VITALS: BMI 37.8
[2021-04-08] MEDS ORDERED: FLUZONE II4 or AFLURIA II4 IM ONE (20:44)
[2021-04-08] MEDS ORDERED: PREVNAR 13 IM ONE (20:44)
[2021-04-08 21:22] LABS: ALANINE AMINOTRANSFERASE 26 Units/L (12-78); ALKALINE PHOSPHATASE 131 Units/L (46-116); ASPARTATE AMINO TRANSFERASE 13 Units/L (15-37); BLOOD UREA NITROGEN 21 mg/dL (7-18); CALCIUM 8.7 mg/dL (8.5-10.1); CARBON DIOXIDE 24.6 mmol/L (21-32); CHLORIDE 106 mmol/L (98-107); COR CA(FOR HYPOALB) 9.5 mg/dL (8.5-10.1); COR NA(FOR HYPERGLY) 142 mmol/L (136-145); CREATININE 1.07 mg/dL (0.55-1.02); SODIUM 141 mmol/L (136-145); TOTAL PROTEIN 8.2 g/dL (6.4-8.2); eGFR NON BLACK RACES 58 (>60)
[2021-04-08] MEDS ORDERED: NS 1,000 ML IV 1,000 ML ONE (21:32)
[2021-04-08] MEDS: NS 1,000 ML IV 1,000 ML IV SCH (21:41)
[2021-04-08] MEDS: PERCOCET TAB 5/325 MG PO PRN (21:42)
[2021-04-08] MEDS: COLACE CAP 100 MG PO SCH (21:42)
[2021-04-08] MEDS ORDERED: VANCOMYCIN IV *PREMIX 2 G/400 ML BAG 2 G/400 ML PIGGYBACK IV ONE (23:00)
[2021-04-09 06:14] LABS: BASOPHILS % (AUTO) 0.7 % (0.2-1.0); EOSINOPHILS # (AUTO) 0.2 x10^3/uL (0.0-0.2); EOSINOPHILS % (AUTO) 2.5 % (0.9-2.9); HEMATOCRIT 29.5 % (36.0-47.0); HEMOGLOBIN 9.9 g/dL (12.0-16.0); LYMPHOCYTES # (AUTO) 1.8 X10^3/uL (1.3-2.9); LYMPHOCYTES % (AUTO) 28.3 % (21.0-51.0); MEAN CORPUSCULAR HEMOGLOBIN 28.7 pg (27.0-34.0); MEAN CORPUSCULAR HGB CONC 33.6 g/dL (33.0-35.0); MEAN CORPUSCULAR VOLUME 85.5 fL (80.0-100.0); MEAN PLATELET VOLUME 8.4 fL (7.4-11.0); MONOCYTES # (AUTO) 0.3 x10^3/uL (0.3-0.8); MONOCYTES % (AUTO) 5.1 % (0.0-13.0); NEUTROPHILS % (AUTO) 63.4 % (42.0-75.0); RED BLOOD COUNT 3.45 X10^6/uL (3.5-5.4); RED CELL DISTRIBUTION WIDTH 14.8 % (11.6-16.5); WHITE BLOOD COUNT 6.3 X10^3/uL (3.6-10.0)
[2021-04-09 06:18] LABS: ALANINE AMINOTRANSFERASE 24 Units/L (12-78); ALBUMIN 2.8 g/dL (3.4-5.0); ALKALINE PHOSPHATASE 126 Units/L (46-116); ASPARTATE AMINO TRANSFERASE 19 Units/L (15-37); BLOOD UREA NITROGEN 17 mg/dL (7-18); CALCIUM 8.1 mg/dL (8.5-10.1); CARBON DIOXIDE 22.6 mmol/L (21-32); CHLORIDE 106 mmol/L (98-107); COR CA(FOR HYPOALB) 9.1 mg/dL (8.5-10.1); COR NA(FOR HYPERGLY) 140 mmol/L (136-145); CREATININE 0.86 mg/dL (0.55-1.02); SODIUM 139 mmol/L (136-145); TOTAL PROTEIN 7.7 g/dL (6.4-8.2); eGFR NON BLACK RACES > 60 (>60)
[2021-04-09] MEDS: COLACE CAP 100 MG PO SCH ×2 (08:29→22:08)
--- NOTE | 2021-04-09 08:44 | DR.H&P ---
H&P - History & Physical for Day of: H&P Date: 04/08/21 - Chief Complaint Chief Complaint: DRAINING WOUND AND SWELLING OF LEFT FOOT. FEVER - History of Present Illness History of Present Illness: IS A 50 YEAR OLD PATIENT OF OURS. SHE P RESENTED WITH COMPLAINTS OF SWELLING AND DRAINAGE OF WOUND TO THE LEFT FOOT. SHE ALSO ADMITTED TO FEVER. 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 AMPUTATION WAS APPROXIMATELY ONE MONTH AGO BY . PATIENT REPORTS THAT DRAINAGE AND INCREASED SWELLING HAS BEEN PRESENT FOR ABOUT A WEEK. SHE ADMITS TO THROBBING PAIN TO THE LEFT FOOT AND ANKLE. SHE RATES PAIN A 7/10. PATIENT DOES HAVE IMPAIRED GAIT DUE TO RECENT AMPUTATION. EXAMINATION REVEALED A [id number] WOUND TO THE LEFT FOOT WITH TUNNELING AND YELLOW SLOUGH. THERE IS MODERATE SEROUS DRAINAGE FROM SITE. 2+ PITTING EDEMA NOTED. OTHER PMH INCLUDES DM II, HTN, ANEMIA, ARTHRITIS, CVA, NEUROPATHY, CHOLECYSTECTOMY, AND HYSTERECTOMY. PATIENT WAS ADMITTED FOR FURTHER EVALUATION AND TREATMENT OF LEFT FOOT CELLULITIS, DIABETIC ULCER. ON ARRIVAL TO THE HOSPITAL, VITALS WERE 98.4-947-81-100%-144/99. LABS WERE OBTAINED. WBC 8.4, RBC 3.42, HGB 9.7, HCT 29.2, ESR 83, SODIUM 141, POTASSIUM 3.9, CHLORIDE 106, BUN 21, CREATININE 1.07, GLUCOSE 140, AST 13, ALK PHOS 131, CRP 44.20, ALBUMIN 3.0, GLOBULIN 5.2. BLOOD CULTURES WERE SET UP. SHE WAS STARTED ON NORMAL SALINE AT 80 ML/HR, VANCOMYCIN 1.5G IV BID, PERCOCET 5/325MG PO Q6H PRN, DIFLUCAN 100MG PO BID, OTBS ACHS, HUMULIN R SLIDING SCALE, COLACE 100MG PO BID, MILK OF MAGNESIA 15ML PO QID PRN, AND HER HOME MEDICATIONS WERE RESUMED. SHE WILL RECEIVE DAILY WOUND CARE. OTHERWISE, WE PLAN TO FOLLOW UP WITH AM LABS AND CONTINUE TO MONITOR. TIME SPENT ON CLINICAL ASSESSMENT, REVIEWING LABS AND IMAGING, DECISION MAKING, AND DOCUMENTATION GREATER THAN 75 MINUTES. 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, Hysterectomy, Ortho Surgery - Family History Family Medical History: Cancer, [place] - Social History Does patient currently use any type of tobacco product: No Does any household member use tobacco: No Alcohol Use: None Drug Use: None - Medications Home Medications: Penicillins Allergy (Mild, Verified 12/30/20 10:45) RASH - Review of Systems Constitutional: Fever, Weakness Eyes: No Symptoms Reported ENT: No Symptoms Reported Respiratory: No Symptoms Reported Cardiovascular: No Symptoms Reported Gastrointestinal: No Symptoms Reported Genitourinary: No Symptoms Reported Musculoskeletal: See HPI, Foot Pain (LEFT FOOT PAIN ) Skin: See HPI, Wound (WOUND TO LEFT FOOT ) Neurological: Weakness - Physical Exam Vital Signs: Temperature 97.9 F Pulse Rate [Right Radial] 99 Respiratory Rate 18 Blood Pressure [Right Arm] 168/84 Blood Pressure [Left Arm] 157/96 O2 Sat by Pulse Oximetry 99 Oriented: Normal Eyes: Normal Ear: Normal Nose: Normal Throat: Normal Respiratory: Diminished Throughout Cardiovascular: Tachycardia, Edema (LLE 2+ PITTING EDEMA ) : Normal Auscultation: Bowel Sounds: Normal Palpation: Normal Tenderness: Normal Skin: Tender, Hot, Wound (DIABETIC WOUND WITH TUNNELING, YELLOW SLOUGH, AND SEROUS DRAINAGE ) Musculoskeletal: Left, Foot, Swelling, Tender Psychiatric: Normal Mood Description: Calm Affect: Normal Speech Pattern: Clear - Assessment/Plan (1) Cellulitis of foot, left Status: Acute Plan: ADMIT, WOUND CARE, NORMAL SALINE AT 80 ML/HR, VANCOMYCIN 1.5G IV BID, PERCOCET 5/325MG PO Q6H PRN, DIFLUCAN 100MG PO BID, OTBS ACHS, HUMULIN R SLIDING SCALE, COLACE 100MG PO BID, MILK OF MAGNESIA 15ML PO QID PRN, AND HER HOME MEDICATIONS WERE RESUMED. (2) Diabetic ulcer of left foot Qualifiers: Diabetic foot ulcer location: other Diabetes mellitus type: type 2 Non- pressure ulcer stage: unspecified non-pressure ulcer stage Qualified Code(s): E11.621 - Type 2 diabetes mellitus with foot ulcer; L97.529 - Non-pressure chronic ulcer of other part of left foot with unspecified severity Status: Acute (3) Anemia Qualifiers: Anemia type: unspecified type Qualified Code(s): D64.9 - Anemia, uns pecified Status: Chronic (4) Diabetes mellitus, type 2 Qualifiers: Diabetes mellitus penitentiary insulin use: with penitentiary use Diabetes mellitus complication status: with hyperglycemia Qualified Code(s): E11.65 - Type 2 diabetes mellitus with hyperglycemia; Z79.4 - 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
[2021-04-09] MEDS: PERCOCET TAB 5/325 MG PO PRN (10:11)
[2021-04-09] MEDS: DIFLUCAN PO SCH (10:25)
[2021-04-09] MEDS: VANCOMYCIN IV *PREMIX 1.5 G/300 ML BAG 1.5 G/300 ML PIGGYBACK IV SCH ×2 (10:25→22:09)
[2021-04-09] MEDS: BENADRYL CAP/TAB 25 MG PO PRN ×2 (14:50→22:09)
[2021-04-09] MEDS: DILAUDID INJ IVP PRN ×2 (15:33→22:12)
[2021-04-09] MEDS: NS 1,000 ML IV 1,000 ML IV SCH ×2 (15:34→22:09)
[2021-04-09] MEDS ORDERED: ZOFRAN INJ 4 MG VIAL ONE (15:53)
[2021-04-09] MEDS: ZOFRAN INJ 4 MG VIAL IVP PRN (15:55)
[2021-04-10 04:58] LABS: BASOPHILS % (AUTO) 0.6 % (0.2-1.0); EOSINOPHILS # (AUTO) 0.2 x10^3/uL (0.0-0.2); EOSINOPHILS % (AUTO) 2.7 % (0.9-2.9); HEMATOCRIT 27.6 % (36.0-47.0); HEMOGLOBIN 9.2 g/dL (12.0-16.0); LYMPHOCYTES # (AUTO) 1.2 X10^3/uL (1.3-2.9); LYMPHOCYTES % (AUTO) 16.8 % (21.0-51.0); MEAN CORPUSCULAR HEMOGLOBIN 28.2 pg (27.0-34.0); MEAN CORPUSCULAR HGB CONC 33.2 g/dL (33.0-35.0); MEAN CORPUSCULAR VOLUME 84.8 fL (80.0-100.0); MEAN PLATELET VOLUME 8.1 fL (7.4-11.0); MONOCYTES # (AUTO) 0.4 x10^3/uL (0.3-0.8); MONOCYTES % (AUTO) 6.4 % (0.0-13.0); NEUTROPHILS # (AUTO) 5.2 x10^3/uL (2.2-4.8); NEUTROPHILS % (AUTO) 73.5 % (42.0-75.0); RED BLOOD COUNT 3.26 X10^6/uL (3.5-5.4); RED CELL DISTRIBUTION WIDTH 14.8 % (11.6-16.5); WHITE BLOOD COUNT 7.1 X10^3/uL (3.6-10.0)
[2021-04-10 05:19] LABS: ALANINE AMINOTRANSFERASE 41 Units/L (12-78); ALBUMIN 2.7 g/dL (3.4-5.0); ALKALINE PHOSPHATASE 182 Units/L (46-116); ASPARTATE AMINO TRANSFERASE 42 Units/L (15-37); BLOOD UREA NITROGEN 12 mg/dL (7-18); CALCIUM 7.8 mg/dL (8.5-10.1); CARBON DIOXIDE 21.9 mmol/L (21-32); CHLORIDE 107 mmol/L (98-107); COR CA(FOR HYPOALB) 8.8 mg/dL (8.5-10.1); COR NA(FOR HYPERGLY) 140 mmol/L (136-145); SODIUM 139 mmol/L (136-145); TOTAL PROTEIN 7.4 g/dL (6.4-8.2); eGFR NON BLACK RACES > 60 (>60)
[2021-04-10] MEDS: BENADRYL CAP/TAB 25 MG PO PRN (09:30)
[2021-04-10] MEDS: VANCOMYCIN IV *PREMIX 1.5 G/300 ML BAG 1.5 G/300 ML PIGGYBACK IV SCH (09:30)
[2021-04-10] MEDS: DIFLUCAN PO SCH (09:30)
[2021-04-10] MEDS: COLACE CAP 100 MG PO SCH ×2 (09:30→21:04)
[2021-04-10] MEDS: ZOFRAN INJ 4 MG VIAL IVP PRN ×2 (09:31→17:55)
[2021-04-10] MEDS: DILAUDID INJ IVP PRN ×3 (09:31→22:03)
[2021-04-10] MEDS ORDERED: GENTAMICIN TOPICAL OINT TOP SCH (10:00)
[2021-04-10] MEDS: XYLOCAINE OINT 5% TOP SCH ×3 (15:04→22:04)
[2021-04-10] MEDS: GENTAMICIN TOPICAL CRM TOP SCH ×3 (15:04→22:04)
[2021-04-10] MEDS: VISTARIL PO PRN (17:55)
[2021-04-10] MEDS: NS 1,000 ML IV 1,000 ML IV SCH (18:23)
[2021-04-10] MEDS ORDERED: PHARMACY COMMENT IV NR (20:30)
[2021-04-10 21:17] LABS: CREATININE 0.92 mg/dL (0.55-1.02)
[2021-04-10 21:20] LABS: VANCOMYCIN,TROUGH 24.2 ug/mL (15-20)
[2021-04-11] MEDS: NS 1,000 ML IV 1,000 ML IV SCH ×4 (00:15→18:24)
[2021-04-11] MEDS: PERCOCET TAB 5/325 MG PO PRN (01:57)
[2021-04-11] MEDS: ZOFRAN INJ 4 MG VIAL IVP PRN ×3 (01:57→21:31)
[2021-04-11] MEDS: VISTARIL PO PRN ×2 (01:57→15:32)
[2021-04-11] MEDS: GENTAMICIN TOPICAL CRM TOP SCH (05:18)
[2021-04-11 06:32] LABS: BASOPHILS % (AUTO) 0.8 % (0.2-1.0); EOSINOPHILS # (AUTO) 0.2 x10^3/uL (0.0-0.2); EOSINOPHILS % (AUTO) 2.8 % (0.9-2.9); HEMATOCRIT 27.3 % (36.0-47.0); HEMOGLOBIN 9.1 g/dL (12.0-16.0); LYMPHOCYTES # (AUTO) 2.1 X10^3/uL (1.3-2.9); LYMPHOCYTES % (AUTO) 35.5 % (21.0-51.0); MEAN CORPUSCULAR HEMOGLOBIN 28.4 pg (27.0-34.0); MEAN CORPUSCULAR HGB CONC 33.5 g/dL (33.0-35.0); MEAN CORPUSCULAR VOLUME 84.9 fL (80.0-100.0); MEAN PLATELET VOLUME 7.9 fL (7.4-11.0); MONOCYTES # (AUTO) 0.3 x10^3/uL (0.3-0.8); MONOCYTES % (AUTO) 4.8 % (0.0-13.0); NEUTROPHILS # (AUTO) 3.4 x10^3/uL (2.2-4.8); NEUTROPHILS % (AUTO) 56.1 % (42.0-75.0); RED BLOOD COUNT 3.21 X10^6/uL (3.5-5.4); RED CELL DISTRIBUTION WIDTH 14.6 % (11.6-16.5)
[2021-04-11 06:48] LABS: ALANINE AMINOTRANSFERASE 47 Units/L (12-78); ALBUMIN 2.6 g/dL (3.4-5.0); ALKALINE PHOSPHATASE 202 Units/L (46-116); ASPARTATE AMINO TRANSFERASE 35 Units/L (15-37); BLOOD UREA NITROGEN 9 mg/dL (7-18); CALCIUM 8.1 mg/dL (8.5-10.1); CARBON DIOXIDE 23.7 mmol/L (21-32); CHLORIDE 108 mmol/L (98-107); COR CA(FOR HYPOALB) 9.2 mg/dL (8.5-10.1); CREATININE 0.85 mg/dL (0.55-1.02); SODIUM 140 mmol/L (136-145); TOTAL PROTEIN 7.2 g/dL (6.4-8.2); eGFR NON BLACK RACES > 60 (>60)
[2021-04-11] MEDS: VANCOMYCIN IV *PREMIX 1.25 G/250 ML BAG 1.25 G/250 ML PIGGYBACK IV SCH ×2 (08:52→21:12)
[2021-04-11] MEDS: DIFLUCAN PO SCH (08:53)
[2021-04-11] MEDS: COLACE CAP 100 MG PO SCH ×2 (08:53→21:11)
[2021-04-11] MEDS: DILAUDID INJ IVP PRN ×3 (10:07→21:38)
[2021-04-11] MEDS: BENADRYL CAP/TAB 25 MG PO PRN ×2 (10:07→23:24)
--- NOTE | 2021-04-11 10:10 | PCM.PROG ---
Progress Note - Progress Note for Day of Date of Exam: 04/10/21 - Subjective Subjective: WAS ADMITTED TO THE HOSPITAL FOR TREATMENT OF CELLULITIS OF THE LEFT FOOT WITH A NON-HEALING WOUND. PMH INCLUDES ANEMIA, DM II, HT, RHEUMATOID ARTHRITIS. SHE HAS RECENT AMPUTATION OF 3RD AND 4TH TOES TO THAT FOOT. TODAY, SHE IS ALERT AND ORIENTED, LYING IN BED ON MORNING ROUNDS. SHE C ONTINUES WITH COMPLAINTS OF PAIN AND SWELLING TO THE LEFT FOOD. ON EXAMINATION, HEART IS REGULAR IN RATE AND RHYTHM. BILATERAL LUNGS ARE CLEAR TO AUSCULTATION. ABDOMEN IS ROUND, SOFT, AND NON-TENDER WITH NORMAL BOWEL SOUNDS NOTED IN ALL QUADRANTS. LEFT FOOT NOTED WITH 1+ PITTING EDEMA. WOUND IS PACKED WITH IODIFORM. SHE CONTINUES TO HAVE SEROUS DRAINAGE FROM WOUND. HER VITALS THIS MORNING ARE: 98.0-97-16-99%-157/93. LABS WERE OBTAINED. ABNORMAL LAB VALUES INCLUDE THE FOLLOWING: RBC 3.26, HGB 9.2, HCT 27.6, GLUCOSE 124, CALCIUM 7.8, AST 42, ALK PHOS 182, ALBUMIN 2.7, GLOBULIN 4.7. BLOOD AND WOUND CULTURES ARE PENDING. SHE IS CURRENTLY RECEIVING NORMAL SALINE AT 80 ML/HR, VANCOMYCIN 1.5G IV BID, PERCOCET 5/325MG PO Q6H PRN, DILAUDID 2MG IV Q4H PRN, DIFLUCAN 100MG PO BID, OTBS ACHS, HUMULIN R SLIDING SCALE, COLACE 100MG PO BID, MILK OF MAGNESIA 15ML PO QID PRN, AND HER HOME MEDICATIONS WERE RESUMED. TODAY, WE WILL ORDER GENTAMICIN CREAM AND LIDOCAINE OINTMENT TO WOUND THREE TIMES A DAY. WOUND SHOULD BE COVERED WITH TELFA AND KISHOR AFTER APPLYING OINTMENTS. OTHERWISE, WE WILL CONTINUE WITH CURRENT PLAN OF CARE. WE PLAN TO FOLLOW UP WITH AM LABS AND CONTINUE TO MONITOR. TIME SPENT ON CLINICAL ASSESSMENT, REVIEWING LABS AND IMAGING, DECISION MAKING, AND DOCUMENTATION GREATER THAN 45 MINUTES. - Past Medical Family Social History Past Med/Fam/Surg Hx: No changes since H&P Allergies: Allergies Penicillins Allergy (Mild, Verified 12/30/20 10:45) RASH hives - Review of Systems ROS: No change since H&P - Vital Signs and I&O's Vital Signs: Temperature 98.1 F Pulse Rate [Right Radial] 93 Respiratory Rate 18 Blood Pressure [Right Arm] 168/84 Blood Pressure [Left Arm] 158/91 O2 Sat by Pulse Oximetry 97 Intake and Output: Intake & Output 04/08/21 04/09/21 04/10/21 04/11/21 11:59 11:59 11:59 11:59 Intake Total 1371 / 1371 1715 / 1715 2289 / 2289 Balance 1371 / 1371 1715 / 1715 2289 / 2286 - Physical Exam Oriented: Normal Eyes: Normal Ear: Normal Nose: Normal Throat: Normal Respiratory: Normal Cardiovascular: Tachycardia, Edema (LLE 1+ PITTING EDEMA ) : Normal Auscultation: Bowel Sounds: Normal Tenderness: Normal Skin: Tender, Hot, Wound (DIABETIC WOUND WITH TUNNELING, YELLOW SLOUGH, AND SEROUS DRAINAGE ) Musculoskeletal: Left, Foot, Swelling, Tender Psychiatric: Normal Mood Description: Calm Affect: Normal Speech Pattern: Clear, Appropriate - Laboratory and Diagnostics Result Diagrams: 04/11/21 05:42 04/11/21 05:42 Labs: 04/09/21 15:45 Foot - Left Wound Gram Stain - Final 04/09/21 15:45 Foot - Left Wound Culture - Preliminary 04/08/21 20:00 Blood Blood Culture - Preliminary 04/08/21 20:05 Blood Blood Culture - Preliminary Laboratory WBC 6.0 X10^3/uL (3.6-10.0) 04/11/21 05:42 RBC 3.21 X10^6/uL (3.5-5.4) L 04/11/21 05:42 Hgb 9.1 g/dL (12.0-16.0) L 04/11/21 05:42 Hct 27.3 % (36.0-47.0) L 04/11/21 05:42 MCV 84.9 fL (80.0-100.0) 04/11/21 05:42 MCH 28.4 pg (27.0-34.0) 04/11/21 05:42 MCHC 33.5 g/dL (33.0-35.0) 04/11/21 05:42 RDW 14.6 % (11.6-16.5) 04/11/21 05:42 Plt Count 296 X10^3/uL (150.0-450.0) 04/11/21 05:42 MPV 7.9 fL (7.4-11.0) 04/11/21 05:42 Neut % (Auto) 56.1 % (42.0-75.0) 04/11/21 05:42 Lymph % (Auto) 35.5 % (21.0-51.0) 04/11/21 05:42 [place] % (Auto) 4.8 % (0.0-13.0) 04/11/21 05:42 Eos % (Auto) 2.8 % (0.9-2.9) 04/11/21 05:42 Baso % (Auto) 0.8 % (0.2-1.0) 04/11/21 05:42 Neut # (Auto) 3.4 x10^3/uL (2.2-4.8) 04/11/21 05:42 Lymph # (Auto) 2.1 X10^3/uL (1.3-2.9) 04/11/21 05:42 [place] # (Auto) 0.3 x10^3/uL (0.3-0.8) 04/11/21 05:42 Eos # (Auto) 0.2 x10^3/uL (0.0-0.2) 04/11/21 05:42 Baso # (Auto) 0.0 X10^3/uL (0.0-0.1) 04/11/21 05:42 Absolute Nucleated RBC 0.0 /100WBC 04/11/21 05:42 ESR 83 MM/HOUR (0-20) H 04/08/21 20:00 Sodium 140 mmol/L (136-145) 04/11/21 05:42 Corrected Sodium TNP 04/11/21 05:42 Potassium 3.7 mmol/L (3.5-5.1) 04/11/21 05:42 Chloride 108 mmol/L (98-107) H 04/11/21 05:42 Carbon Dioxide 23.7 mmol/L (21-32) 04/11/21 05:42 BUN 9 mg/dL (7-18) 04/11/21 05:42 Creatinine 0.85 mg/dL (0.55-1.02) 04/11/21 05:42 Est GFR (MDRD) Af Amer > 60 (>60) 04/11/21 05:42 Est GFR (MDRD) Non-Af > 60 (>60) 04/11/21 05:42 Glucose 96 mg/dL (65-99) 04/11/21 05:42 POC Glucose (mg/dL) 96 mg/dL (65-99) 04/11/21 05:21 Calcium 8.1 mg/dL (8.5-10.1) L 04/11/21 05:42 Corrected Calcium 9.2 mg/dL (8.5-10.1) 04/11/21 05:42 Total Bilirubin 0.20 mg/dL (0.2-1.0) 04/11/21 05:42 AST 35 Units/L (15-37) 04/11/21 05:42 ALT 47 Units/L (12-78) 04/11/21 05:42 Alkaline Phosphatase 202 Units/L (46-116) H 04/11/21 05:42 C-Reactive Protein 44.20 mg/L (0-3.0) H 04/09/21 05:25 Total Protein 7.2 g/dL (6.4-8.2) 04/11/21 05:42 Albumin 2.6 g/dL (3.4-5.0) L 04/11/21 05:42 Globulin 4.6 g/dL (2.5-4.5) H 04/11/21 05:42 Albumin/Globulin Ratio 0.6 Ratio (1.1-2.1) L 04/11/21 05:42 Vancomycin Trough 24.2 ug/mL (15-20) H* 04/10/21 20:37 SARS CoV-2 RNA Rapid KRIS Negative (NEGATIVE) 04/08/21 17:53 - Plan (1) Cellulitis of foot, left Status: Acute Plan: WOUND CARE, NORMAL SALINE AT 80 ML/HR, VANCOMYCIN 1.5G IV BID, GENTAMICIN CREAM TID, LICOCAINE OINTMENT TID, PERCOCET 5/325MG PO Q6H PRN, DILAUDID 2MG IV Q4H PRN, DIFLUCAN 100MG PO BID, OTBS ACHS, HUMULIN R SLIDING SCALE, COLACE 100MG PO BID, MILK OF MAGNESIA 15ML PO QID PRN, AND HER HOME MEDICATIONS WERE RESUMED. 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
--- NOTE | 2021-04-11 10:13 | PCM.PROG ---
Progress Note - Progress Note for Day of Date of Exam: 04/11/21 - Subjective Subjective: WAS ADMITTED TO THE HOSPITAL FOR TREATMENT OF CELLULITIS OF THE LEFT FOOT WITH A NON-HEALING WOUND. PMH INCLUDES ANEMIA, DM II, HT, RHEUMATOID ARTHRITIS. SHE HAS RECENT AMPUTATION OF 3RD AND 4TH TOES TO THAT FOOT. TODAY, SHE IS ALERT AND ORIENTED, LYING IN BED ON MORNING ROUNDS. SHE C ONTINUES WITH COMPLAINTS OF PAIN AND SWELLING TO THE LEFT FOOD. ON EXAMINATION, HEART IS REGULAR IN RATE AND RHYTHM. BILATERAL LUNGS ARE CLEAR TO AUSCULTATION. ABDOMEN IS ROUND, SOFT, AND NON-TENDER WITH NORMAL BOWEL SOUNDS NOTED IN ALL QUADRANTS. LEFT FOOT NOTED WITH 1+ PITTING EDEMA. SHE CONTINUES TO HAVE SEROUS DRAINAGE FROM WOUND, ALTHOUGH SLIGHTLY DECREASED SINCE YESTERDAY. HER VITALS THIS MORNING ARE: 98.1-93-20-97%-158/91. LABS WERE OBTAINED. ABNORMAL LAB VALUES INCLUDE THE FOLLOWING: RBC 3.21, HGB 9.1, HCT 27.3, CHLORIDE 108, CALCIUM 8.1, ALK PHOS 202, ALBUMIN 2.6, GLOBULIN 4.6. BLOOD AND WOUND CULTURES ARE PENDING. SHE IS CURRENTLY RECEIVING NORMAL SALINE AT 80 ML/HR, VANCOMYCIN 1.5G IV BID, GENTAMICIN CREAM TID, LIDOCAINE OINTMENT TID, PERCOCET 5/325MG PO Q6H PRN, DIFLUCAN 100MG PO BID, OTBS ACHS, HUMULIN R SLIDING SCALE, COLACE 100MG PO BID, MILK OF MAGNESIA 15ML PO QID PRN, AND HER HOME MEDICATIONS WERE RESUMED. WOUND SHOULD BE COVERED WITH TELFA AND KISHOR AFTER APPLYING OINTMENTS. WE WILL CONSULT FOR FURTHER TREATMENT OF WOUND. OTHERWISE, WE WILL CONTINUE WITH CURRENT PLAN OF CARE. WE PLAN TO FOLLOW UP WITH AM LABS AND CONTINUE TO MONITOR. TIME SPENT ON CLINICAL ASSESSMENT, REVIEWING LABS AND IMAGING, DECISION MAKING, AND DOCUMENTATION GREATER THAN 45 MINUTES. - Past Medical Family Social History Past Med/Fam/Surg Hx: No changes since H&P Allergies: Allergies Penicillins Allergy (Mild, Verified 12/30/20 10:45) RASH hives - Review of Systems ROS: No change since H&P - Vital Signs and I&O's Vital Signs: Temperature 98.1 F Pulse Rate [Right Radial] 93 Respiratory Rate 18 Blood Pressure [Right Arm] 168/84 Blood Pressure [Left Arm] 158/91 O2 Sat by Pulse Oximetry 97 Intake and Output: Intake & Output 04/08/21 04/09/21 04/10/21 04/11/21 11:59 11:59 11:59 11:59 Intake Total 1371 / 1371 1715 / 1715 2289 / 228 Balance 1371 / 1371 1715 / 1715 2288 / 2288 - Physical Exam Oriented: Normal Eyes: Normal Ear: Normal Nose: Normal Throat: Normal Respiratory: Normal Cardiovascular: Tachycardia, Edema (LLE 1+ PITTING EDEMA ) : Normal Auscultation: Bowel Sounds: Normal Palpation: Normal Tenderness: Normal Skin: Tender, Hot, Wound (DIABETIC WOUND WITH TUNNELING, YELLOW SLOUGH, AND SEROUS DRAINAGE ) Musculoskeletal: Left, Foot, Swelling, Tender Psychiatric: Normal Mood Description: Calm Affect: Normal Speech Pattern: Clear, Appropriate - Laboratory and Diagnostics Result Diagrams: 04/11/21 05:42 04/11/21 05:42 Labs: 04/09/21 15:45 Foot - Left Wound Gram Stain - Final 04/09/21 15:45 Foot - Left Wound Culture - Preliminary 04/08/21 20:00 Blood Blood Culture - Preliminary 04/08/21 20:05 Blood Blood Culture - Preliminary Laboratory WBC 6.0 X10^3/uL (3.6-10.0) 04/11/21 05:42 RBC 3.21 X10^6/uL (3.5-5.4) L 04/11/21 05:42 Hgb 9.1 g/dL (12.0-16.0) L 04/11/21 05:42 Hct 27.3 % (36.0-47.0) L 04/11/21 05:42 MCV 84.9 fL (80.0-100.0) 04/11/21 05:42 MCH 28.4 pg (27.0-34.0) 04/11/21 05:42 MCHC 33.5 g/dL (33.0-35.0) 04/11/21 05:42 RDW 14.6 % (11.6-16.5) 04/11/21 05:42 Plt Count 296 X10^3/uL (150.0-450.0) 04/11/21 05:42 MPV 7.9 fL (7.4-11.0) 04/11/21 05:42 Neut % (Auto) 56.1 % (42.0-75.0) 04/11/21 05:42 Lymph % (Auto) 35.5 % (21.0-51.0) 04/11/21 05:42 [place] % (Auto) 4.8 % (0.0-13.0) 04/11/21 05:42 Eos % (Auto) 2.8 % (0.9-2.9) 04/11/21 05:42 Baso % (Auto) 0.8 % (0.2-1.0) 04/11/21 05:42 Neut # (Auto) 3.4 x10^3/uL (2.2-4.8) 04/11/21 05:42 Lymph # (Auto) 2.1 X10^3/uL (1.3-2.9) 04/11/21 05:42 [place] # (Auto) 0.3 x10^3/uL (0.3-0.8) 04/11/21 05:42 Eos # (Auto) 0.2 x10^3/uL (0.0-0.2) 04/11/21 05:42 Baso # (Auto) 0.0 X10^3/uL (0.0-0.1) 04/11/21 05:42 Absolute Nucleated RBC 0.0 /100WBC 04/11/21 05:42 ESR 83 MM/HOUR (0-20) H 04/08/21 20:00 Sodium 140 mmol/L (136-145) 04/11/21 05:42 Corrected Sodium TNP 04/11/21 05:42 Potassium 3.7 mmol/L (3.5-5.1) 04/11/21 05:42 Chloride 108 mmol/L (98-107) H 04/11/21 05:42 Carbon Dioxide 23.7 mmol/L (21-32) 04/11/21 05:42 BUN 9 mg/dL (7-18) 04/11/21 05:42 Creatinine 0.85 mg/dL (0.55-1.02) 04/11/21 05:42 Est GFR (MDRD) Af Amer > 60 (>60) 04/11/21 05:42 Est GFR (MDRD) Non-Af > 60 (>60) 04/11/21 05:42 Glucose 96 mg/dL (65-99) 04/11/21 05:42 POC Glucose (mg/dL) 96 mg/dL (65-99) 04/11/21 05:21 Calcium 8.1 mg/dL (8.5-10.1) L 04/11/21 05:42 Corrected Calcium 9.2 mg/dL (8.5-10.1) 04/11/21 05:42 Total Bilirubin 0.20 mg/dL (0.2-1.0) 04/11/21 05:42 AST 35 Units/L (15-37) 04/11/21 05:42 ALT 47 Units/L (12-78) 04/11/21 05:42 Alkaline Phosphatase 202 Units/L (46-116) H 04/11/21 05:42 C-Reactive Protein 44.20 mg/L (0-3.0) H 04/09/21 05:25 Total Protein 7.2 g/dL (6.4-8.2) 04/11/21 05:42 Albumin 2.6 g/dL (3.4-5.0) L 04/11/21 05:42 Globulin 4.6 g/dL (2.5-4.5) H 04/11/21 05:42 Albumin/Globulin Ratio 0.6 Ratio (1.1-2.1) L 04/11/21 05:42 Vancomycin Trough 24.2 ug/mL (15-20) H* 04/10/21 20:37 SARS CoV-2 RNA Rapid KRIS Negative (NEGATIVE) 04/08/21 17:53 - Plan (1) Cellulitis of foot, left Status: Acute Plan: WOUND CARE, NORMAL SALINE AT 80 ML/HR, VANCOMYCIN 1.5G IV BID, GENTAMICIN CREAM TID, LICOCAINE OINTMENT TID, PERCOCET 5/325MG PO Q6H PRN, DILAUDID 2MG IV Q4H PRN, DIFLUCAN 100MG PO BID, OTBS ACHS, HUMULIN R SLIDING SCALE, COLACE 100MG PO BID, MILK OF MAGNESIA 15ML PO QID PRN, AND HER HOME MEDICATIONS WERE RESUMED. 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
[2021-04-11] MEDS ORDERED: STERILE WATER IRRIGATION IR ONE (15:25)
[2021-04-11] MEDS ORDERED: HYDROGEN PEROXIDE 3% ONE (15:25)
[2021-04-11] MEDS: PHARMACY CONSULT - VANCOMYCIN XX SCH ×2 (15:40→22:50)
[2021-04-11] MEDS: NovoLIN R (or HumuLIN R) SUBCUT PRN (21:08)
[2021-04-12] MEDS: DILAUDID INJ IVP PRN ×3 (04:17→12:50)
[2021-04-12] MEDS: NS 1,000 ML IV 1,000 ML IV SCH ×2 (04:31→14:45)
[2021-04-12] MEDS: VISTARIL PO PRN (05:59)
[2021-04-12 06:54] LABS: BASOPHILS % (AUTO) 0.5 % (0.2-1.0); EOSINOPHILS # (AUTO) 0.3 x10^3/uL (0.0-0.2); EOSINOPHILS % (AUTO) 3.9 % (0.9-2.9); HEMOGLOBIN 9.3 g/dL (12.0-16.0); LYMPHOCYTES # (AUTO) 2.3 X10^3/uL (1.3-2.9); LYMPHOCYTES % (AUTO) 34.4 % (21.0-51.0); MEAN CORPUSCULAR HEMOGLOBIN 28.5 pg (27.0-34.0); MEAN CORPUSCULAR HGB CONC 33.2 g/dL (33.0-35.0); MEAN CORPUSCULAR VOLUME 85.9 fL (80.0-100.0); MEAN PLATELET VOLUME 7.8 fL (7.4-11.0); MONOCYTES # (AUTO) 0.4 x10^3/uL (0.3-0.8); MONOCYTES % (AUTO) 6.5 % (0.0-13.0); NEUTROPHILS # (AUTO) 3.6 x10^3/uL (2.2-4.8); NEUTROPHILS % (AUTO) 54.7 % (42.0-75.0); RED BLOOD COUNT 3.25 X10^6/uL (3.5-5.4); RED CELL DISTRIBUTION WIDTH 14.7 % (11.6-16.5); WHITE BLOOD COUNT 6.6 X10^3/uL (3.6-10.0)
[2021-04-12 07:02] LABS: ALANINE AMINOTRANSFERASE 43 Units/L (12-78); ALBUMIN 2.8 g/dL (3.4-5.0); ALKALINE PHOSPHATASE 185 Units/L (46-116); ASPARTATE AMINO TRANSFERASE 30 Units/L (15-37); BLOOD UREA NITROGEN 11 mg/dL (7-18); CARBON DIOXIDE 23.2 mmol/L (21-32); CHLORIDE 108 mmol/L (98-107); SODIUM 139 mmol/L (136-145); TOTAL PROTEIN 7.5 g/dL (6.4-8.2); eGFR NON BLACK RACES > 60 (>60)
[2021-04-12] MEDS: BENADRYL CAP/TAB 25 MG PO PRN (08:15)
[2021-04-12] MEDS: DIFLUCAN PO SCH (08:15)
[2021-04-12] MEDS: VANCOMYCIN IV *PREMIX 1.25 G/250 ML BAG 1.25 G/250 ML PIGGYBACK IV SCH (08:15)
[2021-04-12] MEDS: COLACE CAP 100 MG PO SCH ×2 (08:15→20:52)
[2021-04-12] MEDS ORDERED: PHARMACY COMMENT IV ONE (08:30)
--- NOTE | 2021-04-12 11:14 | PCM.PROG ---
Progress Note - Progress Note for Day of Date of Exam: 04/12/21 - Subjective Subjective: WAS ADMITTED TO THE HOSPITAL FOR TREATMENT OF CELLULITIS OF THE LEFT FOOT WITH A NON-HEALING WOUND. PMH INCLUDES ANEMIA, DM II, HT, RHEUMATOID ARTHRITIS. SHE HAS RECENT AMPUTATION OF 3RD AND 4TH TOES TO THAT FOOT. TODAY, SHE IS ALERT AND ORIENTED, LYING IN BED ON MORNING ROUNDS. SHE C ONTINUES WITH COMPLAINTS OF PAIN AND SWELLING TO THE LEFT FOOD. ON EXAMINATION, HEART IS REGULAR IN RATE AND RHYTHM. BILATERAL LUNGS ARE CLEAR TO AUSCULTATION. ABDOMEN IS ROUND, SOFT, AND NON-TENDER WITH NORMAL BOWEL SOUNDS NOTED IN ALL QUADRANTS. LEFT FOOT NOTED WITH 1+ PITTING EDEMA. DRESSING IS INTACT. THERE IS SEROSANGUINEOUS DRAINAGE FROM WOUND TODAY. HER VITALS THIS MORNING ARE: 98.5-92-20-97%-173/90. LABS WERE OBTAINED. ABNORMAL LAB VALUES INCLUDE THE FOLLOWING: RBC 3.25, HGB 9.3, HCT 28.0, CHLORIDE 108, GLUCOSE 102, CALCIUM 8.0, ALK PHOS 185, ALBUMIN 2.8, GLOBULIN 4.7. BLOOD AND WOUND CULTURES ARE PENDING. SHE IS CURRENTLY RECEIVING NORMAL SALINE AT 80 ML/HR, VANCOMYCIN 1.5G IV BID, PERCOCET 5/325MG PO Q6H PRN, DIFLUCAN 100MG PO BID, OTBS ACHS, HUMULIN R SLIDING SCALE, COLACE 100MG PO BID, MILK OF MAGNESIA 15ML PO QID PRN, AND HER HOME MEDICATIONS WERE RESUMED. PLANS TO DEBRIDE THE WOUND. WE ARE IN AGREEMENT WITH PLANS. OTHERWISE, WE WILL CONTINUE WITH CURRENT PLAN OF CARE. WE PLAN TO FOLLOW UP WITH AM LABS AND CONTINUE TO MONITOR. TIME SPENT ON CLINICAL ASSESSMENT, REVIEWING LABS AND IMAGING, DECISION MAKING, AND DOCUMENTATION GREATER THAN 45 MINUTES. - Past Medical Family Social History Past Med/Fam/Surg Hx: No changes since H&P Allergies: Allergies Penicillins Allergy (Mild, Verified 12/30/20 10:45) RASH hives - Review of Systems ROS: No change since H&P - Vital Signs and I&O's Vital Signs: Temperature 98.5 F Pulse Rate [Right Radial] 92 Respiratory Rate 20 Blood Pressure [Right Arm] 168/84 Blood Pressure [Left Arm] 173/90 O2 Sat by Pulse Oximetry 97 Intake and Output: Intake & Output 04/09/21 04/10/21 04/11/21 04/12/21 11:59 11:59 11:59 11:59 Intake Total 1371 / 1371 1715 / 1714 2289 / 2288 3409 / 340 Balance 1371 / 1371 171 / 1714 2288 / 2288 340 / 3409 - Physical Exam Oriented: Normal Eyes: Normal Ear: Normal Nose: Normal Throat: Normal Respiratory: Normal Cardiovascular: Tachycardia, Edema (LLE 1+ PITTING EDEMA ) : Normal Auscultation: Bowel Sounds: Normal Tenderness: Normal Skin: Tender, Hot, Wound (DIABETIC WOUND WITH TUNNELING, YELLOW SLOUGH, AND SEROUS DRAINAGE ) Musculoskeletal: Left, Foot, Swelling, Tender Psychiatric: Normal Mood Description: Calm Affect: Normal Speech Pattern: Clear, Appropriate - Laboratory and Diagnostics Result Diagrams: 04/12/21 06:04 04/12/21 06:04 Labs: 04/09/21 15:45 Foot - Left Wound Gram Stain - Final 04/09/21 15:45 Foot - Left Wound Culture - Preliminary Methicillin Resis Staph Aureus 04/08/21 20:00 Blood Blood Culture - Preliminary 04/08/21 20:05 Blood Blood Culture - Preliminary Laboratory WBC 6.6 X10^3/uL (3.6-10.0) 04/12/21 06:04 RBC 3.25 X10^6/uL (3.5-5.4) L 04/12/21 06:04 Hgb 9.3 g/dL (12.0-16.0) L 04/12/21 06:04 Hct 28.0 % (36.0-47.0) L 04/12/21 06:04 MCV 85.9 fL (80.0-100.0) 04/12/21 06:04 MCH 28.5 pg (27.0-34.0) 04/12/21 06:04 MCHC 33.2 g/dL (33.0-35.0) 04/12/21 06:04 RDW 14.7 % (11.6-16.5) 04/12/21 06:04 Plt Count 315 X10^3/uL (150.0-450.0) 04/12/21 06:04 MPV 7.8 fL (7.4-11.0) 04/12/21 06:04 Neut % (Auto) 54.7 % (42.0-75.0) 04/12/21 06:04 Lymph % (Auto) 34.4 % (21.0-51.0) 04/12/21 06:04 [place] % (Auto) 6.5 % (0.0-13.0) 04/12/21 06:04 Eos % (Auto) 3.9 % (0.9-2.9) H 04/12/21 06:04 Baso % (Auto) 0.5 % (0.2-1.0) 04/12/21 06:04 Neut # (Auto) 3.6 x10^3/uL (2.2-4.8) 04/12/21 06:04 Lymph # (Auto) 2.3 X10^3/uL (1.3-2.9) 04/12/21 06:04 [place] # (Auto) 0.4 x10^3/uL (0.3-0.8) 04/12/21 06:04 Eos # (Auto) 0.3 x10^3/uL (0.0-0.2) H 04/12/21 06:04 Baso # (Auto) 0.0 X10^3/uL (0.0-0.1) 04/12/21 06:04 Absolute Nucleated RBC 0.1 /100WBC 04/12/21 06:04 ESR 83 MM/HOUR (0-20) H 04/08/21 20:00 Sodium 139 mmol/L (136-145) 04/12/21 06:04 Corrected Sodium TNP 04/12/21 06:04 Potassium 3.9 mmol/L (3.5-5.1) 04/12/21 06:04 Chloride 108 mmol/L (98-107) H 04/12/21 06:04 Carbon Dioxide 23.2 mmol/L (21-32) 04/12/21 06:04 BUN 11 mg/dL (7-18) 04/12/21 06:04 Creatinine 0.90 mg/dL (0.55-1.02) 04/12/21 06:04 Est GFR (MDRD) Af Amer > 60 (>60) 04/12/21 06:04 Est GFR (MDRD) Non-Af > 60 (>60) 04/12/21 06:04 Glucose 102 mg/dL (65-99) H 04/12/21 06:04 POC Glucose (mg/dL) 90 mg/dL (65-99) 04/12/21 10:52 Calcium 8.0 mg/dL (8.5-10.1) L 04/12/21 06:04 Corrected Calcium 9.0 mg/dL (8.5-10.1) 04/12/21 06:04 Total Bilirubin 0.20 mg/dL (0.2-1.0) 04/12/21 06:04 AST 30 Units/L (15-37) 04/12/21 06:04 ALT 43 Units/L (12-78) 04/12/21 06:04 Alkaline Phosphatase 185 Units/L (46-116) H 04/12/21 06:04 C-Reactive Protein 44.20 mg/L (0-3.0) H 04/09/21 05:25 Total Protein 7.5 g/dL (6.4-8.2) 04/12/21 06:04 Albumin 2.8 g/dL (3.4-5.0) L 04/12/21 06:04 Globulin 4.7 g/dL (2.5-4.5) H 04/12/21 06:04 Albumin/Globulin Ratio 0.6 Ratio (1.1-2.1) L 04/12/21 06:04 Vancomycin Trough 24.2 ug/mL (15-20) H* 04/10/21 20:37 SARS CoV-2 RNA Rapid KRIS Negative (NEGATIVE) 04/08/21 17:53 - Plan (1) Cellulitis of foot, left Status: Acute Plan: WOUND CARE, NORMAL SALINE AT 80 ML/HR, VANCOMYCIN 1.5G IV BID, PERCOCET 5/325MG PO Q6H PRN, DILAUDID 2MG IV Q4H PRN, DIFLUCAN 100MG PO BID, OTBS ACHS, HUMULIN R SLIDING SCALE, COLACE 100MG PO BID, MILK OF MAGNESIA 15ML PO QID PRN, AND HER HOME MEDICATIONS WERE RESUMED. (2) Diabetic ulcer of left foot Status: Acute Qualifiers: Diabetic foot ulcer location: other Diabetes mellitus type: type 2 Non- pressure ulcer stage: unspecified non-pressure ulcer stage Qualified Code(s): E11.621 - Type 2 diabetes mellitus with foot ulcer; L97.529 - Non-pressure chronic ulcer of other part of left foot with unspecified severity (3) Anemia Status: Chronic Qualifiers: Anemia type: unspecified type Qualified Code(s): D64.9 - Anemia, unspecified (4) Diabetes mellitus, type 2 Status: Chronic Qualifiers: Diabetes mellitus adjunct faculty for medical terminology insulin use: with adjunct faculty for medical terminology use Diabetes mellitus complication status: with hyperglycemia Qualified Code(s): E11.65 - Type 2 diabetes mellitus with hyperglycemia; Z79.4 - custodial (current) use of insulin (5) Essential hypertension Status: Chronic (6) Rheumatoid arthritis Status: Chronic Qualifiers: Rheumatoid arthritis location: unspecified site Rheumatoid factor presence: unspecified presence Qualified Code(s): M06.9 - Rheumatoid arthritis, unspecified
--- NOTE | 2021-04-12 12:17 | DR.PROGNOT ---
Hospital Progress Notes - Progress Note for Day of: Progress Note Date: 04/12/21 - Chief Complaint Chief Complaint: Lt foot pain is less today . mild drainage . BS is controlled . - Past Medical Family Social History Past Med/Fam/Surg Hx: No changes since H&P Allergies: Allergies Penicillins Allergy (Mild, Verified 12/30/20 10:45) RASH hives - Review Of Systems ROS: No change since H&P - Vital Signs Vital Signs: Temperature 97.6 F Pulse Rate [Right Radial] 96 Respiratory Rate 20 Blood Pressure [Right Arm] 168/84 Blood Pressure [Left Arm] 166/97 O2 Sat by Pulse Oximetry 100 - Physical Exam Oriented: Normal Eyes: Normal Ear: Normal Nose: Normal Throat: Normal Respiratory: Normal Cardiovascular: Tachycardia, Edema (LLE 1+ PITTING EDEMA ) : Normal GI:Auscultation: Normal GI:Palpation: Normal GI: Tenderness: Normal Skin: Tender, Hot, Wound (open wound 5x4 cm Lt foot , YELLOW SLOUGH, AND SEROUS DRAINAGE ) Musculoskeletal: Left, Foot, Swelling, Tender Psychiatric: Normal Mood Description: Calm Affect: Normal Speech Pattern: Clear, Appropriate - Laboratory and Diagnostics Result Diagrams: 04/12/21 06:04 04/12/21 06:04 Labs: 04/09/21 15:45 Foot - Left Wound Gram Stain - Final 04/09/21 15:45 Foot - Left Wound Culture - Preliminary Methicillin Resis Staph Aureus 04/08/21 20:00 Blood Blood Culture - Preliminary 04/08/21 20:05 Blood Blood Culture - Preliminary Laboratory WBC 6.6 X10^3/uL (3.6-10.0) 04/12/21 06:04 RBC 3.25 X10^6/uL (3.5-5.4) L 04/12/21 06:04 Hgb 9.3 g/dL (12.0-16.0) L 04/12/21 06:04 Hct 28.0 % (36.0-47.0) L 04/12/21 06:04 MCV 85.9 fL (80.0-100.0) 04/12/21 06:04 MCH 28.5 pg (27.0-34.0) 04/12/21 06:04 MCHC 33.2 g/dL (33.0-35.0) 04/12/21 06:04 RDW 14.7 % (11.6-16.5) 04/12/21 06:04 Plt Count 315 X10^3/uL (150.0-450.0) 04/12/21 06:04 MPV 7.8 fL (7.4-11.0) 04/12/21 06:04 Neut % (Auto) 54.7 % (42.0-75.0) 04/12/21 06:04 Lymph % (Auto) 34.4 % (21.0-51.0) 04/12/21 06:04 [place] % (Auto) 6.5 % (0.0-13.0) 04/12/21 06:04 Eos % (Auto) 3.9 % (0.9-2.9) H 04/12/21 06:04 Baso % (Auto) 0.5 % (0.2-1.0) 04/12/21 06:04 Neut # (Auto) 3.6 x10^3/uL (2.2-4.8) 04/12/21 06:04 Lymph # (Auto) 2.3 X10^3/uL (1.3-2.9) 04/12/21 06:04 [place] # (Auto) 0.4 x10^3/uL (0.3-0.8) 04/12/21 06:04 Eos # (Auto) 0.3 x10^3/uL (0.0-0.2) H 04/12/21 06:04 Baso # (Auto) 0.0 X10^3/uL (0.0-0.1) 04/12/21 06:04 Absolute Nucleated RBC 0.1 /100WBC 04/12/21 06:04 ESR 83 MM/HOUR (0-20) H 04/08/21 20:00 Sodium 139 mmol/L (136-145) 04/12/21 06:04 Corrected Sodium TNP 04/12/21 06:04 Potassium 3.9 mmol/L (3.5-5.1) 04/12/21 06:04 Chloride 108 mmol/L (98-107) H 04/12/21 06:04 Carbon Dioxide 23.2 mmol/L (21-32) 04/12/21 06:04 BUN 11 mg/dL (7-18) 04/12/21 06:04 Creatinine 0.90 mg/dL (0.55-1.02) 04/12/21 06:04 Est GFR (MDRD) Af Amer > 60 (>60) 04/12/21 06:04 Est GFR (MDRD) Non-Af > 60 (>60) 04/12/21 06:04 Glucose 102 mg/dL (65-99) H 04/12/21 06:04 POC Glucose (mg/dL) 90 mg/dL (65-99) 04/12/21 10:52 Calcium 8.0 mg/dL (8.5-10.1) L 04/12/21 06:04 Corrected Calcium 9.0 mg/dL (8.5-10.1) 04/12/21 06:04 Total Bilirubin 0.20 mg/dL (0.2-1.0) 04/12/21 06:04 AST 30 Units/L (15-37) 04/12/21 06:04 ALT 43 Units/L (12-78) 04/12/21 06:04 Alkaline Phosphatase 185 Units/L (46-116) H 04/12/21 06:04 C-Reactive Protein 44.20 mg/L (0-3.0) H 04/09/21 05:25 Total Protein 7.5 g/dL (6.4-8.2) 04/12/21 06:04 Albumin 2.8 g/dL (3.4-5.0) L 04/12/21 06:04 Globulin 4.7 g/dL (2.5-4.5) H 04/12/21 06:04 Albumin/Globulin Ratio 0.6 Ratio (1.1-2.1) L 04/12/21 06:04 Vancomycin Trough 24.2 ug/mL (15-20) H* 04/10/21 20:37 SARS CoV-2 RNA Rapid KRIS Negative (NEGATIVE) 04/08/21 17:53 - Assessment and Plan 1: infected diabetic wound Lt foot . s/p amputation 3,4 th toes Lt foot . DM with neuropathy . for more debridement on wednesday .. - Problem Patient Problems: Patient Problems (This Medical Record has been edited. Action required.) Diabetic ulcer of left foot (Acute) E11.621, L97.529 Anemia (Chronic) D64.9 Cellulitis of foot, left (Acute) L03.116 Diabetes mellitus, type 2 (Chronic) E11.9 Essential hypertension (Chronic) I10 Rheumatoid arthritis (Chronic) M06.9
[2021-04-12] MEDS ORDERED: HYDROGEN PEROXIDE 3% ONE (12:37)
[2021-04-12] MEDS ORDERED: STERILE WATER IRRIGATION IR ONE (12:37)
[2021-04-12] MEDS: ZOFRAN INJ 4 MG VIAL IVP PRN ×2 (13:57→21:57)
[2021-04-12] MEDS: NovoLIN R (or HumuLIN R) SUBCUT PRN (20:55)
[2021-04-12 20:56] LABS: CREATININE 0.81 mg/dL (0.55-1.02)
[2021-04-12 21:01] LABS: VANCOMYCIN,TROUGH 21.7 ug/mL (15-20)
[2021-04-12] MEDS: PHARMACY CONSULT - VANCOMYCIN XX SCH (21:29)
[2021-04-12] MEDS: CYMBALTA PO SCH (21:43)
[2021-04-12] MEDS: LIPITOR TAB 10 MG PO SCH (21:44)
[2021-04-12] MEDS: COZAAR PO SCH (21:44)
[2021-04-12] MEDS ORDERED: PHARMACY CONSULT - VANCOMYCIN XX SCH (22:00)
[2021-04-13] MEDS: NS 1,000 ML IV 1,000 ML IV SCH ×4 (01:04→17:35)
[2021-04-13] MEDS: NovoLIN R (or HumuLIN R) SUBCUT PRN (06:15)
[2021-04-13] MEDS: ZOFRAN INJ 4 MG VIAL IVP PRN ×3 (06:27→20:14)
[2021-04-13 06:50] LABS: BASOPHILS % (AUTO) 0.5 % (0.2-1.0); EOSINOPHILS # (AUTO) 0.2 x10^3/uL (0.0-0.2); EOSINOPHILS % (AUTO) 3.3 % (0.9-2.9); HEMATOCRIT 27.8 % (36.0-47.0); HEMOGLOBIN 9.4 g/dL (12.0-16.0); LYMPHOCYTES # (AUTO) 1.3 X10^3/uL (1.3-2.9); LYMPHOCYTES % (AUTO) 18.8 % (21.0-51.0); MEAN CORPUSCULAR HEMOGLOBIN 28.7 pg (27.0-34.0); MEAN CORPUSCULAR VOLUME 84.5 fL (80.0-100.0); MEAN PLATELET VOLUME 7.7 fL (7.4-11.0); MONOCYTES # (AUTO) 0.5 x10^3/uL (0.3-0.8); MONOCYTES % (AUTO) 6.4 % (0.0-13.0); NEUTROPHILS # (AUTO) 5.1 x10^3/uL (2.2-4.8); RED BLOOD COUNT 3.29 X10^6/uL (3.5-5.4); RED CELL DISTRIBUTION WIDTH 14.9 % (11.6-16.5); WHITE BLOOD COUNT 7.1 X10^3/uL (3.6-10.0)
[2021-04-13] MEDS ORDERED: PHARMACY CONSULT - VANCOMYCIN XX SCH (07:00)
[2021-04-13 07:03] LABS: ALANINE AMINOTRANSFERASE 43 Units/L (12-78); ALBUMIN 2.8 g/dL (3.4-5.0); ALKALINE PHOSPHATASE 182 Units/L (46-116); ASPARTATE AMINO TRANSFERASE 26 Units/L (15-37); BLOOD UREA NITROGEN 11 mg/dL (7-18); CALCIUM 8.1 mg/dL (8.5-10.1); CHLORIDE 106 mmol/L (98-107); COR CA(FOR HYPOALB) 9.1 mg/dL (8.5-10.1); COR NA(FOR HYPERGLY) 140 mmol/L (136-145); CREATININE 0.94 mg/dL (0.55-1.02); SODIUM 138 mmol/L (136-145); TOTAL PROTEIN 7.5 g/dL (6.4-8.2); eGFR NON BLACK RACES > 60 (>60)
[2021-04-13] MEDS ORDERED: GLUCOPHAGE ONE ×2 (07:58→16:00)
[2021-04-13] MEDS: COZAAR PO SCH (09:27)
[2021-04-13] MEDS: GLUCOPHAGE PO SCH ×2 (09:27→16:05)
[2021-04-13] MEDS: COLACE CAP 100 MG PO SCH ×2 (09:27→21:21)
[2021-04-13] MEDS: CYMBALTA PO SCH (09:28)
[2021-04-13] MEDS: DIFLUCAN PO SCH (09:28)
[2021-04-13] MEDS: DILAUDID INJ IVP PRN ×2 (09:28→20:21)
[2021-04-13] MEDS: VANCOMYCIN IV *PREMIX 1 G/200 ML BAG 1 G/200 ML PIGGYBACK IV SCH ×2 (09:28→20:15)
--- NOTE | 2021-04-13 09:35 | PCM.PROG ---
Progress Note - Progress Note for Day of Date of Exam: 04/13/21 - Subjective Subjective: WAS ADMITTED TO THE HOSPITAL FOR TREATMENT OF CELLULITIS OF THE LEFT FOOT WITH A NON-HEALING DIABETIC ULCER. PMH INCLUDES ANEMIA, DM II, HT, RHEUMATOID ARTHRITIS. SHE HAS RECENT AMPUTATION OF 3RD AND 4TH TOES TO THAT FOOT. TODAY, SHE IS ALERT AND ORIENTED, LYING IN BED ON MORNING ROUNDS. SHE CONTINUES WITH COMPLAINTS OF PAIN AND SWELLING TO THE LEFT FOOD. ON EXAMINATION, HEART IS REGULAR IN RATE AND RHYTHM. BILATERAL LUNGS ARE CLEAR TO AUSCULTATION. ABDOMEN IS ROUND, SOFT, AND NON-TENDER WITH NORMAL BOWEL SOUNDS NOTED IN ALL QUADRANTS. LEFT FOOT NOTED WITH 1+ PITTING EDEMA. DRESSING IS INTACT. HER VITALS THIS MORNING ARE: 98.3-99-20-98%-183/99. LABS WERE OBTAINED. ABNORMAL LAB VALUES INCLUDE THE FOLLOWING: RBC 3.29, HGB 9.4, HCT 27.8, GLUCOSE 166, CALCIUM 8.1, ALK PHOS 182, ALBUMIN 2.8. WOUND CULTURES ARE POSITIVE FOR GROWTH OF STREP AGALACTIAE AND MRSA. SHE IS CURRENTLY RECEIVING NORMAL SALINE AT 80 ML/HR, VANCOMYCIN 1.5G IV BID, PERCOCET 5/325MG PO Q6H PRN, DIFLUCAN 100MG PO BID, OTBS ACHS, HUMULIN R SLIDING SCALE, COLACE 100MG PO BID, MILK OF MAGNESIA 15ML PO QID PRN, AND HER HOME MEDICATIONS WERE RESUMED. PLANS TO DEBRIDE THE WOUND IN THE OR TOMORROW. WE ARE IN AGREEMENT WITH PLANS. WE WILL ADD LEVAQUIN 500MG IV DAILY TODAY. OTHERWISE, WE WILL CONTINUE WITH CURRENT PLAN OF CARE. WE PLAN TO FOLLOW UP WITH AM LABS AND CONTINUE TO MONITOR. TIME SPENT ON CLINICAL ASSESSMENT, REVIEWING LABS AND IMAGING, DECISION MAKING, AND DOCUMENTATION GREATER THAN 45 MINUTES. - Past Medical Family Social History Past Med/Fam/Surg Hx: No changes since H&P Allergies: Allergies Penicillins Allergy (Mild, Verified 12/30/20 10:45) RASH hives - Review of Systems ROS: No change since H&P - Vital Signs and I&O's Vital Signs: Temperature 98.3 F Pulse Rate [Right Radial] 99 Respiratory Rate 20 Blood Pressure [Right Arm] 168/84 Blood Pressure [Left Arm] 183/99 O2 Sat by Pulse Oximetry 98 Intake and Output: Intake & Output 04/10/21 04/11/21 04/12/21 04/13/21 11:59 11:59 11:59 11:59 Intake Total 1715 / 1715 2289 / 2289 3409 / 3409 3782 / 3782 Balance 1715 / 1715 2289 / 2289 3409 / 3409 3782 / 3782 - Physical Exam Oriented: Normal Eyes: Normal Ear: Normal Nose: Normal Throat: Normal Respiratory: Normal Cardiovascular: Tachycardia, Edema (LLE 1+ PITTING EDEMA ) : Normal Auscultation: Bowel Sounds: Normal Tenderness: Normal Skin: Tender, Hot, Wound (open wound 5x4 cm Lt foot , YELLOW SLOUGH, AND SEROUS DRAINAGE ) Musculoskeletal: Left, Foot, Swelling, Tender Psychiatric: Normal Mood Description: Calm Affect: Normal Speech Pattern: Clear, Appropriate - Laboratory and Diagnostics Result Diagrams: 04/13/21 05:44 04/13/21 05:44 Labs: 04/09/21 15:45 Foot - Left Wound Gram Stain - Final 04/09/21 15:45 Foot - Left Wound Culture - Final Strep Agalactiae - (Group B) Methicillin Resis Staph Aureus 04/08/21 20:00 Blood Blood Culture - Preliminary 04/08/21 20:05 Blood Blood Culture - Preliminary Laboratory WBC 7.1 X10^3/uL (3.6-10.0) 04/13/21 05:44 RBC 3.29 X10^6/uL (3.5-5.4) L 04/13/21 05:44 Hgb 9.4 g/dL (12.0-16.0) L 04/13/21 05:44 Hct 27.8 % (36.0-47.0) L 04/13/21 05:44 MCV 84.5 fL (80.0-100.0) 04/13/21 05:44 MCH 28.7 pg (27.0-34.0) 04/13/21 05:44 MCHC 34.0 g/dL (33.0-35.0) 04/13/21 05:44 RDW 14.9 % (11.6-16.5) 04/13/21 05:44 Plt Count 317 X10^3/uL (150.0-450.0) 04/13/21 05:44 MPV 7.7 fL (7.4-11.0) 04/13/21 05:44 Neut % (Auto) 71.0 % (42.0-75.0) 04/13/21 05:44 Lymph % (Auto) 18.8 % (21.0-51.0) L 04/13/21 05:44 [place] % (Auto) 6.4 % (0.0-13.0) 04/13/21 05:44 Eos % (Auto) 3.3 % (0.9-2.9) H 04/13/21 05:44 Baso % (Auto) 0.5 % (0.2-1.0) 04/13/21 05:44 Neut # (Auto) 5.1 x10^3/uL (2.2-4.8) H 04/13/21 05:44 Lymph # (Auto) 1.3 X10^3/uL (1.3-2.9) 04/13/21 05:44 [place] # (Auto) 0.5 x10^3/uL (0.3-0.8) 04/13/21 05:44 Eos # (Auto) 0.2 x10^3/uL (0.0-0.2) 04/13/21 05:44 Baso # (Auto) 0.0 X10^3/uL (0.0-0.1) 04/13/21 05:44 Absolute Nucleated RBC 0.0 /100WBC 04/13/21 05:44 ESR 83 MM/HOUR (0-20) H 04/08/21 20:00 Sodium 138 mmol/L (136-145) 04/13/21 05:44 Corrected Sodium 140 mmol/L (136-145) 04/13/21 05:44 Potassium 3.8 mmol/L (3.5-5.1) 04/13/21 05:44 Chloride 106 mmol/L (98-107) 04/13/21 05:44 Carbon Dioxide 24.0 mmol/L (21-32) 04/13/21 05:44 BUN 11 mg/dL (7-18) 04/13/21 05:44 Creatinine 0.94 mg/dL (0.55-1.02) 04/13/21 05:44 Est GFR (MDRD) Af Amer > 60 (>60) 04/13/21 05:44 Est GFR (MDRD) Non-Af > 60 (>60) 04/13/21 05:44 Glucose 166 mg/dL (65-99) H 04/13/21 05:44 POC Glucose (mg/dL) 162 mg/dL (65-99) H 04/13/21 05:59 Calcium 8.1 mg/dL (8.5-10.1) L 04/13/21 05:44 Corrected Calcium 9.1 mg/dL (8.5-10.1) 04/13/21 05:44 Total Bilirubin 0.20 mg/dL (0.2-1.0) 04/13/21 05:44 AST 26 Units/L (15-37) 04/13/21 05:44 ALT 43 Units/L (12-78) 04/13/21 05:44 Alkaline Phosphatase 182 Units/L (46-116) H 04/13/21 05:44 C-Reactive Protein 44.20 mg/L (0-3.0) H 04/09/21 05:25 Total Protein 7.5 g/dL (6.4-8.2) 04/13/21 05:44 Albumin 2.8 g/dL (3.4-5.0) L 04/13/21 05:44 Globulin 4.7 g/dL (2.5-4.5) H 04/13/21 05:44 Albumin/Globulin Ratio 0.6 Ratio (1.1-2.1) L 04/13/21 05:44 Vancomycin Trough 21.7 ug/mL (15-20) H* 04/12/21 20:23 SARS CoV-2 RNA Rapid KRIS Negative (NEGATIVE) 04/08/21 17:53 - Plan (1) Cellulitis of foot, left Status: Acute Plan: WOUND CARE, NORMAL SALINE AT 80 ML/HR, VANCOMYCIN IV, LEVAQUIN 500MG IV DAILY, PERCOCET 5/325MG PO Q6H PRN, DILAUDID 2MG IV Q4H PRN, DIFLUCAN 100MG PO BID, OTBS ACHS, HUMULIN R SLIDING SCALE, COLACE 100MG PO BID, MILK OF MAGNESIA 15ML PO QID PRN, AND HER HOME MEDICATIONS WERE RESUMED. (2) Diabetic ulcer of left foot Status: Acute Qualifiers: Diabetic foot ulcer location: other Diabetes mellitus type: type 2 Non- pressure ulcer stage: unspecified non-pressure ulcer stage Qualified Code(s): E11.621 - Type 2 diabetes mellitus with foot ulcer; L97.529 - Non-pressure chronic ulcer of other part of left foot with unspecified severity (3) Anemia Status: Chronic Qualifiers: Anemia type: unspecified type Qualified Code(s): D64.9 - Anemia, unspeci fied (4) Diabetes mellitus, type 2 Status: Chronic Qualifiers: Diabetes mellitus technician terminal and repeater insulin use: with prison use Diabetes mellitus complication status: with hyperglycemia Qualified Code(s): E11.65 - Type 2 diabetes mellitus with hyperglycemia; Z79.4 - technician terminal and repeater (current) use of insulin (5) Essential hypertension Status: Chronic (6) Rheumatoid arthritis Status: Chronic Qualifiers: Rheumatoid arthritis location: unspecified site Rheumatoid factor presence: unspecified presence Qualified Code(s): M06.9 - Rheumatoid arthritis, unspecified
--- NOTE | 2021-04-13 09:39 | DR.PROGNOT ---
Hospital Progress Notes - Progress Note for Day of: Progress Note Date: 04/13/21 - Chief Complaint Chief Complaint: c/o nausea this am .. Lt foot pain is less today . mild drainage . BS is controlled . Vanco level 21. cultures showed MRSA - Past Medical Family Social History Past Med/Fam/Surg Hx: No changes since H&P Allergies: Allergies Penicillins Allergy (Mild, Verified 12/30/20 10:45) RASH hives - Review Of Systems ROS: No change since H&P - Vital Signs Vital Signs: Temperature 98.3 F Pulse Rate [Right Radial] 99 Respiratory Rate 20 Blood Pressure [Right Arm] 168/84 Blood Pressure [Left Arm] 183/99 O2 Sat by Pulse Oximetry 98 - Physical Exam Oriented: Normal Eyes: Normal Ear: Normal Nose: Normal Throat: Normal Respiratory: Normal Cardiovascular: Tachycardia, Edema (LLE 1+ PITTING EDEMA ) : Normal GI:Auscultation: Normal GI:Palpation: Normal GI: Tenderness: Normal Skin: Tender, Hot, Wound (open wound 5x4 cm Lt foot , YELLOW SLOUGH, AND SEROUS DRAINAGE ) Musculoskeletal: Left, Foot, Swelling, Tender Psychiatric: Normal Mood Description: Calm Affect: Normal Speech Pattern: Clear, Appropriate - Laboratory and Diagnostics Result Diagrams: 04/13/21 05:44 04/13/21 05:44 Labs: 04/09/21 15:45 Foot - Left Wound Gram Stain - Final 04/09/21 15:45 Foot - Left Wound Culture - Final Strep Agalactiae - (Group B) Methicillin Resis Staph Aureus 04/08/21 20:00 Blood Blood Culture - Preliminary 04/08/21 20:05 Blood Blood Culture - Preliminary Laboratory WBC 7.1 X10^3/uL (3.6-10.0) 04/13/21 05:44 RBC 3.29 X10^6/uL (3.5-5.4) L 04/13/21 05:44 Hgb 9.4 g/dL (12.0-16.0) L 04/13/21 05:44 Hct 27.8 % (36.0-47.0) L 04/13/21 05:44 MCV 84.5 fL (80.0-100.0) 04/13/21 05:44 MCH 28.7 pg (27.0-34.0) 04/13/21 05:44 MCHC 34.0 g/dL (33.0-35.0) 04/13/21 05:44 RDW 14.9 % (11.6-16.5) 04/13/21 05:44 Plt Count 317 X10^3/uL (150.0-450.0) 04/13/21 05:44 MPV 7.7 fL (7.4-11.0) 04/13/21 05:44 Neut % (Auto) 71.0 % (42.0-75.0) 04/13/21 05:44 Lymph % (Auto) 18.8 % (21.0-51.0) L 04/13/21 05:44 [place] % (Auto) 6.4 % (0.0-13.0) 04/13/21 05:44 Eos % (Auto) 3.3 % (0.9-2.9) H 04/13/21 05:44 Baso % (Auto) 0.5 % (0.2-1.0) 04/13/21 05:44 Neut # (Auto) 5.1 x10^3/uL (2.2-4.8) H 04/13/21 05:44 Lymph # (Auto) 1.3 X10^3/uL (1.3-2.9) 04/13/21 05:44 [place] # (Auto) 0.5 x10^3/uL (0.3-0.8) 04/13/21 05:44 Eos # (Auto) 0.2 x10^3/uL (0.0-0.2) 04/13/21 05:44 Baso # (Auto) 0.0 X10^3/uL (0.0-0.1) 04/13/21 05:44 Absolute Nucleated RBC 0.0 /100WBC 04/13/21 05:44 ESR 83 MM/HOUR (0-20) H 04/08/21 20:00 Sodium 138 mmol/L (136-145) 04/13/21 05:44 Corrected Sodium 140 mmol/L (136-145) 04/13/21 05:44 Potassium 3.8 mmol/L (3.5-5.1) 04/13/21 05:44 Chloride 106 mmol/L (98-107) 04/13/21 05:44 Carbon Dioxide 24.0 mmol/L (21-32) 04/13/21 05:44 BUN 11 mg/dL (7-18) 04/13/21 05:44 Creatinine 0.94 mg/dL (0.55-1.02) 04/13/21 05:44 Est GFR (MDRD) Af Amer > 60 (>60) 04/13/21 05:44 Est GFR (MDRD) Non-Af > 60 (>60) 04/13/21 05:44 Glucose 166 mg/dL (65-99) H 04/13/21 05:44 POC Glucose (mg/dL) 162 mg/dL (65-99) H 04/13/21 05:59 Calcium 8.1 mg/dL (8.5-10.1) L 04/13/21 05:44 Corrected Calcium 9.1 mg/dL (8.5-10.1) 04/13/21 05:44 Total Bilirubin 0.20 mg/dL (0.2-1.0) 04/13/21 05:44 AST 26 Units/L (15-37) 04/13/21 05:44 ALT 43 Units/L (12-78) 04/13/21 05:44 Alkaline Phosphatase 182 Units/L (46-116) H 04/13/21 05:44 C-Reactive Protein 44.20 mg/L (0-3.0) H 04/09/21 05:25 Total Protein 7.5 g/dL (6.4-8.2) 04/13/21 05:44 Albumin 2.8 g/dL (3.4-5.0) L 04/13/21 05:44 Globulin 4.7 g/dL (2.5-4.5) H 04/13/21 05:44 Albumin/Globulin Ratio 0.6 Ratio (1.1-2.1) L 04/13/21 05:44 Vancomycin Trough 21.7 ug/mL (15-20) H* 04/12/21 20:23 SARS CoV-2 RNA Rapid KRIS Negative (NEGATIVE) 04/08/21 17:53 - Assessment and Plan 1: infected diabetic wound Lt foot . MRSA. s/p amputation 3,4 th toes Lt foot . DM with neuropathy . for more debridement in the OR in am .. - Problem Patient Problems: Patient Problems (This Medical Record has been edited. Action required.) Diabetic ulcer of left foot (Acute) E11.621, L97.529 Anemia (Chronic) D64.9 Cellulitis of foot, left (Acute) L03.116 Diabetes mellitus, type 2 (Chronic) E11.9 Essential hypertension (Chronic) I10 Rheumatoid arthritis (Chronic) M06.9
[2021-04-13] MEDS: LEVAQUIN PREMIX IV 500 MG 500 MG/100 ML BAG IV SCH (10:26)
[2021-04-13] MEDS ORDERED: HYDROGEN PEROXIDE 3% ONE (11:38)
[2021-04-13] MEDS ORDERED: STERILE WATER IRRIGATION IR ONE (11:39)
[2021-04-13] MEDS: PERCOCET TAB 5/325 MG PO PRN (15:07)
[2021-04-13] MEDS: GENTAMICIN TOPICAL CRM TOP SCH (18:51)
[2021-04-13] MEDS: VANCOMYCIN IV *PREMIX 1.25 G/250 ML BAG 1.25 G/250 ML PIGGYBACK IV SCH (18:52)
[2021-04-13] MEDS: XYLOCAINE OINT 5% TOP SCH (18:52)
[2021-04-13] MEDS: VANCOMYCIN IV *PREMIX 1.5 G/300 ML BAG 1.5 G/300 ML PIGGYBACK IV SCH (18:52)
[2021-04-13] MEDS: LIPITOR TAB 10 MG PO SCH (20:16)
[2021-04-13] MEDS: AMBIEN PO SCH (20:16)
[2021-04-13] MEDS: BENADRYL CAP/TAB 25 MG PO PRN (20:16)
[2021-04-14] MEDS: NS 1,000 ML IV 1,000 ML IV SCH (05:07)
[2021-04-14] MEDS: ZOFRAN INJ 4 MG VIAL IVP PRN ×2 (05:47→17:30)
[2021-04-14] MEDS: DILAUDID INJ IVP PRN ×3 (05:48→21:26)
[2021-04-14] MEDS: GLUCOPHAGE PO SCH ×2 (06:00→16:21)
[2021-04-14 06:34] LABS: BASOPHILS # (AUTO) 0.1 X10^3/uL (0.0-0.1); BASOPHILS % (AUTO) 0.9 % (0.2-1.0); EOSINOPHILS # (AUTO) 0.4 x10^3/uL (0.0-0.2); EOSINOPHILS % (AUTO) 5.4 % (0.9-2.9); HEMATOCRIT 30.9 % (36.0-47.0); HEMOGLOBIN 10.4 g/dL (12.0-16.0); LYMPHOCYTES # (AUTO) 2.2 X10^3/uL (1.3-2.9); LYMPHOCYTES % (AUTO) 32.7 % (21.0-51.0); MEAN CORPUSCULAR HEMOGLOBIN 28.5 pg (27.0-34.0); MEAN CORPUSCULAR HGB CONC 33.6 g/dL (33.0-35.0); MEAN CORPUSCULAR VOLUME 84.8 fL (80.0-100.0); MEAN PLATELET VOLUME 7.8 fL (7.4-11.0); MONOCYTES # (AUTO) 0.3 x10^3/uL (0.3-0.8); MONOCYTES % (AUTO) 4.9 % (0.0-13.0); NEUTROPHILS # (AUTO) 3.7 x10^3/uL (2.2-4.8); NEUTROPHILS % (AUTO) 56.1 % (42.0-75.0); RED BLOOD COUNT 3.64 X10^6/uL (3.5-5.4); RED CELL DISTRIBUTION WIDTH 14.8 % (11.6-16.5); WHITE BLOOD COUNT 6.7 X10^3/uL (3.6-10.0)
[2021-04-14 06:49] LABS: ALANINE AMINOTRANSFERASE 58 Units/L (12-78); ALKALINE PHOSPHATASE 256 Units/L (46-116); ASPARTATE AMINO TRANSFERASE 52 Units/L (15-37); BLOOD UREA NITROGEN 9 mg/dL (7-18); CALCIUM 8.7 mg/dL (8.5-10.1); CARBON DIOXIDE 24.3 mmol/L (21-32); CHLORIDE 103 mmol/L (98-107); COR CA(FOR HYPOALB) 9.5 mg/dL (8.5-10.1); COR NA(FOR HYPERGLY) 136 mmol/L (136-145); CREATININE 0.87 mg/dL (0.55-1.02); SODIUM 135 mmol/L (136-145); TOTAL PROTEIN 8.3 g/dL (6.4-8.2); eGFR NON BLACK RACES > 60 (>60)
[2021-04-14] MEDS: COLACE CAP 100 MG PO SCH ×3 (08:14→21:04)
[2021-04-14] MEDS: CYMBALTA PO SCH (08:30)
[2021-04-14] MEDS: DIFLUCAN PO SCH (08:30)
[2021-04-14] MEDS: COZAAR PO SCH (08:34)
[2021-04-14] MEDS: VANCOMYCIN IV *PREMIX 1 G/200 ML BAG 1 G/200 ML PIGGYBACK IV SCH ×2 (08:35→20:58)
[2021-04-14] MEDS: VITAMIN D3 125 mcg (5,000 UNITS) PO SCH (08:35)
--- NOTE | 2021-04-14 09:25 | PCM.PROG ---
Progress Note - Progress Note for Day of Date of Exam: 04/14/21 - Subjective Subjective: WAS ADMITTED TO THE HOSPITAL FOR TREATMENT OF CELLULITIS OF THE LEFT FOOT WITH A NON-HEALING DIABETIC ULCER. PMH INCLUDES ANEMIA, DM II, HT, RHEUMATOID ARTHRITIS. SHE HAS RECENT AMPUTATION OF 3RD AND 4TH TOES TO THAT FOOT. TODAY, SHE IS ALERT AND ORIENTED, LYING IN BED ON MORNING ROUNDS. SHE CONTINUES WITH COMPLAINTS OF PAIN AND SWELLING TO THE LEFT FOOT. ON EXAMINATION, HEART IS REGULAR IN RATE AND RHYTHM. BILATERAL LUNGS ARE CLEAR TO AUSCULTATION. ABDOMEN IS ROUND, SOFT, AND NON-TENDER WITH NORMAL BOWEL SOUNDS NOTED IN ALL QUADRANTS. LEFT FOOT NOTED WITH MILD EDEMA. DRESSING IS INTACT. NURSING STAFF REPORTS THAT FOOT CONTINUES WITH SEROUS DRAINAGE. HER VITALS THIS MORNING ARE: 97.8-95-20-97%-173/91. LABS WERE OBTAINED. ABNORMAL LAB VALUES INCLUDE THE FOLLOWING: HGB 10.4, HCT 30.9, SODIUM 135, GLUCOSE 129, AST 52, ALK PHOS 256, TOTAL PROTEIN 8.3, ALBUMIN 3.0, GLOBULIN 5.3. WOUND CULTURES ARE POSITIVE FOR GROWTH OF STREP AGALACTIAE AND MRSA. SHE IS CURRENTLY RECEIVING NORMAL SALINE AT 80 ML/HR, VANCOMYCIN, LEVAQUIN 500MG IV DAILY, PERCOCET 5/325MG PO Q6H PRN, DIFLUCAN 100MG PO BID, OTBS ACHS, HUMULIN R SLIDING SCALE, COLACE 100MG PO BID, MILK OF MAGNESIA 15ML PO QID PRN, AND HER HOME MEDICATIONS WERE RESUMED. PLANS TO DEBRIDE THE WOUND IN THE OR TODAY. WE ARE IN AGREEMENT WITH PLANS. OTHERWISE, WE WILL CONTINUE WITH CURRENT PLAN OF CARE. WE PLAN TO FOLLOW UP WITH AM LABS AND CONTINUE TO MONITOR. TIME SPENT ON CLINICAL ASSESSMENT, REVIEWING LABS AND IMAGING, DECISION MAKING, AND DOCUMENTATION GREATER THAN 45 MINUTES. - Past Medical Family Social History Past Med/Fam/Surg Hx: No changes since H&P Allergies: Allergies Penicillins Allergy (Mild, Verified 12/30/20 10:45) RASH hives - Review of Systems ROS: No change since H&P - Vital Signs and I&O's Vital Signs: Temperature 97.8 F Pulse Rate [Right Radial] 95 Respiratory Rate 20 Blood Pressure [Right Arm] 173/91 Blood Pressure [Left Arm] 187/92 O2 Sat by Pulse Oximetry 97 Intake and Output: Intake & Output 04/11/21 04/12/21 04/13/21 04/14/21 11:59 11:59 11:59 11:59 Intake Total 2288 / 9 3409 / 3409 3782 / 3782 3663 / 3663 Balance 2288 / 2288 3409 / 3409 3782 / 3782 3663 / 3663 - Physical Exam Oriented: Normal Eyes: Normal Ear: Normal Nose: Normal Throat: Normal Respiratory: Normal Cardiovascular: Tachycardia, Edema (LLE 1+ PITTING EDEMA ) : Normal Auscultation: Bowel Sounds: Normal Tenderness: Normal Skin: Tender, Hot, Wound (open wound 5x4 cm Lt foot , YELLOW SLOUGH, AND SEROUS DRAINAGE ) Musculoskeletal: Left, Foot, Swelling, Tender Psychiatric: Normal Mood Description: Calm Affect: Normal Speech Pattern: Clear, Appropriate - Laboratory and Diagnostics Result Diagrams: 04/14/21 05:46 04/14/21 05:46 Labs: 04/09/21 15:45 Foot - Left Wound Gram Stain - Final 04/09/21 15:45 Foot - Left Wound Culture - Final Strep Agalactiae - (Group B) Methicillin Resis Staph Aureus 04/08/21 20:00 Blood Blood Culture - Preliminary 04/08/21 20:05 Blood Blood Culture - Preliminary Laboratory WBC 6.7 X10^3/uL (3.6-10.0) 04/14/21 05:46 RBC 3.64 X10^6/uL (3.5-5.4) 04/14/21 05:46 Hgb 10.4 g/dL (12.0-16.0) L 04/14/21 05:46 Hct 30.9 % (36.0-47.0) L 04/14/21 05:46 MCV 84.8 fL (80.0-100.0) 04/14/21 05:46 MCH 28.5 pg (27.0-34.0) 04/14/21 05:46 MCHC 33.6 g/dL (33.0-35.0) 04/14/21 05:46 RDW 14.8 % (11.6-16.5) 04/14/21 05:46 Plt Count 350 X10^3/uL (150.0-450.0) 04/14/21 05:46 MPV 7.8 fL (7.4-11.0) 04/14/21 05:46 Neut % (Auto) 56.1 % (42.0-75.0) 04/14/21 05:46 Lymph % (Auto) 32.7 % (21.0-51.0) 04/14/21 05:46 [place] % (Auto) 4.9 % (0.0-13.0) 04/14/21 05:46 Eos % (Auto) 5.4 % (0.9-2.9) H 04/14/21 05:46 Baso % (Auto) 0.9 % (0.2-1.0) 04/14/21 05:46 Neut # (Auto) 3.7 x10^3/uL (2.2-4.8) 04/14/21 05:46 Lymph # (Auto) 2.2 X10^3/uL (1.3-2.9) 04/14/21 05:46 [place] # (Auto) 0.3 x10^3/uL (0.3-0.8) 04/14/21 05:46 Eos # (Auto) 0.4 x10^3/uL (0.0-0.2) H 04/14/21 05:46 Baso # (Auto) 0.1 X10^3/uL (0.0-0.1) 04/14/21 05:46 Absolute Nucleated RBC 0.1 /100WBC 04/14/21 05:46 ESR 83 MM/HOUR (0-20) H 04/08/21 20:00 Sodium 135 mmol/L (136-145) L 04/14/21 05:46 Corrected Sodium 136 mmol/L (136-145) 04/14/21 05:46 Potassium 4.0 mmol/L (3.5-5.1) 04/14/21 05:46 Chloride 103 mmol/L (98-107) 04/14/21 05:46 Carbon Dioxide 24.3 mmol/L (21-32) 04/14/21 05:46 BUN 9 mg/dL (7-18) 04/14/21 05:46 Creatinine 0.87 mg/dL (0.55-1.02) 04/14/21 05:46 Est GFR (MDRD) Af Amer > 60 (>60) 04/14/21 05:46 Est GFR (MDRD) Non-Af > 60 (>60) 04/14/21 05:46 Glucose 129 mg/dL (65-99) H 04/14/21 05:46 POC Glucose (mg/dL) 104 mg/dL (65-99) H 04/14/21 05:06 Calcium 8.7 mg/dL (8.5-10.1) 04/14/21 05:46 Corrected Calcium 9.5 mg/dL (8.5-10.1) 04/14/21 05:46 Total Bilirubin 0.40 mg/dL (0.2-1.0) 04/14/21 05:46 AST 52 Units/L (15-37) H 04/14/21 05:46 ALT 58 Units/L (12-78) 04/14/21 05:46 Alkaline Phosphatase 256 Units/L (46-116) H 04/14/21 05:46 C-Reactive Protein 44.20 mg/L (0-3.0) H 04/09/21 05:25 Total Protein 8.3 g/dL (6.4-8.2) H 04/14/21 05:46 Albumin 3.0 g/dL (3.4-5.0) L 04/14/21 05:46 Globulin 5.3 g/dL (2.5-4.5) H 04/14/21 05:46 Albumin/Globulin Ratio 0.6 Ratio (1.1-2.1) L 04/14/21 05:46 Vancomycin Trough 21.7 ug/mL (15-20) H* 04/12/21 20:23 SARS CoV-2 RNA Rapid KRIS Negative (NEGATIVE) 04/08/21 17:53 - Plan (1) Cellulitis of foot, left Status: Acute Plan: WOUND CARE, NORMAL SALINE AT 80 ML/HR, VANCOMYCIN IV, LEVAQUIN 500MG IV DAILY, PERCOCET 5/325MG PO Q6H PRN, DILAUDID 2MG IV Q4H PRN, DIFLUCAN 100MG PO BID, OTBS ACHS, HUMULIN R SLIDING SCALE, COLACE 100MG PO BID, MILK OF MAGNESIA 15ML PO QID PRN, AND HER HOME MEDICATIONS WERE RESUMED. (2) Diabetic ulcer of left foot Status: Acute Qualifiers: Diabetic foot ulcer location: other Diabetes mellitus type: type 2 Non- pressure ulcer stage: unspecified non-pressure ulcer stage Qualified Code(s): E11.621 - Type 2 diabetes mellitus with foot ulcer; L97.529 - Non-pressure chronic ulcer of other part of left foot with unspecified severity (3) Anemia Status: Chronic Qualifiers: Anemia type: unspecified type Qualified Code(s): D64.9 - Anemia, unspecified (4) Diabetes mellitus, type 2 Status: Chronic Qualifiers: Diabetes mellitus intermediate manager insulin use: with intermediate use Diabetes mellitus complication status: with hyperglycemia Qualified Code(s): E11.65 - Type 2 diabetes mellitus with hyperglycemia; Z79.4 - termite technician (current) use of insulin (5) Essential hypertension Status: Chronic (6) Rheumatoid arthritis Status: Chronic Qualifiers: Rheumatoid arthritis location: unspecified site Rheumatoid factor presence: unspecified presence Qualified Code(s): M06.9 - Rheumatoid arthritis, unspeci fied
[2021-04-14] MEDS: LEVAQUIN PREMIX IV 500 MG 500 MG/100 ML BAG IV SCH (10:00)
[2021-04-14] MEDS ORDERED: NS 1,000 ML IV 1,000 ML ONE (12:53)
[2021-04-14] MEDS ORDERED: BETADINE SOLN ONE (13:47)
[2021-04-14] MEDS ORDERED: KETAMINE 50 MG/5 ML-NACL SYRNG ONE (13:55)
[2021-04-14] MEDS ORDERED: TORADOL 30 MG VIAL ONE (13:55)
[2021-04-14] MEDS ORDERED: DIPRIVAN VIAL 20 ML ONE (13:55)
[2021-04-14] MEDS ORDERED: PEPCID 20 MG VIAL ONE (13:55)
[2021-04-14] MEDS ORDERED: VERSED ONE (13:55)
[2021-04-14] MEDS ORDERED: FENTANYL VIAL INJ 100 mcg ONE (13:56)
[2021-04-14] MEDS ORDERED: XYLOCAINE 2 % (PLAIN) ONE (13:57)
[2021-04-14] MEDS ORDERED: ZOFRAN INJ 4 MG VIAL ONE (13:58)
[2021-04-14] MEDS ORDERED: POLYMYXIN B SULFATE ONE (14:57)
[2021-04-14] MEDS ORDERED: BENADRYL INJ 50 MG VIAL IVP PRN (15:40)
[2021-04-14] MEDS ORDERED: BARHEMSYS INJ IVP PRN (15:40)
[2021-04-14] MEDS ORDERED: PHENERGAN INJ 25 MG IM PRN (15:40)
[2021-04-14] MEDS ORDERED: DILAUDID INJ IVP PRN (15:40)
[2021-04-14] MEDS ORDERED: COZAAR PO ONE (17:31)
[2021-04-14] MEDS: BENADRYL CAP/TAB 25 MG PO PRN (18:29)
[2021-04-14] MEDS ORDERED: PHARMACY COMMENT IV ONE (20:30)
[2021-04-14] MEDS: LIPITOR TAB 10 MG PO SCH (20:58)
[2021-04-14] MEDS: AMBIEN PO SCH (21:00)
[2021-04-14] MEDS: VISTARIL PO PRN (21:27)
[2021-04-14 21:53] LABS: CREATININE 0.98 mg/dL (0.55-1.02); VANCOMYCIN,TROUGH 17.3 ug/mL (15-20)
[2021-04-15] MEDS: NS 1,000 ML IV 1,000 ML IV SCH ×3 (00:55→21:46)
[2021-04-15 05:16] LABS: BASOPHILS % (AUTO) 0.6 % (0.2-1.0); EOSINOPHILS # (AUTO) 0.2 x10^3/uL (0.0-0.2); HEMATOCRIT 26.1 % (36.0-47.0); HEMOGLOBIN 8.9 g/dL (12.0-16.0); LYMPHOCYTES # (AUTO) 1.6 X10^3/uL (1.3-2.9); LYMPHOCYTES % (AUTO) 26.5 % (21.0-51.0); MEAN CORPUSCULAR HEMOGLOBIN 28.8 pg (27.0-34.0); MEAN CORPUSCULAR VOLUME 84.8 fL (80.0-100.0); MEAN PLATELET VOLUME 7.2 fL (7.4-11.0); MONOCYTES # (AUTO) 0.4 x10^3/uL (0.3-0.8); NEUTROPHILS # (AUTO) 3.9 x10^3/uL (2.2-4.8); NEUTROPHILS % (AUTO) 62.9 % (42.0-75.0); RED BLOOD COUNT 3.08 X10^6/uL (3.5-5.4); WHITE BLOOD COUNT 6.2 X10^3/uL (3.6-10.0)
[2021-04-15 05:26] LABS: ALANINE AMINOTRANSFERASE 72 Units/L (12-78); ALBUMIN 2.6 g/dL (3.4-5.0); ALKALINE PHOSPHATASE 250 Units/L (46-116); ASPARTATE AMINO TRANSFERASE 58 Units/L (15-37); BLOOD UREA NITROGEN 11 mg/dL (7-18); CALCIUM 7.7 mg/dL (8.5-10.1); CARBON DIOXIDE 25.2 mmol/L (21-32); CHLORIDE 105 mmol/L (98-107); COR CA(FOR HYPOALB) 8.8 mg/dL (8.5-10.1); COR NA(FOR HYPERGLY) 140 mmol/L (136-145); CREATININE 1.02 mg/dL (0.55-1.02); SODIUM 138 mmol/L (136-145); TOTAL PROTEIN 6.9 g/dL (6.4-8.2); eGFR NON BLACK RACES > 60 (>60)
[2021-04-15] MEDS ORDERED: GLUCOPHAGE ONE ×2 (05:26→16:01)
[2021-04-15] MEDS: GLUCOPHAGE PO SCH ×2 (06:25→16:12)
[2021-04-15] MEDS: VANCOMYCIN IV *PREMIX 1 G/200 ML BAG 1 G/200 ML PIGGYBACK IV SCH ×2 (08:07→21:45)
[2021-04-15] MEDS: LEVAQUIN PREMIX IV 500 MG 500 MG/100 ML BAG IV SCH (08:07)
[2021-04-15] MEDS: PERCOCET TAB 5/325 MG PO PRN (08:09)
[2021-04-15] MEDS: COZAAR PO SCH (08:09)
[2021-04-15] MEDS: VITAMIN D3 125 mcg (5,000 UNITS) PO SCH (08:09)
[2021-04-15] MEDS: CYMBALTA PO SCH (08:10)
[2021-04-15] MEDS: BENADRYL CAP/TAB 25 MG PO PRN (08:10)
[2021-04-15] MEDS: DIFLUCAN PO SCH (08:10)
[2021-04-15] MEDS ORDERED: KLOR-CON PO PRN (08:13)
[2021-04-15] MEDS ORDERED: K-RIDER 10 MEQ/NS 100 ML 10 MEQ/100 ML BAG IV PRN (08:13)
[2021-04-15] MEDS ORDERED: POTASSIUM CHL 60 MEQ/NS 0.45% 500 ML IV PRN (08:13)
[2021-04-15] MEDS ORDERED: MICRO K EXTEN CAP 10 MEQ PO PRN (08:13)
[2021-04-15] MEDS ORDERED: POTASSIUM CHL 40 MEQ/NS 0.45% 500 ML IV PRN (08:13)
[2021-04-15] MEDS ORDERED: POTASSIUM CHLORIDE LIQ 20 MEQ UDC PO PRN (08:13)
[2021-04-15] MEDS ORDERED: K-DUR TAB 20 MEQ PO PRN (08:13)
[2021-04-15] MEDS: ZOFRAN INJ 4 MG VIAL IVP PRN ×2 (08:17→22:27)
--- NOTE | 2021-04-15 10:03 | DR.PROGNOT ---
Hospital Progress Notes - Progress Note for Day of: Progress Note Date: 04/15/21 - Chief Complaint Chief Complaint: moderate pain Lt foot .S/P debridement . dressing intact . no drainage .. BS is controlled . - Past Medical Family Social History Past Med/Fam/Surg Hx: No changes since H&P Allergies: Allergies Penicillins Allergy (Mild, Verified 12/30/20 10:45) RASH hives - Review Of Systems ROS: No change since H&P - Vital Signs Vital Signs: Temperature 99.0 F Pulse Rate [Right Radial] 94 Pulse Rate 93 Respiratory Rate 20 Blood Pressure [Right Arm] 174/98 Blood Pressure [Left Arm] 187/92 Blood Pressure 134/83 O2 Sat by Pulse Oximetry 98 - Physical Exam Oriented: Normal Eyes: Normal Ear: Normal Nose: Normal Throat: Normal Respiratory: Normal Cardiovascular: Tachycardia, Edema (LLE 1+ PITTING EDEMA ) : Normal GI:Auscultation: Normal GI:Palpation: Normal GI: Tenderness: Normal Skin: Tender, Hot, Wound (dressing intact .. no drainage .. pulses +) Musculoskeletal: Left, Foot, Swelling, Tender Psychiatric: Normal Mood Description: Calm Affect: Normal Speech Pattern: Clear, Appropriate - Laboratory and Diagnostics Result Diagrams: 04/15/21 04:52 04/15/21 04:52 Labs: 04/14/21 15:20 Foot - Left Wound Gram Stain - Final 04/14/21 15:20 Foot - Left Wound Culture - Preliminary 04/08/21 20:05 Blood Blood Culture - Final 04/08/21 20:00 Blood Blood Culture - Final 04/09/21 15:45 Foot - Left Wound Gram Stain - Final 04/09/21 15:45 Foot - Left Wound Culture - Final Strep Agalactiae - (Group B) Methicillin Resis Staph Aureus Laboratory WBC 6.2 X10^3/uL (3.6-10.0) 04/15/21 04:52 RBC 3.08 X10^6/uL (3.5-5.4) L 04/15/21 04:52 Hgb 8.9 g/dL (12.0-16.0) L 04/15/21 04:52 Hct 26.1 % (36.0-47.0) L 04/15/21 04:52 MCV 84.8 fL (80.0-100.0) 04/15/21 04:52 MCH 28.8 pg (27.0-34.0) 04/15/21 04:52 MCHC 34.0 g/dL (33.0-35.0) 04/15/21 04:52 RDW 15.0 % (11.6-16.5) 04/15/21 04:52 Plt Count 282 X10^3/uL (150.0-450.0) 04/15/21 04:52 MPV 7.2 fL (7.4-11.0) L 04/15/21 04:52 Neut % (Auto) 62.9 % (42.0-75.0) 04/15/21 04:52 Lymph % (Auto) 26.5 % (21.0-51.0) 04/15/21 04:52 [place] % (Auto) 6.0 % (0.0-13.0) 04/15/21 04:52 Eos % (Auto) 4.0 % (0.9-2.9) H 04/15/21 04:52 Baso % (Auto) 0.6 % (0.2-1.0) 04/15/21 04:52 Neut # (Auto) 3.9 x10^3/uL (2.2-4.8) 04/15/21 04:52 Lymph # (Auto) 1.6 X10^3/uL (1.3-2.9) 04/15/21 04:52 [place] # (Auto) 0.4 x10^3/uL (0.3-0.8) 04/15/21 04:52 Eos # (Auto) 0.2 x10^3/uL (0.0-0.2) 04/15/21 04:52 Baso # (Auto) 0.0 X10^3/uL (0.0-0.1) 04/15/21 04:52 Absolute Nucleated RBC 0.0 /100WBC 04/15/21 04:52 ESR 83 MM/HOUR (0-20) H 04/08/21 20:00 Sodium 138 mmol/L (136-145) 04/15/21 04:52 Corrected Sodium 140 mmol/L (136-145) 04/15/21 04:52 Potassium 3.4 mmol/L (3.5-5.1) L 04/15/21 04:52 Chloride 105 mmol/L (98-107) 04/15/21 04:52 Carbon Dioxide 25.2 mmol/L (21-32) 04/15/21 04:52 BUN 11 mg/dL (7-18) 04/15/21 04:52 Creatinine 1.02 mg/dL (0.55-1.02) 04/15/21 04:52 Est GFR (MDRD) Af Amer > 60 (>60) 04/15/21 04:52 Est GFR (MDRD) Non-Af > 60 (>60) 04/15/21 04:52 Glucose 201 mg/dL (65-99) H 04/15/21 04:52 POC Glucose (mg/dL) 154 mg/dL (65-99) H 04/15/21 05:58 Calcium 7.7 mg/dL (8.5-10.1) L 04/15/21 04:52 Corrected Calcium 8.8 mg/dL (8.5-10.1) 04/15/21 04:52 Magnesium 1.8 mg/dL (1.7-2.9) 04/15/21 04:52 Total Bilirubin 0.20 mg/dL (0.2-1.0) 04/15/21 04:52 AST 58 Units/L (15-37) H 04/15/21 04:52 ALT 72 Units/L (12-78) 04/15/21 04:52 Alkaline Phosphatase 250 Units/L (46-116) H 04/15/21 04:52 C-Reactive Protein 44.20 mg/L (0-3.0) H 04/09/21 05:25 Total Protein 6.9 g/dL (6.4-8.2) 04/15/21 04:52 Albumin 2.6 g/dL (3.4-5.0) L 04/15/21 04:52 Globulin 4.3 g/dL (2.5-4.5) 04/15/21 04:52 Albumin/Globulin Ratio 0.6 Ratio (1.1-2.1) L 04/15/21 04:52 Vancomycin Trough 17.3 ug/mL (15-20) 04/14/21 21:15 SARS CoV-2 RNA Rapid KRIS Negative (NEGATIVE) 04/08/21 17:53 Tissue Pathology To follow 04/14/21 15:20 - Assessment and Plan 1: infected diabetic wound Lt foot . pasitive for MRSA. s/p amputation 3,4 th toes Lt foot . DM with neuropathy . same IV ABT .. to apply wound Vac when available .. - Problem Patient Problems: Patient Problems (This Medical Record has been edited. Action required.) Diabetic ulcer of left foot (Acute) E11.621, L97.529 Anemia (Chronic) D64.9 Cellulitis of foot, left (Acute) L03.116 Diabetes mellitus, type 2 (Chronic) E11.9 Essential hypertension (Chronic) I10 Rheumatoid arthritis (Chronic) M06.9
[2021-04-15] MEDS ORDERED: STERILE WATER IRRIGATION IR ONE (10:50)
--- NOTE | 2021-04-15 11:22 | PCM.PROG ---
Progress Note - Progress Note for Day of Date of Exam: 04/15/21 - Subjective Subjective: WAS ADMITTED TO THE HOSPITAL FOR TREATMENT OF CELLULITIS OF THE LEFT FOOT WITH A NON-HEALING DIABETIC ULCER. SHE IS DAY 1 S/P DEBRIDEMENT OF WOUND. PMH INCLUDES ANEMIA, DM II, HT, RHEUMATOID ARTHRITIS. SHE HAS RECENT AMPUTATION OF 3RD AND 4TH TOES TO THAT FOOT. TODAY, SHE IS ALERT AND ORIENTED, LYING IN BED ON MORNING ROUNDS. SHE CONTINUES WITH COMPLAINTS OF PAIN AND SWELLING TO THE LEFT FOOT. ON EXAMINATION, HEART IS REGULAR IN RATE AND RHYTHM. BILATERAL LUNGS ARE CLEAR TO AUSCULTATION. ABDOMEN IS ROUND, SOFT, AND NON- TENDER WITH NORMAL BOWEL SOUNDS NOTED IN ALL QUADRANTS. LEFT FOOT NOTED WITH MILD EDEMA. DRESSING IS INTACT. HER VITALS THIS MORNING ARE: 99.0-94-16-98%-174/98. LABS WERE OBTAINED. ABNORMAL LAB VALUES INCLUDE THE FOLLOWING: RBC 3.08, HGB 8.9, HCT 26.1, POTASSIUM 3.4, GLUCOSE 201, CALCIUM 7.7, AST 58, ALK PHOS 250, ALBUMIN 2.6. WOUND CULTURES ARE POSITIVE FOR GROWTH OF STREP AGALACTIAE AND MRSA. SHE IS CURRENTLY RECEIVING NORMAL SALINE AT 80 ML/HR, VANCOMYCIN, LEVAQUIN 500MG IV DAILY, PERCOCET 5/325MG PO Q6H PRN, DIFLUCAN 100MG PO BID, OTBS ACHS, HUMULIN R SLIDING SCALE, COLACE 100MG PO BID, MILK OF MAGNESIA 15ML PO QID PRN, AND HER HOME MEDICATIONS WERE RESUMED. WILL PLACE WOUND VAC ON FOOT WHEN IT IS AVAILABLE. OTHERWISE, WE WILL CONTINUE WITH CURRENT PLAN OF CARE. WE PLAN TO FOLLOW UP WITH AM LABS AND CONTINUE TO MONITOR. TIME SPENT ON CLINICAL ASSESSMENT, REVIEWING LABS AND IMAGING, DECISION MAKING, AND DOCUMENTATION GREATER THAN 45 MINUTES. - Past Medical Family Social History Past Med/Fam/Surg Hx: No changes since H&P Allergies: Allergies Penicillins Allergy (Mild, Verified 12/30/20 10:45) RASH hives - Review of Systems ROS: No change since H&P - Vital Signs and I&O's Vital Signs: Temperature 99.0 F Pulse Rate [Right Radial] 94 Pulse Rate 93 Respiratory Rate 20 Blood Pressure [Right Arm] 174/98 Blood Pressure [Left Arm] 187/92 Blood Pressure 134/83 O2 Sat by Pulse Oximetry 98 Intake and Output: Intake & Output 04/12/21 04/13/21 04/14/21 04/15/21 11:59 11:59 11:59 11:59 Intake Total 3409 / 3409 3782 / 3782 3663 / 3663 2588 / 2588 Output Total 1009 / 1009 Balance 3409 / 3409 3782 / 3782 3663 / 3663 1579 / 1579 - Physical Exam Oriented: Normal Eyes: Normal Ear: Normal Nose: Normal Throat: Normal Respiratory: Normal Cardiovascular: Tachycardia, Edema (MILD EDEMA ) : Normal Auscultation: Bowel Sounds: Normal Palpation: Normal Tenderness: Normal Skin: Tender, Hot, Wound (dressing intact .. no drainage .. pulses +) Musculoskeletal: Left, Foot, Swelling, Tender Psychiatric: Normal Mood Description: Calm Affect: Normal Speech Pattern: Clear, Appropriate - Laboratory and Diagnostics Result Diagrams: 04/15/21 04:52 04/15/21 04:52 Labs: 04/14/21 15:20 Foot - Left Wound Gram Stain - Final 04/14/21 15:20 Foot - Left Wound Culture - Preliminary 04/08/21 20:05 Blood Blood Culture - Final 04/08/21 20:00 Blood Blood Culture - Final 04/09/21 15:45 Foot - Left Wound Gram Stain - Final 04/09/21 15:45 Foot - Left Wound Culture - Final Strep Agalactiae - (Group B) Methicillin Resis Staph Aureus Laboratory WBC 6.2 X10^3/uL (3.6-10.0) 04/15/21 04:52 RBC 3.08 X10^6/uL (3.5-5.4) L 04/15/21 04:52 Hgb 8.9 g/dL (12.0-16.0) L 04/15/21 04:52 Hct 26.1 % (36.0-47.0) L 04/15/21 04:52 MCV 84.8 fL (80.0-100.0) 04/15/21 04:52 MCH 28.8 pg (27.0-34.0) 04/15/21 04:52 MCHC 34.0 g/dL (33.0-35.0) 04/15/21 04:52 RDW 15.0 % (11.6-16.5) 04/15/21 04:52 Plt Count 282 X10^3/uL (150.0-450.0) 04/15/21 04:52 MPV 7.2 fL (7.4-11.0) L 04/15/21 04:52 Neut % (Auto) 62.9 % (42.0-75.0) 04/15/21 04:52 Lymph % (Auto) 26.5 % (21.0-51.0) 04/15/21 04:52 [place] % (Auto) 6.0 % (0.0-13.0) 04/15/21 04:52 Eos % (Auto) 4.0 % (0.9-2.9) H 04/15/21 04:52 Baso % (Auto) 0.6 % (0.2-1.0) 04/15/21 04:52 Neut # (Auto) 3.9 x10^3/uL (2.2-4.8) 04/15/21 04:52 Lymph # (Auto) 1.6 X10^3/uL (1.3-2.9) 04/15/21 04:52 [place] # (Auto) 0.4 x10^3/uL (0.3-0.8) 04/15/21 04:52 Eos # (Auto) 0.2 x10^3/uL (0.0-0.2) 04/15/21 04:52 Baso # (Auto) 0.0 X10^3/uL (0.0-0.1) 04/15/21 04:52 Absolute Nucleated RBC 0.0 /100WBC 04/15/21 04:52 ESR 83 MM/HOUR (0-20) H 04/08/21 20:00 Sodium 138 mmol/L (136-145) 04/15/21 04:52 Corrected Sodium 140 mmol/L (136-145) 04/15/21 04:52 Potassium 3.4 mmol/L (3.5-5.1) L 04/15/21 04:52 Chloride 105 mmol/L (98-107) 04/15/21 04:52 Carbon Dioxide 25.2 mmol/L (21-32) 04/15/21 04:52 BUN 11 mg/dL (7-18) 04/15/21 04:52 Creatinine 1.02 mg/dL (0.55-1.02) 04/15/21 04:52 Est GFR (MDRD) Af Amer > 60 (>60) 04/15/21 04:52 Est GFR (MDRD) Non-Af > 60 (>60) 04/15/21 04:52 Glucose 201 mg/dL (65-99) H 04/15/21 04:52 POC Glucose (mg/dL) 154 mg/dL (65-99) H 04/15/21 05:58 Calcium 7.7 mg/dL (8.5-10.1) L 04/15/21 04:52 Corrected Calcium 8.8 mg/dL (8.5-10.1) 04/15/21 04:52 Magnesium 1.8 mg/dL (1.7-2.9) 04/15/21 04:52 Total Bilirubin 0.20 mg/dL (0.2-1.0) 04/15/21 04:52 AST 58 Units/L (15-37) H 04/15/21 04:52 ALT 72 Units/L (12-78) 04/15/21 04:52 Alkaline Phosphatase 250 Units/L (46-116) H 04/15/21 04:52 C-Reactive Protein 44.20 mg/L (0-3.0) H 04/09/21 05:25 Total Protein 6.9 g/dL (6.4-8.2) 04/15/21 04:52 Albumin 2.6 g/dL (3.4-5.0) L 04/15/21 04:52 Globulin 4.3 g/dL (2.5-4.5) 04/15/21 04:52 Albumin/Globulin Ratio 0.6 Ratio (1.1-2.1) L 04/15/21 04:52 Vancomycin Trough 17.3 ug/mL (15-20) 04/14/21 21:15 SARS CoV-2 RNA Rapid KRIS Negative (NEGATIVE) 04/08/21 17:53 Tissue Pathology To follow 04/14/21 15:20 - Plan (1) Cellulitis of foot, left Status: Acute Plan: WOUND CARE, NORMAL SALINE AT 80 ML/HR, VANCOMYCIN IV, LEVAQUIN 500MG IV DAILY, PERCOCET 5/325MG PO Q6H PRN, DILAUDID 2MG IV Q4H PRN, DIFLUCAN 100MG PO BID, OTBS ACHS, HUMULIN R SLIDING SCALE, COLACE 100MG PO BID, MILK OF MAGNESIA 15ML PO QID PRN, AND HER HOME MEDICATIONS WERE RESUMED. (2) Diabetic ulcer of left foot Status: Acute Qualifiers: Diabetic foot ulcer location: other Diabetes mellitus type: type 2 Non- pressure ulcer stage: unspecified non-pressure ulcer stage Qualified Code(s): E11.621 - Type 2 diabetes mellitus with foot ulcer; L97.529 - Non-pressure chron ic ulcer of other part of left foot with unspecified severity (3) Anemia Status: Chronic Qualifiers: Anemia type: unspecified type Qualified Code(s): D64.9 - Anemia, unspecified (4) Diabetes mellitus, type 2 Status: Chronic Qualifiers: Diabetes mellitus skilled nursing insulin use: with skilled nursing use Diabetes melli lgs complication status: with hyperglycemia Qualified Code(s): E11.65 - Type 2 diabetes mellitus with hyperglycemia; Z79.4 - intermediate card tender (current) use of insulin (5) Essential hypertension Status: Chronic (6) Rheumatoid arthritis Status: Chronic Qualifiers: Rheumatoid arthritis location: unspecified site Rheumatoid factor presence: unspecified presence Qualified Code(s): M06.9 - Rheumatoid arthritis, unspecified
[2021-04-15] MEDS: MAGNESIUM SULFATE 1 GRAM/100 mL PREMIX 1 G/100 ML BAG IV PRN ×2 (13:02→15:59)
[2021-04-15] MEDS ORDERED: STERILE WATER IRRIGATION IR PRN (13:03)
[2021-04-15] MEDS ORDERED: HYDROGEN PEROXIDE 3% EXT PRN (13:04)
[2021-04-15] MEDS: DILAUDID INJ IVP PRN ×2 (15:03→22:27)
[2021-04-15] MEDS: VISTARIL PO PRN (21:43)
[2021-04-15] MEDS: LIPITOR TAB 10 MG PO SCH (21:44)
[2021-04-15] MEDS: AMBIEN PO SCH (21:44)
[2021-04-16] MEDS: DILAUDID INJ IVP PRN ×2 (04:00→08:21)
[2021-04-16] MEDS ORDERED: GLUCOPHAGE ONE (05:46)
[2021-04-16] MEDS: GLUCOPHAGE PO SCH (06:17)
[2021-04-16 06:38] LABS: BASOPHILS # (AUTO) 0.1 X10^3/uL (0.0-0.1); BASOPHILS % (AUTO) 0.8 % (0.2-1.0); EOSINOPHILS # (AUTO) 0.4 x10^3/uL (0.0-0.2); EOSINOPHILS % (AUTO) 5.7 % (0.9-2.9); HEMATOCRIT 30.3 % (36.0-47.0); LYMPHOCYTES % (AUTO) 31.4 % (21.0-51.0); MEAN CORPUSCULAR HEMOGLOBIN 28.3 pg (27.0-34.0); MEAN CORPUSCULAR VOLUME 85.9 fL (80.0-100.0); MEAN PLATELET VOLUME 7.5 fL (7.4-11.0); MONOCYTES # (AUTO) 0.4 x10^3/uL (0.3-0.8); MONOCYTES % (AUTO) 7.1 % (0.0-13.0); NEUTROPHILS # (AUTO) 3.4 x10^3/uL (2.2-4.8); RED BLOOD COUNT 3.53 X10^6/uL (3.5-5.4); RED CELL DISTRIBUTION WIDTH 14.8 % (11.6-16.5); WHITE BLOOD COUNT 6.3 X10^3/uL (3.6-10.0)
[2021-04-16 07:11] LABS: ALANINE AMINOTRANSFERASE 69 Units/L (12-78); ALKALINE PHOSPHATASE 297 Units/L (46-116); ASPARTATE AMINO TRANSFERASE 50 Units/L (15-37); BLOOD UREA NITROGEN 8 mg/dL (7-18); CALCIUM 8.3 mg/dL (8.5-10.1); CHLORIDE 105 mmol/L (98-107); COR CA(FOR HYPOALB) 9.1 mg/dL (8.5-10.1); CREATININE 0.81 mg/dL (0.55-1.02); MAGNESIUM 2.2 mg/dL (1.7-2.9); SODIUM 138 mmol/L (136-145); eGFR NON BLACK RACES > 60 (>60)
[2021-04-16 07:55] VITALS: BP 154/78
[2021-04-16] MEDS: LEVAQUIN PREMIX IV 500 MG 500 MG/100 ML BAG IV SCH (08:05)
[2021-04-16] MEDS: DIFLUCAN PO SCH (08:05)
[2021-04-16] MEDS: CYMBALTA PO SCH (08:05)
[2021-04-16] MEDS: COZAAR PO SCH (08:05)
[2021-04-16] MEDS: VITAMIN D3 125 mcg (5,000 UNITS) PO SCH (08:05)
[2021-04-16] MEDS: ZOFRAN INJ 4 MG VIAL IVP PRN (08:21)
[2021-04-16 08:40] LABS: CREATININE 0.93 mg/dL (0.55-1.02); VANCOMYCIN,TROUGH 19.5 ug/mL (15-20)
[2021-04-16] MEDS: VANCOMYCIN IV *PREMIX 1 G/200 ML BAG 1 G/200 ML PIGGYBACK IV SCH (09:54)
[2021-04-16] MEDS: NS 1,000 ML IV 1,000 ML IV SCH (09:54)
== END 2021-04-16 11:35 | disposition home health service (06) | DRG 572 ==
LOC: MED/SURG
PROVIDERS: ADMIT Internal Medicine; ATTEND Internal Medicine
DX: Z20.822 Contact with and (suspected) exposure to COVID-19; I10 Essential (primary) hypertension; L97.529 Non-pressure chronic ulcer of other part of left foot with unspecified severity; L03.116 Cellulitis of left lower limb; D64.89 Other specified anemias; Z89.422 Acquired absence of other left toe(s); E11.621 Type 2 diabetes mellitus with foot ulcer; B95.62 Methicillin resistant Staphylococcus aureus infection as the cause of diseases classified elsewhere; R26.89 Other abnormalities of gait and mobility; M06.9 Rheumatoid arthritis, unspecified; Z79.4 Long term (current) use of insulin; B95.1 Streptococcus, group B, as the cause of diseases classified elsewhere; E11.65 Type 2 diabetes mellitus with hyperglycemia

== ENCOUNTER 2022-03-30 13:42 | Observation (INO) ==
[2022-03-30] MEDS ORDERED: NS 1,000 ML IV 1,000 ML IV ONE (15:44)
[2022-03-30] MEDS ORDERED: ZOFRAN INJ 4 MG VIAL IVP PRN (15:44)
[2022-03-30] MEDS ORDERED: LANTUS SC SCH (16:00)
[2022-03-30] MEDS: COZAAR PO SCH (16:37)
[2022-03-30 16:41] LABS: BASOPHILS # (AUTO) 0.1 X10^3/uL (0.0-0.1); BASOPHILS % (AUTO) 1.1 % (0.2-1.0); EOSINOPHILS # (AUTO) 0.1 x10^3/uL (0.0-0.2); EOSINOPHILS % (AUTO) 0.7 % (0.9-2.9); HEMATOCRIT 35.2 % (36.0-47.0); HEMOGLOBIN 11.7 g/dL (12.0-16.0); LYMPHOCYTES # (AUTO) 1.6 X10^3/uL (1.3-2.9); LYMPHOCYTES % (AUTO) 19.9 % (21.0-51.0); MEAN CORPUSCULAR HEMOGLOBIN 29.2 pg (27.0-34.0); MEAN CORPUSCULAR HGB CONC 33.2 g/dL (33.0-35.0); MEAN CORPUSCULAR VOLUME 87.9 fL (80.0-100.0); MEAN PLATELET VOLUME 8.6 fL (7.4-11.0); MONOCYTES # (AUTO) 0.3 x10^3/uL (0.3-0.8); MONOCYTES % (AUTO) 3.7 % (0.0-13.0); NEUTROPHILS # (AUTO) 6.1 x10^3/uL (2.2-4.8); NEUTROPHILS % (AUTO) 74.6 % (42.0-75.0); RED CELL DISTRIBUTION WIDTH 13.5 % (11.6-16.5); WHITE BLOOD COUNT 8.2 X10^3/uL (3.6-10.0)
[2022-03-30 16:47] LABS: BILIRUBIN,URINE NEGATIVE (NEGATIVE); BLOOD/HEMOGLOBIN,URINE 2+ (NEGATIVE); GLUCOSE, URINE 4+ (NEGATIVE); KETONES,URINE NEGATIVE (NEGATIVE); LEUKOCYTE ESTERASE ,URINE NEGATIVE (NEGATIVE); NITRITES,URINE NEGATIVE (NEGATIVE); PROTEIN,URINE 2+ (NEGATIVE); UROBILINOGEN,URINE NORMAL (NORMAL)
[2022-03-30 16:50] LABS: SERUM ACETONE NEGATIVE (NEGATIVE)
[2022-03-30 16:56] VITALS: BMI 41.9
[2022-03-30 16:57] LABS: ALANINE AMINOTRANSFERASE 24 Units/L (12-78); ALBUMIN 3.6 g/dL (3.4-5.0); ALKALINE PHOSPHATASE 117 Units/L (46-116); AMYLASE 67 Units/L (25-115); ASPARTATE AMINO TRANSFERASE 16 Units/L (15-37); BLOOD UREA NITROGEN 34 mg/dL (7-18); CALCIUM 9.5 mg/dL (8.5-10.1); CARBON DIOXIDE 25.1 mmol/L (21-32); CHLORIDE 97 mmol/L (98-107); COR NA(FOR HYPERGLY) 137 mmol/L (136-145); CREATININE 1.44 mg/dL (0.55-1.02); LIPASE 266 Units/L (73-393); SODIUM 130 mmol/L (136-145); TOTAL PROTEIN 8.6 g/dL (6.4-8.2); eGFR NON BLACK RACES 41 (>60)
[2022-03-30 17:02] LABS: APPEARANCE,URINE CLEAR (CLEAR); COLOR,URINE YELLOW (YELLOW)
[2022-03-30 17:03] LABS: BACTERIA,URINE TRACE /HPF (NEGATIVE); SQUAMOUS EPITHELIAL CELL,UR FEW /HPF (NEGATIVE)
[2022-03-30] MEDS: NovoLIN R (or HumuLIN R) SC PRN ×2 (17:06→20:56)
[2022-03-30] MEDS: NS 1,000 ML IV 1,000 ML IV SCH (17:38)
[2022-03-30] MEDS ORDERED: NORCO 10/325 TAB PO PRN (18:37)
[2022-03-30] MEDS: COREG TAB 6.25 MG PO SCH (20:10)
[2022-03-30] MEDS ORDERED: CATAPRES TAB 0.1 MG PO SCH (21:00)
[2022-03-31] MEDS ORDERED: BENADRYL CAP/TAB 25 MG PO PRN (00:32)
[2022-03-31] MEDS ORDERED: BENADRYL CAP/TAB 25 MG PO ONE (00:34)
[2022-03-31] MEDS ORDERED: VISTARIL PO PRN (01:36)
[2022-03-31] MEDS ORDERED: VISTARIL PO ONE (01:38)
[2022-03-31 05:07] LABS: BASOPHILS # (AUTO) 0.1 X10^3/uL (0.0-0.1); BASOPHILS % (AUTO) 0.8 % (0.2-1.0); EOSINOPHILS # (AUTO) 0.1 x10^3/uL (0.0-0.2); EOSINOPHILS % (AUTO) 1.8 % (0.9-2.9); HEMATOCRIT 30.1 % (36.0-47.0); HEMOGLOBIN 10.3 g/dL (12.0-16.0); LYMPHOCYTES # (AUTO) 2.1 X10^3/uL (1.3-2.9); MEAN CORPUSCULAR HEMOGLOBIN 29.7 pg (27.0-34.0); MEAN CORPUSCULAR VOLUME 87.3 fL (80.0-100.0); MEAN PLATELET VOLUME 8.8 fL (7.4-11.0); MONOCYTES # (AUTO) 0.5 x10^3/uL (0.3-0.8); MONOCYTES % (AUTO) 7.1 % (0.0-13.0); NEUTROPHILS # (AUTO) 3.7 x10^3/uL (2.2-4.8); NEUTROPHILS % (AUTO) 57.3 % (42.0-75.0); RED BLOOD COUNT 3.45 X10^6/uL (3.5-5.4); RED CELL DISTRIBUTION WIDTH 13.2 % (11.6-16.5); WHITE BLOOD COUNT 6.4 X10^3/uL (3.6-10.0)
[2022-03-31 05:17] LABS: ALANINE AMINOTRANSFERASE 18 Units/L (12-78); ALBUMIN 2.9 g/dL (3.4-5.0); ALKALINE PHOSPHATASE 94 Units/L (46-116); ASPARTATE AMINO TRANSFERASE 17 Units/L (15-37); BLOOD UREA NITROGEN 30 mg/dL (7-18); CARBON DIOXIDE 25.9 mmol/L (21-32); CHLORIDE 103 mmol/L (98-107); COR CA(FOR HYPOALB) 9.9 mg/dL (8.5-10.1); COR NA(FOR HYPERGLY) 140 mmol/L (136-145); CREATININE 1.22 mg/dL (0.55-1.02); SODIUM 137 mmol/L (136-145); TOTAL PROTEIN 7.1 g/dL (6.4-8.2); eGFR NON BLACK RACES 50 (>60)
[2022-03-31] MEDS: NS 1,000 ML IV 1,000 ML IV SCH (07:28)
[2022-03-31] MEDS: COREG TAB 6.25 MG PO SCH (08:44)
[2022-03-31] MEDS: COZAAR PO SCH (08:44)
[2022-03-31 11:36] VITALS: BP 139/79
[2022-03-31] MEDS: NovoLIN R (or HumuLIN R) SC PRN (11:47)
--- NOTE | 2022-04-21 11:59 | DR.CARTERS ---
Short Stay Summary - Admission Date Date of Admission: 03/30/22 - Discharge Date Discharge Date: 03/31/22 - Admission Diagnoses (1) Near syncope Status: Acute (2) Dizziness Status: Acute (3) Nausea and vomiting Status: Acute (4) Uncontrolled type II diabetes mellitus Status: Acute (5) Hypertension Status: Acute - Hospital Course Hospital Course: IS A 52 YEAR OLD PATIENT OF OURS. SHE PRESENTED TO THE HOSPITAL A DIRECT ADMISSION FROM OUR OFFICE FOR FURTHER EVALUATION AND TREATMENT OF DIZZINESS, NEAR SYNCOPAL EPISODES, NAUSEA AND VOMITING, UNCONTROLLED DIABETES, AND HYPERTENSION. SHE REPORTS THAT HER SYMPTOMS STARTED UPON AWAKENING. SHE ALSO COMPLAINED OF LOW BACK PAIN. SHE DESCRIBED PAIN DULL, INTERMITTENT, AND RATED IT A 5/10. HER PAST MEDICAL HISTORY INCLUDES DM II, HTN, ANEMIA, GASTROPARESIS, ARTHRITIS, CVA, NEUROPATHY, CHOLECYSTECTOMY, AND HYSTERECTOMY. ON ARRIVAL TO THE HOSPITAL, VITALS WERE 98.1-84-18-100%-162/80. LABS WERE OBTAINED. WBC 8.2, RBC 4.00, HGB 11.7, HCT 35.2, PLT COUNT 263, SODIUM 130, POTASSIUM 4.6, CHLORIDE 97, CARBON DIOXIDE 25.1, BUN 34, CREATININE 1.44, GLUCOSE 397, CALCIUM 9.5, TOTAL BILI 0.30, AST 16, ALT 24, ALK PHOS 117, TOTAL PROTEIN 8.6, ALBUMIN 3.6, GLOBULIN 5.0, AMYLASE 67, LIPASE 266. SERUM ACETONES NEGATIVE. A URINALYISIS WAS OBTAINED AND REVEALED: WBC 0-2, RBC 3-5, BLOOD 2+, LEUKOCYTES NEGATIVE, BACTERIA NEGATIVE, NITRITE NEGATIVE. A URINE CULTURE WAS SET UP. ON ADMISSION, SHE WAS GIVEN A NORMAL SALINE BOLUS, THEN 75 ML/HR, SLIDING SCALE INSULIN, OTBS ACHS, LOSARTAN 100MG DAILY, LANTUS 20 UNITS DAILY, AND ZOFRAN 4MG IV Q4H PRN NAUSEA, COREG 6.25MG PO BID, CLONIDINE 0.1MG PO HS, NORCO 10-325MG PO Q6H PRN, BENADRYL 25MG Q4H PRN, AND VISTARIL 25MG PO Q8H PRN. OTHERWISE, WE PLANNED TO FOLLOW UP WITH AM LABS AND CONTINUE TO MONITOR. ON THE MORNING FOLLOWING ADMISSION, PATIENT IS ALERT AND ORIENTED, LYING IN BED ON MORNING ROUNDS. SHE DENIED DIZZINESS OR NAUSEA AND REPORTED IMPROVEMENT SINCE ADMISSION. HER BLOOD PRESSURE DID DROP TO 86/52 THROUGHOUT THE NIGHT, BUT HAS SINCE STABILIZED. ON EXAMINATION, HEART IS REGULAR IN RATE AND RHYTHM. BILATERAL LUNGS ARE CLEAR TO AUSCULTATION. ABDOMEN IS ROUND, SOFT, AND NON-TENDER WITH NORMAL BOWEL SOUNDS NOTED IN ALL QUADRANTS. NO UPPER OR LOWER EXTREMITY EDEMA NOTED. HER VITALS THIS MORNING ARE: 98.9-82-18-99%-125/72. LABS WERE OBTAINED. WBC 6.4, RBC 3.45, HGB 10.3, HCT 30.1, PLT COUNT 232, SODIUM 137, POTASSIUM 4.5, CHLORIDE 103, BUN 30, CREATININE 1.22, GLUCOSE 207, CALCIUM 9.0, TOTAL BILI 0.40, AST 17, ALT 18, ALK PHOS 94, TOTAL PROTEIN 7.1, ALBUMIN 2.9. URINE CULTURE IS PENDING. DUE TO RESOLUTION OF SYMPTOMS, WE PLANNED FOR DISCHARGE HOME. INSTRUCTIONS FOR MEDICATIONS AND FOLLOW-UP WERE DISCUSSED WITH PATIENT AND FAMILY. SHE WAS INSTRUCTED TO DISCONTINUE THE [place] AND TO CONTINUE HER OTHER HOME MEDICATIONS WITH NO OTHER CHANGES MADE TO DOSAGES. PATIENT VERBALIZES UNDERSTANDING OF ORDERS. WE WILL CONTINUE TO MONITOR HER BLOOD PRESSURE AN OUTPATIENT AND WILL MAKE CHANGES APPROPRIATE. SHE IS INSTRUCTED TO FOLLOW-UP IN THE OFFICE ON 04/13/22 AT 10:50. PATIENT WAS DISCHARGED HOME WITH HER FAMILY IN STABLE CONDITION. TIME SPENT ON CLINICAL ASSESSMENT, REVIEWING LABS AND [facility], DECISION MAKING, DISCHARGE INSTRUCTIONS, PREPARING DISCHARGE PAPERS, AND DOCUMENTATION GREATER THAN 75 MINUTES. - Discharge Medications Discharge Medications: Home Medication List carvedilol 6.25 mg tablet 6.25 mg PO BID 03/30/22 [History] clonidine HCl 0.1 mg tablet 1 tab PO QPM 03/30/22 [History] hydrocodone 10 mg-acetaminophen 325 mg tablet 1 tab PO QID PRN 03/30/22 [History] metformin 500 mg tablet 1 tab PO BID 03/30/22 [History] promethazine 25 mg tablet 1 tab PO Q6HR PRN Nausea 03/30/22 [History] losartan 50 mg tablet 1 tab PO HS #30 tabs 03/31/22 [Rx] Prescriptions: Risks, benefits, and alternatives of opioids discussed: Yes - Discharge Plan Disposition: 01 HOME, SELF-CARE Condition: Stable - Follow up/Referrals Follow up/Referrals: Jason Quezada [Primary Care Provider] - 02/27/23 10:50 am - Instructions Instructions: Fall Prevention in the Home, Adult, [id number], Orthostatic Hypotension, Near-Syncope, [id number], Nausea and Vomiting, Adult Additional Instructions: DIET TOLERATED. ACTIVITY TOLERATED.
== END 2022-03-31 12:00 | disposition home or self-care (01) ==
LOC: ICU
PROVIDERS: ADMIT Internal Medicine; ATTEND Internal Medicine
DX: E87.1 Hypo-osmolality and hyponatremia; R42 Dizziness and giddiness; E11.65 Type 2 diabetes mellitus with hyperglycemia; R55 Syncope and collapse; I10 Essential (primary) hypertension; Z79.899 Other long term (current) drug therapy; R11.2 Nausea with vomiting, unspecified

== ENCOUNTER 2024-03-27 13:48 | Observation (INO) ==
[2024-03-27 18:02] LABS: BASOPHILS # (AUTO) 0.1 X10^3/uL (0.0-0.1); BASOPHILS % (AUTO) 1.1 % (0.2-1.0); EOSINOPHILS # (AUTO) 0.1 x10^3/uL (0.0-0.2); EOSINOPHILS % (AUTO) 1.3 % (0.9-2.9); HEMATOCRIT 33.7 % (36.0-47.0); HEMOGLOBIN 11.3 g/dL (12.0-16.0); LYMPHOCYTES # (AUTO) 2.7 X10^3/uL (1.3-2.9); LYMPHOCYTES % (AUTO) 38.3 % (21.0-51.0); MEAN CORPUSCULAR HEMOGLOBIN 30.7 pg (27.0-34.0); MEAN CORPUSCULAR HGB CONC 33.6 g/dL (33.0-35.0); MEAN CORPUSCULAR VOLUME 91.3 fL (80.0-100.0); MEAN PLATELET VOLUME 7.6 fL (7.4-11.0); MONOCYTES # (AUTO) 0.4 x10^3/uL (0.3-0.8); MONOCYTES % (AUTO) 5.9 % (0.0-13.0); NEUTROPHILS # (AUTO) 3.8 x10^3/uL (2.2-4.8); NEUTROPHILS % (AUTO) 53.4 % (42.0-75.0); PLATELET COUNT 331 X10^3/uL (150.0-450.0); RED BLOOD COUNT 3.69 X10^6/uL (3.5-5.4); RED CELL DISTRIBUTION WIDTH 13.1 % (11.6-16.5); WHITE BLOOD COUNT 7.1 X10^3/uL (3.6-10.0)
[2024-03-27 18:13] LABS: ALBUMIN 3.3 g/dL (3.4-5.0); CALCIUM 8.4 mg/dL (8.5-10.1); CARBON DIOXIDE 24.9 mmol/L (21-32); CREATININE 1.51 mg/dL (0.55-1.02); POTASSIUM 3.7 mmol/L (3.5-5.1); TOTAL PROTEIN 7.2 g/dL (6.4-8.2)
[2024-03-27] MEDS: NovoLIN R (or HumuLIN R) SUBCUT PRN (20:57)
[2024-03-27] MEDS: INVanz INJ 1 GRAM VIAL 1 G in NS 100 ML IV 100 ML IV SCH (21:49)
[2024-03-27] MEDS: SNACK - Diabetic Appropriate PO SCH (22:36)
[2024-03-27] MEDS: NS 1,000 ML IV 1,000 ML IV SCH (22:51)
[2024-03-28] MEDS: NORCO 5/325 MG TAB PO PRN (00:35)
[2024-03-28 01:05] LABS: BILIRUBIN,URINE NEGATIVE (NEGATIVE); BLOOD/HEMOGLOBIN,URINE 1+ (NEGATIVE); GLUCOSE, URINE NEGATIVE (NEGATIVE); KETONES,URINE NEGATIVE (NEGATIVE); LEUKOCYTE ESTERASE ,URINE 1+ (NEGATIVE); NITRITES,URINE POSITIVE (NEGATIVE); PROTEIN,URINE 2+ (NEGATIVE); UROBILINOGEN,URINE NORMAL (NORMAL)
[2024-03-28 01:12] LABS: APPEARANCE,URINE CLOUDY (CLEAR); COLOR,URINE STRAW (YELLOW)
[2024-03-28 01:28] LABS: BACTERIA,URINE 3+ /HPF (NEGATIVE); SQUAMOUS EPITHELIAL CELL,UR FEW /HPF (NEGATIVE)
[2024-03-28 05:09] LABS: BASOPHILS # (AUTO) 0.1 X10^3/uL (0.0-0.1); BASOPHILS % (AUTO) 0.8 % (0.2-1.0); EOSINOPHILS # (AUTO) 0.1 x10^3/uL (0.0-0.2); EOSINOPHILS % (AUTO) 1.5 % (0.9-2.9); HEMATOCRIT 30.9 % (36.0-47.0); HEMOGLOBIN 10.5 g/dL (12.0-16.0); LYMPHOCYTES # (AUTO) 3.2 X10^3/uL (1.3-2.9); LYMPHOCYTES % (AUTO) 46.7 % (21.0-51.0); MEAN CORPUSCULAR HEMOGLOBIN 30.6 pg (27.0-34.0); MEAN CORPUSCULAR HGB CONC 34.1 g/dL (33.0-35.0); MEAN CORPUSCULAR VOLUME 89.7 fL (80.0-100.0); MEAN PLATELET VOLUME 8.1 fL (7.4-11.0); MONOCYTES # (AUTO) 0.4 x10^3/uL (0.3-0.8); MONOCYTES % (AUTO) 5.5 % (0.0-13.0); NEUTROPHILS # (AUTO) 3.1 x10^3/uL (2.2-4.8); NEUTROPHILS % (AUTO) 45.5 % (42.0-75.0); PLATELET COUNT 264 X10^3/uL (150.0-450.0); RED BLOOD COUNT 3.45 X10^6/uL (3.5-5.4); RED CELL DISTRIBUTION WIDTH 13.1 % (11.6-16.5); WHITE BLOOD COUNT 6.8 X10^3/uL (3.6-10.0)
[2024-03-28 05:29] LABS: ALANINE AMINOTRANSFERASE 56 Units/L (12-78); ALBUMIN 2.9 g/dL (3.4-5.0); ALKALINE PHOSPHATASE 86 Units/L (46-116); ASPARTATE AMINO TRANSFERASE 28 Units/L (15-37); BLOOD UREA NITROGEN 26 mg/dL (7-18); CALCIUM 8.6 mg/dL (8.5-10.1); CARBON DIOXIDE 20.2 mmol/L (21-32); CHLORIDE 110 mmol/L (98-107); COR CA(FOR HYPOALB) 9.5 mg/dL (8.5-10.1); CREATININE 1.04 mg/dL (0.55-1.02); GLUCOSE 93 mg/dL (65-99); POTASSIUM 3.7 mmol/L (3.5-5.1); SODIUM 140 mmol/L (136-145); TOTAL PROTEIN 6.7 g/dL (6.4-8.2); eGFR NON BLACK RACES 59 (>60)
[2024-03-28] MEDS ORDERED: CONSULT PHARMACY - POTASSIUM & MAGNESIUM XX SCH (07:00)
[2024-03-28] MEDS: K-DUR TAB 20 MEQ PO SCH (08:12)
[2024-03-28] MEDS: LOVENOX INJ 40 MG SYR SC SCH (08:13)
--- NOTE | 2024-03-28 09:49 | DR.H&P ---
H&P History & Physical for Day of: H&P Date: 03/28/24 Chief Complaint Chief Complaint: weakness, flank pain, failed outpatient treatment History of Present Illness History of Present Illness: Ms Morin is a 53yo female with a PMH of HTN, HLD, DM presented with increased weakness, flank pain and urinary symptoms. She has been sick for over a week and was being treated for UTI outpatient with Ciprofloxacin. Her Urine Cx grew out ESBL E.coli so she was directly admitted for further treatment. She is feeling slightly better. She continued to have right sided flank pain and pelvic pressure. Denies fever or chills. She is currently on fluids and IV Invanz. Labs/imaging reviewed: -WBC 6.8 Hgb 10.5 K 3.7 BUN/Cr 12/03.04 -Urine Cx pending Plan: Continue IV Invanz, follow urine culture. Continue hydration. Will order C TAP to assess further. Replace electrolytes prn. Ambulate as tolerated. SCDs. Resume home medications. Monitor AM labs/imaging. Past Medical History Past Medical History: Arthritis, Diabetes, Dyslipidemia and Hypertension Additional Medical History: PANCREATITIS Past Surgical History Surgical History: Abdominal Surgery, Cholecystectomy and Hysterectomy Family History Family Medical History: Diabetes Mellitus, Cancer, [place] and Hypertension Social History Type of Tobacco Use: None Alcohol Use: Rarely Drug Use: None Medications Home Medications: Home Medications Medication Instructions Recorded Confirmed Type hydrocodone 10 mg-acetaminophen 1 tab PO QID PRN 03/30/22 03/28/24 History 325 mg tablet ciprofloxacin HCl 500 mg tablet 500 mg PO BID 03/28/24 03/28/24 History loratadine 10 mg tablet 10 mg PO QDAY 03/28/24 03/28/24 History montelukast 10 mg tablet 10 mg PO QPM 03/28/24 03/28/24 History Allergies Allergies Allergy/AdvReac Type Severity Reaction Status Date / Time Penicillins Allergy Mild RASH, Hives Unverified 12/30/20 10:45 Labs 03/28/24 04:17 03/28/24 04:17 Labs: Laboratory WBC 6.8 X10^3/uL (3.6-10.0) 03/28/24 04:17 RBC 3.45 X10^6/uL (3.5-5.4) L 03/28/24 04:17 Hgb 10.5 g/dL (12.0-16.0) L 03/28/24 04:17 Hct 30.9 % (36.0-47.0) L 03/28/24 04:17 MCV 89.7 fL (80.0-100.0) 03/28/24 04:17 MCH 30.6 pg (27.0-34.0) 03/28/24 04:17 MCHC 34.1 g/dL (33.0-35.0) 03/28/24 04:17 RDW 13.1 % (11.6-16.5) 03/28/24 04:17 Plt Count 264 X10^3/uL (150.0-450.0) 03/28/24 04:17 MPV 8.1 fL (7.4-11.0) 03/28/24 04:17 Neut % (Auto) 45.5 % (42.0-75.0) 03/28/24 04:17 Lymph % (Auto) 46.7 % (21.0-51.0) 03/28/24 04:17 [place] % (Auto) 5.5 % (0.0-13.0) 03/28/24 04:17 Eos % (Auto) 1.5 % (0.9-2.9) 03/28/24 04:17 Baso % (Auto) 0.8 % (0.2-1.0) 03/28/24 04:17 Neut # (Auto) 3.1 x10^3/uL (2.2-4.8) 03/28/24 04:17 Lymph # (Auto) 3.2 X10^3/uL (1.3-2.9) H 03/28/24 04:17 [place] # (Auto) 0.4 x10^3/uL (0.3-0.8) 03/28/24 04:17 Eos # (Auto) 0.1 x10^3/uL (0.0-0.2) 03/28/24 04:17 Baso # (Auto) 0.1 X10^3/uL (0.0-0.1) 03/28/24 04:17 Absolute Nucleated RBC 0.0 /100WBC 03/28/24 04:17 Sodium 140 mmol/L (136-145) 03/28/24 04:17 Corrected Sodium TNP 03/28/24 04:17 Potassium 3.7 mmol/L (3.5-5.1) 03/28/24 04:17 Chloride 110 mmol/L (98-107) H 03/28/24 04:17 Carbon Dioxide 20.2 mmol/L (21-32) L 03/28/24 04:17 BUN 26 mg/dL (7-18) H 03/28/24 04:17 Creatinine 1.04 mg/dL (0.55-1.02) H 03/28/24 04:17 Est GFR (MDRD) Af Amer > 60 (>60) 03/28/24 04:17 Est GFR (MDRD) Non-Af 59 (>60) 03/28/24 04:17 Glucose 93 mg/dL (65-99) 03/28/24 04:17 POC Glucose (mg/dL) 68 mg/dL (65-99) 03/28/24 05:39 Calcium 8.6 mg/dL (8.5-10.1) 03/28/24 04:17 Corrected Calcium 9.5 mg/dL (8.5-10.1) 03/28/24 04:17 Magnesium 2.0 mg/dL (2.0-2.9) 03/28/24 04:17 Total Bilirubin 0.20 mg/dL (0.2-1.0) 03/28/24 04:17 AST 28 Units/L (15-37) 03/28/24 04:17 ALT 56 Units/L (12-78) 03/28/24 04:17 Alkaline Phosphatase 86 Units/L (46-116) 03/28/24 04:17 Total Protein 6.7 g/dL (6.4-8.2) 03/28/24 04:17 Albumin 2.9 g/dL (3.4-5.0) L 03/28/24 04:17 Globulin 3.8 g/dL (2.5-4.5) 03/28/24 04:17 Albumin/Globulin Ratio 0.8 Ratio (1.1-2.1) L 03/28/24 04:17 Specimen Type Clean catch urine 03/28/24 00:45 Urine Color Straw (YELLOW) 03/28/24 00:45 Urine Appearance Cloudy (CLEAR) 03/28/24 00:45 Urine pH 6.0 (5.0 - 8.0) 03/28/24 00:45 Ur Specific [place] 1.015 (1.000-1.030) 03/28/24 00:45 Urine Protein 2+ (NEGATIVE) 03/28/24 00:45 Urine Glucose (UA) Negative (NEGATIVE) 03/28/24 00:45 Urine Ketones Negative (NEGATIVE) 03/28/24 00:45 Urine Blood 1+ (NEGATIVE) 03/28/24 00:45 Urine Nitrite Positive (NEGATIVE) 03/28/24 00:45 Urine Bilirubin Negative (NEGATIVE) 03/28/24 00:45 Urine Urobilinogen Normal (NORMAL) 03/28/24 00:45 Ur Leukocyte Esterase 1+ (NEGATIVE) 03/28/24 00:45 Urine RBC 5-10 /HPF (0-3) A 03/28/24 00:45 Urine WBC 20-30 /HPF (0-5) A 03/28/24 00:45 Ur Squamous Epith Cells Few /HPF (NEGATIVE) 03/28/24 00:45 Amorphous Sediment 1+ /HPF (NEGATIVE) 03/28/24 00:45 Urine Bacteria 3+ /HPF (NEGATIVE) 03/28/24 00:45 Urine Mucus Few /HPF (NEGATIVE) 03/28/24 00:45 Ur Culture Indicated? Yes/culture set up 03/28/24 00:45 Review of Systems Constitutional: Weakness and Malaise Eyes: No Symptoms Reported ENT: No Symptoms Reported Respiratory: No Symptoms Reported Cardiovascular: No Symptoms Reported Gastrointestinal: Nausea Genitourinary: Frequency, Retention and Other (flank pain) Musculoskeletal: No Symptoms Reported Skin: No Symptoms Reported Neurological: No Symptoms Reported Physical Exam Vital Signs: Vital Signs Temperature 98.1 F Temperature 98.2 F Pulse Rate [Left Radial] 89 Pulse Rate [Left Radial] 85 Respiratory Rate 18 Respiratory Rate 18 Respiratory Rate 20 Respiratory Rate 21 Blood Pressure [Left Arm] 136/86 Blood Pressure [Left Arm] 168/80 O2 Sat by Pulse Oximetry 99 O2 Sat by Pulse Oximetry 97 Oriented: Normal Eyes: Normal Throat: Normal Respiratory: Clear Throughout Cardiovascular: Normal Auscultation: Bowel Sounds: Normal Palpation: Normal Tenderness: Other (right flank tenderness noted ) Skin: Normal Musculoskeletal: Normal Psychiatric: Normal Mood Description: Calm Affect: Normal Speech Pattern: Clear and Appropriate Assessment/Plan (1) ESBL (extended spectrum beta-lactamase) producing bacteria infection: Status: Acute (2) Cystitis: Status: Acute (3) Dehydration: Status: Acute (4) JUSTICE (acute kidney injury): Status: Acute (5) Anemia: Qualifiers: Anemia type: unspecified type Qualified Code(s): D64.9 - Anemia, unspe cified Status: Chronic (6) Hypertension: Qualifiers: Hypertension type: essential hypertension Qualified Code(s): I10 - Essential (primary) hypertension Status: Chronic (7) Diabetes mellitus with hyperglycemia: Qualifiers: Diabetes mellitus correction insulin use: without manager long term care use Diabetes mellitus type: type 2 Qualified Code(s): E11.65 - Type 2 diabetes mellitus with hyperglycemia Status: Chronic Review H&P Reviewed: Yes Patient was examined?: Yes
[2024-03-28] MEDS ORDERED: OMNIPAQUE 350 mg/mL 100 mL BTL 100 ML ONE (12:05)
--- NOTE | 2024-03-28 13:00 | CT ---
EXAM:ABDCMEN/PELVIS WITH CONHISTORY:FLANK PAIN;COMPARISON:CT abdomen and pelvis 05/21/2023TECHNIQUE:Multiple CT axial images of the abdomen and pelvis were obtained with IV contrast. Coronal and sagittal images were reconstructed. Dose reduction techniques included Automated Exposure Control (AEC) and adjustment of mA and kV.FINDINGS:The lung bases are clear. Heart size is normal.Surgical clips are present in the gallbladder fossa from a cholecystectomy. Minimal dilatation of the intrahepatic and extrahepatic biliary tree likely a reservoir effect from having had cholecystectomy.Otherwise liver has a normal size and enhancement. The spleen is normal in size and shape.The adrenal glands are normal. The pancreas is normal.Renal enhancement is uniform and symmetric with no solid mass. There is no hydronephrosis or significant perirenal edema. Urinary bladder is contracted.Surgical clips are seen in the upper left abdomen, mostly around the gastric wall. The bowel is not dilated. There is no wall thickening in the bowel or edema around the bowel.Pelvic structures are not well seen due to a paucity of fat planes anatomy. There appears to be a retroverted uterus. If the patient has had a hysterectomy, this could be a mass. Recommend correlation with sonography if the patient has had hysterectomy.No retroperitoneal lymphadenopathy.No significant bone abnormality.IMPRESSION:1. No hydronephrosis or urolithiasis2. Possible pelvic mass versus retroverted uterus, see noteTHIS IS AN ELECTRONICALLY VERIFIED FINAL REPORT03/28/2024 12:50 PM - Electronically signed by Sim Winn MD
[2024-03-28] MEDS: ZOFRAN INJ 4 MG VIAL IVP PRN (13:43)
[2024-03-28] MEDS: SINGULAIR TAB 10 MG PO SCH (20:13)
[2024-03-28 20:26] VITALS: BMI 32.9
[2024-03-28] MEDS: VISTARIL PO PRN (20:26)
[2024-03-29 06:03] LABS: BASOPHILS # (AUTO) 0.1 X10^3/uL (0.0-0.1); BASOPHILS % (AUTO) 1.1 % (0.2-1.0); EOSINOPHILS # (AUTO) 0.1 x10^3/uL (0.0-0.2); EOSINOPHILS % (AUTO) 1.6 % (0.9-2.9); HEMATOCRIT 32.2 % (36.0-47.0); LYMPHOCYTES # (AUTO) 2.8 X10^3/uL (1.3-2.9); LYMPHOCYTES % (AUTO) 50.7 % (21.0-51.0); MEAN CORPUSCULAR HEMOGLOBIN 30.8 pg (27.0-34.0); MEAN CORPUSCULAR VOLUME 90.6 fL (80.0-100.0); MONOCYTES # (AUTO) 0.3 x10^3/uL (0.3-0.8); NEUTROPHILS # (AUTO) 2.2 x10^3/uL (2.2-4.8); NEUTROPHILS % (AUTO) 40.6 % (42.0-75.0); PLATELET COUNT 247 X10^3/uL (150.0-450.0); RED BLOOD COUNT 3.56 X10^6/uL (3.5-5.4); RED CELL DISTRIBUTION WIDTH 13.1 % (11.6-16.5); WHITE BLOOD COUNT 5.4 X10^3/uL (3.6-10.0)
[2024-03-29 06:13] LABS: ALANINE AMINOTRANSFERASE 67 Units/L (12-78); ALBUMIN 2.8 g/dL (3.4-5.0); ALKALINE PHOSPHATASE 84 Units/L (46-116); ASPARTATE AMINO TRANSFERASE 65 Units/L (15-37); BLOOD UREA NITROGEN 17 mg/dL (7-18); CALCIUM 8.5 mg/dL (8.5-10.1); CARBON DIOXIDE 22.1 mmol/L (21-32); CHLORIDE 110 mmol/L (98-107); COR CA(FOR HYPOALB) 9.5 mg/dL (8.5-10.1); GLUCOSE 84 mg/dL (65-99); SODIUM 142 mmol/L (136-145); TOTAL PROTEIN 6.6 g/dL (6.4-8.2); eGFR NON BLACK RACES > 60 (>60)
[2024-03-29 06:21] LABS: POTASSIUM 4.2 mmol/L (3.5-5.1)
--- NOTE | 2024-03-29 09:33 | PCM.PROG ---
Progress Note Progress Note for Day of Date of Exam: 03/29/24 Subjective Subjective: Patient seen at bedside, no acute events. She is currently admitted for ESBL UTI, on Invanz. She did have CTAP done yesterday which showed pelvic mass. Patient had hysterectomy years ago due to heavy menstrual bleeding. She does report a lot of pressure in the pelvic area. Denies N/V/D. Labs/imaging reviewed: -WBC 5.4 Hgb 11.0 K 4.2 BUN/Cr 17/0.90 -CTAP reviewed -Urine Cx: contaminated Plan: Continue IV antibiotics and hydration. Send out AIT UTI panel. Order pelvic US to assess further. Continue home medications. Replace electrolytes prn. Monitor AM labs/imaging. Past Medical Family Social History Allergies: Allergies Penicillins Allergy (Mild, Unverified 03/29/24 08:29) RASH, Hives hives Vital Signs and I&O's Vital Signs: Vital Signs Temperature 99.1 F Temperature 98.2 F Pulse Rate [Left Radial] 97 Pulse Rate [Left Radial] 79 Respiratory Rate 18 Respiratory Rate 18 Respiratory Rate 20 Blood Pressure [Left Arm] 133/70 Blood Pressure [Left Arm] 148/74 O2 Sat by Pulse Oximetry 99 O2 Sat by Pulse Oximetry 98 Intake and Output: Intake & Output 03/26/24 03/27/24 03/28/24 03/29/24 23:59 23:59 23:59 23:59 Intake Total 260 / 260 2491 / 2491 710 / 710 Balance 260 / 260 2491 / 2491 710 / 710 Physical Exam Oriented: Normal Eyes: Normal Throat: Normal Cardiovascular: Normal Auscultation: Bowel Sounds: Normal Tenderness: Suprapubic and Mild Skin: Normal Musculoskeletal: Normal Psychiatric: Normal Mood Description: Calm Affect: Normal Speech Pattern: Clear and Appropriate Laboratory and Diagnostics 03/29/24 05:25 03/29/24 05:25 Labs: 03/28/24 00:45 Urine,Clean Catch Urine Culture - Final Laboratory WBC 5.4 X10^3/uL (3.6-10.0) 03/29/24 05:25 RBC 3.56 X10^6/uL (3.5-5.4) 03/29/24 05:25 Hgb 11.0 g/dL (12.0-16.0) L 03/29/24 05:25 Hct 32.2 % (36.0-47.0) L 03/29/24 05:25 MCV 90.6 fL (80.0-100.0) 03/29/24 05:25 MCH 30.8 pg (27.0-34.0) 03/29/24 05:25 MCHC 34.0 g/dL (33.0-35.0) 03/29/24 05:25 RDW 13.1 % (11.6-16.5) 03/29/24 05:25 Plt Count 247 X10^3/uL (150.0-450.0) 03/29/24 05:25 MPV 8.0 fL (7.4-11.0) 03/29/24 05:25 Neut % (Auto) 40.6 % (42.0-75.0) L 03/29/24 05:25 Lymph % (Auto) 50.7 % (21.0-51.0) 03/29/24 05:25 [place] % (Auto) 6.0 % (0.0-13.0) 03/29/24 05:25 Eos % (Auto) 1.6 % (0.9-2.9) 03/29/24 05:25 Baso % (Auto) 1.1 % (0.2-1.0) H 03/29/24 05:25 Neut # (Auto) 2.2 x10^3/uL (2.2-4.8) 03/29/24 05:25 Lymph # (Auto) 2.8 X10^3/uL (1.3-2.9) 03/29/24 05:25 [place] # (Auto) 0.3 x10^3/uL (0.3-0.8) 03/29/24 05:25 Eos # (Auto) 0.1 x10^3/uL (0.0-0.2) 03/29/24 05:25 Baso # (Auto) 0.1 X10^3/uL (0.0-0.1) 03/29/24 05:25 Absolute Nucleated RBC 0.3 /100WBC 03/29/24 05:25 Sodium 142 mmol/L (136-145) 03/29/24 05:25 Corrected Sodium TNP 03/29/24 05:25 Potassium 4.2 mmol/L (3.5-5.1) 03/29/24 05:25 Chloride 110 mmol/L (98-107) H 03/29/24 05:25 Carbon Dioxide 22.1 mmol/L (21-32) 03/29/24 05:25 BUN 17 mg/dL (7-18) 03/29/24 05:25 Creatinine 0.90 mg/dL (0.55-1.02) 03/29/24 05:25 Est GFR (MDRD) Af Amer > 60 (>60) 03/29/24 05:25 Est GFR (MDRD) Non-Af > 60 (>60) 03/29/24 05:25 Glucose 84 mg/dL (65-99) 03/29/24 05:25 POC Glucose (mg/dL) 86 mg/dL (65-99) 03/29/24 05:04 Calcium 8.5 mg/dL (8.5-10.1) 03/29/24 05:25 Corrected Calcium 9.5 mg/dL (8.5-10.1) 03/29/24 05:25 Magnesium 2.0 mg/dL (2.0-2.9) 03/29/24 05:25 Total Bilirubin 0.30 mg/dL (0.2-1.0) 03/29/24 05:25 AST 65 Units/L (15-37) H 03/29/24 05:25 ALT 67 Units/L (12-78) 03/29/24 05:25 Alkaline Phosphatase 84 Units/L (46-116) 03/29/24 05:25 Total Protein 6.6 g/dL (6.4-8.2) 03/29/24 05:25 Albumin 2.8 g/dL (3.4-5.0) L 03/29/24 05:25 Globulin 3.8 g/dL (2.5-4.5) 03/29/24 05:25 Albumin/Globulin Ratio 0.7 Ratio (1.1-2.1) L 03/29/24 05:25 Specimen Type Clean catch urine 03/28/24 00:45 Urine Color Straw (YELLOW) 03/28/24 00:45 Urine Appearance Cloudy (CLEAR) 03/28/24 00:45 Urine pH 6.0 (5.0 - 8.0) 03/28/24 00:45 Ur Specific [place] 1.015 (1.000-1.030) 03/28/24 00:45 Urine Protein 2+ (NEGATIVE) 03/28/24 00:45 Urine Glucose (UA) Negative (NEGATIVE) 03/28/24 00:45 Urine Ketones Negative (NEGATIVE) 03/28/24 00:45 Urine Blood 1+ (NEGATIVE) 03/28/24 00:45 Urine Nitrite Positive (NEGATIVE) 03/28/24 00:45 Urine Bilirubin Negative (NEGATIVE) 03/28/24 00:45 Urine Urobilinogen Normal (NORMAL) 03/28/24 00:45 Ur Leukocyte Esterase 1+ (NEGATIVE) 03/28/24 00:45 Urine RBC 5-10 /HPF (0-3) A 03/28/24 00:45 Urine WBC 20-30 /HPF (0-5) A 03/28/24 00:45 Ur Squamous Epith Cells Few /HPF (NEGATIVE) 03/28/24 00:45 Amorphous Sediment 1+ /HPF (NEGATIVE) 03/28/24 00:45 Urine Bacteria 3+ /HPF (NEGATIVE) 03/28/24 00:45 Urine Mucus Few /HPF (NEGATIVE) 03/28/24 00:45 Ur Culture Indicated? Yes/culture set up 03/28/24 00:45 Plan (1) ESBL (extended spectrum beta-lactamase) producing bacteria infection: Status: Acute (2) Cystitis: Status: Acute (3) Pelvic mass: Status: Acute (4) Dehydration: Status: Acute (5) JUSTICE (acute kidney injury): Status: Acute (6) Anemia: Status: Chronic Qualifiers: Anemia type: unspecified type Qualified Code(s): D64.9 - Anemia, unspecified (7) Hypertension: Status: Chronic Qualifiers: Hypertension type: essential hypertension Qualified Code(s): I10 - Essential (primary) hypertension (8) Diabetes mellitus with hyperglycemia: Status: Chronic Qualifiers: 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
[2024-03-29 12:14] LABS: APPEARANCE,URINE CLEAR (CLEAR); BILIRUBIN,URINE NEGATIVE (NEGATIVE); BLOOD/HEMOGLOBIN,URINE NEGATIVE (NEGATIVE); COLOR,URINE YELLOW (YELLOW); GLUCOSE, URINE NEGATIVE (NEGATIVE); KETONES,URINE NEGATIVE (NEGATIVE); LEUKOCYTE ESTERASE ,URINE NEGATIVE (NEGATIVE); NITRITES,URINE NEGATIVE (NEGATIVE); PROTEIN,URINE 2+ (NEGATIVE); UROBILINOGEN,URINE NORMAL (NORMAL)
[2024-03-29 12:28] LABS: RBC,URINE 0-2 /HPF (0-3); SQUAMOUS EPITHELIAL CELL,UR MANY /HPF (NEGATIVE)
[2024-03-29 12:29] LABS: BACTERIA,URINE 1+ /HPF (NEGATIVE)
[2024-03-29] MEDS: TORADOL 15 MG VIAL IVP PRN (12:37)
--- NOTE | 2024-03-29 16:47 | US ---
EXAM: PELVIC (NON OB) HISTORY: CT CONCERNING FOR PELVIC MASSTAH 2015; complete hysterectomy. COMPARISON: CT abdomen and pelvis 03/28/2024 TECHNIQUE: 35 images made by the design engineer products. Sainz scale and color flow images of the pelvis were obtained. FINDINGS: TRANSABDOMINAL Bladder is moderately distended with a thin wall. This makes for a fair acoustic window. No normal uterus identified. There is a mass in the pelvis that correlates with the CT findings. Margins are not well seen becaus e of adjacent bowel gas but it measures about 10.6 x 8.8 x 7.6 cm. This appears larger than I would have suspected based on the CT, so I am not sure how much of this measurement includes the adjacent b owel. It has mixed echogenicity and appears solid. We could not identify a right or left ovary. No free fluid was identified. Since this study also confirms the presence of a possible pelvic mass, like seen on the CT, we could evaluate this further with MRI using contrast. IMPRESSION: 1. Findings suggesting a 10 cm pelvic mass 2. Recommend MR with contrast for further evaluation THIS IS AN ELECTRONICALLY VERIFIED FINAL REPORT 03/29/2024 4:43 PM - Electronically signed by Sim Winn MD
[2024-03-30] MEDS ORDERED: D50W ABBOJECT SYR ONE (05:21)
[2024-03-30] MEDS: D50W ABBOJECT SYR IV ONE ×2 (05:30→05:39)
[2024-03-30 05:54] LABS: BASOPHILS % (AUTO) 0.8 % (0.2-1.0); EOSINOPHILS # (AUTO) 0.1 x10^3/uL (0.0-0.2); EOSINOPHILS % (AUTO) 1.7 % (0.9-2.9); HEMATOCRIT 28.9 % (36.0-47.0); HEMOGLOBIN 9.8 g/dL (12.0-16.0); LYMPHOCYTES # (AUTO) 2.2 X10^3/uL (1.3-2.9); LYMPHOCYTES % (AUTO) 49.7 % (21.0-51.0); MEAN CORPUSCULAR HEMOGLOBIN 30.4 pg (27.0-34.0); MEAN CORPUSCULAR HGB CONC 33.7 g/dL (33.0-35.0); MEAN CORPUSCULAR VOLUME 90.2 fL (80.0-100.0); MONOCYTES # (AUTO) 0.3 x10^3/uL (0.3-0.8); MONOCYTES % (AUTO) 6.9 % (0.0-13.0); NEUTROPHILS # (AUTO) 1.8 x10^3/uL (2.2-4.8); NEUTROPHILS % (AUTO) 40.9 % (42.0-75.0); PLATELET COUNT 227 X10^3/uL (150.0-450.0); RED BLOOD COUNT 3.21 X10^6/uL (3.5-5.4); RED CELL DISTRIBUTION WIDTH 13.1 % (11.6-16.5); WHITE BLOOD COUNT 4.4 X10^3/uL (3.6-10.0)
[2024-03-30 06:30] LABS: ALBUMIN 2.6 g/dL (3.4-5.0); ALKALINE PHOSPHATASE 103 Units/L (46-116); ASPARTATE AMINO TRANSFERASE 266 Units/L (15-37); BLOOD UREA NITROGEN 14 mg/dL (7-18); CARBON DIOXIDE 23.2 mmol/L (21-32); CHLORIDE 109 mmol/L (98-107); COR CA(FOR HYPOALB) 9.1 mg/dL (8.5-10.1); COR NA(FOR HYPERGLY) 142 mmol/L (136-145); CREATININE 0.97 mg/dL (0.55-1.02); GLUCOSE 136 mg/dL (65-99); POTASSIUM 3.9 mmol/L (3.5-5.1); SODIUM 141 mmol/L (136-145); TOTAL PROTEIN 6.1 g/dL (6.4-8.2); eGFR NON BLACK RACES > 60 (>60)
[2024-03-30 06:46] LABS: ALANINE AMINOTRANSFERASE 182 Units/L (12-78)
--- NOTE | 2024-03-30 11:11 | PCM.PROG ---
Progress Note Progress Note for Day of Date of Exam: 03/30/24 Subjective Subjective: Patient seen at bedside. She reports improvement in her symptoms. No acute events overnight. She is currently admitted for ESBL UTI, on Invanz. She did have Pelvic ultrasound yesterday that showed pelvic mass, recommends MRI. Patient had hysterectomy years ago due to heavy menstrual bleeding. She does report a lot of pressure in the pelvic area. Denies N/V/D. Labs/imaging reviewed: -WBC 4.4, hemoglobin 9.8, platelets 227, sodium 142, potassium 3.9, creatinine 0.97, glucose 136, -CTAP reviewed -Urine Cx: contaminated -Urine AIT pending Plan: Continue IV antibiotics and hydration. Order pelvic MRI to assess further. Continue home medications. Replace electrolytes prn. Monitor AM labs/imaging. Past Medical Family Social History Allergies: Allergies Penicillins Allergy (Mild, Verified 03/29/24 11:14) RASH, Hives hives Review of Systems ROS changes noted: see HPI Vital Signs and I&O's Vital Signs: Vital Signs Temperature 98.2 F Temperature 98.8 F Pulse Rate [Left Radial] 86 Pulse Rate [Left Radial] 83 Respiratory Rate 18 Respiratory Rate 18 Respiratory Rate 18 Respiratory Rate 19 Respiratory Rate 18 Blood Pressure [Left Arm] 131/73 Blood Pressure [Left Arm] 150/72 O2 Sat by Pulse Oximetry 99 O2 Sat by Pulse Oximetry 99 Intake and Output: Intake & Output 03/27/24 03/28/24 03/29/24 03/30/24 23:59 23:59 23:59 23:59 Intake Total 260 / 260 2491 / 2491 3361 / 3361 430 / 430 Balance 260 / 260 2491 / 2491 3361 / 3361 430 / 430 Physical Exam Oriented: Normal Eyes: Normal Throat: Normal Respiratory: Normal Cardiovascular: Normal Auscultation: Bowel Sounds: Normal Tenderness: Suprapubic and Mild Skin: Normal Musculoskeletal: Normal Psychiatric: Normal Mood Description: Calm Affect: Normal Speech Pattern: Clear and Appropriate Laboratory and Diagnostics 03/30/24 05:28 03/30/24 05:28 Labs: 03/28/24 00:45 Urine,Clean Catch Urine Culture - Final Laboratory WBC 4.4 X10^3/uL (3.6-10.0) 03/30/24 05:28 RBC 3.21 X10^6/uL (3.5-5.4) L 03/30/24 05:28 Hgb 9.8 g/dL (12.0-16.0) L 03/30/24 05:28 Hct 28.9 % (36.0-47.0) L 03/30/24 05:28 MCV 90.2 fL (80.0-100.0) 03/30/24 05: MCH 30.4 pg (27.0-34.0) 03/30/24 05: MCHC 33.7 g/dL (33.0-35.0) 03/30/24 05: RDW 13.1 % (11.6-16.5) 03/30/24 05: Plt Count 227 X10^3/uL (150.0-450.0) 03/30/24 05: MPV 8.0 fL (7.4-11.0) 03/30/24 05:28 Neut % (Auto) 40.9 % (42.0-75.0) L 03/30/24 05:28 Lymph % (Auto) 49.7 % (21.0-51.0) 03/30/24 05:28 [place] % (Auto) 6.9 % (0.0-13.0) 03/30/24 05: Eos % (Auto) 1.7 % (0.9-2.9) 03/30/24 05: Baso % (Auto) 0.8 % (0.2-1.0) 03/30/24 05:28 Neut # (Auto) 1.8 x10^3/uL (2.2-4.8) L 03/30/24 05:28 Lymph # (Auto) 2.2 X10^3/uL (1.3-2.9) 03/30/24 05:28 [place] # (Auto) 0.3 x10^3/uL (0.3-0.8) 03/30/24 05:28 Eos # (Auto) 0.1 x10^3/uL (0.0-0.2) 03/30/24 05:28 Baso # (Auto) 0.0 X10^3/uL (0.0-0.1) 03/30/24 05:28 Absolute Nucleated RBC 0.1 /100WBC 03/30/24 05:28 Sodium 141 mmol/L (136-145) 03/30/24 05:28 Corrected Sodium 142 mmol/L (136-145) 03/30/24 05:28 Potassium 3.9 mmol/L (3.5-5.1) 03/30/24 05:28 Chloride 109 mmol/L (98-107) H 03/30/24 05:28 Carbon Dioxide 23.2 mmol/L (21-32) 03/30/24 05:28 BUN 14 mg/dL (7-18) 03/30/24 05:28 Creatinine 0.97 mg/dL (0.55-1.02) 03/30/24 05:28 Est GFR (MDRD) Af Amer > 60 (>60) 03/30/24 05:28 Est GFR (MDRD) Non-Af > 60 (>60) 03/30/24 05:28 Glucose 136 mg/dL (65-99) H 03/30/24 05:28 POC Glucose (mg/dL) 84 mg/dL (65-99) 03/30/24 06:12 Calcium 8.0 mg/dL (8.5-10.1) L 03/30/24 05:28 Corrected Calcium 9.1 mg/dL (8.5-10.1) 03/30/24 05:28 Magnesium 2.0 mg/dL (2.0-2.9) 03/29/24 05:25 Total Bilirubin 0.20 mg/dL (0.2-1.0) 03/30/24 05:28 AST 266 Units/L (15-37) H 03/30/24 05:28 ALT 182 Units/L (12-78) H 03/30/24 05:28 Alkaline Phosphatase 103 Units/L (46-116) 03/30/24 05:28 Total Protein 6.1 g/dL (6.4-8.2) L 03/30/24 05:28 Albumin 2.6 g/dL (3.4-5.0) L 03/30/24 05:28 Globulin 3.5 g/dL (2.5-4.5) 03/30/24 05:28 Albumin/Globulin Ratio 0.7 Ratio (1.1-2.1) L 03/30/24 05:28 Specimen Type Clean catch urine 03/29/24 11:49 Urine Color Yellow (YELLOW) 03/29/24 11:49 Urine Appearance Clear (CLEAR) 03/29/24 11:49 Urine pH 6.0 (5.0 - 8.0) 03/29/24 11:49 Ur Specific [place] 1.015 (1.000-1.030) 03/29/24 11:49 Urine Protein 2+ (NEGATIVE) 03/29/24 11:49 Urine Glucose (UA) Negative (NEGATIVE) 03/29/24 11:49 Urine Ketones Negative (NEGATIVE) 03/29/24 11:49 Urine Blood Negative (NEGATIVE) 03/29/24 11:49 Urine Nitrite Negative (NEGATIVE) 03/29/24 11:49 Urine Bilirubin Negative (NEGATIVE) 03/29/24 11:49 Urine Urobilinogen Normal (NORMAL) 03/29/24 11:49 Ur Leukocyte Esterase Negative (NEGATIVE) 03/29/24 11:49 Urine RBC 0-2 /HPF (0-3) 03/29/24 11:49 Urine WBC 0-2 /HPF (0-5) 03/29/24 11:49 Ur Squamous Epith Cells Many /HPF (NEGATIVE) 03/29/24 11:49 Amorphous Sediment 1+ /HPF (NEGATIVE) 03/28/24 00:45 Urine Bacteria 1+ /HPF (NEGATIVE) 03/29/24 11:49 Urine Mucus Few /HPF (NEGATIVE) 03/29/24 11:49 Ur Culture Indicated? No/not indicated 03/29/24 11:49 Infect Dis PCR Plus See scanned report 03/29/24 11:49 Plan (1) ESBL (extended spectrum beta-lactamase) producing bacteria infection: Status: Acute (2) Cystitis: Status: Acute (3) Pelvic mass: Status: Acute (4) Dehydration: Status: Acute (5) JUSTICE (acute kidney injury): Status: Acute (6) Anemia: Status: Chronic Qualifiers: Anemia type: unspecified type Qualified Code(s): D64.9 - Anemia, unspecified (7) Hypertension: Status: Chronic Qualifiers: Hypertension type: essential hypertension Qualified Code(s): I10 - Essential (primary) hypertension (8) Diabetes mellitus with hyperglycemia: Status: Chronic Qualifiers: Diabetes mellitus type: type 2 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
[2024-03-30] MEDS: MULTIHANCE INJ VIAL ONE (12:18)
--- NOTE | 2024-03-30 20:17 | MRI ---
EXAM:MRI PELVIS WITH AND WITHOUT CONTRASTHISTORY:mass on abd US CONTRAST-Multihance 18cc injected into right ac ; .COMPARISON:Pelvic ultrasound March 29, 2024.TECHNIQUE:Using a phased array coil, MR images were obtained through the pelvis with and without contrast.Informed written consent was obtained from the patient prior to contrast administration.FINDINGS:UTERUS AND ADNEXA: By report, patient has undergone previous hysterectomy. Prominent tissues at the vaginal cuff noted as seen on recent CT and ultrasound measuring proximally 7.1 x 2.5 cm. This may be a portion of the uterus is there is suggestion of a partial endometrial stripe. No adnexal lesions are seen.GI TRACT: NormalBLADDER: NormalLYMPH NODES: No enlarged nodesVESSELS: NormalPERITONEUM / RETROPERITONEUM: No free fluidBONES: NormalIMPRESSION:Prominent tissues of the vaginal cuff in the setting of previous hysterectomy. This may represent a portion of the uterus with suggestion of possible endometrial stripe. No lymphadenopathy or other abnormality.THIS IS AN ELECTRONICALLY VERIFIED FINAL REPORT03/30/2024 8:14 PM - Electronically signed by Jeramy Puri MD
[2024-03-31 06:33] LABS: BASOPHILS % (AUTO) 0.4 % (0.2-1.0); EOSINOPHILS # (AUTO) 0.1 x10^3/uL (0.0-0.2); HEMATOCRIT 29.1 % (36.0-47.0); HEMOGLOBIN 9.9 g/dL (12.0-16.0); LYMPHOCYTES % (AUTO) 44.4 % (21.0-51.0); MEAN CORPUSCULAR HEMOGLOBIN 30.8 pg (27.0-34.0); MEAN CORPUSCULAR HGB CONC 34.1 g/dL (33.0-35.0); MEAN CORPUSCULAR VOLUME 90.2 fL (80.0-100.0); MEAN PLATELET VOLUME 7.7 fL (7.4-11.0); MONOCYTES # (AUTO) 0.4 x10^3/uL (0.3-0.8); MONOCYTES % (AUTO) 8.4 % (0.0-13.0); NEUTROPHILS % (AUTO) 44.8 % (42.0-75.0); PLATELET COUNT 201 X10^3/uL (150.0-450.0); RED BLOOD COUNT 3.23 X10^6/uL (3.5-5.4); RED CELL DISTRIBUTION WIDTH 13.1 % (11.6-16.5); WHITE BLOOD COUNT 4.5 X10^3/uL (3.6-10.0)
[2024-03-31 06:39] LABS: ALANINE AMINOTRANSFERASE 172 Units/L (12-78); ALBUMIN 2.6 g/dL (3.4-5.0); ALKALINE PHOSPHATASE 104 Units/L (46-116); ASPARTATE AMINO TRANSFERASE 160 Units/L (15-37); BLOOD UREA NITROGEN 13 mg/dL (7-18); CALCIUM 8.2 mg/dL (8.5-10.1); CARBON DIOXIDE 26.5 mmol/L (21-32); CHLORIDE 109 mmol/L (98-107); COR CA(FOR HYPOALB) 9.3 mg/dL (8.5-10.1); CREATININE 0.92 mg/dL (0.55-1.02); GLUCOSE 105 mg/dL (65-99); POTASSIUM 3.8 mmol/L (3.5-5.1); SODIUM 143 mmol/L (136-145); TOTAL PROTEIN 6.2 g/dL (6.4-8.2); eGFR NON BLACK RACES > 60 (>60)
[2024-03-31 06:40] VITALS: RESP 18
[2024-03-31] MEDS ORDERED: CONSULT PHARMACY - POTASSIUM & MAGNESIUM XX SCH (07:00)
[2024-03-31] MEDS: K-DUR TAB 20 MEQ PO SCH (08:17)
[2024-03-31 08:23] VITALS: BP 105/60; PULSE 99; TEMP 98.1; O2SAT 100
[2024-03-31] MEDS: INVanz INJ 1 GRAM VIAL 1 G in NS 100 ML IV 100 ML IV SCH (09:37)
--- NOTE | 2024-04-04 11:30 | W.DIS.FURT ---
Summary of Discharge Discharge Summary of Date Date of Exam: 03/31/24 Admission Date Date of Admission: 03/27/24 Admission Diagnosis Hospital Course: Patient is a 53 year old female admitted for ESBL UTI. She did receive Invanz. She did have MRI after having U/S revealing possible pelvic mass. MRI revealed prominent tissues of the vaginal cuff in the setting of previous hysterectomy. This may represent a portion of the uterus with suggestion of possible endometrial stripe. Patient had hysterectomy years ago due to heavy menstrual bleeding. Pt responded well to treatments and symptoms significantly improved. She was discharged in stable condition. She will complete IV Invanz course outpatient and referral has been placed to onc/surgery per her request to Dr Hayes in [place]. Instructed to follow up with pcp in 1 week. Vital Signs: Vital Signs (72 hours) 03/28/24 12:00 03/28/24 16:00 03/28/24 17:06 Temperature 98.1 F 98.2 F Pulse Rate [Left Radial] 88 88 Respiratory Rate 20 20 20 Blood Pressure [Left Arm] 149/84 140/85 O2 Sat by Pulse Oximetry 99 99 Oxygen Delivery Method Room Air Room Air 03/28/24 18:06 03/28/24 19:58 03/28/24 19:00 Temperature 98.5 F Pulse Rate [Left Radial] 82 Respiratory Rate 20 18 Blood Pressure [Left Arm] 155/78 O2 Sat by Pulse Oximetry 98 Oxygen Delivery Method Room Air Room Air 03/28/24 23:54 03/29/24 04:00 03/29/24 07:49 Temperature 97.7 F 98.2 F 99.1 F Pulse Rate [Left Radial] 71 79 97 H Respiratory Rate 21 20 18 Blood Pressure [Left Arm] 160/80 148/74 133/70 O2 Sat by Pulse Oximetry 99 98 99 Oxygen Delivery Method Room Air Room Air Room Air 03/29/24 07:57 03/29/24 12:37 03/29/24 07:00 Temperature Pulse Rate [Left Radial] Respiratory Rate 18 20 Blood Pressure [Left Arm] O2 Sat by Pulse Oximetry Oxygen Delivery Method Room Air 03/29/24 08:57 03/29/24 12:00 03/29/24 13:07 Temperature 97.9 F Pulse Rate [Left Radial] 92 H Respiratory Rate 20 18 18 Blood Pressure [Left Arm] 183/82 O2 Sat by Pulse Oximetry 99 Oxygen Delivery Method Room Air 03/29/24 15:18 03/29/24 17:07 03/29/24 18:07 Temperature 98.0 F Pulse Rate [Left Radial] 95 H Respiratory Rate 18 18 18 Blood Pressure [Left Arm] 158/80 O2 Sat by Pulse Oximetry 97 Oxygen Delivery Method Room Air 03/29/24 19:37 03/29/24 19:40 03/29/24 19:00 Temperature 98.2 F Pulse Rate [Left Radial] 88 Respiratory Rate 18 18 Blood Pressure [Left Arm] 176/94 O2 Sat by Pulse Oximetry 99 Oxygen Delivery Method Room Air Room Air 03/29/24 20:10 03/29/24 23:54 03/29/24 23:59 Temperature 97.9 F Pulse Rate [Left Radial] 83 Respiratory Rate 17 19 18 Blood Pressure [Left Arm] 180/98 O2 Sat by Pulse Oximetry 99 Oxygen Delivery Method Room Air 03/30/24 02:50 03/30/24 00:59 03/30/24 03:58 Temperature 98.8 F Pulse Rate [Left Radial] 83 Respiratory Rate 18 18 19 Blood Pressure [Left Arm] 150/72 O2 Sat by Pulse Oximetry 99 Oxygen Delivery Method Room Air 03/30/24 03:20 03/30/24 07:47 03/30/24 08:10 Temperature 98.2 F Pulse Rate [Left Radial] 86 Respiratory Rate 18 18 18 Blood Pressure [Left Arm] 131/73 O2 Sat by Pulse Oximetry 99 Oxygen Delivery Method Room Air 03/30/24 12:16 03/30/24 15:28 03/30/24 07:00 Temperature Pulse Rate [Left Radial] Respiratory Rate 18 18 Blood Pressure [Left Arm] O2 Sat by Pulse Oximetry Oxygen Delivery Method Room Air 03/30/24 09:10 03/30/24 11:30 03/30/24 12:46 Temperature 98.6 F Pulse Rate [Left Radial] 84 Respiratory Rate 18 18 20 Blood Pressure [Left Arm] 143/90 O2 Sat by Pulse Oximetry 98 Oxygen Delivery Method Room Air 03/30/24 13:16 03/30/24 15:23 03/30/24 16:28 Temperature 98.3 F Pulse Rate [Left Radial] 83 Respiratory Rate 20 18 18 Blood Pressure [Left Arm] 166/82 O2 Sat by Pulse Oximetry 98 Oxygen Delivery Method Room Air 03/30/24 17:20 03/30/24 19:00 03/30/24 19:53 Temperature 98.4 F Pulse Rate [Left Radial] 97 H Respiratory Rate 18 Blood Pressure [Left Arm] 112/68 149/76 O2 Sat by Pulse Oximetry 99 Oxygen Delivery Method Room Air Room Air 03/30/24 20:11 03/30/24 20:41 03/31/24 00:00 Temperature 98.6 F Pulse Rate [Left Radial] 73 Respiratory Rate 18 18 18 Blood Pressure [Left Arm] 150/70 O2 Sat by Pulse Oximetry 98 Oxygen Delivery Method Room Air 03/31/24 01:30 03/31/24 05:30 03/31/24 02:00 Temperature Pulse Rate [Left Radial] Respiratory Rate 18 20 18 Blood Pressure [Left Arm] O2 Sat by Pulse Oximetry Oxygen Delivery Method 03/31/24 04:00 03/31/24 06:30 03/31/24 07:00 Temperature 98.7 F Pulse Rate [Left Radial] 84 Respiratory Rate 18 18 Blood Pressure [Left Arm] 143/73 O2 Sat by Pulse Oximetry 99 Oxygen Delivery Method Room Air Room Air 03/31/24 08:00 Temperature 98.1 F Pulse Rate [Left Radial] 99 H Respiratory Rate 18 Blood Pressure [Left Arm] 105/60 O2 Sat by Pulse Oximetry 100 Oxygen Delivery Method Room Air Labs: Laboratory Last Values WBC 4.5 X10^3/uL (3.6-10.0) 03/31/24 06:08 RBC 3.23 X10^6/uL (3.5-5.4) L 03/31/24 06:08 Hgb 9.9 g/dL (12.0-16.0) L 03/31/24 06:08 Hct 29.1 % (36.0-47.0) L 03/31/24 06:08 MCV 90.2 fL (80.0-100.0) 03/31/24 06:08 MCH 30.8 pg (27.0-34.0) 03/31/24 06:08 MCHC 34.1 g/dL (33.0-35.0) 03/31/24 06:08 RDW 13.1 % (11.6-16.5) 03/31/24 06:08 Plt Count 201 X10^3/uL (150.0-450.0) 03/31/24 06:08 MPV 7.7 fL (7.4-11.0) 03/31/24 06:08 Neut % (Auto) 44.8 % (42.0-75.0) 03/31/24 06:08 Lymph % (Auto) 44.4 % (21.0-51.0) 03/31/24 06:08 [place] % (Auto) 8.4 % (0.0-13.0) 03/31/24 06:08 Eos % (Auto) 2.0 % (0.9-2.9) 03/31/24 06:08 Baso % (Auto) 0.4 % (0.2-1.0) 03/31/24 06:08 Neut # (Auto) 2.0 x10^3/uL (2.2-4.8) L 03/31/24 06:08 Lymph # (Auto) 2.0 X10^3/uL (1.3-2.9) 03/31/24 06:08 [place] # (Auto) 0.4 x10^3/uL (0.3-0.8) 03/31/24 06:08 Eos # (Auto) 0.1 x10^3/uL (0.0-0.2) 03/31/24 06:08 Baso # (Auto) 0.0 X10^3/uL (0.0-0.1) 03/31/24 06:08 Absolute Nucleated RBC 0.1 /100WBC 03/31/24 06:08 Sodium 143 mmol/L (136-145) 03/31/24 06:08 Corrected Sodium TNP 03/31/24 06:08 Potassium 3.8 mmol/L (3.5-5.1) 03/31/24 06:08 Chloride 109 mmol/L (98-107) H 03/31/24 06:08 Carbon Dioxide 26.5 mmol/L (21-32) 03/31/24 06:08 BUN 13 mg/dL (7-18) 03/31/24 06:08 Creatinine 0.92 mg/dL (0.55-1.02) 03/31/24 06:08 Est GFR (MDRD) Af Amer > 60 (>60) 03/31/24 06:08 Est GFR (MDRD) Non-Af > 60 (>60) 03/31/24 06:08 Glucose 105 mg/dL (65-99) H 03/31/24 06:08 POC Glucose (mg/dL) 112 mg/dL (65-99) H 03/31/24 05:01 Calcium 8.2 mg/dL (8.5-10.1) L 03/31/24 06:08 Corrected Calcium 9.3 mg/dL (8.5-10.1) 03/31/24 06:08 Magnesium 1.9 mg/dL (2.0-2.9) L 03/31/24 06:08 Total Bilirubin 0.20 mg/dL (0.2-1.0) 03/31/24 06:08 AST 160 Units/L (15-37) H 03/31/24 06:08 ALT 172 Units/L (12-78) H 03/31/24 06:08 Alkaline Phosphatase 104 Units/L (46-116) 03/31/24 06:08 Total Protein 6.2 g/dL (6.4-8.2) L 03/31/24 06:08 Albumin 2.6 g/dL (3.4-5.0) L 03/31/24 06:08 Globulin 3.6 g/dL (2.5-4.5) 03/31/24 06:08 Albumin/Globulin Ratio 0.7 Ratio (1.1-2.1) L 03/31/24 06:08 Specimen Type Clean catch urine 03/29/24 11:49 Urine Color Yellow (YELLOW) 03/29/24 11:49 Urine Appearance Clear (CLEAR) 03/29/24 11:49 Urine pH 6.0 (5.0 - 8.0) 03/29/24 11:49 Ur Specific [place] 1.015 (1.000-1.030) 03/29/24 11:49 Urine Protein 2+ (NEGATIVE) 03/29/24 11:49 Urine Glucose (UA) Negative (NEGATIVE) 03/29/24 11:49 Urine Ketones Negative (NEGATIVE) 03/29/24 11:49 Urine Blood Negative (NEGATIVE) 03/29/24 11:49 Urine Nitrite Negative (NEGATIVE) 03/29/24 11:49 Urine Bilirubin Negative (NEGATIVE) 03/29/24 11:49 Urine Urobilinogen Normal (NORMAL) 03/29/24 11:49 Ur Leukocyte Esterase Negative (NEGATIVE) 03/29/24 11:49 Urine RBC 0-2 /HPF (0-3) 03/29/24 11:49 Urine WBC 0-2 /HPF (0-5) 03/29/24 11:49 Ur Squamous Epith Cells Many /HPF (NEGATIVE) 03/29/24 11:49 Amorphous Sediment 1+ /HPF (NEGATIVE) 03/28/24 00:45 Urine Bacteria 1+ /HPF (NEGATIVE) 03/29/24 11:49 Urine Mucus Few /HPF (NEGATIVE) 03/29/24 11:49 Ur Culture Indicated? No/not indicated 03/29/24 11:49 Infect Dis PCR Plus See scanned report 03/29/24 11:49 Reason For Visit: UTI Discharge Date Discharge Date: 03/31/24 Discharge Diagnosis All Active Problems (Updated 03/29/24 @ 09:32 by Ijeoma Diaz MD) Pelvic mass (Acute) JUSTICE (acute kidney injury) (Acute) Dehydration (Acute) ESBL (extended spectrum beta-lactamase) producing bacteria infection (Acute) Diabetic ulcer of left foot (Acute) Anemia (Chronic) Insomnia (Acute) Ischiorectal abscess (Acute) Hypertension (Chronic) Cystitis (Acute) Acute pancreatitis (Acute) UTI (urinary tract infection) (Acute) Cellulitis of foot, left (Acute) Diabetes mellitus with hyperglycemia (Chronic) Abscess of left knee (Acute) Degenerative arthritis of left knee (Chronic) Diabetes mellitus, type 2 (Chronic) Rheumatoid arthritis (Chronic) Plan of Treatment: Continue with present treatment and follow up plan. Pt is to keep follow up appointment as instructed and take medications as ordered. Discharge Medications Discharge Medications: Penicillins Allergy (Mild, Verified 03/29/24 11:14) RASH, Hives CONTINUE taking the following medications loratadine 10 mg tablet 10 mg PO QDAY 03/28/24 [History] montelukast 10 mg tablet 10 mg PO QPM 03/28/24 [History] New Prescriptions ertapenem 1 gram solution for injection 1 g IV DAILY #7 ea 03/31/24 [Rx] Discharge Disposition Assessment: No distress noted. Discharge Plan Discharge Plan Hospital Course: Patient is a 53 year old female admitted for ESBL UTI. She did receive Invanz. She did have MRI after having U/S revealing possible pelvic mass. MRI revealed prominent tissues of the vaginal cuff in the setting of previous hysterectomy. This may represent a portion of the uterus with suggestion of possible endometrial stripe. Patient had hysterectomy years ago due to heavy menstrual bleeding. Pt responded well to treatments and symptoms significantly improved. She was discharged in stable condition. She will complete IV Invanz course outpatient and referral has been placed to onc/surgery per her request to Dr Hayes in [place]. Instructed to follow up with pcp in 1 week. Patient Disposition: 01 HOME, SELF-CARE Condition: Stable Health Concerns: Post Hospitalization: new medications and changes needed to prevent readmission or further decline. Pt educated and given instructions on all concerns. Care Plan Goals: Problem: Infection Goal: Temperature within normal limits. Resolved infection. Instructions: Follow provided instructions. Follow up with primary physician as directed. Contact primary care physician or report to the closest Emergency Room if condition worsens. Plan of Treatment: Continue with present treatment and follow up plan. Pt is to keep follow up appointment as instructed and take medications as ordered. Assessment: No distress noted. Prescriptions: New ertapenem 1 gram Recon Soln 1 g IV DAILY Qty: 7 0RF Continued montelukast 10 mg tablet 10 mg PO QPM loratadine 10 mg tablet 10 mg PO QDAY hydrocodone-acetaminophen 10-325 mg tablet 1 tab PO QID PRN Discontinued ciprofloxacin HCl 500 mg tablet 500 mg PO BID Rx Instructions: Take one tablet BID x 10 days. Rx'd on 03/23/24 Orders to Discharge Patient Discharge Orders: Discharge (Routine); Ordered 03/31/24 Ordered By: Kishor Rehman Follow ups/Referrals Follow ups/Referrals: NICOLAS MASON [Nurse Practitioner] - 04/06/24 9:40 am DAYRON HAYES [REFERRING] - (Referral made 03/31/24 phone [phone] Instructed to fax referral to [phone].) Instructions Instructions: Urinary Tract Infection, Female, ESBL Infection, Pelvic Mass, Female Activity Restrictions/Additional Instructions: Invanz 1gm IV daily x7 days in the ER. Follow up with campaign marketing specialist Stand Alone Forms: Find Help Web Site, Post Hospital Follow Up Care
== END 2024-03-31 12:15 | disposition home or self-care (01) ==
LOC: MED/SURG
PROVIDERS: ADMIT Internal Medicine; ATTEND Internal Medicine
DX: R19.09 Other intra-abdominal and pelvic swelling, mass and lump; N17.8 Other acute kidney failure; E11.65 Type 2 diabetes mellitus with hyperglycemia; Z16.12 Extended spectrum beta lactamase (ESBL) resistance; B96.29 Other Escherichia coli [E. coli] as the cause of diseases classified elsewhere; E78.5 Hyperlipidemia, unspecified; N30.90 Cystitis, unspecified without hematuria; R10.84 Generalized abdominal pain; I10 Essential (primary) hypertension; E86.0 Dehydration; D64.89 Other specified anemias